=== PATIENT | female | born 1940 | race Caucasian/White ===

== ENCOUNTER 2018-06-27 09:25 | Emergency (ER) | payer OTHER ==
--- OUTSIDE RECORDS SUMMARY | 2018-06-27 09:27 | XMS REPORT | Clinical Summary ---
:1940 Author Organization [facility] Address [address] [place] [address] Care Team Providers Name Role Phone Asked, No Pcp Primary Care Provider Unavailable Allergies No Known Allergies Medications Medication Sig Dispensed Refills Start Date End Date Status predniSONE (DELTASONE) 5 Take 15 mg 0 Active mg tablet by mouth daily. hydroxychloroquine Take by 0 Active (PLAQUENIL) 200 mg mouth 2 tablet (two) times a day. estradiol (ESTRACE) 1 MG Take 1 mg 0 Active tablet by mouth daily. levothyroxine Take 100 0 Active (SYNTHROID, LEVOXYL) 100 mcg by mcg tablet mouth daily. cholecalciferol, vitamin Take 2,000 0 Active D3, (VITAMIN D3) 2,000 Units by unit capsule capsule mouth daily. acetaminophen (TYLENOL) Take 650 mg 0 Active 325 MG tablet by mouth every 6 (six) hours as needed for fever. ascorbic acid, vitamin Take 1,000 0 Active C, (VITAMIN C) 500 MG mg by mouth tablet daily. multivitamin (THERAGRAN) Take 1 0 Active tablet tablet by mouth daily. omega-3 acid ethyl Take 1 g by 0 Active esters (LOVAZA) 1 gram mouth 2 capsule (two) times a day. omeprazole (PriLOSEC) 20 Take 20 mg 0 Active MG capsule by mouth daily. Saccharomyces boulardii Take 250 mg 0 Active (FLORASTOR) 250 mg by mouth 2 capsule (two) times a day. docusate sodium (COLACE) Take 100 mg 0 Active 100 MG capsule by mouth daily. PREMARIN 0.625 mg tablet 0 06/17/2017 Active LORAZepam (ATIVAN) 1 MG 0 07/30/2017 Active tablet MYRBETRIQ 50 mg tablet 0 07/21/2017 Active extended release 24 hr nitrofurantoin, 0 05/30/2017 Active macrocrystal-monohydrate , (MACROBID) 100 MG capsule LORAZepam (ATIVAN) 0.5 Take 0.5 mg 0 Discontinued MG tablet by mouth 2 8 (two) times a day. Active Problems Problem Noted Date Chest pain 10/23/2016 Encounters Date Type Specialty Care Team Description 05/11/2018 Transcribe Orders Access Diaz Benz Fibrocystic breast MD Jeancarlos disease (FCBD), unspecified laterality (Primary Dx) 08/12/2017 Office Visit Gastroenterology Javier, Other constipation MD Junior (Primary Dx) after 06/26/2017 Family History Medical History Relation Name Comments Diabetes Brother Heart disease Brother Diabetes Father Heart disease Father Heart disease Paternal Grandmother Relation Name Status Comments Brother (Age 52) Father Paternal Grandmother Social History Tobacco Use Types Packs/Day Years Used Date Never Smoker Smokeless Tobacco: Never Used Tobacco Cessation: Counseling Given: No Alcohol Use Drinks/Week oz/Week Comments No Sex Assigned at Date Recorded Not on file Job Start Date Occupation Industry Not on file Not on file Not on file Travel History Travel Start Travel End No recent travel history available. Last Filed Vital Signs Vital Sign Reading Time Taken Blood Pressure 134/67 08/12/2017 2:21 PM CHECK WRITER Pulse 85 08/12/2017 2:21 PM CHECK WRITER Temperature 36.4 C (97.6 F) 08/12/2017 2:21 PM CHECK WRITER Respiratory Rate - - Oxygen Saturation - - Inhaled Oxygen Concentration - - Weight 75.8 kg (167 lb) 08/12/2017 2:21 PM CHECK WRITER Height 157.5 cm (5' 2") 08/12/2017 2:21 PM CHECK WRITER Body Mass Index 30.54 08/12/2017 2:21 PM CHECK WRITER Plan of Treatment Date Type Specialty Care Team Description 06/30/2018 Appointment Radiology Diaz Benz MD [address] [facility] [address] [place] [address] Health Maintenance Due Date Last Done Comments SHINGLES VACCINES (1 of 2) 1991 PNEUMOCOCCAL POLYSACCHARIDE VACCINE AGE 65 AND OVER 2006 PNEUMOCOCCAL-13 2006 INFLUENZA VACCINE 01/14/2018 Results Not on fileafter 06/26/2017 Insurance Payer Benefit Plan / Group Subscriber ID Type Phone Address MEDICARE MEDICARE PART A AND B xxxxxxxxxx Medicare [place], [place] SECURE [employer] SUPP xxxxxxxxx Commercial Advance Directives Patient has advance care planning documents on file. For more information, please contact:Jones Krueger[address] [place] [address]
--- NOTE | 2018-06-27 11:03 | ER ---
Nurse's Notes [facility] Name: Theresa Mancera Age: 78 yrs Sex: Female : 1940 Arrival Date: 06/27/2018 Time: 09:28 Bed 15 Private MD: Diagnosis: Abrasion of left forearm Presentation: 06/27 10:05 Presenting complaint: Patient states: small skin tear to L forearm that occurred this ss morning while doing laundry. No bleeding noted at this time. Transition of care: patient was not received from another setting of care. Onset of symptoms was June 27, 2018. Risk Assessment: Do you want to hurt yourself or someone else? Patient reports no desire to harm self or others. Initial Sepsis Screen: Does the patient meet any 2 criteria? No. Patient's initial sepsis screen is negative. Does the patient have a suspected source of infection? No. Patient's initial sepsis screen is negative. Care prior to arrival: None. 10:05 Method Of Arrival: Ambulatory ss 10:05 Acuity: RADHA 5 ss Historical: - Allergies: 10:07 No Known Allergies; ss - Home Meds: 10:10 Clonazepam Oral [Active]; Plaquenil Oral [Active]; Prednisone Oral [Active]; rb1 - PMHx: 10:07 Lupus; ss - PSHx: 10:07 Cholecystectomy; "stomach realignment"; breast reduction; hysterectomy; cataract; ss - Immunization history:: Last tetanus immunization: up to date < 10 years ago. - Social history:: Smoking status: Patient/guardian denies using tobacco. - Ebola Screening: : Patient denies exposure to infectious person Patient denies travel to an Ebola-affected area in the 21 days before illness onset. Screenin:10 Abuse screen: Denies threats or abuse. Nutritional screening: No deficits noted. rb1 Tuberculosis screening: No symptoms or risk factors identified. Fall Risk None identified. Assessment: 10:10 General: Appears in no apparent distress. comfortable, Behavior is calm, cooperative. rb1 Pain: Denies pain. Neuro: Level of Consciousness is awake, alert, obeys commands, Oriented to person, place, time, situation. Cardiovascular: Capillary refill < 3 seconds is brisk in bilateral fingers. Respiratory: Airway is patent Respiratory effort is even, unlabored, Respiratory pattern is regular, symmetrical. GI: No signs and/or symptoms were reported involving the gastrointestinal system. : No signs and/or symptoms were reported regarding the genitourinary system. Derm: Skin is pink, warm \\T\\ dry. Reports "I was picking up a laundry basket and hit the bracket on the door and it tore the skin on my arm. I bruise real easy.". Musculoskeletal: Range of motion: intact in all extremities. 11:10 Reassessment: Patient appears in no apparent distress at this time. No changes from rb1 previously documented assessment. Patient denies pain at this time. Vital Signs: 10:07 BP 129 / 64; Pulse 57; Resp 16; Temp 98.0(TE); Pulse Ox 100% ; Weight 73.94 kg; Height ss 5 ft. 2 in. (157.48 cm); Pain 0/10; 10:07 Body Mass Index 29.81 (73.94 kg, 157.48 cm) ED Course: 09:28 Patient arrived in ED. as 10:06 Triage completed. ss 10:07 Arm band placed on right wrist. ss 10:10 Patient has correct armband on for positive identification. Bed in low position. Call rb1 light in reach. Side rails up X 1. Pulse ox on. NIBP on. 10:13 [facility]-C [facility] kb 10:13 Steven Washington MD is Attending Physician. kb 10:20 Teetee Shaffer, RN is Primary Nurse. rb1 10:51 Wound care: cleaned wound with normal saline and chlorhexidine. Dressed wound with dh3 steri-strips, non-adherent gauze and a Tegaderm. 11:34 No provider procedures requiring assistance completed. Patient did not have IV access rb1 during this emergency room visit. Administered Medications: No medications were administered Outcome: 11:02 Discharge ordered by . kb 11:34 Patient left the ED. rb1 11:34 Discharged to home ambulatory, with significant other. rb1 11:34 Condition: stable 11:34 Discharge instructions given to patient, Instructed on discharge instructions, follow up and referral plans. Demonstrated understanding of instructions, follow-up care, Prescriptions given X none Signatures: Emily Hansen FNP-C FNP-Ckb Martinez, Amelia as Smirch, Shelby, RN RN Teetee Shaffer, SNEHA RN rb1 Jenise Blancas 3 Corrections: (The following items were deleted from the chart) 11:47 11:44 Patient left the ED. rb1 rb1
--- NOTE | 2018-06-27 11:03 | EDPHYS ---
Physician Documentation [facility] Name: Theresa Mancera Age: 78 yrs Sex: Female : 1940 Arrival Date: 06/27/2018 Time: 09:28 Bed 15 Private MD: ED Physician Steven Washington HPI: 06/27 10:52 This 78 yrs old Female presents to ER via Ambulatory with complaints of Skin kb Tear(s). 10:52 The patient has a laceration related to: hitting arm on door occurred at home, and kb there are no complicating factors. The injury was accidental. The laceration(s) is(are) located on the left forearm. Onset: The symptoms/episode began/occurred just prior to arrival. Associated signs and symptoms: The patient has no apparent associated signs or symptoms. The patient has not experienced similar symptoms in the past. The patient has not recently seen a physician. Pt states she was walking through a door and hit her arm on the threshold causing quarter sized skin tear. Historical: - Allergies: 10:07 No Known Allergies; ss - Home Meds: 10:10 Clonazepam Oral [Active]; Plaquenil Oral [Active]; Prednisone Oral [Active]; rb1 - PMHx: 10:07 Lupus; ss - PSHx: 10:07 Cholecystectomy; "stomach realignment"; breast reduction; hysterectomy; cataract; ss - Immunization history:: Last tetanus immunization: up to date < 10 years ago. - Social history:: Smoking status: Patient/guardian denies using tobacco. - Ebola Screening: : Patient denies exposure to infectious person Patient denies travel to an Ebola-affected area in the 21 days before illness onset. ROS: 10:50 Constitutional: Negative for fever, chills, and weight loss, Cardiovascular: Negative kb for chest pain, palpitations, and edema, Respiratory: Negative for shortness of breath, cough, wheezing, and pleuritic chest pain, Abdomen/GI: Negative for abdominal pain, nausea, vomiting, diarrhea, and constipation, MS/Extremity: Negative for injury and deformity, Neuro: Negative for headache, weakness, numbness, tingling, and seizure. 10:50 Skin: Positive for of the left forearm, skin tear. Exam: 10:50 Constitutional: This is a well developed, well nourished patient who is awake, alert, kb and in no acute distress. Head/Face: Normocephalic, atraumatic. Chest/axilla: Normal chest wall appearance and motion. Nontender with no deformity. No lesions are appreciated. Cardiovascular: Regular rate and rhythm with a normal S1 and S2. No gallops, murmurs, or rubs. Normal PMI, no JVD. No pulse deficits. Respiratory: Lungs have equal breath sounds bilaterally, clear to auscultation and percussion. No rales, rhonchi or wheezes noted. No increased work of breathing, no retractions or nasal flaring. Abdomen/GI: Soft, non-tender, with normal bowel sounds. No distension or tympany. No guarding or rebound. No evidence of tenderness throughout. MS/ Extremity: Pulses equal, no cyanosis. Neurovascular intact. Full, normal range of motion. Neuro: Awake and alert, GCS 15, oriented to person, place, time, and situation. Cranial nerves II-XII grossly intact. Motor strength 5/5 in all extremities. Sensory grossly intact. Cerebellar exam normal. Normal gait. 10:50 Skin: injury, skin tear to left forearm, size of quarter. Vital Signs: 10:07 BP 129 / 64; Pulse 57; Resp 16; Temp 98.0(TE); Pulse Ox 100% ; Weight 73.94 kg; Height ss 5 ft. 2 in. (157.48 cm); Pain 0/10; 10:07 Body Mass Index 29.81 (73.94 kg, 157.48 cm) ss MDM: 10:14 Patient medically screened. kb 10:52 Data reviewed: vital signs, nurses notes. Data interpreted: Pulse oximetry: on room air kb is 100 %. Interpretation: normal. 10:54 Counseling: I had a detailed discussion with the patient and/or guardian regarding: the kb historical points, exam findings, and any diagnostic results supporting the discharge/admit diagnosis, the need for outpatient follow up, a family practitioner, to return to the emergency department if symptoms worsen or persist or if there are any questions or concerns that arise at home. 06/27 10:26 Order name: Wound Care; Complete Time: 10:53 kb Administered Medications: No medications were administered Disposition: 17:26 Co-signature as Attending Physician, Steven Washington MD. Disposition: 06/27/18 11:02 Discharged to Home. Impression: Abrasion of left forearm. - Condition is Stable. - Discharge Instructions: Skin Tear Care, [id number]. - Medication Reconciliation Form, Thank You Letter, Antibiotic Education, Prescription Opioid Use form. - Follow up: Emergency Department; When: As needed; Reason: Worsening of condition. Follow up: Private Physician; When: 2 - 3 days; Reason: Recheck today's complaints, Continuance of care, Re-evaluation by your physician. Signatures: Emily Hansen FNP-C FNP-Gillian Patterson, RN RN ss Teetee Shaffer, RN RN rb1 Steven Washington MD MD gs Corrections: (The following items were deleted from the chart) 11:44 11:02 06/27/2018 11:02 Discharged to Home. Impression: Abrasion of left forearm. rb1 Condition is Stable. Forms are Medication Reconciliation Form, Thank You Letter, Antibiotic Education, Prescription Opioid Use. Follow up: Emergency Department; When: As needed; Reason: Worsening of condition. Follow up: Private Physician; When: 2 - 3 days; Reason: Recheck today's complaints, Continuance of care, Re-evaluation by your physician. kb
[2018-06-27 11:50] VITALS: BP 129/64; TEMP 98; O2SAT 100
== END 2018-06-27 11:44 | disposition home or self-care (01) ==
LOC: ER 09:25
DX: S50.812A Abrasion of left forearm, initial encounter (principal); W22.8XXA Striking against or struck by other objects, initial encounter; Y93.01 Activity, walking, marching and hiking; Y92.009 Unspecified place in unspecified non-institutional (private) residence as the place of occurrence of the external cause
CPT/HCPCS: 99283

== ENCOUNTER 2018-06-27 15:58 | Emergency (ER) | payer OTHER ==
--- OUTSIDE RECORDS SUMMARY | 2018-06-27 16:01 | XMS REPORT | Clinical Summary ---
:1940 Author Organization [facility] Address [address] [place] [address] Care Team Providers Name Role Phone Asked, [...] Taken Blood Pressure 134/67 08/12/2017 2:21 PM UI DEVELOPER Pulse 85 08/12/2017 2:21 PM UI DEVELOPER Temperature 36.4 C (97.6 F) 08/12/2017 2:21 PM UI DEVELOPER Respiratory Rate - - Oxygen Saturation - - Inhaled Oxygen Concentration - - Weight 75.8 kg (167 lb) 08/12/2017 2:21 PM UI DEVELOPER Height 157.5 cm (5' 2") 08/12/2017 2:21 PM UI DEVELOPER Body Mass Index 30.54 08/12/2017 2:21 PM UI DEVELOPER Plan of Treatment Date Type Specialty Care Team Description 06/30/2018 Appointment Radiology Diaz Benz MD [address] [facility] [address] [place] [address] Health Maintenance Due Date Last Done Comments SHINGLES VACCINES (1 of 2) 1991 PNEUMOCOCCAL POLYSACCHARIDE VACCINE AGE 65 AND OVER 2006 PNEUMOCOCCAL-13 2006 INFLUENZA VACCINE 01/14/2018 Results Not on fileafter 06/26/2017 Insurance Payer Benefit Plan / Group Subscriber ID Type Phone Address MEDICARE MEDICARE PART A AND B xxxxxxxxxx Medicare [place], [place] [employer] SUPP xxxxxxxxx Commercial Advance Directives Patient has advance care planning documents on file. For more information, please contact:Jones Krueger[address] [place] [address]
--- NOTE | 2018-06-27 16:31 | ER ---
Nurse's Notes [facility] Name: Theresa Mancera Age: 78 yrs Sex: Female : 1940 Arrival Date: 06/27/2018 Time: 16:00 Bed 13 Private MD: Diagnosis: Encounter for change or removal of nonsurgical wound dressing Presentation: 06/27 16:02 Presenting complaint: Patient states: was told to come back if her dressing started sv seeping through, pt was seen here this morning for a left forearm skin tear. Transition of care: patient was not received from another setting of care. Onset of symptoms was June 27, 2018. Care prior to arrival: None. 16:02 Method Of Arrival: Ambulatory sv 16:02 Acuity: RADHA 5 sv 16:10 Risk Assessment: Do you want to hurt yourself or someone else? Patient reports no rb1 desire to harm self or others. Initial Sepsis Screen: Does the patient meet any 2 criteria? No. Patient's initial sepsis screen is negative. Does the patient have a suspected source of infection? No. Patient's initial sepsis screen is negative. Triage Assessment: 16:02 General: Appears in no apparent distress. comfortable, Behavior is calm, cooperative, sv appropriate for age. Neuro: Level of Consciousness is awake, alert, obeys commands, Oriented to person, place, time, situation, Moves all extremities. Full function. Respiratory: Respiratory effort is even, unlabored, Respiratory pattern is regular, symmetrical. Derm: Skin is pink, warm \\T\\ dry. Pt has a dressing to the left forearm. Historical: - Allergies: 16:03 No Known Allergies; sv - Home Meds: 16:10 Clonazepam Oral [Active]; Plaquenil Oral [Active]; Prednisone Oral [Active]; rb1 - PMHx: 16:03 Lupus; sv - PSHx: 16:03 Cholecystectomy; "stomach realignment"; breast reduction; Hysterectomy; cataract; sv - Immunization history:: Adult Immunizations up to date, Last tetanus immunization: up to date. - Social history:: Smoking status: Patient/guardian denies using tobacco. - Ebola Screening: : Patient negative for fever greater than or equal to 101.5 degrees Fahrenheit, and additional compatible Ebola Virus Disease symptoms. Screenin:10 Abuse screen: Denies threats or abuse. Nutritional screening: No deficits noted. rb1 Tuberculosis screening: No symptoms or risk factors identified. Fall Risk None identified. Assessment: 16:10 General: Appears in no apparent distress. comfortable, Behavior is calm, cooperative. rb1 Pain: Denies pain. Neuro: Level of Consciousness is awake, alert, obeys commands, Oriented to person, place, time, situation. Cardiovascular: Capillary refill < 3 seconds is brisk in bilateral fingers. Respiratory: Airway is patent Respiratory effort is even, unlabored, Respiratory pattern is regular, symmetrical. GI: No signs and/or symptoms were reported involving the gastrointestinal system. : No signs and/or symptoms were reported regarding the genitourinary system. Derm: Skin is pink, warm \\T\\ dry. Pt. came back because her dressing was soiled and she thought she needed to come back here for it to be changed. Educated the pt. on how to do wound care at home. Musculoskeletal: Range of motion: intact in all extremities. 16:25 Reassessment: Patient appears in no apparent distress at this time. Changed the rb1 dressing on the left forearm. Applied a non-adherent pad covered with Tegaderm. No bleeding noted at this time. Pt. tolerated well. Vital Signs: 16:03 BP 145 / 69; Pulse 61; Resp 16; Temp 97.9(O); Pulse Ox 100% ; sv ED Course: 16:00 Patient arrived in ED. as 16:03 Triage completed. sv 16:04 Arm band placed on Patient placed in an exam room, on a stretcher. sv 16:05 Emily [facility]NP-C [facility]. kb 16:05 Steven Washington MD is Attending Physician. kb 16:10 Patient has correct armband on for positive identification. Bed in low position. Call rb1 light in reach. Side rails up X 1. Pulse ox on. NIBP on. 16:17 Wound care: replaced non-adherent gauze and Tegaderm to skin tear on left forearm. dh3 16:37 Teetee Shaffer, RN is Primary Nurse. rb1 16:45 No provider procedures requiring assistance completed. Patient did not have IV access rb1 during this emergency room visit. Administered Medications: No medications were administered Outcome: 16:31 Discharge ordered by . kb 16:45 Discharged to home ambulatory, with family. rb1 16:45 Condition: stable 16:45 Discharge instructions given to patient, Instructed on discharge instructions, follow up and referral plans. wound care, Demonstrated understanding of instructions, follow-up care, wound care, Prescriptions given X none 16:46 Patient left the ED. rb1 Signatures: Emily Hansen, JAY-C LOCKSMITH HELPER-Unique White, RN RN Brisa Mcbride Rebecca, RN RN rb1 Jenise Blancas 3
--- NOTE | 2018-06-27 16:31 | EDPHYS ---
Physician Documentation [facility] Name: Theresa Mancera Age: 78 yrs Sex: Female : 1940 Arrival Date: 06/27/2018 Time: 16:00 Bed 13 Private MD: ED Physician Steven Washington HPI: 06/27 16:32 This 78 yrs old Female presents to ER via Ambulatory with complaints of Wound kb Recheck. 16:32 Patient presents to ED for recheck of: skin tear. The affected area is on the left kb forearm. Previous treatment: The patient was initially treated on June 27, 2018, the care was rendered at [facility], Treatment type: The patient's original treatment included steri-strips . Outpatient prescription(s): The patient was given prescription(s) for nothing. Progress: The patient reports no change in. The patient has experienced similar episodes in the past. The patient has been recently seen at the [facility] Emergency Department, today, by me, for similar complaints. Pt states she came back because she noticed seeping on the bandage that was placed earlier. . Historical: - Allergies: 16:03 No Known Allergies; sv - Home Meds: 16:10 Clonazepam Oral [Active]; Plaquenil Oral [Active]; Prednisone Oral [Active]; rb1 - PMHx: 16:03 Lupus; sv - PSHx: 16:03 Cholecystectomy; "stomach realignment"; breast reduction; Hysterectomy; cataract; sv - Immunization history:: Adult Immunizations up to date, Last tetanus immunization: up to date. - Social history:: Smoking status: Patient/guardian denies using tobacco. - Ebola Screening: : Patient negative for fever greater than or equal to 101.5 degrees Fahrenheit, and additional compatible Ebola Virus Disease symptoms. ROS: 16:32 Constitutional: Negative for fever, chills, and weight loss, Cardiovascular: Negative kb for chest pain, palpitations, and edema, Respiratory: Negative for shortness of breath, cough, wheezing, and pleuritic chest pain, Abdomen/GI: Negative for abdominal pain, nausea, vomiting, diarrhea, and constipation, MS/Extremity: Negative for injury and deformity, Neuro: Negative for headache, weakness, numbness, tingling, and seizure. 16:32 Skin: Positive for skin tear. Exam: 16:32 Constitutional: This is a well developed, well nourished patient who is awake, alert, kb and in no acute distress. Head/Face: Normocephalic, atraumatic. Neck: Trachea midline, no thyromegaly or masses palpated, and no cervical lymphadenopathy. Supple, full range of motion without nuchal rigidity, or vertebral point tenderness. No Meningismus. Chest/axilla: Normal chest wall appearance and motion. Nontender with no deformity. No lesions are appreciated. Cardiovascular: Regular rate and rhythm with a normal S1 and S2. No gallops, murmurs, or rubs. Normal PMI, no JVD. No pulse deficits. Respiratory: Lungs have equal breath sounds bilaterally, clear to auscultation and percussion. No rales, rhonchi or wheezes noted. No increased work of breathing, no retractions or nasal flaring. Abdomen/GI: Soft, non-tender, with normal bowel sounds. No distension or tympany. No guarding or rebound. No evidence of tenderness throughout. MS/ Extremity: Pulses equal, no cyanosis. Neurovascular intact. Full, normal range of motion. Neuro: Awake and alert, GCS 15, oriented to person, place, time, and situation. Cranial nerves II-XII grossly intact. Motor strength 5/5 in all extremities. Sensory grossly intact. Cerebellar exam normal. Normal gait. 16:32 Skin: injury, skin tear to left forearm. soiled dressing removed, steri-strips still in place, no active bleeding noted. New dressing applied. Vital Signs: 16:03 BP 145 / 69; Pulse 61; Resp 16; Temp 97.9(O); Pulse Ox 100% ; sv MDM: 16:05 Patient medically screened. kb 16:35 Data reviewed: vital signs, nurses notes. Data interpreted: Pulse oximetry: on room air kb is 100 %. Interpretation: normal. Counseling: I had a detailed discussion with the patient and/or guardian regarding: the historical points, exam findings, and any diagnostic results supporting the discharge/admit diagnosis, the need for outpatient follow up, a family practitioner, to return to the emergency department if symptoms worsen or persist or if there are any questions or concerns that arise at home. Administered Medications: No medications were administered Disposition: 17:32 Co-signature as Attending Physician, Steven Washington MD. Disposition: 06/27/18 16:31 Discharged to Home. Impression: Encounter for change or removal of nonsurgical wound dressing. - Condition is Stable. - Discharge Instructions: Skin Tear Care, [id number], How to Change Your Dressing, [id number]. - Medication Reconciliation Form, Thank You Letter, Antibiotic Education, Prescription Opioid Use form. - Follow up: Emergency Department; When: As needed; Reason: Worsening of condition. Follow up: Private Physician; When: 2 - 3 days; Reason: Recheck today's complaints, Continuance of care, Re-evaluation by your physician. Signatures: Emily Hansen, MOLDING SUPERVISOR-C MOLDING SUPERVISOR-Ckb Unique Blackwell, RN RN Teetee Morley RN RN rb1 Steven Washington MD MD Corrections: (The following items were deleted from the chart) 16:46 16:31 06/27/2018 16:31 Discharged to Home. Impression: Encounter for change or removal rb1 of nonsurgical wound dressing. Condition is Stable. Forms are Medication Reconciliation Form, Thank You Letter, Antibiotic Education, Prescription Opioid Use. Follow up: Emergency Department; When: As needed; Reason: Worsening of condition. Follow up: Private Physician; When: 2 - 3 days; Reason: Recheck today's complaints, Continuance of care, Re-evaluation by your physician. kb
[2018-06-27 16:58] VITALS: BP 145/69; TEMP 97.9; O2SAT 100
== END 2018-06-27 16:46 | disposition home or self-care (01) ==
LOC: ER 15:58
DX: Z48.00 Encounter for change or removal of nonsurgical wound dressing (principal)
CPT/HCPCS: 99283

== ENCOUNTER 2019-05-18 17:52 | Observation (INO) | payer OTHER ==
[2019-05-18] MEDS ORDERED: ONDANSETRON 4 MG/2 ML VIAL ONE ×2 (18:59→19:34)
[2019-05-18] MEDS ORDERED: MORPHINE 2 MG/ML SYR ONE (18:59)
[2019-05-18 19:01] LABS: Absolute Lymphocytes (CBC) 3.9 K/uL (0.7-4.9); Basophils % 0.7 % (0-1.3); Hematocrit 39.4 % (36.0-45.0); Lymphocytes % 34.4 % (15.3-44.8); MPV 8.2 fL (7.6-11.3); RBC Red Blood Cell Count 3.93 M/uL (3.86-4.86)
--- NOTE | 2019-05-18 19:24 | RAD REPORT ---
EXAM DESCRIPTION: RAD - Forearm Right - 05/18/2019 7:16 pm CLINICAL HISTORY: Right arm pain status post fall FINDINGS: Bracelets overlie the distal forearm obscuring detail No fracture is seen.
--- NOTE | 2019-05-18 19:27 | RAD REPORT ---
EXAM DESCRIPTION: RAD - Hand Right 3 View - 05/18/2019 7:19 pm CLINICAL HISTORY: Right hand pain status post injury FINDINGS: The bones are osteoporotic The second distal phalanx is subluxed laterally. This could be acute or chronic and should correlated clinically There is marked narrowing of the second DIP joint with osteophytes. No fracture
[2019-05-18 19:34] LABS: Albumin 3.6 g/dL (3.4-5.0); Bilirubin Total 0.4 mg/dL (0.2-1.0); Potassium 4.1 mmol/L (3.5-5.1); Protein, Total 6.9 g/dL (6.4-8.2)
--- NOTE | 2019-05-18 20:32 | RAD REPORT ---
EXAM DESCRIPTION: CT - Head C Spine Cap Joelle Kovacs - 05/18/2019 8:15 pm CLINICAL HISTORY: Head and neck injury with chest and abdominal pain status post fall. Head and neck pain . TECHNIQUE: Computed axial tomography of the head and cervical spine was obtained Computed axial tomography of the chest, abdomen and pelvis was obtained. 100 cc Isovue-300 was given intravenously coronal and sagittal reconstruction was performed. All CT scans are performed using dose optimization technique as appropriate and may include automated exposure control or mA/KV adjustment according to patient size. FINDINGS: An intracranial bleed is not seen. The ventricles are normal in caliber. An extra-axial fl uid collection is not noted. A right frontal scalp/right preseptal swelling. Fractures involve the anterior and posterolateral riggs of the right maxillary sinus. Mildly depresse d right orbital floor fracture. Blood is present within the right maxillary sinus. A cervical fracture is not seen. No dislocation is seen. A mediastinal hematoma is not noted. A pleural effusion is not present. A lung contusion is not seen. The liver, spleen, pancreas, adrenals, kidneys and bladder do not demonstrate a traumatic injury. Left renal cysts IMPRESSION: 1. No acute intracranial abnormality is seen 2. A cervical fracture is not visualized. If the patient continues have symptoms to suggest intracran ial/spinal cord pathology then MRI would be recommended. 3. No traumatic injury involving the chest, abdomen or pelvis is seen. 4.Fractures involve the anterior and posterolateral riggs of the right maxillary sinus. Mildly depres sed right orbital floor fracture.
[2019-05-18] MEDS ORDERED: LIDOCAINE 1% MPF 30 ML VIAL ONE (21:26)
--- NOTE | 2019-05-18 22:01 | ER ---
Nurse's Notes [facility] Name: Theresa Mancera Age: 79 yrs Sex: Female : 1940 Arrival Date: 05/18/2019 Time: 17:59 Bed 2 Private MD: Diagnosis: Fracture of orbital floor;Hand Laceration;Unspecified injury of head Presentation: 05/18 17:59 Presenting complaint: EMS states: pt was walking on concrete when she lost her footing sg and fell forward, hitting her forehead on the ground and landing on the right side of her body, pt denies LOC, reports pain to the right arm and right side of head. Care prior to arrival: Cervical collar in place. Placed on backboard. Medication(s) given: zofran 4 mg, Nubane 4 mg IV initiated. 20 GA, in the left antecubital area. Mechanism of Injury: Fall from standing position. Trauma event details: Injury occurred in the [facility], Injury occurred: at home. Injury occurred: May 18, 2019. 17:59 Acuity: RADHA 3 sg 17:59 Method Of Arrival: EMS: [facility] sg 19:46 Onset of symptoms. Risk Assessment: Do you want to hurt yourself or someone else? ea Patient reports no desire to harm self or others. Initial Sepsis Screen: Does the patient meet any 2 criteria? No. Patient's initial sepsis screen is negative. Does the patient have a suspected source of infection? No. Patient's initial sepsis screen is negative. Trauma Activation: Not Applicable Physician: ED Physician; Name: ; Notified At: ; Arrived At: Physician: General Surgeon; Name: ; Notified At: ; Arrived At: Physician: Radiology; Name: ; Notified At: ; Arrived At: Physician: Respiratory; Name: ; Notified At: ; Arrived At: Physician: Lab; Name: ; Notified At: ; Arrived At: Historical: - Allergies: 18:03 No Known Allergies; sg - PMHx: 18:03 Lupus; sg - PSHx: 18:03 Cholecystectomy; "stomach realignment"; breast reduction; Hysterectomy; cataract; sg - Immunization history:: Adult Immunizations up to date. - Social history:: Smoking status: Patient/guardian denies using tobacco. - Immunization history: Last tetanus immunization: unknown. - Ebola Screening: : No symptoms or risks identified at this time. Screenin:59 Abuse screen: Denies threats or abuse. Denies injuries from another. Tuberculosis sg screening: No symptoms or risk factors identified. Has had TB. 19:47 Nutritional screening: No deficits noted. Fall Risk Fall in past 12 months (25 points). ea IV access (20 points). Primary Survey: 17:59 NO uncontrolled hemorrhage observed. A: The patient is alert. Airway: patent, Oral sg cavity: clear, Trachea midline. Breathing/Chest: Respiratory pattern: regular, Respiratory effort: spontaneous. Circulation: Heart tones present. Pulses: palpable right radial artery, right posterior tibial artery, left radial artery and left posterior tibial artery. Skin color: pink, Skin temperature: warm. Disability Alert. Exposure/Environment: All clothing and personal items were removed. Forensic evidence collection is not deemed to be indicated at this time. Items placed in patient belonging bag. There is no evidence of uncontrolled external bleeding. Obvious injury(ies) are noted at this time: right upper arm, right side of face A warming method has been applied: A warm blanket has been provided to the patient. 19:46 Reassessment Airway Airway Patent Breathing/Chest Respiratory pattern Regular ea Respiratory effort Spontaneous Unlabored. Secondary Survey: 17:59 HEENT: Head Other swelling and bruising to the right eye and right forehead. sg Gastrointestinal: Abdomen is soft, non-distended, Patient reports Nausea. : No signs and/or symptoms were reported regarding the genitourinary system. Musculoskeletal: Circulation, motion, and sensation intact. Reports pain in right arm. Assessment: 18:30 General: Appears in no apparent distress. well groomed, well developed, well nourished, sg Behavior is calm, cooperative, appropriate for age. Pain: Complains of pain in forehead, right eye and right arm Quality of pain is described as throbbing. Neuro: Level of Consciousness is awake, alert, obeys commands, Oriented to person, place, time, Speech is normal. Cardiovascular: Patient's skin is warm and dry. Chest pain is denied. Respiratory: Airway is patent Respiratory effort is even, unlabored, Respiratory pattern is regular, symmetrical. GI: Abdomen is round non-distended, Bowel sounds present X 4 quads. : No signs and/or symptoms were reported regarding the genitourinary system. EENT: Sclera/Cornea are clear in right eye and left eye Nares are clear bilaterally Oral mucosa is moist. Derm: Skin is pink, warm \\T\\ dry. Musculoskeletal: Circulation, motion, and sensation intact. Swelling present in right eye. 19:44 General: Appears in no apparent distress. Behavior is calm, cooperative, appropriate ea for age. Pain: Complains of pain in right eye. Neuro: Level of Consciousness is awake, alert, obeys commands, Oriented to person, place, time, Speech is normal, Facial symmetry appears normal. Cardiovascular: Patient's skin is warm and dry. Respiratory: Airway is patent Respiratory effort is even, unlabored, Respiratory pattern is regular, symmetrical. GI: Abdomen is non-distended. Derm: Skin is pink, warm \\T\\ dry. Injury Description: Abrasion sustained to right supraorbital ridge and dorsum of right hand Laceration sustained to medial aspect of right hand is jagged, 2.6 to 7.5 cm long, a small amount of bleeding noted at this time. 20:49 Reassessment: Patient and/or family updated on plan of care and expected duration. Pain ea level reassessed. Patient is alert, oriented x 3, equal unlabored respirations, skin warm/dry/pink. 21:50 Reassessment: Patient and/or family updated on plan of care and expected duration. Pain ea level reassessed. Patient is alert, oriented x 3, equal unlabored respirations, skin warm/dry/pink. 22:35 Reassessment: Patient and/or family updated on plan of care and expected duration. Pain ea level reassessed. Patient is alert, oriented x 3, equal unlabored respirations, skin warm/dry/pink. 05/19 00:48 Reassessment: Patient and/or family updated on plan of care and expected duration. Pain ea level reassessed. Patient is alert, oriented x 3, equal unlabored respirations, skin warm/dry/pink. Report called to Zohreh HOOVER. 01:04 Reassessment: Patient and/or family updated on plan of care and expected duration. Pain ea level reassessed. Patient is alert, oriented x 3, equal unlabored respirations, skin warm/dry/pink. Pt admitted to fourth floor via stretcher, per tech. Pt tolerating well. Accompanied by family. Vital Signs: 05/18 18:03 BP 176 / 68; Pulse 78; Resp 18; Temp 97; Pulse Ox 96% on R/A; Weight 102.06 kg; Height sg 5 ft. 9 in. (175.26 cm); Pain 3/10; 19:48 BP 140 / 66; Pulse 64; Resp 18; Temp 97.2; Pulse Ox 95% on R/A; ea 20:00 BP 135 / 66; Pulse 66; Resp 18; Pulse Ox 99% ; ea 21:00 BP 140 / 68; Pulse 70; Resp 18; Pulse Ox 99% on R/A; ea 23:41 BP 136 / 61; Pulse 69; Resp 18; Pulse Ox 97% on R/A; ea 05/19 00:30 BP 125 / 58; Pulse 62; Resp 18; Temp 97.4; Pulse Ox 97% on R/A; Pain 0/10; ea 01:00 BP 113 / 45; Pulse 62; Resp 18; Temp 97.6(TE); Pulse Ox 95% ; Pain 0/10; ea 05/18 18:03 Body Mass Index 33.23 (102.06 kg, 175.26 cm) sg [place] Coma Score: 05/18 18:03 Eye Response: spontaneous(4). Verbal Response: oriented(5). Motor Response: obeys sg commands(6). Total: 15. 19:48 Eye Response: spontaneous(4). Verbal Response: oriented(5). Motor Response: obeys ea commands(6). Total: 15. 20:00 Eye Response: spontaneous(4). Verbal Response: oriented(5). Motor Response: obeys ea commands(6). Total: 15. 21:00 Eye Response: spontaneous(4). Verbal Response: oriented(5). Motor Response: obeys ea commands(6). Total: 15. 23:41 Eye Response: spontaneous(4). Verbal Response: oriented(5). Motor Response: obeys ea commands(6). Total: 15. 04 00:30 Eye Response: spontaneous(4). Verbal Response: oriented(5). Motor Response: obeys ea commands(6). Total: 15. 01:00 Eye Response: spontaneous(4). Verbal Response: oriented(5). Motor Response: obeys ea commands(6). Total: 15. Trauma Score (Adult): 05/18 18:03 Eye Response: spontaneous(1); Verbal Response: oriented(1); Motor Response: obeys sg commands(2); Systolic BP: > 89 mm Hg(4); Respiratory Rate: 10 to 29 per min(4); [place] Score: 15; Trauma Score: 12 ED Course: 17:59 Patient arrived in ED. sg 18:00 Inserted saline lock: 20 gauge in left wrist, using aseptic technique. Flushed left sv with 5 ml normal saline wrist. 18:00 Patient has correct armband on for positive identification. Bed in low position. Call sg light in reach. Side rails up X2. 18:01 Triage completed. sg 18:01 Patient maintains SpO2 saturation greater than 95% on room air. Thermoregulation: warm sg blanket given to patient. 18:15 Reagan García PA is PHCP. jm 18:15 Jose Bower MD is Attending Physician. jmm 18:55 Junior Alonzo, SNEHA is Primary Nurse. sg 19:00 Arm band placed on. ea 19:05 X-ray(s) taken. sv 19:14 Forearm Right XRAY In Process Unspecified. EDMS 19:14 Hand Right 3 View XRAY In Process Unspecified. EDMS 20:15 CT Traumagram (Head C Spine CAP W Con) In Process Unspecified. EDMS 21:50 Assist provider with laceration repair on medial aspect of right hand that was between ea 2.6 to 7.5 cm using sutures. Set up tray. Dressed with Neosporin, Patient tolerated well. 22:15 IV discontinued, intact, bleeding controlled, No redness/swelling at site. Pressure ea dressing applied. 22:32 Carri Triplett MD is Hospitalizing Provider. jmm 23:47 Accessed peripheral vein via ultrasound, utilizing dynamic ultrasound technique using lp1 ,sterile technique, per hospital protocol. Clean \\T\\ dry. Good blood return. Flushes easily. 22 g IV to R AC. Administered Medications: 19:20 Drug: morphine 2 mg Route: IVP; Site: left forearm; sg 20:00 Follow up: Response: No adverse reaction ea 19:20 Drug: Zofran 4 mg Route: IVP; Site: left forearm; sg 20:00 Follow up: Response: No adverse reaction ea 19:43 Drug: Zofran 4 mg Route: IVP; Site: left hand; ea 23:24 Follow up: Response: No adverse reaction; Nausea is decreased ea 21:50 Drug: Lidocaine (1 %) 20 ml {Note: administered by provider.} Volume: 20 ml; Route: ea Infiltration; 22:40 Drug: Promethazine 12.5 mg Route: IM; Site: right deltoid; ea 23:24 Follow up: Response: No adverse reaction; Nausea is decreased ea Intake: 18:03 PO: 0ml; Total: 0ml. sg Outcome: 22:01 Discharge ordered by MD. petra 22:33 Decision to Hospitalize by Provider. petra 23:00 Instructed on the need for admit. ea 05/19 00:46 Condition: stable ea 00:47 Admitted to Med/surg accompanied by tech, room 403, Report called to Elodia HOOVER ea 01:04 Pt admitted to fourth floorPatient's length of stay extended due to ea 01:07 Patient left the ED. ea Signatures: Dispatcher [employer] Unique Tamez, RN SNEHA Junior Alonzo RN SNEHA Reagan García PA PA jmm Pena, Laura, RN RN lp1 Sena Murray RN RN ea Corrections: (The following items were deleted from the chart) 05/18 18:02 17:59 Care prior to arrival: None. [facility] 18:02 17:59 Trauma event details: Injury occurred in the [facility], Injury occurred: sg at home. Injury occurred: May 18, 2019 sg 22:19 21:50 Lidocaine (1 %) 20 ml 20 ml Infiltration 20 ml ea ea 23:05 19:44 Injury Description: Abrasion sustained to right supraorbital ridge and dorsum of ea right hand ea
--- NOTE | 2019-05-18 22:02 | EDPHYS ---
Physician Documentation [facility] Name: Theresa Mancera Age: 79 yrs Sex: Female : 1940 Arrival Date: 05/18/2019 Time: 17:59 Bed 2 Private MD: ED Physician Jose Bower HPI: 05/18 18:16 This 79 yrs old Female presents to ER via EMS with complaints of Fall Injury. jmm 18:16 Details of fall: The patient fell from an upright position. Onset: The symptoms/episode jmm began/occurred acutely, just prior to arrival. Associated injuries: The patient sustained injury to the head. This is a 79 year old female with a history of lupus that presents to the ED with complaints of right sided facial pain and right sided pain beginning after a fall which occurred just prior to arrival. Patient tripped while walking into her house. Denies LOC, vomiting. . Historical: - Allergies: 18:03 No Known Allergies; sg - PMHx: 18:03 Lupus; sg - PSHx: 18:03 Cholecystectomy; "stomach realignment"; breast reduction; Hysterectomy; cataract; sg - Immunization history:: Adult Immunizations up to date. - Social history:: Smoking status: Patient/guardian denies using tobacco. - Immunization history: Last tetanus immunization: unknown. - Ebola Screening: : No symptoms or risks identified at this time. ROS: 18:16 Constitutional: Negative for fever, chills, and weight loss, Cardiovascular: Negative jmm for chest pain, palpitations, and edema, Respiratory: Negative for shortness of breath, cough, wheezing, and pleuritic chest pain. 18:16 MS/extremity: Positive for pain. 18:16 All other systems are negative. Exam: 18:16 Constitutional: This is a well developed, well nourished patient who is awake, alert, jmm and in no acute distress. 18:16 ENT: Moist Mucus Membranes Neck: Trachea midline, Supple Chest/axilla: Normal chest wall appearance and motion. Cardiovascular: Regular rate and rhythm. No edema appreciated Respiratory: Normal respirations, no respiratory distress appreciated Abdomen/GI: Non distended, soft Back: Normal ROM Skin: General appearance color normal 18:16 Head/face: Noted is hematoma, that is moderate, of the right eye, raccoon eye(s), on the right. 18:16 Eyes: Extraocular movements: intact throughout, Conjunctiva: normal. 18:16 Musculoskeletal/extremity: from appreciated to the RUE, laceration noted to the right lateral hand, mild bony tenderness appreciated to the distal forearm, full radial pulse, compartments are soft, NVI. 18:16 Skin: 3 cm laceration noted to the right hand. 18:16 Neuro: Orientation: is normal, Mentation: is normal, Memory: is normal. 18:16 Psych: Behavior/mood is pleasant, cooperative. Vital Signs: 18:03 BP 176 / 68; Pulse 78; Resp 18; Temp 97; Pulse Ox 96% on R/A; Weight 102.06 kg; Height sg 5 ft. 9 in. (175.26 cm); Pain 3/10; 19:48 BP 140 / 66; Pulse 64; Resp 18; Temp 97.2; Pulse Ox 95% on R/A; ea 20:00 BP 135 / 66; Pulse 66; Resp 18; Pulse Ox 99% ; ea 21:00 BP 140 / 68; Pulse 70; Resp 18; Pulse Ox 99% on R/A; ea 23:41 BP 136 / 61; Pulse 69; Resp 18; Pulse Ox 97% on R/A; ea 1204 00:30 BP 125 / 58; Pulse 62; Resp 18; Temp 97.4; Pulse Ox 97% on R/A; Pain 0/10; ea 01:00 BP 113 / 45; Pulse 62; Resp 18; Temp 97.6(TE); Pulse Ox 95% ; Pain 0/10; ea 05/18 18:03 Body Mass Index 33.23 (102.06 kg, 175.26 cm) Minturn Coma Score: 05/18 18:03 Eye Response: spontaneous(4). Verbal Response: oriented(5). Motor Response: obeys sg commands(6). Total: 15. 19:48 Eye Response: spontaneous(4). Verbal Response: oriented(5). Motor Response: obeys ea commands(6). Total: 15. 20:00 Eye Response: spontaneous(4). Verbal Response: oriented(5). Motor Response: obeys ea commands(6). Total: 15. 21:00 Eye Response: spontaneous(4). Verbal Response: oriented(5). Motor Response: obeys ea commands(6). Total: 15. 23:41 Eye Response: spontaneous(4). Verbal Response: oriented(5). Motor Response: obeys ea commands(6). Total: 15. 04 00:30 Eye Response: spontaneous(4). Verbal Response: oriented(5). Motor Response: obeys ea commands(6). Total: 15. 01:00 Eye Response: spontaneous(4). Verbal Response: oriented(5). Motor Response: obeys ea commands(6). Total: 15. Trauma Score (Adult): 05/18 18:03 Eye Response: spontaneous(1); Verbal Response: oriented(1); Motor Response: obeys sg commands(2); Systolic BP: > 89 mm Hg(4); Respiratory Rate: 10 to 29 per min(4); Minturn Score: 15; Trauma Score: 12 Laceration: 21:58 Wound Repair of 3cm ( 1.2in ) subcutaneous laceration to right hand. Distal jmm neuro/vascular/tendon intact. Anesthesia: Local anesthetic administered with 3 mls of 1% lidocaine. Wound prep: Simple cleansing with betadine by me. Skin closed with 6 5-0 Prolene using simple sutures and sterile technique. Patient tolerated well. MDM: 18:16 Patient medically screened. [facility] 21:58 Data reviewed: vital signs, nurses notes. Counseling: I had a detailed discussion with petra the patient and/or guardian regarding: the historical points, exam findings, and any diagnostic results supporting the discharge/admit diagnosis, radiology results, the need for outpatient follow up, to return to the emergency department if symptoms worsen or persist or if there are any questions or concerns that arise at home. ED course: CT imaging studies negative for intracranial injury. EOM intact, I do not suspect entrapment. Advised to follow up with ENT for reevaluation. patient understood and agrees with the plan of care. . 22:32 ED course: Patient continues to vomit. Will admit for intractable vomiting. I discussed [facility] the patient with Dr. Triplett whom accepted admission. 05/18 18:38 Order name: CBC with Diff; Complete Time: 19:42 [facility] 05/18 18:38 Order name: Creatinine for Radiology; Complete Time: 19:26 [facility] 05/18 18:38 Order name: CMP; Complete Time: 19:42 [facility] 05/18 23:52 Order name: CBC with Automated Diff EDND 05/18 23:52 Order name: CBC with Automated Diff EDND 05/18 23:52 Order name: CKMB Creatine Kinase MB EDND 05/18 23:52 Order name: CKMB Creatine Kinase MB EDND 05/18 23:52 Order name: Comprehensive Metabolic Panel EDND 05/18 23:52 Order name: Comprehensive Metabolic Panel [facility] 05/18 23:52 Order name: Creatine Phosphokinase EDND 05/18 23:52 Order name: Creatine Phosphokinase EDND 05/18 23:52 Order name: Protime (+INR) EDND 05/18 23:52 Order name: Protime (+INR) EDND 05/18 23:52 Order name: PTT, Activated Partial Thromb EDND 05/18 18:38 Order name: CT Traumagram (Head C Spine CAP W Con); Complete Time: 20:51 [facility] 05/18 18:38 Order name: Saline Lock; Complete Time: 19:44 [facility] 05/18 18:38 Order name: Forearm Right XRAY; Complete Time: 19:42 [facility] 05/18 18:38 Order name: Hand Right 3 View XRAY; Complete Time: 19:42 [facility] 05/18 23:52 Order name: CONS Pharmacy Consult [facility] 05/18 23:52 Order name: CONS Physician Consult [facility] 05/18 23:52 Order name: Heart Healthy [facility] 05/18 23:52 Order name: PTT, Activated Partial Thromb EDND 05/18 23:52 Order name: Troponin I [facility] 05/18 23:52 Order name: Troponin I EDND Administered Medications: 19:20 Drug: morphine 2 mg Route: IVP; Site: left forearm; sg 20:00 Follow up: Response: No adverse reaction ea 19:20 Drug: Zofran 4 mg Route: IVP; Site: left forearm; sg 20:00 Follow up: Response: No adverse reaction ea 19:43 Drug: Zofran 4 mg Route: IVP; Site: left hand; ea 23:24 Follow up: Response: No adverse reaction; Nausea is decreased ea 21:50 Drug: Lidocaine (1 %) 20 ml {Note: administered by provider.} Volume: 20 ml; Route: ea Infiltration; 22:40 Drug: Promethazine 12.5 mg Route: IM; Site: right deltoid; ea 23:24 Follow up: Response: No adverse reaction; Nausea is decreased ea Disposition: 05/19 07:55 Co-signature as Attending Physician, Jose Bower MD I agree with the assessment and bobby plan of care. Disposition: 05/18/19 22:33 Hospitalization ordered by Carri Triplett for Observation. Preliminary diagnosis are Fracture of orbital floor, Hand Laceration, Unspecified injury of head. - Bed requested for Telemetry/MedSurg (observation). - Status is Observation. ea - Condition is Stable. - Problem is new. - Symptoms are unchanged. UTI on Admission? No Signatures: Dispatcher [employer] EDMS Junior Alonzo RN RN sg Anderson, Corey, MD MD cha Mickail, Joel, PA PA Thelma Barger RN RN tl1 Sena Murray RN RN ea Corrections: (The following items were deleted from the chart) 05/18 22:29 22:01 05/18/2019 22:01 Discharged to Home. Impression: Unspecified injury of head; [facility] Fracture of orbital floor. Condition is Stable. Forms are Medication Reconciliation Form, Thank You Letter, Antibiotic Education, Prescription Opioid Use. Follow up: Private Physician; When: 7 - 10 days; Reason: Recheck today's complaints, Continuance of care, Staple/Suture removal, Re-evaluation by your physician. [facility] 05/19 00:06 05/18 22:33 Hospitalization Ordered by Carri Triplett MD for Observation. Preliminary tl1 diagnosis is Fracture of orbital floor; Hand Laceration; Unspecified injury of head. Bed requested for Telemetry/MedSurg (observation). Status is Observation. Condition is Stable. Problem is new. Symptoms are unchanged. UTI on Admission? No. [facility] 05/19 01:07 00:06 05/18/2019 22:33 Hospitalization Ordered by Carri Triplett MD for Observation. ea Preliminary diagnosis is Fracture of orbital floor; Hand Laceration; Unspecified injury of head. Bed requested for Telemetry/MedSurg (observation). Status is Observation. Condition is Stable. Problem is new. Symptoms are unchanged. UTI on Admission? No. tl1
[2019-05-18] MEDS ORDERED: PROMETHAZINE 25 MG/ML VIAL ONE (22:26)
[2019-05-18] MEDS ORDERED: NA CHLORIDE 0.9% 1,000 ML IV SCH (23:45)
[2019-05-18] MEDS ORDERED: MORPHINE 4 MG/ML SYR IV PRN (23:49)
[2019-05-18] MEDS ORDERED: ONDANSETRON 4 MG/2 ML VIAL IV PRN (23:49)
[2019-05-19] MEDS ORDERED: CEFAZOLIN SODIUM 1 GM/VIAL ONE (01:04)
[2019-05-19] MEDS ORDERED: NA CHLORIDE 0.9% 100 ML IV ONE (01:05)
[2019-05-19] MEDS ORDERED: NA CHLORIDE 0.9% 50 ML ONE (01:28)
[2019-05-19 01:43] VITALS: O2SAT 95
[2019-05-19 01:49] VITALS: BMI 30.7
[2019-05-19] MEDS: CEFAZOLIN/NS 1gm 1 GM/50 ML BAG IVPB SCH ×2 (01:55→06:06)
[2019-05-19] MEDS: ACETAMINOPHEN 500 MG TAB PO PRN ×3 (02:10→15:31)
[2019-05-19 04:34] LABS: Absolute Lymphocytes (CBC) 2.2 K/uL (0.7-4.9); Basophils % 1.4 % (0-1.3); Hematocrit 35.6 % (36.0-45.0); MPV 8.6 fL (7.6-11.3); RBC Red Blood Cell Count 3.56 M/uL (3.86-4.86)
[2019-05-19 05:03] LABS: ALT/SGPT 24 U/L (12-78); AST/SGOT 16 U/L (15-37); Albumin 3.1 g/dL (3.4-5.0); Alkaline Phosphatase 26 U/L (45-117); BUN Blood Urea Nitrogen 14 mg/dL (7-18); Bicarbonate 28 mmol/L (21-32); Bilirubin Total 0.4 mg/dL (0.2-1.0); CKMB Creatine Kinase MB 2.9 ng/mL (0.3-3.6); Creatine Phosphokinase 90 U/L (26-192); Glucose Level 117 mg/dL (74-106); Potassium 3.5 mmol/L (3.5-5.1); Sodium Level 142 mmol/L (136-145); Troponin I 0.05 ng/mL (0.0-0.045)
[2019-05-19 05:39] LABS: Protime INR 0.95
[2019-05-19 05:56] LABS: Urine Appearance CLOUDY; Urine Bilirubin NEGATIVE (NEG); Urine Blood TRACE (NEG); Urine Color YELLOW; Urine Glucose NEGATIVE (NEG); Urine Protein NEGATIVE (NEG); Urine Specific Gravity >=1.030 (1.005-1.030)
[2019-05-19 06:07] LABS: Urine Culture Reflex Order REFLEXED
[2019-05-19 06:09] LABS: Urine Bacteria >50 /HPF (<20); Urine RBC <5 /HPF (NONE SEEN)
[2019-05-19] MEDS ORDERED: PANTOPRAZOLE 40MG TABLET PO SCH (06:30)
[2019-05-19] MEDS ORDERED: MULTIVITAMIN TAB PO SCH (09:00)
[2019-05-19] MEDS ORDERED: LORAZEPAM 0.5 MG TABLET PO SCH (09:00)
[2019-05-19] MEDS ORDERED: LEVOTHYROXINE SOD 0.088 MG TAB PO SCH (09:00)
[2019-05-19] MEDS ORDERED: HYDROXYCHLOROQUINE 200MG TAB PO SCH (09:00)
[2019-05-19] MEDS: predniSONE 5 MG TAB PO SCH ×2 (10:01→15:31)
[2019-05-19] MEDS ORDERED: CEFAZOLIN/SWI 1gm 1 GM/10 ML SYR IV SCH (12:00)
--- NOTE | 2019-05-19 15:20 | P.HP ---
Certification for Inpatient Patient admitted to: Observation With expected LOS: <2 Midnights Patient will require the following post-hospital care: None Practitioner: I am a practitioner with admitting privileges, knowledge of patient current condition, hospital course, and medical plan of care. Services: Services provided to patient in accordance with Admission requirements found in Title 42 Section 412.3 of the Code of Federal Regulations Patient History Date of Service: 05/19/19 Reason for admission: Orbital fracture; status post fall History of Present Illness: Patient is a 71-year-old female came to the hospital after falling. She was come inside her house carrying a bag of groceries and a bottle wine when she tripped on her side walk. She fell face 1st onto the concrete floor. She suffered a fractures involving the anterior and posterolateral riggs of the right maxillary sinus. Mildly depressed right orbital floor fracture. Patient came to our hospital for further evaluation. Patient was in pain and the ER physician assistant county engineer wanted to observe her. We admitted her to the hospital for evaluation. Will Consult Ophthalmology for further recommendations. At this time we will plan to do a 24 hr observation and we well discharge patient tomorrow as long if she is medically stable and no signs of any additional abnormalities. Allergies No Known Allergies Allergy (Verified 05/19/19 01:32) Home Medications: Acetaminophen [Tylenol Arthritis] 1 tab PO QID PRN 12/14/11 Ascorbic Acid [Vitamin C] 1,000 mg PO BID 12/14/11 Cholecalciferol (Vitamin D3) [Vitamin D3] 2,000 unit PO DAILY 12/14/11 Estradiol 1 mg PO DAILY 12/14/11 Lorazepam 0.5 mg PO BID 12/14/11 Multivitamin [One Daily Multivitamin] 1 each PO DAILY 12/14/11 Prednisone 5 mg PO TID 12/14/11 Hydroxychloroquine [Plaquenil*] 1 tab PO DAILY 05/19/19 Levothyroxine [Synthroid*] 1 tab PO DAILY 05/19/19 Omeprazole 1 cap PO DAILY 05/19/19 - Past Medical/Surgical History Has patient received pneumonia vaccine in the past: Yes Diabetic: No -: Lupus -: Cholecystectomy -: Stomach re alignment -: breast reduction -: hysterectomy -: cataract surgery - Family History Father Medical History: Heart disease, Diabetes Mother Medical History: Cancer Notes: Colon Cancer Brother Medical History: Heart disease, Diabetes - Social History Smoking Status: Never smoker Alcohol use: Yes CD- Drugs: No Place of Residence: Home Review of Systems 10-point ROS is otherwise unremarkable Physical Examination - Vital Signs Temperature: 97.4 F Blood Pressure: 118/48 Pulse: 65 Respirations: 17 Pulse Ox (%): 99 - Physical Exam General: Alert, In no apparent distress, Oriented x3 HEENT: Atraumatic, PERRLA, Mucous membr. moist/pink, EOMI, Sclerae nonicteric Neck: Supple, 2+ carotid pulse no bruit, No LAD, Without JVD or thyroid abnormality Respiratory: Clear to auscultation bilaterally, Normal air movement Cardiovascular: Regular rate/rhythm, Normal S1 S2, No murmurs Gastrointestinal: Normal bowel sounds, Soft and benign, Non-distended, No tenderness Musculoskeletal: No clubbing, No swelling, No tenderness Integumentary: No rashes Neurological: Normal gait, Normal speech, Normal strength at 5/5 x4 extr, Normal tone, Sensation intact, Cranial nerves 3-12 intact, Normal affect Lymphatics: No axilla or inguinal lymphadenopathy - Studies Laboratory Data (last 24 hrs) 05/18/19 18:40: Sodium 143, Potassium 4.1, BUN 20 H, Creatinine 0.65, Glucose 116 H, Total Bilirubin 0.4, AST 26, ALT 28, Alkaline Phosphatase 32 L 05/18/19 18:40: Creatinine 0.68 05/18/19 18:40: WBC 11.2 H, Hgb 13.2, Hct 39.4, Plt Count 193 Assessment & Plan - Problems (Diagnosis) (1) Status post fall Current Visit: Yes Status: Acute (2) Orbital floor fracture Current Visit: Yes Status: Acute (3) Maxillary sinus fracture Current Visit: Yes Status: Acute (4) History of lupus Current Visit: Yes Status: Acute (5) History of immunosuppressive therapy Current Visit: Yes Status: Acute - Plan Plan: 1. Pain control 2. Antibiotic therapy 3. Continue with immunosuppressive therapy 4. Ophthalmology consultation 5. GI and DVT prophylaxis Discharge Plan: Home Plan to discharge in: 48 Hours - Advance Directives Does patient have a Living Will: Yes Does patient have a Durable POA for Healthcare: Yes - Code Status/Comfort Care Code Status Assessed: Yes Code Status: Full Code Critical Care: No Time Spent Managing PTS Care (In Minutes): 45
[2019-05-19 16:45] VITALS: BP 118/48; TEMP 97.4
--- NOTE | 2019-05-23 01:08 | P.DS ---
Discharge Date: 05/19/19 Disposition: ROUTINE DISCHARGE Discharge Condition: GOOD Reason for Admission: Orbital fracture; status post fall Consultations: Ophthamology Brief History of Present Illness: Patient is a 71-year-old female came to the hospital after falling. She was come inside her house carrying a bag of groceries and a bottle wine when she tripped on her side walk. She fell face 1st onto the concrete floor. She suffered a fractures involving the anterior and posterolateral riggs of the right maxillary sinus. Mildly depressed right orbital floor fracture. Patient came to our hospital for further evaluation. Patient was in pain and the ER physician volunteer assistant wanted to observe her. We admitted her to the hospital for evaluation. Will Consult Ophthalmology for further recommendations. At this time we will plan to do a 24 hr observation and we well discharge patient tomorrow as long if she is medically stable and no signs of any additional abnormalities. Hospital Course: Received note from Dr. Ma that patient was seen in her office on 2018. Vital Signs/Physical Exam: Temp Pulse Resp BP Pulse Ox 97.4 F 65 17 118/48 L 99 05/19/19 16:45 05/19/19 16:45 05/19/19 16:45 05/19/19 16:45 05/19/19 16:45 General: Alert, In no apparent distress, Oriented x3 Laboratory Data at Discharge: WBC 10.3 K/uL (4.3-10.9) 05/19/19 03:56 Hgb 12.0 g/dL (12.0-15.0) 05/19/19 03:56 Hct 35.6 % (36.0-45.0) L 05/19/19 03:56 Plt Count 171 K/uL (152-406) 05/19/19 03:56 PT 11.2 SECONDS (9.5-12.5) 05/19/19 05:24 INR 0.95 05/19/19 05:24 APTT 24.5 SECONDS (24.3-36.9) 05/19/19 05:24 Sodium 142 mmol/L (136-145) 05/19/19 03:56 Potassium 3.5 mmol/L (3.5-5.1) 05/19/19 03:56 BUN 14 mg/dL (7-18) 05/19/19 03:56 Creatinine 0.53 mg/dL (0.55-1.3) L 05/19/19 03:56 Glucose 117 mg/dL (74-106) H 05/19/19 03:56 Total Bilirubin 0.4 mg/dL (0.2-1.0) 05/19/19 03:56 AST 16 U/L (15-37) 05/19/19 03:56 ALT 24 U/L (12-78) 05/19/19 03:56 Alkaline Phosphatase 26 U/L (45-117) L 05/19/19 03:56 Troponin I 0.05 ng/mL (0.0-0.045) H 05/19/19 03:56 Home Medications: Acetaminophen [Tylenol Arthritis] 1 tab PO QID PRN 12/14/11 Ascorbic Acid [Vitamin C] 1,000 mg PO BID 12/14/11 Cholecalciferol (Vitamin D3) [Vitamin D3] 2,000 unit PO DAILY 12/14/11 Lorazepam 0.5 mg PO BID 12/14/11 Multivitamin [One-Daily Multi-Vitamin] 1 each PO DAILY 12/14/11 Prednisone 5 mg PO TID 12/14/11 estradioL [Estradiol] 1 mg PO DAILY 12/14/11 Cefdinir [Omnicef] 300 mg PO BID #10 capsule 05/19/19 Codeine/APAP [Tylenol W/Codeine #3 tab] 1 tab PO Q6HP PRN #30 tab 05/19/19 Hydroxychloroquine [Plaquenil*] 1 tab PO DAILY 05/19/19 Levothyroxine [Synthroid*] 1 tab PO DAILY 05/19/19 Omeprazole 1 cap PO DAILY 05/19/19 New Medications: Cefdinir [Omnicef] 300 mg PO BID #10 capsule Codeine/APAP [Tylenol W/Codeine #3 tab] 1 tab PO Q6HP PRN #30 tab PRN Reason: Pain Patient Discharge Instructions: OK TO DC IV AND DC HOME. FOLLOW-UP WITH PRIMARY CARE PROVIDER IN 1-2 WEEKS. FOLLOW-UP WITH DR. MA, OPHTHAMOLOGIST IN AM. RETURN TO THE ER IF SYMPTOMS WORSENS. CALL or TEXT DR. COSTELLO AT [phone] IF ANY QUESTIONS REGARDING HOSPITAL STAY. PLEASE CALL THE FLOOR AT [phone] IF ANY MEDICATION OR NURSING QUESTIONS. Diet: Regular Activity: Fall precautions Followup: ALONDRA DENT [OUTSIDE PHYSICIAN] - 1-2 Weeks (primary care physician- call to schedule an appointment ) Renea Ma MD [ACTIVE - CAN ADMIT] - 1 Day (Opthamologist- Call in am for an appointment on Friday05/20/19 ) Time spent managing pt's care (in minutes): 15
== END 2019-05-19 18:13 | disposition home or self-care (01) ==
LOC: ER 17:52 → 4TH 05-19 00:48
PROVIDERS: ADMIT Hospitalist; ATTEND Hospitalist
PROC: 0JQJ0ZZ Repair Right Hand Subcutaneous Tissue and Fascia, Open Approach (ICD-10-PCS; principal; 2019-05-18)
DX: S02.31XA Fracture of orbital floor, right side, initial encounter for closed fracture (principal); S02.40CA Maxillary fracture, right side, initial encounter for closed fracture; S61.411A Laceration without foreign body of right hand, initial encounter; W01.198A Fall on same level from slipping, tripping and stumbling with subsequent striking against other object, initial encounter; Y92.000 Kitchen of unspecified non-institutional (private) residence as the place of occurrence of the external cause; M32.9 Systemic lupus erythematosus, unspecified; Z79.899 Other long term (current) drug therapy
CPT/HCPCS: 87088; 85025 ×2; 81001; 87086; 36415; 82550; 85610; 85730; 87077; 87186; 84484; 82553; 80053 ×2; 70450; 72125; 71260; 74177; 73130; 73090; 96375; 96372; 96374; 99285; 12002; Q9967; J2550; J2270; J0690 ×2; J7030; J2405 ×2; G0378 ×2; J7512

== ENCOUNTER 2019-08-13 14:13 | Emergency (ER) | payer OTHER ==
[2019-08-13] MEDS ORDERED: LACTULOSE 20 GM/30 ML UCUP ONE ×2 (15:54→18:45)
[2019-08-13] MEDS ORDERED: NA CHLORIDE 0.9% 1,000 ML ONE (15:54)
[2019-08-13] MEDS ORDERED: BISACODYL 10 MG RECTAL SUPP ONE (15:54)
[2019-08-13 16:35] LABS: Absolute Lymphocytes (CBC) 1.6 K/uL (0.7-4.9); Basophils % 0.7 % (0-1.3); Lymphocytes % 10.8 % (15.3-44.8); MPV 7.9 fL (7.6-11.3); RBC Red Blood Cell Count 4.23 M/uL (3.86-4.86)
[2019-08-13 16:49] LABS: Albumin 3.5 g/dL (3.4-5.0); Bilirubin Direct 0.2 mg/dL (0-0.2); Bilirubin Total 0.5 mg/dL (0.2-1.0); Potassium 3.8 mmol/L (3.5-5.1); Protein, Total 7.6 g/dL (6.4-8.2)
[2019-08-13 17:52] LABS: Urine Blood TRACE (NEG); Urine Glucose NEGATIVE (NEG); Urine Protein NEGATIVE (NEG); Urine Specific Gravity 1.015 (1.005-1.030); Urine pH 5.5 (5.0-7.0)
--- NOTE | 2019-08-13 17:56 | RAD REPORT ---
EXAM DESCRIPTION: CT - Abdomen Pelvis Wo Contrast - 08/13/2019 5:37 pm CLINICAL HISTORY: Abdominal pain. ABD PAIN COMPARISON: CT-STONE PROTOCOL dated 02/19/2009 TECHNIQUE: CT imaging of the abdomen and pelvis was performed without contrast. Solid organ and vasc ular assessment is limited due to lack of IV contrast. All CT scans are performed using dose optimization technique as appropriate and may include automated exposure control or mA/KV adjustment according to patient size. FINDINGS: The lower lung bauman are clear.Small hiatal hernia is present. Cholecystectomy. The liver, spleen, pancreas, adrenal glands and kidneys are within normal limits for a limited non-co ntrast examination. No bowel obstruction, free air, free fluid or abscess. Moderate fecal retention is seen throughout th e colon. There is mild mucosal thickening of the rectosigmoid colon present. The appendix is not iden tified as a discrete structure, however, no secondary findings of appendicitis are identified. Moderate lower lumbar degenerative changes. IMPRESSION: Fecal retention throughout the colon with evidence of mild stercoral colitis of the rect osigmoid. A limited non-contrast examination was performed as detailed.
--- NOTE | 2019-08-13 18:37 | EDPHYS ---
Physician Documentation [facility] Name: Theresa Mancera Age: 79 yrs Sex: Female : 1940 Arrival Date: 08/13/2019 Time: 14:18 Bed 5 Private MD: ED Physician Jose Bower HPI: 08/13 15:37 This 79 yrs old Female presents to ER via Ambulatory with complaints of bobby Constipation. 15:37 The patient presents with abdominal pain in the upper abdomen, in the lower abdomen, bobby abdominal distention in the upper abdomen, in the lower abdomen. Onset: The symptoms/episode began/occurred 3 day(s) ago. The symptoms do not radiate. Associated signs and symptoms: none. Modifying factors: The symptoms are alleviated by nothing, the symptoms are aggravated by pressure. Severity of pain: At its worst the pain was mild moderate in the emergency department the pain is unchanged. The patient has not experienced similar symptoms in the past. Historical: - Allergies: 14:33 No Known Allergies; aa5 - PMHx: 14:33 Lupus; aa5 - PSHx: 14:33 Cholecystectomy; "stomach realignment"; breast reduction; Hysterectomy; cataract; aa5 - Immunization history:: Flu vaccine is up to date. - Social history:: Smoking status: Patient denies any tobacco usage or history of. ROS: 15:37 Constitutional: Negative for fever, chills, and weight loss, Eyes: Negative for injury, bobby pain, redness, and discharge, ENT: Negative for injury, pain, and discharge, Neck: Negative for injury, pain, and swelling, Cardiovascular: Negative for chest pain, palpitations, and edema, Respiratory: Negative for shortness of breath, cough, wheezing, and pleuritic chest pain, Back: Negative for injury and pain, : Negative for injury, bleeding, discharge, and swelling, MS/Extremity: Negative for injury and deformity, Skin: Negative for injury, rash, and discoloration, Neuro: Negative for headache, weakness, numbness, tingling, and seizure, Psych: Negative for depression, anxiety, suicide ideation, homicidal ideation, and hallucinations, Allergy/Immunology: Negative for hives, rash, and allergies, Endocrine: Negative for neck swelling, polydipsia, polyuria, polyphagia, and marked weight changes, Hematologic/Lymphatic: Negative for swollen nodes, abnormal bleeding, and unusual bruising. 15:37 Abdomen/GI: Positive for abdominal pain, of the right upper quadrant, left upper quadrant, right lower quadrant and left lower quadrant. Exam: 15:37 Constitutional: This is a well developed, well nourished patient who is awake, alert, bobby and in no acute distress. Head/Face: Normocephalic, atraumatic. Eyes: Pupils equal round and reactive to light, extra-ocular motions intact. Lids and lashes normal. Conjunctiva and sclera are non-icteric and not injected. Cornea within normal limits. Periorbital areas with no swelling, redness, or edema. ENT: Nares patent. No nasal discharge, no septal abnormalities noted. Tympanic membranes are normal and external auditory canals are clear. Oropharynx with no redness, swelling, or masses, exudates, or evidence of obstruction, uvula midline. Mucous membranes moist. Neck: Trachea midline, no thyromegaly or masses palpated, and no cervical lymphadenopathy. Supple, full range of motion without nuchal rigidity, or vertebral point tenderness. No Meningismus. Chest/axilla: Normal chest wall appearance and motion. Nontender with no deformity. No lesions are appreciated. Cardiovascular: Regular rate and rhythm with a normal S1 and S2. No gallops, murmurs, or rubs. Normal PMI, no JVD. No pulse deficits. Respiratory: Lungs have equal breath sounds bilaterally, clear to auscultation and percussion. No rales, rhonchi or wheezes noted. No increased work of breathing, no retractions or nasal flaring. Back: No spinal tenderness. No costovertebral tenderness. Full range of motion. Skin: Warm, dry with normal turgor. Normal color with no rashes, no lesions, and no evidence of cellulitis. MS/ Extremity: Pulses equal, no cyanosis. Neurovascular intact. Full, normal range of motion. Neuro: Awake and alert, GCS 15, oriented to person, place, time, and situation. Cranial nerves II-XII grossly intact. Motor strength 5/5 in all extremities. Sensory grossly intact. Cerebellar exam normal. Normal gait. Psych: Awake, alert, with orientation to person, place and time. Behavior, mood, and affect are within normal limits. 15:37 Abdomen/GI: Inspection: abdomen appears normal, Bowel sounds: normal, Palpation: moderate abdominal tenderness, in the right upper quadrant, left upper quadrant, right lower quadrant and left lower quadrant, Liver: no appreciated palpable abnormalities, Hernia: not appreciated. Vital Signs: 14:30 BP 122 / 73; Pulse 82; Resp 18 S; Temp 98.1(O); Pulse Ox 99% on R/A; Weight 73.48 kg aa5 (R); Height 5 ft. 2 in. (157.48 cm) (R); Pain 5/10; 15:30 BP 140 / 73; Pulse 75; Resp 17; Pulse Ox 96% ; ah 16:33 BP 131 / 65; Pulse 77; Resp 17; Pulse Ox 97% ; ah 17:00 BP 136 / 66; Pulse 79; Resp 18; Pulse Ox 96% ; sv 18:00 BP 125 / 73; Pulse 83; Resp 17; Pulse Ox 99% ; sv 20:00 BP 127 / 52; Pulse 70; Resp 18; Pulse Ox 96% on R/A; ea 14:30 Body Mass Index 29.63 (73.48 kg, 157.48 cm) aa5 MDM: 14:35 Patient medically screened. [facility] 15:42 Data reviewed: vital signs, nurses notes, lab test result(s), radiologic studies, CT bobby scan. 08/13 15:36 Order name: Basic Metabolic Panel; Complete Time: 18:34 [facility] 08/13 15:36 Order name: CBC with Diff; Complete Time: 18:34 [facility] 08/13 15:36 Order name: Creatinine for Radiology; Complete Time: 18:34 [facility] 08/13 15:36 Order name: Hepatic Function; Complete Time: 18:34 [facility] 08/13 15:36 Order name: Lipase; Complete Time: 18:34 [facility] 08/13 15:36 Order name: Urine Culture [facility] 08/13 15:46 Order name: Abdomen ; Complete Time: 18:34 EDMS 08/13 17:04 Order name: Urine Dipstick--Ancillary (enter results); Complete Time: 18:34 dh4 08/13 15:36 Order name: IV Saline Lock; Complete Time: 16:31 [facility] 08/13 15:36 Order name: Labs collected and sent; Complete Time: 16:31 [facility] 08/13 15:36 Order name: Urine Dipstick-Ancillary (obtain specimen); Complete Time: 18:58 [facility] 08/13 18:35 Order name: PO challenge; Complete Time: 19:04 [facility] Administered Medications: 15:05 Drug: Lactulose 30 grams Volume: 45 ml; Route: PO; 16:05 Follow up: Response: No adverse reaction 16:25 Drug: NS 0.9% 1000 ml Route: IV; Rate: 1 bolus; Site: right antecubital; 19:03 Follow up: Response: No adverse reaction; IV Intake: 1000ml 16:25 Drug: Dulcolax Suppository 10 mg Route: OK; 17:25 Follow up: Response: No adverse reaction 18:36 CANCELLED (Duplicate Order): Cipro 400 mg 200 ml IVPB once over 60 mins [facility] 18:50 Drug: Flagyl 500 mg Volume: 100 ml; Route: IVPB; Rate: 200 ml/hr; Infused Over: 30 ah mins; Site: right antecubital; 18:50 Drug: Lactulose 30 grams Volume: 45 ml; Route: PO; 21:00 Follow up: Response: No adverse reaction ea 18:50 Drug: Rocephin 1 grams Route: IV; Rate: per protocol; Site: right antecubital; 19:05 Follow up: IV Status: Completed infusion ea 18:50 Drug: Cipro 500 mg Route: PO; 20:00 Follow up: Response: No adverse reaction ea Disposition: 08/13/19 18:36 Discharged to Home. Impression: Abdominal tenderness - rectosigmoid colitis, Constipation, Urinary tract infection, site not specified, Elevated white blood cell count. - Condition is Stable. - Discharge Instructions: Abdominal Pain, Adult, Constipation, Adult, Urinary Tract Infection, Adult, Constipation, Adult, [id number], Urinary Tract Infection, Adult, Dgit-cb-Lwkp, Abdominal Pain, Adult, Olzs-qi-Ehpt, Colitis. - Prescriptions for Bentyl 20 mg Oral Tablet - take 1 tablet by ORAL route every 6 hours As needed; 20 tablet. Lactulose 10 gram/15 mL Oral Solution - take 30 milliliter by ORAL route every 12 hours 2-3 soft stools /day is the goal; 300 milliliter. Dulcolax 10 mg Rectal Suppository - insert 1 suppository by RECTAL route every 12 hours As needed; 10 suppository. Flagyl 500 mg Oral Tablet - take 1 tablet by ORAL route every 8 hours for 7 days; 21 tablet. Cipro 500 mg Oral Tablet - take 1 tablet by ORAL route every 12 hours for 7 days; 14 tablet. - Medication Reconciliation Form, Thank You Letter, Antibiotic Education, Prescription Opioid Use form. - Follow up: Private Physician; When: 2 - 3 days; Reason: Recheck today's complaints, Continuance of care, Re-evaluation by your physician. Follow up: Patience Duarte MD; When: 2 - 3 days; Reason: Recheck today's complaints, Re-evaluation by your physician. - Problem is new. - Symptoms have improved. Signatures: Dispatcher [employer] EDSD Jose Bower MD MD cha Calderon, Audri, RN RN aa5 Sena Murray RN Magali Glynn ea RN RN Corrections: (The following items were deleted from the chart) 15:46 15:38 Abdomen Pelvis W Con+CT.RAD.BRZ ordered. [facility] 18:36 18:35 Cipro 400 mg 200 ml IVPB once over 60 mins ordered. [facility] 18:38 18:36 08/13/2019 18:36 Discharged to Home. Impression: Abdominal tenderness; bobby Constipation; Urinary tract infection, site not specified. Condition is Stable. Discharge Instructions: Abdominal Pain, Adult, Constipation, Adult, Constipation, Adult, Weeq-zs-Gqms, Abdominal Pain, Adult, Uhjo-au-Siel. Prescriptions for Bentyl 20 mg Oral Tablet - take 1 tablet by ORAL route every 6 hours As needed; 20 tablet, Lactulose 10 gram/15 mL Oral Solution - take 30 milliliter by ORAL route every 12 hours 2-3 soft stools /day is the goal; 300 milliliter, Dulcolax 10 mg Rectal Suppository - insert 1 suppository by RECTAL route every 12 hours As needed; 10 suppository. and Forms are Medication Reconciliation Form, Thank You Letter, Antibiotic Education, Prescription Opioid Use. Follow up: Private Physician; When: 2 - 3 days; Reason: Recheck today's complaints, Continuance of care, Re-evaluation by your physician. Problem is new. Symptoms have improved. [facility] 19:03 18:38 08/13/2019 18:36 Discharged to Home. Impression: Abdominal tenderness; bobby Constipation; Urinary tract infection, site not specified; Elevated white blood cell count. Condition is Stable. Discharge Instructions: Abdominal Pain, Adult, Constipation, Adult, Constipation, Adult, Jfae-[id number], Abdominal Pain, Adult, Mswd-jz-Mvkm. Prescriptions for Bentyl 20 mg Oral Tablet - take 1 tablet by ORAL route every 6 hours As needed; 20 tablet, Lactulose 10 gram/15 mL Oral Solution - take 30 milliliter by ORAL route every 12 hours 2-3 soft stools /day is the goal; 300 milliliter, Dulcolax 10 mg Rectal Suppository - insert 1 suppository by RECTAL route every 12 hours As needed; 10 suppository. and Forms are Medication Reconciliation Form, Thank You Letter, Antibiotic Education, Prescription Opioid Use. Follow up: Private Physician; When: 2 - 3 days; Reason: Recheck today's complaints, Continuance of care, Re-evaluation by your physician. Follow up: Patience Duarte; When: 2 - 3 days; Reason: Recheck today's complaints, Re-evaluation by your physician. Problem is new. Symptoms have improved. [facility] 21:24 19:03 08/13/2019 18:36 Discharged to Home. Impression: Abdominal tenderness - ea rectosigmoid colitis; Constipation; Urinary tract infection, site not specified; Elevated white blood cell count. Condition is Stable. Discharge Instructions: Abdominal Pain, Adult, Constipation, Adult, Constipation, Adult, Tbgr-jv-Plar, Abdominal Pain, Adult, Oeop-ig-Prlo, Urinary Tract Infection, Adult, Urinary Tract Infection, Adult, Fqlr-ey-Zevh. Prescriptions for Bentyl 20 mg Oral Tablet - take 1 tablet by ORAL route every 6 hours As needed; 20 tablet, Lactulose 10 gram/15 mL Oral Solution - take 30 milliliter by ORAL route every 12 hours 2-3 soft stools /day is the goal; 300 milliliter, Dulcolax 10 mg Rectal Suppository - insert 1 suppository by RECTAL route every 12 hours As needed; 10 suppository, Flagyl 500 mg Oral Tablet - take 1 tablet by ORAL route every 8 hours for 7 days; 21 tablet, Cipro 500 mg Oral Tablet - take 1 tablet by ORAL route every 12 hours for 7 days; 14 tablet. and Forms are Medication Reconciliation Form, Thank You Letter, Antibiotic Education, Prescription Opioid Use. Follow up: Private Physician; When: 2 - 3 days; Reason: Recheck today's complaints, Continuance of care, Re-evaluation by your physician. Follow up: Patience Duarte; When: 2 - 3 days; Reason: Recheck today's complaints, Re-evaluation by your physician. Problem is new. Symptoms have improved. bobby
--- NOTE | 2019-08-13 18:37 | ER ---
Nurse's Notes [facility] Name: Theresa Mancera Age: 79 yrs Sex: Female : 1940 Arrival Date: 08/13/2019 Time: 14:18 Bed 5 Private MD: Diagnosis: Abdominal tenderness-rectosigmoid colitis;Constipation;Urinary tract infection, site not specified;Elevated white blood cell count Presentation: 08/13 14:30 Chief complaint: Patient states: "I've been constipated since ". Pt reports aa5 last BM on and states "the stool was very hard like bricks". Pt also reports abd pain. Coronavirus screen: The patient has NOT traveled to [place] in the past 14 days. The patient has NOT had contact with known and/or suspected case of Coronavirus. Ebola Screen: Patient negative for fever greater than or equal to 101.5 degrees Fahrenheit, and additional compatible Ebola Virus Disease symptoms. Initial Sepsis Screen: Does the patient meet any 2 criteria? No. Patient's initial sepsis screen is negative. Does the patient have a suspected source of infection? No. Patient's initial sepsis screen is negative. Risk Assessment: Do you want to hurt yourself or someone else? Patient reports no desire to harm self or others. 14:30 Acuity: RADHA 3 aa5 14:30 Method Of Arrival: Ambulatory aa5 14:52 Onset of symptoms was August 11, 2019. Historical: - Allergies: 14:33 No Known Allergies; aa5 - PMHx: 14:33 Lupus; aa5 - PSHx: 14:33 Cholecystectomy; "stomach realignment"; breast reduction; Hysterectomy; cataract; aa5 - Immunization history:: Flu vaccine is up to date. - Social history:: Smoking status: Patient denies any tobacco usage or history of. Screenin:51 Abuse screen: Denies threats or abuse. Nutritional screening: No deficits noted. Tuberculosis screening: No symptoms or risk factors identified. Fall Risk None identified. Assessment: 14:44 General: Appears uncomfortable, Behavior is calm, cooperative, appropriate for age. Pain: Complains of pain in lower abdomen and lower back Pain does not radiate. Pain currently is 9 out of 10 on a pain scale. Quality of pain is described as aching, Pain began 2-3 days ago. Is continuous. Neuro: Level of Consciousness is awake, alert, Oriented to person, place, time, situation, Postpartum Rn are equal bilaterally. Cardiovascular: Heart tones S1 S2 present Capillary refill < 3 seconds. Respiratory: Airway is patent Respiratory effort is even, unlabored, Respiratory pattern is regular, symmetrical, Breath sounds are clear. GI: Abdomen is distended, Last BM was August 11, 2019. Bowel sounds hypoactive in right upper quadrant, left upper quadrant, right lower quadrant and left lower quadrant Abd is non tender X 4 quads Reports vomiting, on Friday night, none since. : No signs and/or symptoms were reported regarding the genitourinary system. EENT: No signs and/or symptoms were reported regarding the EENT system. Derm: Skin is intact, is healthy with good turgor. 15:44 Reassessment: Patient appears in no apparent distress at this time. Patient and/or ah family updated on plan of care and expected duration. Pain level reassessed. Patient is alert, oriented x 3, equal unlabored respirations, skin warm/dry/pink. 19:15 General: Appears uncomfortable, Behavior is calm, cooperative, appropriate for age. ea Neuro: Level of Consciousness is awake, alert, Oriented to person, place, time, situation. Cardiovascular: Patient's skin is warm and dry. Respiratory: Airway is patent Respiratory effort is even, unlabored, Respiratory pattern is regular, symmetrical. Derm: Skin is pink, warm \\T\\ dry. Vital Signs: 14:30 BP 122 / 73; Pulse 82; Resp 18 S; Temp 98.1(O); Pulse Ox 99% on R/A; Weight 73.48 kg aa5 (R); Height 5 ft. 2 in. (157.48 cm) (R); Pain 5/10; 15:30 BP 140 / 73; Pulse 75; Resp 17; Pulse Ox 96% ; ah 16:33 BP 131 / 65; Pulse 77; Resp 17; Pulse Ox 97% ; ah 17:00 BP 136 / 66; Pulse 79; Resp 18; Pulse Ox 96% ; sv 18:00 BP 125 / 73; Pulse 83; Resp 17; Pulse Ox 99% ; sv 20:00 BP 127 / 52; Pulse 70; Resp 18; Pulse Ox 96% on R/A; ea 14:30 Body Mass Index 29.63 (73.48 kg, 157.48 cm) aa5 ED Course: 14:18 Patient arrived in ED. mr 14:32 Triage completed. aa 14:33 Arm band placed on. aa 14:35 oJse Bower MD is Attending Physician. [facility] 14:35 Magali Valdez, RN is Primary Nurse. 14:52 Patient has correct armband on for positive identification. Bed in low position. Call light in reach. Side rails up X 1. Side rails up X2. Adult w/ patient. 16:20 Inserted saline lock: 22 gauge in right antecubital area, using aseptic technique. sv ,using aseptic technique. diffusics Blood collected. Flushed right antecubital with 5 ml normal saline. 17:06 Missed attempt(s): 22 gauge in right forearm. Bleeding controlled, band aid applied, catheter tip intact. 17:07 Missed attempt(s): 22 gauge in left antecubital area. 17:37 Abdomen In Process Unspecified. EDMS 17:38 Patient moved to [place] via wheelchair. 17:42 Patient moved back from [place]. 18:38 Patience Duarte MD is Referral Physician. [facility] 20:55 No provider procedures requiring assistance completed. IV discontinued, intact, ea bleeding controlled, No redness/swelling at site. Pressure dressing applied. Administered Medications: 15:05 Drug: Lactulose 30 grams Volume: 45 ml; Route: PO; 16:05 Follow up: Response: No adverse reaction 16:25 Drug: NS 0.9% 1000 ml Route: IV; Rate: 1 bolus; Site: right antecubital; 19:03 Follow up: Response: No adverse reaction; IV Intake: 1000ml 16:25 Drug: Dulcolax Suppository 10 mg Route: MS; 17:25 Follow up: Response: No adverse reaction 18:36 CANCELLED (Duplicate Order): Cipro 400 mg 200 ml IVPB once over 60 mins [facility] 18:50 Drug: Flagyl 500 mg Volume: 100 ml; Route: IVPB; Rate: 200 ml/hr; Infused Over: 30 ah mins; Site: right antecubital; 18:50 Drug: Lactulose 30 grams Volume: 45 ml; Route: PO; 21:00 Follow up: Response: No adverse reaction ea 18:50 Drug: Rocephin 1 grams Route: IV; Rate: per protocol; Site: right antecubital; 19:05 Follow up: IV Status: Completed infusion ea 18:50 Drug: Cipro 500 mg Route: PO; 20:00 Follow up: Response: No adverse reaction ea Intake: 15:55 PO: 500ml (Contrast); Total: 500ml. sv 19:03 IV: 1000ml; Total: 1500ml. 15:55 CT called and informed she finished contrast. sv Outcome: 18:36 Discharge ordered by . bobby 21:23 Discharged to home ambulatory, with family. nicole 21:23 Condition: stable 21:23 Discharge instructions given to patient, Instructed on discharge instructions, follow up and referral plans. medication usage, Demonstrated understanding of instructions, follow-up care, medications, Prescriptions given X 4. 21:24 Patient left the ED. ea Addendum: 08/16/2019 07:17 Addendum: Culture Results: Positive urine culture. No further action required. Bacteria m s sensitive to prescribed antibiotic. Signatures: Dispatcher [employer] Unique Tamez RN RN sv Anderson, Corey, MD MD cha Rivera, Mary mr VillarrealMackenzie ms Gaspar, Tanna, RN RN aa5 Sena Murray RN Magali Glynn ea, RN SNEHA
[2019-08-13] MEDS ORDERED: CIPROFLOXACIN HCL 500 MG TAB ONE (18:45)
[2019-08-13] MEDS ORDERED: CEFTRIAXONE/SWI 1gm 1 GM/10 ML SYR ONE (18:45)
[2019-08-13] MEDS ORDERED: METRONIDAZOLE 500mg IVPB 500 MG/100 ML BAG IV ONE (18:46)
[2019-08-13 22:00] VITALS: TEMP 98.1
[2019-08-13 22:09] VITALS: BP 127/52; O2SAT 96
== END 2019-08-13 21:24 | disposition home or self-care (01) ==
LOC: ER 14:13
DX: K59.00 Constipation, unspecified (principal); N39.0 Urinary tract infection, site not specified; D72.829 Elevated white blood cell count, unspecified; K52.9 Noninfective gastroenteritis and colitis, unspecified
CPT/HCPCS: 87088; 85025; 87086; 80048; 36415; 80076; 87077; 87186; 81003; 83690; 74176; 96375; 96374; 99284; J0696; J7030

== ENCOUNTER 2020-05-05 15:39 | Observation (INO) | payer OTHER ==
--- OUTSIDE RECORDS SUMMARY | 2020-05-05 15:41 | XMS REPORT | Clinical Summary ---
:1940 Author Organization [facility] Address [address] [place] [address] Care Team Providers Name Role Phone Asked, Pcp Primary Care Provider Unavailable Allergies No Known Active Allergies Medications Medication Sig Dispensed Refills Start Date End Date Status predniSONE (DELTASONE) 5 Take 15 mg by 0 Active mg tablet mouth daily. hydroxychloroquine Take by mouth 2 0 Active (PLAQUENIL) 200 mg (two) times a tablet day. estradiol (ESTRACE) 1 MG Take 1 mg by 0 Active tablet mouth daily. levothyroxine Take 100 mcg by 0 Active (SYNTHROID, LEVOXYL) 100 mouth daily. mcg tablet cholecalciferol, vitamin Take 2,000 0 Active D3, (VITAMIN D3) 2,000 Units by mouth unit capsule capsule daily. acetaminophen (TYLENOL) Take 650 mg by 0 Active 325 MG tablet mouth every 6 (six) hours as needed for fever. ascorbic acid, vitamin Take 1,000 mg 0 Active C, (VITAMIN C) 500 MG by mouth daily. tablet multivitamin (THERAGRAN) Take 1 tablet 0 Active tablet by mouth daily. omeprazole (PriLOSEC) 20 Take 20 mg by 0 Active MG capsule mouth daily. LORAZepam (ATIVAN) 1 MG 0 07/30/2017 Active tablet cyanocobalamin, vitamin Inject as 0 Active B-12, (B-12 KIT INJ) directed. linaCLOtide (LINZESS) Take 1 capsule 30 capsule 0 07/22/2019 0 145 mcg capsule (145 mcg total) 0 by mouth daily before breakfast for 30 days. Active Problems Problem Noted Date Chest pain 10/23/2016 Encounters Date Type Specialty Care Team Description 05/02/2020 Travel 09/09/2019 Telephone Gastroenterology Juani Herrera Steven, MD unspecified constipation ty pe 09/09/2019 Abstract Gastroenterology Era Medley, LIZ 09/08/2019 Travel 09/07/2019 Travel 09/02/2019 Telephone Gastroenterology Theresa Whitmore LVN 08/30/2019 Telephone Gastroenterology Connie Damon MA 08/26/2019 Travel 08/26/2019 Telephone Gastroenterology Luna Milton RN 08/26/2019 Telephone Gastroenterology Connie Damon MA 08/24/2019 Lab Lab Rob Herrera, unspe cified MD Junior type 08/23/2019 Orders Only Gastroenterology Rob Herrera, u nspecified MD Junior type (Primary D x) 08/23/2019 Telephone Gastroenterology Dolly Baker, SNEHA 08/17/2019 Telephone Gastroenterology Luna Milton, SNEHA 08/13/2019 Telephone Gastroenterology Luna Milton, SNEHA 07/23/2019 Telephone Gastroenterology Connie Damon MA 07/22/2019 Hospital Encounter Radiology System, Provider Enc nter for Not In, SHOVEL LOGGER-C screening for Eleanor Gonzalez osteoporosis MD Williams 07/22/2019 Hospital Encounter Radiology Eleanor Gonzalez Encounflavia er for MD Williams screening for osteoporosis 07/22/2019 Hospital Encounter Radiology Diaz Benz breast nitin Arshad MD 07/22/2019 Hospital Encounter Radiology Diaz Benz breast nitin Arshad MD 07/22/2019 Orders Only Gastroenterology Connie Damon MA 07/21/2019 Telephone Gastroenterology Junior Herrera MD 07/05/2019 Transcribe Orders Access Eleanor Gonzalez Encounte r for MD Williams screening for osteoporosis (P rimary Dx) 06/29/2019 Office Visit Gastroenterology Rodriguez HerreraatiJunior barboza MD unspecified constipation ty pe (Primary Dx) 06/28/2019 Transcribe Orders Access Diaz Benz breast tissue MD Jeancarlos (Primary Dx) after 05/05/2019 Surgical History Surgery Date Site/Laterality Comments CHOLECYSTECTOMY ABDOMINAL SURGERY HYSTERECTOMY REDUCTION MAMMAPLASTY BREAST BIOPSY Medical History Medical History Date Comments Lupus (HCC) Disease of thyroid gland Anxiety Family History Medical History Relation Name Comments [...] file Not on file Not on file COVID-19 Exposure Response Date Recorded In the last month, have you been in contact with No / Unsure 05/02/2020 1:11 PM SECURITY SERGEANT someone who was confirmed or suspected to have Coronavirus / COVID-19? Last Filed Vital Signs Vital Sign Reading Time Taken Comments Blood Pressure 132/87 06/29/2019 10:28 AM SECURITY SERGEANT Pulse 72 06/29/2019 10:28 AM SECURITY SERGEANT Temperature - - Respiratory Rate - - Oxygen Saturation - - Inhaled Oxygen Concentration - - Weight 75.8 kg (167 lb 3.2 oz) 07/22/2019 11:52 AM SECURITY SERGEANT Height 156.2 cm (5' 1.5") 07/22/2019 11:52 AM SECURITY SERGEANT Body Mass Index 31.08 07/22/2019 11:52 AM SECURITY SERGEANT Plan of Treatment Health Maintenance Due Date Last Done Comments SHINGLES VACCINES (#1) 1991 65+ PNEUMOCOCCAL VACCINE (1 of 1 - PPSV23) 04/21/200606/16, 06/16/2014 INFLUENZA VACCINE 01/15/2020 Procedures Procedure Name Priority Date/Time Associated Comments Diagnosis GASTROINTESTINAL PANEL Routine 08/24/2019 12:57 Diarrhea, R esults for this PM CDT unspecified type procedure a re in the results section. BONE DENSITY PERIPHERAL Routine 07/22/2019 11:52 Encounter for Results for this AM SECURITY SERGEANT screening for procedure are in osteoporosis the results section. BONE DENSITY Routine 07/22/2019 11:51 Encounter for Results fo r this AM SECURITY SERGEANT screening for procedure are in osteoporosis the results section. US BREAST COMPLETE Routine 07/22/2019 10:00 Dense breast tissu e Results for this BILATERAL AM SECURITY SERGEANT procedure are i n the results section. MAMMO BREAST DIAGNOSTIC Routine 07/22/2019 9:55 Dense breast tissue Results for this TOMOSYNTHESIS BILATERAL AM SECURITY SERGEANT proc edure are in the results section. after 05/05/2019 Results Gastrointestinal panel (08/24/2019 12:57 PM CDT) Gastrointestinal panel Negative for all pathogens tested: [place] Negative for Salmonella [facility] Negative for Campylobacter [facility] Negative for Diarrheagenic E coli/Shigella Negative for Shiga-like toxin-producing E coli Negative for Plesiomonas shigelloides Negative for Yersinia enterocolitica Negative for Vibrio species Negative for Clostridium difficile (Toxin A/B) Negative for Cryptosporidium Negative for Giardia lamblia Negative for Cyclospora cayeteanensis Negative for Entamoeba histolytica Negative for Adenovirus F 40/41 Negative for Astrovirus Negative for Norovirus GI/GII Negative for Rotavirus A Negative for Sapovirus Negative for Clostridium difficile toxin Negative for E coli 0157 This real-time PCR assay detects the presence of nucle ic acids (RNA or DNA) for the gastrointestinal pathogens listed. A result of "Not-detected" does not exclude the possib ility of the presence of one or more pathogens at concentrat ions less than the detectable limits of the assay. Comment: Specimen Information Specimen Source: Stool Specimen Site: Nonpreserved Specimen Stool - Nonpreserved Performing Organization Address City/State/ZIP Code Phon e Number [facility] DEPARTMENT OF PATHOLOGY AND [address] [place], [place] [id number] 0 GENOMIC MEDICINE [address] [address] Bone Density Peripheral (07/22/2019 11:52 AM SECURITY SERGEANT) Specimen Narrative Performed At EXAMINATION: [facility] CLINICAL H[facility]: Z13.820 Encounter for screening fo r osteoporosis, Z13.820 COMPARISON: None. The results of this study expressed as bone mineral de nsity (BMD) were as follows: AP spine (L1-L4) BMD: 1.094 g/cm2 T-Score: -0.6 Z score:0.9 Percent change: -1.8 % Dual Femur (Total Mean): BMD: 0.938 g/cm2 T-Score: -0.6 Z score:1.1 Percent change: -10.0% Left Forearm (Radius 33%): BMD: 0.853 g/cm2 T-Score: -0.3 Z score:2.3 Percent change: No prior exam% TBS L1-L4: 1.391, >1.350 normal, 1.200-1.350 partially degraded microarchitecture, <1.200 degraded micro architecture The 10 year probability of fracture, adj usted for FRAX: Major Osteoporotic Fracture: 15.1% Hip Fracture: 3.9% Dual femur FRAX: Risk factors: Chronic glucocorticoid's 10 year probability of fracture: 1. Major osteoporotic: 17.2% 2. Hip:3.9% 3. Based on dual femur right neck BMD Impression: There is no evidence of osteopenia based on T-scores. Notes: *The world health organization (WHO) has classified th e patient's T-score as follows: (0.0) to (-1) as normal (-1.1) to (-2.4) as low (osteopenia) (-2.5) and below, as abnormally low (osteoporosis, inc reased fracture risk) For premenopausal women, men under the age 50 years, and children the WHO classification does not apply. In these individual s please assess bone mineral density with Z scores for e ach skeletal site examined. Z scores above -2.0: Within expected ran ge for age. Z scores lower than -2.0: Low bone den sity for age. The TBS is derived from the texture of the DEXA marina ge and has been shown to be related to bone microarchitecture and frac ture risk. This data provides information independent of BMD value; is used as a complement to the data obtained from the DEXA analysis and the clinical examination. The TBS can ass ist the healthcare professional in assessment of fracture risk and in mon itoring the effect of treatments on patient over time. Procedure Note Hm Interface, Radiology Results Incoming - 07/22/2019 12:34 PM SECURITY SERGEANT EXAMINATION: BONE DENSITY CLINICAL HISTORY: Z13.820 Encounter for screening for osteoporosis, Z13.820 COMPARISON: None. The results of this study expressed as b one mineral density (BMD) were as follows: AP spine (L1-L4) BMD: 1.094 g/cm2 T-Score: -0.6 Z score:0.9 Percent change: -1.8 % Dual Femur (Total Mean): BMD: 0.938 g/cm2 T-Score: -0.6 Z score:1.1 Percent change: -10.0% Left Forearm (Radius 33%): BMD: 0.853 g/cm2 T-Score: -0.3 Z score:2.3 Percent change: No prior exam% TBS L1-L4: 1.391, >1.350 normal, 1.200-1 .350 partially degraded microarchitecture, <1.200 degraded microarchitecture The 10 year probability of fracture, adj usted for FRAX: Major Osteoporotic Fracture: 15.1% Hip Fracture: 3.9% Dual femur FRAX: Risk factors: Chronic glucocorticoid's 10 year probability of fracture: 1. Major osteoporotic: 17.2% 2. Hip:3.9% 3. Based on dual femur right neck BMD Impression: There is no evidence of osteopenia based on T-scores. Notes: *The world health organization (WHO) has classified the patient's T-score as follows: (0.0) to (-1) as normal (-1.1) to (-2.4) as low (osteopenia) (-2.5) and below, as abnormally low (ost eoporosis, increased fracture risk) For premenopausal women, men under the age 50 years, and children the WHO classification does not apply. In these individuals please assess bone mineral density with Z scores for each skeletal site examined. Z scores above -2.0: Within expected ran ge for age. Z scores lower than -2.0: Low bone dens ity for age. The TBS is derived from the texture o f the DEXA image and has been shown to be related to bone microarchitecture and fracture risk. This data provides information independent of BMD value; is used as a complement to the data obtained from the DEXA analysis and the clinical examination. T he TBS can assist the healthcare professional in assessment of fracture risk and in monitoring the effect of treatments on patient over time. Performing Organization Address City/State/ZIP Code Phon e Number [facility] [address] [place] [address] Bone Density (07/22/2019 11:51 AM SECURITY SERGEANT) Specimen Narrative Performed At EXAMINATION: [facility]ITY [facility] CLINICAL HISTORY: Z13.820 Encounter for screening fo r osteoporosis, Z13.820 COMPARISON: None. The results of this study expressed as bone mineral de nsity (BMD) were as follows: AP spine (L1-L4) BMD: 1.094 g/cm2 T-Score: -0.6 Z score:0.9 Percent change: -1.8 % Dual Femur (Total Mean): BMD: 0.938 g/cm2 T-Score: -0.6 Z score:1.1 Percent change: -10.0% Left Forearm (Radius 33%): BMD: 0.853 g/cm2 T-Score: -0.3 Z score:2.3 Percent change: No prior exam% TBS L1-L4: 1.391, >1.350 normal, 1.200-1.350 partially degraded microarchitecture, <1.200 degraded micro architecture The 10 year probability of fracture, adj usted for FRAX: Major Osteoporotic Fracture: 15.1% Hip Fracture: 3.9% Dual femur FRAX: Risk factors: Chronic glucocorticoid's 10 year probability of fracture: 1. Major osteoporotic: 17.2% 2. Hip:3.9% 3. Based on dual femur right neck BMD Impression: There is no evidence of osteopenia based on T-scores. Notes: *The world health organization (WHO) has classified th e patient's T-score as follows: (0.0) to (-1) as normal (-1.1) to (-2.4) as low (osteopenia) (-2.5) and below, as abnormally low (osteoporosis, inc reased fracture risk) For premenopausal women, men under the age 50 years, and children the WHO classification does not apply. In these individual s please assess bone mineral density with Z scores for e ach skeletal site examined. Z scores above -2.0: Within expected ran ge for age. Z scores lower than -2.0: Low bone den sity for age. The TBS is derived from the texture of the DEXA marina ge and has been shown to be related to bone microarchitecture and frac ture risk. This data provides information independent of BMD value; is used as a complement to the data obtained from the DEXA analysis and the clinical examination. The TBS can ass ist the healthcare professional in assessment of fracture risk and in mon itoring the effect of treatments on patient over time. Procedure Note Hm Interface, Radiology Results - 07/22/2019 12:33 PM SECURITY SERGEANT EXAMINATION: BONE DENSITY CLINICAL HISTORY: Z13.820 Encounter for screening for osteoporosis, Z13.820 COMPARISON: None. The results of this study expressed as b one mineral density (BMD) were as follows: AP spine (L1-L4) BMD: 1.094 g/cm2 T-Score: -0.6 Z score:0.9 Percent change: -1.8 % Dual Femur (Total Mean): BMD: 0.938 g/cm2 T-Score: -0.6 Z score:1.1 Percent change: -10.0% Left Forearm (Radius 33%): BMD: 0.853 g/cm2 T-Score: -0.3 Z score:2.3 Percent change: No prior exam% TBS L1-L4: 1.391, >1.350 normal, 1.200-1 .350 partially degraded microarchitecture, <1.200 degraded microarchitecture The 10 year probability of fracture, adj usted for FRAX: Major Osteoporotic Fracture: 15.1% Hip Fracture: 3.9% Dual femur FRAX: Risk factors: Chronic glucocorticoid's 10 year probability of fracture: 1. Major osteoporotic: 17.2% 2. Hip:3.9% 3. Based on dual femur right neck BMD Impression: There is no evidence of osteopenia based on T-scores. Notes: *The world health organization (WHO) has classified the patient's T-score as follows: (0.0) to (-1) as normal (-1.1) to (-2.4) as low (osteopenia) (-2.5) and below, as abnormally low (ost eoporosis, increased fracture risk) For premenopausal women, men under the age 50 years, and children the WHO classification does not apply. In these individuals please assess bone mineral density with Z scores for each skeletal site examined. Z scores above -2.0: Within expected ran ge for age. Z scores lower than -2.0: Low bone dens ity for age. The TBS is derived from the texture o f the DEXA image and has been shown to be related to bone microarchitecture and fracture risk. This data provides information independent of BMD value; is used as a complement to the data obtained from the DEXA analysis and the clinical examination. T he TBS can assist the healthcare professional in assessment of fracture risk and in monitoring the effect of treatments on patient over time. Performing Organization Address City/State/ZIP Code [facility] e Number [facility] [address] [place] [address] Breast Complete Bilateral (07/22/2019 10:00 AM SECURITY SERGEANT) Specimen Narrative Performed At PROCEDURE: MAMMO BREAST DIAGNOSTIC TOMOSYNTHESIS BILAT ERAL, US BREAST [facility] COMPLETE BILATERAL Computer aided detection was utilized for the interpre tation of the diagnostic mammography. HISTORY: R92.2 Inconclusive mammogram, D ENSE BREAST COMPARISON: Prior exam 07/21/2018. DENSITY: The breast are heterogenously dense, which ma y obscure small masses. FINDINGS: A coil clip seen in the right upper outer qu adrant unchanged. No abnormality surrounding the clip. No sign of any ne w microcalcification, mass or distortion. No adverse changes. Bilateral breast ultrasound complete. Scanning in all 4 quadrants and subareolar regions accomplished with qian se ruby rails developer supervision. In the left lateral breast there is again the hypoecho ic well-circumscribed 8.9 x 8.2 x 4.5 mm mass at mid dept h, unchanged from prior ultrasound and 2019. No new mass noted. No abnor malities seen on the right breast. IMPRESSION: No adverse changes. Probable small fibro adenoma on the left. RECOMMENDATION: Correlation with physica l exam and annual mammography. BI-RADS 2: Benign. This facility is accredited by the [employer] for Mammography. A negative x-ray report should not delay biopsy if a d ominant or clinically suspicious mass is present. Not all cance rs are identified by x-ray. [id number] Performing Organization Address City/State/ZIP Code Phon e Number [facility] [address] [place] [address] Mammo Breast Diagnostic Tomosynthesis Bilateral (07/22/2019 9:55 AM SECURITY SERGEANT) Specimen Narrative Performed At PROCEDURE: MAMMO BREAST DIAGNOSTIC TOMOSYNTHESIS BILAT ERAL, US BREAST [facility] COMPLETE BILATERAL Computer aided detection was utilized for the interpre tation of the diagnostic mammography. HISTORY: R92.2 Inconclusive mammogram, D ENSE BREAST COMPARISON: Prior exam 07/21/2018. DENSITY: The breast are heterogenously dense, which ma y obscure small masses. FINDINGS: A coil clip seen in the right upper outer qu adrant unchanged. No abnormality surrounding the clip. No sign of any ne w microcalcification, mass or distortion. No adverse changes. Bilateral breast ultrasound complete. Scanning in all 4 quadrants and subareolar regions accomplished with qian se ruby rails developer supervision. In the left lateral breast there is again the hypoecho ic well-circumscribed 8.9 x 8.2 x 4.5 mm mass at mid dept h, unchanged from prior ultrasound and 2019. No new mass noted. No abnor malities seen on the right breast. IMPRESSION: No adverse changes. Probable small fibro adenoma on the left. RECOMMENDATION: Correlation with physica l exam and annual mammography. BI-RADS 2: Benign. This facility is accredited by the [employer] for Mammography. A negative x-ray report should not delay biopsy if a d ominant or clinically suspicious mass is present. Not all cance rs are identified by x-ray. [id number] Performing Organization Address City/State/ZIP Code Phon e Number [facility] [address] [place] [address] after 05/05/2019 Insurance Payer Benefit Plan / Subscriber ID Effective Phone Address T ype Group Dates MEDICARE MEDICARE PART [id number] 1989-[place], [place] Medicare A AND B nt SECURE SECURE [id number] 2006-[facility] nt SUPP Advance Directives For more information, please contact: [phone] Type Date Recorded Patient Pre Billing Clinician Explanati on Advance Directives, Living Will 02/19/2019 12:29 PM and Medical Power of Sugar Laboratory Assistant
--- OUTSIDE RECORDS SUMMARY | 2020-05-05 15:42 | XMS REPORT ---
:1940 Author Organization [employer] Care Team Providers Name Role Phone [place] Wil[place] Provider Role Unavailable Allergies No Known Allergies Problems Problem Type Condition Code Onset Dates Condition Statu s Problem Swelling R60.9 Active Problem Postmenopausal symptoms N95.9 Acti ve Problem Panic disorder [episodic paroxysmal F41.0 Active anxiety] Problem Piriformis syndrome of left side G57.02 Active Problem Swelling of lower extremity M79.89 Active Problem Mild cognitive impairment with G31.84 Active memory loss Problem Piriformis syndrome of right side G57.01 Active Problem Irritable bowel syndrome with both K58.2 Active constipation and diarrhea Problem Anxiety F41.9 Active Problem USP (current) use of systemic Z79.52 Active steroids Problem Overactive bladder N32.81 Active Problem Irritable bowel syndrome, K58.9 Ac tive unspecified type Problem Hypothyroidism, unspecified type E03.9 Active Problem History of gallstones Z87.19 Active Problem Systemic lupus erythematosus, M32.9 Active unspecified SLE type, unspecified organ involvement status Problem Thyroid disease E07.9 Active Problem Memory problem R41.3 Active Problem Constipation, unspecified K59.00 Ac tive constipation type Problem Generalized anxiety disorder F41.1 Active Problem GERD without esophagitis K21.9 Act edgard Problem Vitamin D deficiency E55.9 Active Medications Medication Code System Code Instructions Start End Date Status Dos age Date Lorazepam [facility] [id number] 0.5 MG Orally Active 1 ta blet twice a day PRN as neede d Severe anxiety Results No Known Results Summary Purpose eClinicalWorks Submission
--- OUTSIDE RECORDS SUMMARY | 2020-05-05 15:42 | XMS REPORT ---
[...] cognitive impairment with G31.84 Active memory loss Assessment Systemic lupus erythematosus, M32.9 Active unspecified SLE type, unspecified organ involvement status Problem Piriformis syndrome of right side G57.01 Active Problem Irritable bowel syndrome with both K58.2 Active constipation and diarrhea Problem Anxiety F41.9 Active Problem intermediate designer (current) use of systemic Z79.52 Active steroids Problem Overactive bladder N32.81 Active Problem Irritable bowel syndrome, K58.9 Ac tive unspecified type Problem Hypothyroidism, unspecified type E03.9 Active Problem History of gallstones Z87.19 Active Problem Systemic lupus erythematosus, M32.9 Active unspecified SLE type, unspecified organ involvement status Problem Thyroid disease E07.9 Active Problem Memory problem R41.3 Active Assessment Irritable bowel syndrome with both K58.2 Active constipation and diarrhea Problem Constipation, unspecified K59.00 Ac tive constipation type Problem Generalized anxiety disorder F41.1 Active Assessment GERD without esophagitis K21.9 Act edgard Problem GERD without esophagitis K21.9 Act edgard Problem Vitamin D deficiency E55.9 Active Medications Medication Code System Code Instructions Start Date End Date Status Dosage PredniSONE [facility] [id number] 5 MG Orally three Active 1 tablet times a day Results No Known Results Summary Purpose eClinicalWorks Submission
--- OUTSIDE RECORDS SUMMARY | 2020-05-05 15:42 | XMS REPORT | Continuity of Care Document ---
:1940 Author Organization [facility] t Address [address] [place] [address] Care Team Providers Name Role Phone Asked, Pcp Primary Care Physician Unavailable EMIGDIO Attending Clinician Unavailable iTo CURRY Attending Clinician Shakila CURRY Attending Clinician Galindo HILL Attending Clinician Unavailable Haim GILL Attending Clinician Unavailable Nelson HILL Attending Clinician Unavailable Yoan HOOVER Attending Clinician Unavailable Samuel HOOVER Attending Clinician Unavailable System YOUTH SPECIALIST-C, Not In Attending Clinician Unavailable Williams Gonzalez MD Attending Clinician Demar CURRY, P. Attending Clinician Payers Payer Name Policy Type Policy Effective Date Expiration Date Sour ce Number MEDICAREMEDICARE PART [id number] 1989 Jimy Gee AND 00:00:00 [place] RxhwuumfLG840/06/1988[place] [id number] [facility] U[facility] [id number]/06/2006 -PresentCommercial Problems Condition Condition Condition Status Onset Resolution Last Treating Co mments Source Name Details Category Date Date Treatment Clinician Date Chest pain Chest pain Disease Active 2017-0 H denise 5-10 Methodi 00:00: st 00 Allergies, Adverse Reactions, Alerts This patient has no known allergies or adverse reactions. Family History Family Member Diagnosis Comments Start Date Stop Date Source Natural brother Diabetes Pixley Cherry ethodist Natural brother Heart disease [place] Natural father Diabetes [facility] thodist Natural father Heart disease Goldman Uatsdin Paternal grandmother Heart disease H ousage Uatsdin Social History Social Habit Start Date Stop Date Quantity Comments Source Sex Assigned At [facility] ethodist Exposure to Not sure Pixley Metho dist SARS-CoV-2 (event) Tobacco use and 2019-09-09 2019-09-09 Never used [facility] ethodist exposure 00:00:00 00:00:00 Alcohol intake 2019-09-09 2019-09-09 Current [facility] thodist 00:00:00 00:00:00 non-drinker of alcohol (finding) Smoking Status Start Date Stop Date Source Never smoker Pixley Janais t Medications Ordered Filled Start Stop Current Ordering Indication Dosage Frequency Signature Comments Components Source Medication Medication Date Date Medication? Clinician (SIG) Name Name Hydroxychlo Hydroxychlo 2020-0 2020- Yes Wilian [address] [facility] roquine roquine 9-17 10-17 [facility] - Sulfate Sulfate 00:00: 00:00 [facility] 00 :[facility] l [facility] ent Clinics cyanocobala 2020-0 Yes Inject as [place] min, - directed. Methodi vitamin 08:49: st B-12, (B-12 18 KIT INJ) predniSONE 2020-0 Yes 15mg QD Take 15 mg [place] (DELTASONE) - by mouth Meth renetta 5 mg tablet 08:48: daily. st 28 hydroxychlo 2020-0 Yes Q.5D Take by Cameron ston roquine -26 mouth 2 [facility]i (PLAQUENIL) 08:48: (two) st 200 mg 28 times a tablet day. estradiol 2020-0 Yes 1mg QD Take 1 mg Cameron ston (ESTRACE) 1 3-26 by mouth Meth renetta MG tablet 08:48: daily. st 28 levothyroxi 2020-0 Yes 100ug QD Take 100 [place] ne 3-26 mcg by Method[facility] (SYNTHROID, 08:48: mouth st LEVOXYL) 28 daily. 100 mcg tablet cholecalcif 2020-0 Yes 2000U QD Take 2,000 Goldman luis, 3-26 Units by [facility] vitamin D3, 08:48: mouth st (VITAMIN 28 daily. D3) 2,000 unit capsule capsule acetaminoph 2020-0 Yes 650mg Q6H Take 650 [place] en 3-26 mg by [facility] (TYLENOL) 08:48: mouth st 325 MG 28 every 6 tablet (six) hours as needed for fever. ascorbic 2020-0 Yes 1000mg QD Take 1,000 [place] acid, 3-26 mg by [facility] vitamin C, 08:48: mouth st (VITAMIN C) 28 daily. 500 MG tablet multivitami 2020-0 Yes 1{tbl} QD Take 1 Ho [place] n 3-26 tablet by [facility] (THERAGRAN) 08:48: mouth st tablet 28 daily. omeprazole 2020-0 Yes 20mg QD Take 20 mg [place] (PriLOSEC) 3-26 by mouth Metho di 20 MG 08:48: daily. st capsule 28 linaCLOtide 2019-0 2020- No 145ug QD Take 1 [place] (LINZESS) 2-06 03-07 capsule Method i 145 mcg 00:00: 23:59 ([address] capsule 00 :00 total) by mouth daily before breakfast for 30 days. LORAZepam 2018-0 Yes Pix[place] (ATIVAN) 1 2-14 Methodi MG tablet 00:00: st 00 Lorazepam Lorazepam Yes Wilian [address] [facility] as needed [facility] VESIcare VESIcare Yes Wilian [address] [facility] Stool Stool Yes Wilian [address] Softener Softener Golden as needed [facility] PredniSONE PredniSONE Yes Wilian [address] [facility] Estradiol Estradiol Yes Wilian [address] [facility] Vitamin D3 Vitamin D3 Yes Wilian [address] [facility] Vitamin C Vitamin C Yes Wilian [address] [facility] Multi Multi Yes Wilian [address] [facility] [address] Vitamin Vitamin [facility] Levothyroxi Levothyroxi Yes Wilian TAKE [address] [facility] ne Sodium ne Sodium Golden TABLET BY [facility] - MOUTH ONCE Memoria DAILY IN l THE [facility] MORNING ON ent AN EMPTY Clinics STOMACH FOR 90 DAYS MiraLax MiraLax Yes Wilian not [facility] Synthroid Synthroid Yes Wilian [address] [facility] Golden in the [facility] - morning on [facility]oria an empty l stomach [facility] Tylenol Tylenol Yes Wilian not [facility] Arthritis Arthritis Golden defined L ukes - Pain Pain [facility] l [facility] Omeprazole Omeprazole Yes Wilian [address] [facility] Golden 30 minutes [facility] - before [facility] morning l meal [facility] Vital Signs Vital Name Observation Time Observation Value Comments Source Body height 2019-07-22 11:52:00 156.2 cm Jones Krueger Body weight 2019-07-22 11:52:00 75.841 kg Jones Krueger BMI 2019-07-22 11:52:00 31.08 kg/m2 Jones Krueger Systolic blood 2019-06-29 10:28:00 132 mm[Hg] Anup gipson Uatsdin pressure Diastolic blood 2019-06-29 10:28:00 87 mm[Hg] Allyson Krueger pressure Heart rate 2019-06-29 10:28:00 72 /min Jones Krueger Procedures Procedure Date / Time Performing Clinician Source Performed GASTROINTESTINAL PANEL 2019-08-24 12:57:00 Junior Herrera BONE DENSITY PERIPHERAL 2019-07-22 11:52:37 Eleanor Gonzalez BONE DENSITY 2019-07-22 11:51:58 Eleanor Gonzalez US BREAST COMPLETE 2019-07-22 10:00:50 Alondra Benz BILATERAL MAMMO BREAST DIAGNOSTIC 2019-07-22 09:55:00 Alondra Benz TOMOSYNTHESIS BILATERAL Plan of Care Planned Activity Planned Date Details Comments Source Future Scheduled 2020-01-15 INFLUENZA VACCINE Deanto n Uatsdin Test 00:00:00 [code = INFLUENZA VACCINE] Future Scheduled 2006 65+ PNEUMOCOCCAL Jones Uatsdin Test 00:00:00 VACCINE (1 of 1 - PPSV23) [code = 65+ PNEUMOCOCCAL VACCINE (1 of 1 - PPSV23)] Future Scheduled 1991 SHINGLES VACCINES (#1) H denise Uatsdin Test 00:00:00 [code = SHINGLES VACCINES (#1)] Encounters Start End Encounter Admission Attending Care Care Encounter Source Date/Time Date/Time Type Type Clinicians Facility Department ID 2020-05-02 2020-05-02 Outpatient [facility] [id number] [place] 00:00:00 00:00:00 NADIM [address] 2020-05-01 2020-05-01 Outpatient [facility] [id number] [facility] 2020-04-26 2020-04-26 [facility] [id number] [facility] 2020-04-12 2020-04-12 [facility] [id number] [facility] 2020-04-03 2020-04-03 [facility] [id number] [facility] 2020-03-21 2020-03-21 Out[facility] [id number] [facility] 2020-03-20 2020-03-20 Out[facility] [id number] [facility] 2020-03-14 2020-03-14 Office Sabrina Kinsey [facility] [id number] 09:52:56 10:36:43 Visit AMBULATOR [id number] Y [id number] 2020-03-02 2020-03-02 [facility] [id number] [address] 11:23:00 11:23:00 t [employer] [facility] Outpat[facility] ent Clinics 2020-02-25 2020-02-25 [facility] [id number] 07:46:00 07:46:00 t [place]ux[place] s kwiry [facility] Outpati ent Clinics 2020-02-15 2020-02-15 [facility] [id number] 16:40:00 16:40:00 [place] [address] Lu[employer]atter and Form s - Drive [facility] Outpati ent Clinics 2020-02-01 2020-02-01 [facility] [id number] 10:00:00 10:00:00 t Bone Bone and [facility] 2020-01-13 2020-01-13 [facility] [id number] 09:12:00 09:12:00 t [place] [employer] s - Drive [facility] Medicine Outpati ent Clinics 2020-01-12 2020-01-12 [facility] [id number] 13:09:00 13:09:00 t [place] [employer] and Form s - Drive [facility] Outpati ent Clinics 2020-01-10 2020-01-10 [facility] [id number] 13:35:00 13:35:00 t [place] [employer] and Form s - Drive [facility] Outpat[facility] Clinics 2020-01-04 2020-01-04 [facility] [id number] 10:30:00 10:30:00 t [place] [employer] s - Drive [facility] Outpati ent Clinics 2019-11-04 2019-11-04 [facility] [id number] 10:25:00 10:25:00 t [facility] s - Road [facility] Outpat[facility] Clinics 2019-10-07 2019-10-07 [facility] [address] 09:00:00 09:00:00 t [place] [employer] s - Drive [facility] Medicine Outpati ent Clinics 2019-10-07 2019-10-07 [facility] [address] 08:00:00 08:00:00 t [place] [employer] s - Drive [facility] Medicine Outpati ent Clinics 2019-08-24 2019-08-24 Outpatient SHAKILA [facility] [id number] [place] 00:00:00 00:00:00 J[address] [facility] 2019-07-22 2019-07-22 Outpatient COSELLI, [facility] [id number] [place] 00:00:00 00:00:00 ALONDRA [address] 2019-07-22 2019-07-22 Outpatient GARRY, [facility] [id number] [place] 00:00:00 00:00:00 ELEANOR [address] 2019-07-22 2019-07-22 Outpatient GARRY, [facility] [id number] [place] 00:00:00 00:00:00 ELEANOR [address] 2019-07-22 2019-07-22 Outpatient COSELLI, [facility] [id number] [place] 00:00:00 00:00:00 ALONDRA [address] Results Test Description Test Test Results Result Source Time Comments Comments Gastrointestinal 2019-08 Gastrointestinal [facility] panel -10 panelNegative for all Met hodist 16:31:4 pathogens tested:Negative 9 for SalmonellaNegative for CampylobacterNegative for Diarrheagenic E coli/ShigellaNegative for Shiga-like toxin-producing E coliNegative for Plesiomonas shigelloidesNegative for Yersinia enterocoliticaNegative for Vibrio speciesNegative for Clostridium difficile (Toxin A/B)Negative for CryptosporidiumNegative for Giardia lambliaNegative for Cyclospora cayeteanensisNegative for Entamoeba histolyticaNegative for Adenovirus F 40/41Negative for AstrovirusNegative for Norovirus GI/GIINegative for Rotavirus ANegative for SapovirusNegative for Clostridium difficile toxinNegative for E coli 0157This real-time PCR assay detects the presence of nucleic acids (RNA or DNA) for the gastrointestinal pathogens listed.A result of "Not-detected" does not exclude the possibility of the presence of one or more pathogens at concentrations less than the detectable limits of the assay. Comment: Specimen InformationSpecimen Source: StoolSpecimen Site: Nonpreserved [facility] US Breast Complete 2019-07 PROCEDURE: MAMMO BREAST [facility] DIAGNOSTIC TOMOSYNTHESIS Uatsdin 13:03:1 BILATERAL, US BREAST 8 COMPLETE BILATERAL Computer aided detection was utilized for the interpretation of the diagnostic mammography. HISTORY: R92.2 Inconclusive mammogram, DENSE BREAST COMPARISON: Prior exam 07/21/2018. DENSITY: The breast are heterogenously dense, which may obscure small masses. FINDINGS: A coil clip seen in the right upper outer quadrant unchanged. No abnormality surrounding the clip. No sign of any new microcalcification, mass or distortion. No adverse changes. Bilateral breast ultrasound complete. Scanning in all 4 quadrants and subareolar regions accomplished with close mfts supervision. In the left lateral breast there is again the hypoechoic well-circumscribed 8.9 x 8.2 x 4.5 mm mass at mid depth, unchanged from prior ultrasound and 2019. No new mass noted. No abnormalities seen on the right breast. IMPRESSION: No adverse changes. Probable small fibroadenoma on the left. RECOMMENDATION: Correlation with physical exam and annual mammography. BI-RADS 2: Benign. This facility is accredited by the [employer] for Mammography. A negative x-ray report should not delay biopsy if a dominant or clinically suspicious mass is present. Not all cancers are identified by x-ray. S01 Mammo Breast 2019-07 PROCEDURE: MAMMO BREAST [facility] - DIAGNOSTIC TOMOSYNTHESIS Uatsdin Tomosynthesis 13:03:1 BILATERAL, US BREAST Bilateral 8 COMPLETE BILATERAL Computer aided detection was utilized for the interpretation of the diagnostic mammography. HISTORY: R92.2 Inconclusive mammogram, DENSE BREAST COMPARISON: Prior exam 07/21/2018. DENSITY: The breast are heterogenously dense, which may obscure small masses. FINDINGS: A coil clip seen in the right upper outer quadrant unchanged. No abnormality surrounding the clip. No sign of any new microcalcification, mass or distortion. No adverse changes. Bilateral breast ultrasound complete. Scanning in all 4 quadrants and subareolar regions accomplished with close mfts supervision. In the left lateral breast there is again the hypoechoic well-circumscribed 8.9 x 8.2 x 4.5 mm mass at mid depth, unchanged from prior ultrasound and 2019. No new mass noted. No abnormalities seen on the right breast. IMPRESSION: No adverse changes. Probable small fibroadenoma on the left. RECOMMENDATION: Correlation with physical exam and annual mammography. BI-RADS 2: Benign. This facility is accredited by the [employer] for Mammography. A negative x-ray report should not delay biopsy if a dominant or clinically suspicious mass is present. Not all cancers are identified by x-ray. [id number] Bone Density 2019-07 Interface, Radiology [facility] Results Incoming - Method ist 12:31:1 07/22/2019 12:34 PM 0 CSTEXAMINATION: BONE DENSITYCLINICAL HISTORY: Z13.820 Encounter for screening for osteoporosis, Z13.820COMPARISON: None.The results of this study expressed as bone mineral density (BMD) were as follows:AP spine (L1-L4)BMD: 1.094 g/kc6E-Tqpro: -0.6Z score:0.9Percent change: -1.8 %Dual Femur (Total Mean):BMD: 0.938 g/ek2A-Fzddu: -0.6Z score:1.1Percent change: -10.0%Left Forearm (Radius 33%):BMD: 0.853 g/np2O-Iutgr: -0.3Z score:2.3Percent change: No prior exam%TBS L1-L4: 1.391, >1.350 normal, 1.200-1.350 partially degraded microarchitecture, <1.200 degraded microarchitecture The 10 year probability of fracture, adjusted for FRAX:Major Osteoporotic Fracture: 15.1%Hip Fracture: 3.9%Dual femur FRAX:Risk factors: Chronic glucocorticoid's10 year probability of fracture:1. Major osteoporotic: 17.2%2. Hip:3.9%3. Based on dual femur right neck BMDImpression: There is no evidence of osteopenia based on T-scores.Notes: *The world health organization (WHO) has classified the patient's T-score as follows:(0.0) to (-1) as normal(-1.1) to (-2.4) as low (osteopenia)(-2.5) and below, as abnormally low (osteoporosis, increased fracture risk)For premenopausal women, men under the age 50 years, and children the WHO classification does not apply. In these individuals please assess bone mineral density with Z scores for each skeletal site examined. Z scores above -2.0: Within expected range for age. Z scores lower than -2.0: Low bone density for age.The TBS is derived from the texture of the DEXA image and has been shown to be related to bone microarchitecture and fracture risk. This data provides information independent of BMD value; is used as a complement to the data obtained from the DEXA analysis and the clinical examination. The TBS can assist the healthcare professional in assessment of fracture risk and in monitoring the effect of treatments on patient over time. Bone Density 2019-07 Interface, Radiology Results Incoming - Method ist 12:30:5 07/22/2019 12:33 PM 4 CSTEXAMINATION: BONE DENSITYCLINICAL HISTORY: Z13.820 Encounter for screening for osteoporosis, Z13.820COMPARISON: None.The results of this study expressed as bone mineral density (BMD) were as follows:AP spine (L1-L4)BMD: 1.094 g/dk1S-Zzyrr: -0.6Z score:0.9Percent change: -1.8 %Dual Femur (Total Mean):BMD: 0.938 g/ku9F-Wpdct: -0.6Z score:1.1Percent change: -10.0%Left Forearm (Radius 33%):BMD: 0.853 g/yq7I-Mplus: -0.3Z score:2.3Percent change: No prior exam%TBS L1-L4: 1.391, >1.350 normal, 1.200-1.350 partially degraded microarchitecture, <1.200 degraded microarchitecture The 10 year probability of fracture, adjusted for FRAX:Major Osteoporotic Fracture: 15.1%Hip Fracture: 3.9%Dual femur FRAX:Risk factors: Chronic glucocorticoid's10 year probability of fracture:1. Major osteoporotic: 17.2%2. Hip:3.9%3. Based on dual femur right neck BMDImpression: There is no evidence of osteopenia based on T-scores.Notes: *The world health organization (WHO) has classified the patient's T-score as follows:(0.0) to (-1) as normal(-1.1) to (-2.4) as low (osteopenia)(-2.5) and below, as abnormally low (osteoporosis, increased fracture risk)For premenopausal women, men under the age 50 years, and children the WHO classification does not apply. In these individuals please assess bone mineral density with Z scores for each skeletal site examined. Z scores above -2.0: Within expected range for age. Z scores lower than -2.0: Low bone density for age.The TBS is derived from the texture of the DEXA image and has been shown to be related to bone microarchitecture and fracture risk. This data provides information independent of BMD value; is used as a complement to the data obtained from the DEXA analysis and the clinical examination. The TBS can assist the healthcare professional in assessment of fracture risk and in monitoring the effect of treatments on patient over time.
--- OUTSIDE RECORDS SUMMARY | 2020-05-05 15:42 | XMS REPORT ---
[...] and diarrhea Problem Anxiety F41.9 Active Problem skilled nursing (current) use of systemic Z79.52 Active steroids [...] D deficiency E55.9 Active Medications Medication Code Code Instructions Start End Status Dosage System Date Date VESIcare [facility] 47428221446 10 MG Orally Active 1 tabl et Once a day Stool Softener ND 83294933932 100 MG Orally Active 1 capsule three times a as needed day Hydroxychloroquine ND 09818370015 200 MG Orally Sept Oct Act edgard 1 tablet Sulfate Twice daily 2019 PredniSONE ND 29002071903 5 MG Orally Active 1 tab let three times a day Estradiol ND 95804486544 1 MG Orally Active 1 tabl et Once a day Vitamin D3 [facility] 35786084465 50 MCG (2000 Active 1 ta blet UT) Orally Once a day Vitamin C [facility] 18987423511 1000 MG Orally Active 1 t ablet twice a day Multi Vitamin [facility] 46466946366 - Orally Once Active 1 tablet a day Levothyroxine Sodium [facility] 52927471912 75 MCG Active TAKE 1 TABLET BY MOUTH ONCE DAILY IN THE MORNING ON AN EMPTY STOMACH FOR 90 DAYS MiraLax [facility] 65487040442 Active not defined Lorazepam [facility] 70613641991 0.5 MG Orally Active 1 ta blet twice a day as needed PRN Severe anxiety Synthroid [facility] 55714338592 50 MCG Orally Active 1 ta blet Once a day in the morning on an empty stomach Tylenol Arthritis ND 0 Active not Pain defined Hydroxychloroquine [facility] 26289901423 200 MG Orally Act edgard 1 tablet Sulfate once a day Omeprazole [facility] 10528008246 20 MG Orally Active 1 ca psule Once a day 30 minutes before morning meal Results No Known Results Summary Purpose eClinicalWorks Submission
--- OUTSIDE RECORDS SUMMARY | 2020-05-05 15:43 | XMS REPORT ---
:1940 Author Organization [facility] Address [address] [place] [address] Care Team Providers Name Role Phone Golden Unavailable [phone] PROBLEMS Type Condition ICD9-CM [id number] Onset Condition SNOMED Code Notes Code Code Dates Status Problem Thyroid disease E07.9 Active 06788767 Problem Vitamin D E55.9 Active 98550974 deficiency Problem Panic disorder F41.0 Active 903605161 [episodic paroxysmal anxiety] Problem Swelling R60.9 Active 12627001 Problem History of Z87.19 Active 920698254 gallstones Problem Postmenopausal N95.9 Active 296295867 symptoms Problem Irritable bowel K58.9 Active 79080315 syndrome, unspecified type Problem Systemic lupus M32.9 Active 44174686 erythematosus, unspecified SLE type, unspecified organ involvement status Problem GERD without K21.9 Active 691583222 esophagitis Problem Anxiety F41.9 Active 54945099 Problem Irritable bowel K58.2 Active 02916076 syndrome with both constipation and diarrhea Problem Piriformis G57.02 Active 841953795240030 syndrome of left side Problem Constipation, K59.00 Active 13165564 unspecified constipation type Problem Swelling of lower M79.89 Active 592786582 extremity Problem Piriformis G57.01 Active 429465646001679 syndrome of right side Problem Hypothyroidism, E03.9 Active 45150031 unspecified type Problem Generalized F41.1 Active 68354884 anxiety disorder Problem long-term Z79.52 Active 981498275547552 (current) use of systemic steroids Problem Mild cognitive G31.84 Active 890544796 impairment with memory loss Problem Overactive N32.81 Active 328950964 bladder Problem Memory change R41.3 Active 541050541 ALLERGIES No Known Allergies ENCOUNTERS from 1940 to 2020-05-04 [facility] [address], 2020 [place] [address] IMMUNIZATIONS Vaccine Route Administration Date Status FluAD Unknown Feb 17, 2020 Administered SOCIAL HISTORY Tobacco Use: Social History Observation Description Date Details (start date - stop date) Never Smoker Sex Assigned At : Social History Observation Description Sex Assigned At Unknown PHQ9 Question Answer Notes Little interest or pleasure in doing things Several days Feeling down, depressed, or hopeless Several days Trouble falling or staying asleep or sleeping too much Not a t all Feeling tired or having little energy Not at all Poor appetite or overeating Not at all Feeling bad about yourself, or that you are a failure, or eckert ve Several days let yourself or your family down Trouble concentrating on things, such as reading the newspap er Several days or watching television Moving or speaking so slowly that other people could have Se veral days noticed; or the opposite, being so fidgety or restless that you have been moving around a lot more than usual Total Score 5 Interpretation Mild Depression Thoughts that you would be better off or of hurting Not at all yourself in some way Alcohol Screen Question Answer Notes Did you have a drink containing alcohol in Yes the past year? Points 3 Interpretation Positive How often did you have a drink containing Two to three times per week (3 alcohol in the past year? points) Tobacco Use/Smoking Question Answer Notes Are you a never smoker Additional Findings: Tobacco Non-User Current non-smoker Sexual History Question Answer Notes Had sex in the past 12 months (vaginal, oral, or anal)? No REASON FOR REFERRAL No Information VITAL SIGNS No information MEDICATIONS Medication SIG (Take, Route, Notes Start Date End Date Status Frequency, Duration) Hydroxychloroquine Sulfate 1 tablet Orally once Active 200 MG a day PredniSONE 5 MG 1 tablet Orally BID Active Levothyroxine Sodium 75 MCG TAKE 1 TABLET BY Active MOUTH ONCE DAILY IN THE MORNING ON AN EMPTY STOMACH FOR 90 DAYS for 90 Stool Softener 100 MG 1 capsule as needed Active Orally three times a day Acetaminophen-Codeine #3 Active Estradiol 1 MG 1 tablet Orally Once Active a day Lorazepam 0.5 MG 1 tablet as needed Active Orally twice a day PRN Severe anxiety for 90 days Synthroid 50 MCG 1 tablet in the Act edgard morning on an empty stomach Orally Once a day for 90 days Omeprazole 20 MG 1 capsule 30 minutes Active before morning meal Orally Once a day Multi Vitamin - 1 tablet Orally Once Active a day Mupirocin Active Vitamin D3 50 MCG (1999 UT) 1 tablet Orally Once Active a day Vitamin C 1000 MG 1 tablet Orally Ac tive twice a day MiraLax Active Cephalexin Not-Taking VESIcare 10 MG 1 tablet Orally Once Active a day Tylenol Arthritis Pain Ac tive Hydroxychloroquine Sulfate 1 tablet Orally Active 200 MG Twice daily for 30 PROCEDURES No Information RESULTS No Results REASON FOR VISIT bilat UE and LE swelling MEDICAL (GENERAL) HISTORY Type Description Date Medical History Generalized anxiety disorder Medical History Panic disorder [episodic paroxysmal anxi ety] Medical History Systemic lupus erythematosus, unspecifie d SLE type, unspecified organ involvement status Medical History Postmenopausal symptoms Medical History Hypothyroidism, unspecified type Medical History Vitamin D deficiency Medical History GERD without esophagitis Medical History Constipation, unspecified constipation t ype Surgical History left knee replacement 2009 Surgical History right knee replacement 2009 Surgical History hysterectomy 1974 Surgical History cholecystectomy 2016 Surgical History reduction mammoplasty 1990 Surgical History ?? stomach realignment 2014 Goals Section No Information Health Concerns No Information MEDICAL EQUIPMENT No Information MENTAL STATUS No Information FUNCTIONAL STATUS No Information ASSESSMENTS No Information PLAN OF TREATMENT Medication Medication Name Sig Start Date Stop Date Omeprazole 20 MG 1 capsule 30 minutes before morning meal Orally Once a day VESIcare 10 MG 1 tablet Orally Once a day Synthroid 50 MCG 1 tablet in the morning on an empty stomach Orally Once a day for 90 days Lorazepam 0.5 MG 1 tablet as needed Orally twice a day PRN Severe anxiety for 90 days Vitamin C 1000 MG 1 tablet Orally twice a day Multi Vitamin - 1 tablet Orally Once a day Vitamin D3 50 MCG (1999 UT) 1 tablet Orally Once a day Estradiol 1 MG 1 tablet Orally Once a day Stool Softener 100 MG 1 capsule as needed Orally three times a day Tylenol Arthritis Pain PredniSONE 5 MG 1 tablet Orally BID Levothyroxine Sodium 75 MCG TAKE 1 TABLET BY MOUTH ONCE DAILY IN THE MORNING ON AN EMPTY STOMACH FOR 90 DAYS for 90 Hydroxychloroquine Sulfate 200 MG 1 tablet Orally once a day Next Appt Details Provider Name:Wilian Golden, 2020-07-06 1 0:30:00 AM, [address], [place], [address], Provider Name:Wilian Golden, 2020-07-13 1 0:30:00 AM, [address], [place], [address], Insurance Providers Payer Name Payer Address Payer Insured Patient Coverage Cover age Phone Name Relationship to Start Date End Date Insured MEDICARE Attn Part B [id number] Kami Mancera NOVIT[employer] Claims [address] [facility] [id number] Secure [address] [address] [phone] Kami Mancera [address] [facility] [address] [address]
--- OUTSIDE RECORDS SUMMARY | 2020-05-05 15:43 | XMS REPORT ---
:1940 Author Organization [facility] Address [address] [place] [address] Care Team Providers Name Role Phone Golden Unavailable [phone] PROBLEMS Type Condition ICD9-CM [id number] Onset Condition SNOMED Code Notes Code Code Dates Status Problem Thyroid disease E07.9 Active 64345229 Problem Vitamin D E55.9 Active 61748562 deficiency Problem Panic disorder F41.0 Active 849835071 [episodic paroxysmal anxiety] Problem Swelling R60.9 Active 90825440 Problem History of Z87.19 Active 396635883 gallstones Problem Postmenopausal N95.9 Active 225545839 symptoms Problem Irritable bowel K58.9 Active 96912885 syndrome, unspecified type Problem Systemic lupus M32.9 Active 02641444 erythematosus, unspecified SLE type, unspecified organ involvement status Problem GERD without K21.9 Active 467304474 esophagitis Problem Anxiety F41.9 Active 66478090 Problem Irritable bowel K58.2 Active 59438530 syndrome with both constipation and diarrhea Problem Piriformis G57.02 Active 955737978764176 syndrome of left side Problem Constipation, K59.00 Active 97612975 unspecified constipation type Problem Swelling of lower M79.89 Active 324423877 extremity Problem Piriformis G57.01 Active 988058417293304 syndrome of right side Problem Hypothyroidism, E03.9 Active 48716692 unspecified type Problem Generalized F41.1 Active 42281023 anxiety disorder Problem alf Z79.52 Active 946594227431833 (current) use of systemic steroids Problem Mild cognitive G31.84 Active 568298790 impairment with memory loss Problem Overactive N32.81 Active 287853324 bladder Problem Memory change R41.3 Active 528397833 ALLERGIES No Known Allergies ENCOUNTERS from 1940 to 2020-04-26 Encounter Location Date Provider Diagnosis Mis Bennett [address] Apr, 2020 [place] [address] IMMUNIZATIONS Vaccine Route Administration Date Status FluAD [...] No information MEDICATIONS Medication SIG (Take, Route, Start Date End Date Status Frequency, Duration) Hydroxychloroquine Sulfate 200 1 tablet Orally once a Active MG day PredniSONE 5 MG 1 tablet Orally BID Activ e Levothyroxine Sodium 75 MCG TAKE 1 TABLET BY MOUTH Active ONCE DAILY IN THE MORNING ON AN EMPTY STOMACH FOR 90 DAYS for 90 Stool Softener 100 MG 1 capsule as needed Active Orally three times a day Acetaminophen-Codeine #3 Act edgard Estradiol 1 MG 1 tablet Orally Once a Act edgard day Lorazepam 0.5 MG 1 tablet as needed Activ e Orally twice a day PRN Severe anxiety for 90 days Synthroid 50 MCG 1 tablet in the morning Active on an empty stomach Orally Once a day for 90 days Omeprazole 20 MG 1 capsule 30 minutes Act edgard before morning meal Orally Once a day Multi Vitamin - 1 tablet Orally Once a Ac tive day Mupirocin Active Vitamin D3 50 MCG (1999 UT) 1 tablet Orally Once a Active day Vitamin C 1000 MG 1 tablet Orally twice a Active day MiraLax Active Cephalexin Not-Taking VESIcare 10 MG 1 tablet Orally Once a Act edgard day Tylenol Arthritis Pain Activ e Hydroxychloroquine Sulfate 200 1 tablet Orally Twice Active MG daily for 30 PROCEDURES No Information RESULTS No Results REASON FOR VISIT itchy rash MEDICAL (GENERAL) HISTORY Type Description Date Medical [...] 0:30:00 AM, [address], [place], [address], Provider Name:Wilian Golden, 2020-07-13 1 0:30:00 AM, [address], [place], [address], Insurance Providers Payer Name Payer Address Payer Insured Patient Coverage Cover age Phone Name Relationship to Start Date End Date Insured MEDICARE Attn Part B [id number] Kami Mancera NOVIT[employer] Claims [address] [facility] [address] Secure [address] [address] [phone] Kami Mancera [address] [facility] [address] [address]
[2020-05-05] MEDS ORDERED: HYDROCORTISONE SUC 100 MG INJ ONE (16:37)
[2020-05-05] MEDS ORDERED: NA CHLORIDE 0.9% 100 ML ONE (17:02)
[2020-05-05 17:10] LABS: ALT/SGPT 23 U/L (12-78); AST/SGOT 20 U/L (15-37); Alkaline Phosphatase 36 U/L (45-117); BUN Blood Urea Nitrogen 10 mg/dL (7-18); Basophils % 1.2 % (0-1.3); Bicarbonate 25 mmol/L (21-32); Bilirubin Direct < 0.1 mg/dL (0-0.2); Bilirubin Total 0.3 mg/dL (0.2-1.0); Glucose Level 100 mg/dL (74-106); Hematocrit 38.5 % (36.0-45.0); Lipase 47 U/L (73-393); Lymphocytes % 28.3 % (15.3-44.8); Potassium 3.8 mmol/L (3.5-5.1); Protein, Total 6.6 g/dL (6.4-8.2); RBC Red Blood Cell Count 3.93 M/uL (3.86-4.86); Sodium Level 144 mmol/L (136-145)
--- NOTE | 2020-05-05 18:04 | RAD REPORT ---
EXAM DESCRIPTION: US - Extrem Venous W Compress Alon - 05/05/2020 5:51 pm CLINICAL HISTORY: SWELLING COMPARISON: None. TECHNIQUE: Real-time sonographic evaluation of the bilateral lower extremity common femoral, superfi cial femoral, popliteal and posterior tibial veins was performed. FINDINGS: Normal compressibility, flow augmentation, phasic flow and spontaneous flow are identified in the left and right lower extremity common femoral, superficial femoral, popliteal and posterior t ibial veins. No intraluminal filling defects seen. IMPRESSION: No DVT in either lower extremity.
[2020-05-05 18:25] LABS: Troponin (Emerg Dept Use Only) < 0.02 ng/mL (0.0-0.045)
[2020-05-05 18:29] LABS: Blood Morphology Comment NOT SEEN (NOT SEEN); Platelet Estimate ADEQ
--- NOTE | 2020-05-05 18:41 | EDPHYS ---
Physician Documentation [facility] Name: Theresa Mancera Age: 80 yrs Sex: Female : 1940 Arrival Date: 05/05/2020 Time: 15:43 Bed 4 Private MD: Davon Cabrera ED Physician Emir Bates HPI: 05/05 17:12 This 80 yrs old Female presents to ER via Wheelchair with complaints of Leg jmm Swelling, Feet Swelling, Hand Swelling. 17:12 Onset: The symptoms/episode began/occurred gradually. Modifying factors: The symptoms jmm are alleviated by nothing. the symptoms are aggravated by nothing. This is a 80 year old female with a history of lupus that presents to the ED complaints of diffuse rash, left shoulder pain, and lower extremity swelling beginning approx 1 week ago. Patient denies fever. Patient recently d/c prednisone by her rheumatology. Denies fever. . Historical: - Allergies: 16:07 No Known Allergies; ss - PMHx: 16:07 Lupus; ss - PSHx: 16:07 Cholecystectomy; "stomach realignment"; breast reduction; Hysterectomy; cataract; ss - Immunization history:: Adult Immunizations up to date. - Social history:: Smoking status: Patient denies any tobacco usage or history of. ROS: 17:12 Constitutional: Negative for fever, chills, and weight loss, Cardiovascular: Negative jmm for chest pain, palpitations, and edema, Respiratory: Negative for shortness of breath, cough, wheezing, and pleuritic chest pain. 17:12 MS/extremity: Positive for pain. 17:12 Skin: Positive for rash. 17:12 All other systems are negative. Exam: 17:12 Constitutional: This is a well developed, well nourished patient who is awake, alert, jmm and in no acute distress. Head/Face: atraumatic. Eyes: EOMI, no conjunctival erythema appreciated ENT: Moist Mucus Membranes Neck: Trachea midline, Supple Chest/axilla: Normal chest wall appearance and motion. Cardiovascular: Regular rate and rhythm. No edema appreciated Respiratory: Normal respirations, no respiratory distress appreciated Abdomen/GI: Non distended, soft Back: Normal ROM 17:12 Musculoskeletal/extremity: bilateral edema appreciated, compartments are soft, NVI. 17:12 Skin: erythematous rash noted to the right lower leg. 17:12 Neuro: Orientation: is normal, Mentation: is normal, Memory: is normal. 17:12 Psych: Behavior/mood is pleasant, cooperative. Vital Signs: 16:02 BP 99 / 61; Pulse 76; Resp 16; Temp 98.6(TE); Pulse Ox 99% on R/A; Weight 78.47 kg; ss Height 5 ft. 2 in. (157.48 cm); Pain 9/10; 17:18 BP 108 / 52; Pulse 72; Resp 18; Pulse Ox 99% on R/A; em 16:02 Body Mass Index 31.64 (78.47 kg, 157.48 cm) ss MDM: 16:20 Patient medically screened. [facility] 18:36 Data reviewed: vital signs, nurses notes. Counseling: I had a detailed discussion with petra the patient and/or guardian regarding: the historical points, exam findings, and any diagnostic results supporting the discharge/admit diagnosis, lab results, the need for further work-up and treatment in the hospital. ED course: Upon reevaluation, the patient's bp was 88/71. Most likely lupus flare and adrenal insufficiency due to d/c of prednisone. Patient was discussed with Miguel Reich PA-C. . 05/05 16:20 Order name: Basic Metabolic Panel; Complete Time: 19:16 [facility] 05/05 16:20 Order name: CBC with Diff; Complete Time: 18:32 [facility] 05/05 16:20 Order name: Hepatic Function; Complete Time: 19:16 [facility] 05/05 16:20 Order name: Lipase; Complete Time: 19:16 [facility] 05/05 17:53 Order name: Troponin (Emerg Dept Use Only); Complete Time: 19:16 [facility] 05/05 18:29 Order name: Manual Differential; Complete Time: 18:32 [facility] 05/05 18:33 Order name: Cortisol jr8 05/05 18:57 Order name: T4 Free; Complete Time: 19:16 [facility] 05/05 18:57 Order name: Thyroid Stimulating Hormone; Complete Time: 19:16 [facility] 05/05 19:45 Order name: Urine Dipstick--Ancillary (enter results) 2 05/05 20:08 Order name: Urine Dipstick-Ancillary; Complete Time: 20:08 [facility] 05/05 16:20 Order name: IV Saline Lock; Complete Time: 16:45 [facility] 05/05 16:20 Order name: Labs collected and sent; Complete Time: 16:45 [facility] 05/05 16:36 Order name: US Extremity Venous W Compression Alon; Complete Time: 18:11 [facility] 05/05 17:48 Order name: EKG - Nurse/Tech; Complete Time: 18:11 [facility] Administered Medications: 16:45 Drug: Solu-CORTEF 100 mg Route: IVP; Site: left antecubital; em 17:50 Follow up: Response: No adverse reaction em 16:52 Drug: NS 0.9% 1000 ml Route: IV; Rate: 1 bolus; Site: left antecubital; em Disposition: 05/05/20 18:40 Hospitalization ordered by Jonatan Villarreal for Observation. Preliminary diagnosis are Adrenal Insufficiency, Hypotension, Lupus Flare. - Bed requested for Telemetry/MedSurg (observation). - Status is Observation. dm5 - Condition is Stable. - Problem is new. - Symptoms are unchanged. Addendum: 05/07/2020 07:32 Co-signature as Attending Physician, Emir Bates MD. r n Signatures: Dispatcher [employer] [facility] Selina Edwards RN RN dm5 Linda Pierre RN Reagan Maloney PA PA [facility] Russ Reece RN RN em Nieto, Roman, MD MD rn Smirch, Shelby, RN RN ss Roszak, Josh, PA PA jr8 Corrections: (The following items were deleted from the chart) 05/05 17:53 17:48 TROPONIN (EMERG DEPT USE ONLY)+C.LAB.BRZ ordered. [facility] EDNH 18:57 18:51 THYROID STIMULAT HORMONE+C.LAB.BRZ ordered. [facility] EDNH 18:57 18:51 T4 FREE+C.LAB.BRZ ordered. [facility] EDNH 19:25 18:40 Hospitalization Ordered by Jonatan Villarreal for Observation. Preliminary diagnosis dw is Adrenal Insufficiency; Hypotension; Lupus Flare. Bed requested for Telemetry/MedSurg (observation). Status is Observation. Condition is Stable. Problem is new. Symptoms are unchanged. [facility] 20:29 19:25 05/05/2020 18:40 Hospitalization Ordered by Jonatan Villarreal for Observation. dm5 Preliminary diagnosis is Adrenal Insufficiency; Hypotension; Lupus Flare. Bed requested for Telemetry/MedSurg (observation). Status is Observation. Condition is Stable. Problem is new. Symptoms are unchanged. dw
--- NOTE | 2020-05-05 18:41 | ER ---
Nurse's Notes [facility] Name: Theresa Mancera Age: 80 yrs Sex: Female : 1940 Arrival Date: 05/05/2020 Time: 15:43 Bed 4 Private MD: Davon Cabrera Diagnosis: Adrenal Insufficiency;Hypotension;Lupus Flare Presentation: 05/05 16:02 Chief complaint: Patient states: swelling and tenderness all over body that began a ss week ago. Pt's believes it may be a lupus flare up. Pt reports that her rheumatoid doctor changed up her medication about 2 weeks ago and believe it may be related to that medication change. Coronavirus screen: Client denies travel out of the [place] in the last 14 days. Ebola Screen: Patient denies exposure to infectious person. Patient denies travel to an Ebola-affected area in the 21 days before illness onset. Initial Sepsis Screen: Does the patient meet any 2 criteria? No. Patient's initial sepsis screen is negative. Does the patient have a suspected source of infection? No. Patient's initial sepsis screen is negative. Risk Assessment: Do you want to hurt yourself or someone else? Patient reports no desire to harm self or others. Onset of symptoms was April 28, 2020. 16:02 Method Of Arrival: Wheelchair ss 16:02 Acuity: RADHA 3 ss Historical: - Allergies: 16:07 No Known Allergies; ss - PMHx: 16:07 Lupus; ss - PSHx: 16:07 Cholecystectomy; "stomach realignment"; breast reduction; Hysterectomy; cataract; ss - Immunization history:: Adult Immunizations up to date. - Social history:: Smoking status: Patient denies any tobacco usage or history of. Screenin:16 Abuse screen: Denies threats or abuse. Nutritional screening: No deficits noted. em Tuberculosis screening: No symptoms or risk factors identified. Fall Risk None identified. Assessment: 16:19 General: Appears in no apparent distress. comfortable, Behavior is calm, cooperative, em appropriate for age. Pain: Complains of pain in left arm, right leg and left leg Pain currently is 9 out of 10 on a pain scale. Neuro: Level of Consciousness is awake, alert, obeys commands, Oriented to person, place, time, situation, Appropriate for age. Cardiovascular: Capillary refill < 3 seconds Patient's skin is warm and dry. Edema is 2+ to left ankle, left foot, right ankle and right foot pitting to left ankle, left foot, right ankle and right foot. Respiratory: Airway is patent Respiratory effort is even, unlabored, Respiratory pattern is regular, symmetrical, Denies shortness of breath. Derm: Skin is intact, is thin, Skin is pink, warm \\T\\ dry. Musculoskeletal: Capillary refill Range of motion: intact in all extremities. 17:00 Reassessment: Patient appears in no apparent distress at this time. Patient and/or em family updated on plan of care and expected duration. Pain level reassessed. Patient is alert, oriented x 3, equal unlabored respirations, skin warm/dry/pink. 18:51 Reassessment: received VO for TSH, and T4 free from TONIE Rivera. em 20:28 Reassessment: pt taken upstairs and met nurse in room. dm5 Vital Signs: 16:02 BP 99 / 61; Pulse 76; Resp 16; Temp 98.6(TE); Pulse Ox 99% on R/A; Weight 78.47 kg; ss Height 5 ft. 2 in. (157.48 cm); Pain 9/10; 17:18 BP 108 / 52; Pulse 72; Resp 18; Pulse Ox 99% on R/A; em 16:02 Body Mass Index 31.64 (78.47 kg, 157.48 cm) ED Course: 15:43 Patient arrived in ED. mr 15:44 Davon Cabrera MD is Private Physician. mr 16:07 Triage completed. ss 16:07 Arm band placed on left wrist. ss 16:08 Russ Reece, SNEHA is Primary Nurse. em 16:10 Reagan García PA is PHCP. [facility] 16:10 Emir Bates MD is Attending Physician. m 16:16 Patient has correct armband on for positive identification. Bed in low position. Call em light in reach. Side rails up X2. Adult w/ patient. Pulse ox on. NIBP on. 17:51 US Extremity Venous W Compression Alon In Process Unspecified. EDMS 18:03 EKG done, by ED staff, reviewed by Reagan SCHILLING. 3 18:39 Jonatan Villarreal is Hospitalizing Provider. jmm Administered Medications: 16:45 Drug: Solu-CORTEF 100 mg Route: IVP; Site: left antecubital; em 17:50 Follow up: Response: No adverse reaction em 16:52 Drug: NS 0.9% 1000 ml Route: IV; Rate: 1 bolus; Site: left antecubital; em Outcome: 18:40 Decision to Hospitalize by Provider. ally 20:29 Patient left the ED. dm5 Signatures: Dispatcher [employer] Selina Linares, RN RN dm Reagan García PA PA jmm Rivera, Mary mr Munoz, Edgar, Gillian Palumbo RN, RN RN Jenise Blancas [facility]
[2020-05-05 20:08] LABS: Urine Blood TRACE (NEG); Urine Glucose NEGATIVE (NEG); Urine Protein NEGATIVE (NEG); Urine pH 5.5 (5.0-7.0)
[2020-05-05] MEDS ORDERED: ONDANSETRON 4 MG/2 ML VIAL IV PRN (20:52)
[2020-05-05] MEDS ORDERED: MORPHINE 2 MG/ML SYR IV PRN (20:52)
[2020-05-06] MEDS: FUROSEMIDE 20 MG/ 2ML VIAL IV SCH ×2 (00:52→09:12)
[2020-05-06] MEDS ORDERED: HYDROCORTISONE SUC 100 MG INJ IV SCH (02:00)
--- NOTE | 2020-05-06 02:23 | P.HP ---
Certification for Inpatient Patient admitted to: Observation With expected LOS: <2 Midnights Patient will require the following post-hospital care: None Practitioner: I am a practitioner with admitting privileges, knowledge of patient current condition, hospital course, and medical plan of care. Services: Services provided to patient in accordance with Admission requirements found in Title 42 Section 412.3 of the Code of Federal Regulations <Christian Reich - Last Filed: 05/06/20 02:16> Patient History Date of Service: 05/06/20 Primary Care Provider: OOT Reason for admission: Hypotension, Anasarca, adrenal insufficiency History of Present Illness: This is a 80-year-old female that presented to the emergency room tonight after having a 1 week history of increased leg swelling and hand swelling with general weakness. Patient stated that she has a history of systemic lupus and had been on 10 mg of prednisone for several years. About 2 weeks ago her emergency care tech abruptly took her off the prednisone and put her on a DMARD. Patient stated that since she is been off the prednisone and started the new medication she has developed a new rash on her back and the lower and upper extremity edema. Patient was worked up in the emergency room and found to be slightly hypotensive. Patient was given fluids and Solu-Cortef in the emergency room and hospitalist team was consulted for admission for further workup. On exam in the emergency room patient did have 3+ pitting edema to the lower e xtremities up to the inferior knee. Patient also had mild edema and swelling to the hands and wrists. No other acute findings and otherwise hemodynamically stable. Home medications list reviewed: Yes - Past Medical/Surgical History Has patient received pneumonia vaccine in the past: Yes Diabetic: No -: Lupus -: Cholecystectomy -: Stomach re alignment -: breast reduction -: hysterectomy -: cataract surgery - Family History Father -: Heart disease, Diabetes Mother -: Cancer Notes: Colon Cancer Brother -: Heart disease, Diabetes - Social History Smoking Status: Never smoker Smoking therapy provided: No Alcohol use: Yes CD- Drugs: No Caffeine use: Yes Place of Residence: Home <RachanaChristian - Last Filed: 05/06/20 02:16> Date of Service: 05/06/20 <qian baez - Last Filed: 05/06/20 12:15> Allergies No Known Allergies Allergy (Verified 05/05/20 20:31) Home Medications: Acetaminophen [Tylenol Arthritis] 650 mg PO QID PRN 05/05/20 Ascorbic Acid [Vitamin C*] 1,000 mg PO DAILY 05/05/20 Diphenhydramine HCl [Benadryl Allergy] 25 mg PO Q4H PRN 05/05/20 Estradiol [Estrace] 1 mg PO DAILY 05/05/20 Hydroxychloroquine [Plaquenil*] 200 mg PO DAILY 05/05/20 LORazepam [Ativan*] 0.5 tab PO BID 05/05/20 Leflunomide [Arava] 20 mg PO DAILY 05/05/20 Levothyroxine Sodium [Euthyrox] 75 mg PO DAILY 05/05/20 Lisinopril [Zestril] 10 mg PO DAILY 05/05/20 Multivitamin [Multivitamins] 1 cap PO DAILY 05/05/20 Omeprazole 1 tab PO DAILY 05/05/20 Polyethylene Glycol 3350 [Miralax] 17 gm PO DAILY PRN 05/05/20 Solifenacin Succinate [Vesicare] 10 mg PO DAILY 05/05/20 Vit D3/Vit K2/Calc Frutoborate [Move Free Cqkfl-Aakqmz-U5-D3] 1 tab PO DAILY 05/05/20 Cefdinir [Omnicef] 300 mg PO BID #10 capsule 05/06/20 predniSONE [Prednisone] 2.5 mg PO BID #210 tablet 05/06/20 Review of Systems General: Weakness Eyes: Unremarkable ENT: Unremarkable Respiratory: Unremarkable Cardiovascular: Edema Gastrointestinal: Unremarkable Genitourinary: Unremarkable Musculoskeletal: Unremarkable Integumentary: As per HPI Neurological: Unremarkable Lymphatics: Unremarkable <Christian Reich - Last Filed: 05/06/20 02:16> Physical Examination - Vital Signs Temperature: 97.0 F Blood Pressure: 128/66 Pulse: 77 Respirations: 17 Pulse Ox (%): 97 - Physical Exam General: Alert, In no apparent distress, Oriented x3 HEENT: Normocephalic, PERRLA, Mucous membr. moist/pink, EOMI Neck: Supple, 2+ carotid pulse no bruit, JVD not distended, No Thyromegaly Respiratory: Clear to auscultation bilaterally, Normal air movement Cardiovascular: Regular rate/rhythm, Normal S1 S2, No gallops, No rubs, No murmurs, Edema (Patient has 3+ pitting edema to lower extremities with mild edema to the hands and wrists bilaterally) Capillary refill: <2 Seconds Gastrointestinal: Normal bowel sounds, Soft and benign, Non-distended, No ascites, No tenderness, No masses, No rebound, No guarding Musculoskeletal: No clubbing, No swelling, No contractures, No erythema, No tenderness, No warmth Integumentary: No breakdown, No significant lesion, No tenderness/swelling, No erythema, No warmth, No cyanosis, Other (Mild nonspecific erythematic rash noted to the upper back. Blanching in nature.) Neurological: Normal speech, Normal strength at 5/5 x4 extr, Normal tone, Sensation intact, Cranial nerves 3-12 intact, Normal affect Lymphatics: No axilla or inguinal lymphadenopathy - Studies Laboratory Data (last 24 hrs) 05/05/20 16:40: WBC 7.0, Hgb 13.0, Hct 38.5, Plt Count 204 05/05/20 16:40: Sodium 144, Potassium 3.8, BUN 10, Creatinine 0.69, Glucose 100, Total Bilirubin 0.3, AST 20, ALT 23, Alkaline Phosphatase 36 L, Lipase 47 L <Christian Reich - Last Filed: 05/06/20 02:16> - Studies Laboratory Data (last 24 hrs) 05/05/20 16:40: WBC 7.0, Hgb 13.0, Hct 38.5, Plt Count 204 05/05/20 16:40: Sodium 144, Potassium 3.8, BUN 10, Creatinine 0.69, Glucose 100, Total Bilirubin 0.3, AST 20, ALT 23, Alkaline Phosphatase 36 L, Lipase 47 L <qian baez - Last Filed: 05/06/20 12:15> Assessment and Plan - Problems (Diagnosis) (1) Hypotension Current Visit: Yes Status: Acute Qualifiers: Hypotension type: unspecified hypotension type Qualified Code(s): I95.9 - Hypotension, unspecified (2) Anasarca Current Visit: Yes Status: Acute (3) Adrenal insufficiency due to steroid withdrawal Current Visit: Yes Status: Acute (4) History of immunosuppressive therapy Current Visit: No Status: Chronic (5) History of lupus Current Visit: No Status: Chronic - Plan We will continue to monitor patient over the next 24 hr. Patient will given course all and Lasix for adrenal insufficiency and edema. We will obtain urine creatinine and protein ratio to ensure that she is not having nephrotic syndrome secondary to systemic lupus. Patient overall has improved and more hemodynamically stable. If patient continues to do well over the next 24 hr will be able to send home and have her follow up with emergency care tech. Likely this is combined from her lupus and secondary from abrupt cessation of her prednisone. 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 UTI Plan: Check a.m. cortisol level Steroid replaced-Hydrocortisone Start IV Rocephin for UTI. <qian baez - Last Filed: 05/06/20 12:15>
[2020-05-06 03:30] VITALS: BMI 31.3
[2020-05-06 04:10] LABS: Urine Appearance CLEAR; Urine Bilirubin NEGATIVE (NEG); Urine Blood NEGATIVE (NEG); Urine Color YELLOW; Urine Glucose NEGATIVE (NEG); Urine Protein NEGATIVE (NEG); Urine Specific Gravity <=1.005 (1.005-1.030); Urine Urobilinogen 0.2 mg/dL (0.2-1.0)
[2020-05-06 04:14] LABS: Urine Microscopic Reflex ORDER UMIC
[2020-05-06 04:20] LABS: UR CREAT < 13.0 mg/dL (20-320); UR PROTEIN 8 mg/dL (<11.9)
[2020-05-06 04:27] LABS: Urine Bacteria >50 /HPF (<20); Urine Culture Reflex Order REFLEXED; Urine Mucus 1+ /HPF (NONE SEEN); Urine RBC <5 /HPF (NONE SEEN)
[2020-05-06 06:05] VITALS: O2SAT 96
[2020-05-06 06:15] LABS: Absolute Lymphocytes (CBC) 1.6 K/uL (0.7-4.9); Basophils % 1.1 % (0-1.3); Hematocrit 39.5 % (36.0-45.0); Lymphocytes % 25.5 % (15.3-44.8); RBC Red Blood Cell Count 4.06 M/uL (3.86-4.86)
[2020-05-06 08:00] LABS: Potassium 3.5 mmol/L (3.5-5.1)
[2020-05-06] MEDS ORDERED: CEFTRIAXONE 1 GM/NS 50 ML 1 GM/50 ML BAG IV ONE (10:30)
[2020-05-06] MEDS ORDERED: CEFTRIAXONE/SWI 1gm 1 GM/10 ML SYR IV ONE (11:00)
--- NOTE | 2020-05-06 12:21 | P.DS ---
Admission Date: 05/05/20 Discharge Date: 05/06/20 Primary Care Provider: RENARD Disposition: ROUTINE DISCHARGE Discharge Condition: FAIR Reason for Admission: Hypotension, Anasarca, adrenal insufficiency - Problems (1) Peripheral edema Current Visit: Yes Status: Acute (2) UTI (urinary tract infection) Current Visit: Yes Status: Acute (3) Adrenal insufficiency due to steroid withdrawal Current Visit: Yes Status: Acute (4) History of immunosuppressive therapy Current Visit: No Status: Chronic (5) History of lupus Current Visit: No Status: Chronic Brief History of Present Illness: 80-year-old woman with a history of lupus, and hypothyroidism presented to the emergency department with a complaint leg and hand swelling of 2 weeks duration and generalized weakness. Patient had been on chronic steroid therapy with 15 mg of prednisone daily. She stated her prednisone was abruptly discontinued by his wood heel flap inserter and replaced with leflunomide. Her blood pressure was soft in the ED. He was given IV NS and a dose of IV hydrocortisone in the ED. Patient was placed under observation for further management of adrenal insufficiency with hypotension. Hospital Course: She was treated with IV hydrocortisone. Her blood pressure improved with IV hydration and IV steroid. She was also given Lasix to treat the peripheral edema. Her UA was suggested the presence of UTI. Patient was given a shot of IV Rocephin. Repeat cortisol level in a.m. was within normal limit. Her peripheral edema and soft blood pressure is likely related to secondary adrenal insufficiency from abrupt withdrawal of chronic steroid therapy. Patient states her wood heel flap inserter restarted prednisone at a lower dose 12.5 mg daily in addition to the Leflunomide for her lupus. Will therefore prescribe a tapering dose of prednisone with a reduction of 2.5 mg every 2 weeks. She will follow with her wood heel flap inserter within 1 week to confirm prednisone tapering. She is prescribed Omnicef to continue treatment for UTI. She is deemed clinically stable for discharge. Vital Signs/Physical Exam: Temp Pulse Resp BP Pulse Ox 97.6 F 78 18 149/65 H 96 05/06/20 08:00 05/06/20 09:12 05/06/20 08:00 05/06/20 09:12 05/06/20 08:00 General: Alert, In no apparent distress HEENT: Mucous membr. moist/pink Neck: JVD not distended, No Thyromegaly Respiratory: Clear to auscultation bilaterally, Normal air movement Cardiovascular: Regular rate/rhythm, Normal S1 S2, Edema (1+ bilateral lower extremity pitting edema) Gastrointestinal: Normal bowel sounds, Soft and benign, Non-distended, No tenderness Musculoskeletal: Tenderness (Bilateral hardy) Integumentary: No erythema Neurological: Other (Nonfocal) Laboratory Data at Discharge: WBC 6.2 K/uL (4.3-10.9) 05/06/20 05:18 Hgb 13.4 g/dL (12.0-15.0) 05/06/20 05:18 Hct 39.5 % (36.0-45.0) 05/06/20 05:18 Plt Count 210 K/uL (152-406) 05/06/20 05:18 Sodium 144 mmol/L (136-145) 05/06/20 07:25 Potassium 3.5 mmol/L (3.5-5.1) 05/06/20 07:25 BUN 9 mg/dL (7-18) 05/06/20 07:25 Creatinine 0.65 mg/dL (0.55-1.3) 05/06/20 07:25 Glucose 137 mg/dL (74-106) H 05/06/20 07:25 Total Bilirubin 0.3 mg/dL (0.2-1.0) 05/05/20 16:40 AST 20 U/L (15-37) 05/05/20 16:40 ALT 23 U/L (12-78) 05/05/20 16:40 Alkaline Phosphatase 36 U/L (45-117) L 05/05/20 16:40 Lipase 47 U/L (73-393) L 05/05/20 16:40 Home Medications: Acetaminophen [Tylenol Arthritis] 650 mg PO QID PRN 05/05/20 Ascorbic Acid [Vitamin C*] 1,000 mg PO DAILY 05/05/20 Diphenhydramine HCl [Benadryl Allergy] 25 mg PO Q4H PRN 05/05/20 Estradiol [Estrace] 1 mg PO DAILY 05/05/20 Hydroxychloroquine [Plaquenil*] 200 mg PO DAILY 05/05/20 LORazepam [Ativan*] 0.5 tab PO BID 05/05/20 Leflunomide [Arava] 20 mg PO DAILY 05/05/20 Levothyroxine Sodium [Euthyrox] 75 mg PO DAILY 05/05/20 Lisinopril [Zestril] 10 mg PO DAILY 05/05/20 Multivitamin [Multivitamins] 1 cap PO DAILY 05/05/20 Omeprazole 1 tab PO DAILY 05/05/20 Polyethylene Glycol 3350 [Miralax] 17 gm PO DAILY PRN 05/05/20 Solifenacin Succinate [Vesicare] 10 mg PO DAILY 05/05/20 Vit D3/Vit K2/Calc Frutoborate [Move Free Frfue-Rxkqyi-J9-D3] 1 tab PO DAILY 05/05/20 Cefdinir [Omnicef] 300 mg PO BID #10 capsule 05/06/20 predniSONE [Prednisone] 2.5 mg PO BID #210 tablet 05/06/20 New Medications: Cefdinir [Omnicef] 300 mg PO BID #10 capsule predniSONE [Prednisone] 2.5 mg PO BID #210 tablet Diet: AHA Activity: Ad stefania Followup: Wilian Golden, [Primary Care Provider] - 1-2 Weeks Gordon Noyola MD [OUTSIDE PHYSICIAN] - 1 Week
[2020-05-06 13:06] VITALS: BP 131/59; TEMP 97.4
== END 2020-05-06 13:28 | disposition home or self-care (01) ==
LOC: ER 15:39 → ERHOLD 19:13 → 2ND 19:57
PROVIDERS: ADMIT Internal Medicine; ATTEND Internal Medicine
DX: E27.49 Other adrenocortical insufficiency (principal); R60.9 Edema, unspecified; N39.0 Urinary tract infection, site not specified; M32.9 Systemic lupus erythematosus, unspecified; E03.9 Hypothyroidism, unspecified; R53.1 Weakness; Z79.52 Long term (current) use of systemic steroids; I95.9 Hypotension, unspecified; R94.31 Abnormal electrocardiogram [ECG] [EKG]
CPT/HCPCS: 93005; 87088; 85025 ×2; 87086; 80048 ×2; 36415; 80076; 84443; 87077; 87186; 81003; 82570; 84484; 84439; 83690; 82533 ×2; 84156; 93970; 96374; 99284; J1940 ×2; J0696; J1720 ×2; G0378 ×3; 81015

== ENCOUNTER 2020-07-08 23:51 | Observation (INO) | payer OTHER ==
--- OUTSIDE RECORDS SUMMARY | 2020-07-08 23:54 | XMS REPORT | Clinical Summary ---
:1940 Author Organization [facility] Address [address] [place] [address] Care Team Providers Name Role Phone Asked, [...] Encounters Date Type Specialty Care Team Description 06/13/2020 Travel 06/13/2020 Transcribe Orders Access Diaz Benz ystic breast MD Jeancarlos changes of both breasts (Primar y Dx) 05/02/2020 Travel 09/09/2019 Telephone Gastroenterology Javier Constipatio Junior gipson MD unspecified constipation ty pe 09/09/2019 Abstract Gastroenterology Era Medley MA 09/08/2019 Travel 09/07/2019 Travel 09/02/2019 Telephone Gastroenterology [...] Luna Milton, SNEHA 08/13/2019 Telephone Gastroenterology Luna Milton RN 07/23/2019 Telephone Gastroenterology Connie Damon MA 07/22/2019 Hospital Encounter Radiology System, Provider Encou nter for Not In, [facility] screening for Eleanor Gonzalez osteoporosis MD Williams 07/22/2019 Hospital Encounter Radiology Eleanor Gonzalez Encount er for MD Williams screening for osteoporosis 07/22/2019 Hospital Encounter Radiology Diaz Benz Dense breast tissue MD Jeancarlos 07/22/2019 Hospital Encounter Radiology Diaz Benz Dense breast tissue MD Jeancarlos 07/22/2019 Orders Only Gastroenterology Connie Damon MA 07/21/2019 Telephone Gastroenterology Junior Herrera MD after 07/08/2019 Surgical History Surgery Date Site/Laterality Comments CHOLECYSTECTOMY [...] been in contact with No / Unsure 06/13/2020 3:13 PM [facility] someone who was confirmed or suspected to have Coronavirus / COVID-19? Last Filed Vital Signs Vital Sign Reading Time Taken Comments Blood Pressure - - Pulse - - Temperature - - Respiratory Rate - - Oxygen Saturation - - Inhaled Oxygen Concentration - - Weight 75.8 kg (167 lb 3.2 oz) 07/22/2019 11:52 AM [facility] Height 156.2 cm (5' 1.5") 07/22/2019 11:52 AM [facility] Body Mass Index 31.08 07/22/2019 11:52 AM [facility] Plan of Treatment Date Type Specialty Care Team Description 07/26/2020 Appointment Radiology Diaz Benz MD [address] [place], [place] [address] [phone] 07/26/2020 Appointment Radiology Diaz Benz MD [address] [place], [place] [address] [phone] Health Maintenance Due Date Last Done Comments COVID-19 VACCINE (1 of 2) 1956 SHINGLES VACCINES (#1) 1991 65+ PNEUMOCOCCAL VACCINE (1 of 1 - PPSV23) 04/21/200606/16, 06/16/2014 INFLUENZA VACCINE 01/15/2020 Procedures Procedure Name Priority Date/Time Associated Comments Diagnosis GASTROINTESTINAL PANEL Routine 08/24/2019 12:57 Diarrhea, R esults for this PM CDT unspecified type procedure a re in the results section. BONE DENSITY PERIPHERAL Routine 07/22/2019 11:52 Encounter for Results for this AM [facility] screening for procedure are in osteoporosis the results section. BONE DENSITY Routine 07/22/2019 11:51 Encounter for Results fo r this AM [facility] screening for procedure are in osteoporosis the results section. US BREAST COMPLETE Routine 07/22/2019 10:00 Dense breast tissu e Results for this BILATERAL AM [facility] procedure are i n the results section. MAMMO BREAST DIAGNOSTIC Routine 07/22/2019 9:55 Dense breast tissue Results for this TOMOSYNTHESIS BILATERAL AM [facility] proc edure are in the results section. after 07/08/2019 Results Gastrointestinal panel (08/24/2019 12:57 PM CDT) Gastrointestinal panel Negative for all pathogens tested: [facility] Negative for Salmonella [facility] Negative for Campylobacter [facility] Negative for Diarrheagenic E coli/Shigella Negative [...] Organization Address City/State/ZIP Code Phon e Number [facility] DEPARTMENT OF PATHOLOGY AND [address] [place], [place] [address] GENOM[address] MED[address]INE [address] [address] Bone Density Peripheral (07/22/2019 11:52 AM [facility]) Specimen Narrative Performed At EXAMINATION: BONE DENSITY [facility] CLINICAL HISTORY: Z13.820 Encounter for screening fo [...] Radiology Results Incoming - 07/22/2019 12:34 PM [facility] EXAMINATION: BONE DENSITY CLINICAL HISTORY: Z13.820 Encounter [...] City/State/ZIP Code [facility] [address] [place] [address] Bone Density (07/22/2019 11:51 AM [facility]) Specimen Narrative Performed At EXAMINATION: BONE DENSITY [facility] CLINICAL HISTORY: Z13.820 Encounter for screening fo [...] Hm Interface, Radiology Results Incoming - 07/22/2019 12:33 PM [facility] EXAMINATION: BONE DENSITY CLINICAL HISTORY: Z13.820 Encounter [...] on patient over time. Performing Organization Address City/State/[facility] Phon e Number [facility] [address] [place] [address] US Breast Complete Bilateral (07/22/2019 10:00 AM H[facility]SE [facility]) Specimen Narrative Performed At PROCEDURE: MAMMO BREAST [...] 4 quadrants and subareolar regions accomplished with [facility] [employer] supervision. In the left lateral breast there [...] Benign. This facility is accredited by the [employer] for Mammography. A negative x-ray report should not delay biopsy if a d ominant or clinically suspicious mass is present. Not all cance rs are identified by x-ray. [id number] Performing Organization Address [facility]/ZIP [facility] Phon e Number [facility] [address] [place] [address] Mammo Breast Diagnostic Tomosynthesis Bilateral (07/22/2019 9:55 AM HORSE [facility]ER) Specimen Narrative Performed At PROCEDURE: MAMMO BREAST [...] 4 quadrants and subareolar regions accomplished with [facility] [employer] supervision. In the left lateral breast there [...] Benign. This facility is accredited by the [employer] for Mammography. A negative x-ray report should not delay biopsy if a d ominant or clinically suspicious mass is present. Not all cance rs are identified by x-ray. [id number] Performing Organization Address City/State/ZIP Code Phon e Number [facility] [address] [place] [address] after 07/08/2019 Insurance Payer Benefit Plan / Subscriber ID Effective Phone Address T ype Group Dates MEDICARE MEDICARE PART [id number] 1989-[place], [place] Medicare A AND B nt SECURE SECURE [id number] 2006-[facility] nt SUPP Advance Directives For more information, please contact: [phone] Type Date Recorded Patient Technical Maintenance Technician Explanati on Advance Directives, Living Will 02/19/2019 12:29 PM and Medical Power of Manager Reading
--- OUTSIDE RECORDS SUMMARY | 2020-07-08 23:55 | XMS REPORT | Continuity of Care Document ---
:1940 Author Organization [facility] t Address [address] [place] [address] Care Team Providers Name Role Phone Asked, Pcp Primary Care Physician Unavailable Demar CURRY, P. 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 In Attending Clinician Unavailable Williams Gonzalez MD Attending Clinician Payers Payer Name Policy Type Policy Effective Date Expiration Date Sour ce Number MEDICAREMEDICARE PART [id number] 1989 Jimy Gee AND 00:00:00 [employer]ism [id number] 1988[place] HORIZONSSECURE [id number] 2006 [facility] 00:00:[facility] Mormonism [id number] 2006 -PresentCommercial Problems Condition Condition Condition Status Onset Resolution Last Treating Co mments Source Name Details Category Date Date Treatment Clinician Date Chest pain Chest pain Disease Active 2017-0 H denise 5-10 [facility] 00:00: st 00 Allergies, Adverse Reactions, Alerts This patient has no known allergies or adverse reactions. Family History Family Member Diagnosis Comments Start Date Stop Date Source Natural brother Diabetes [place] ethodist Natural brother Heart disease [place]ism Natural father Diabetes [facility] thodist Natural father Heart disease [place] [employer] Paternal grandmother Heart disease H ousage Mormonism Social History Social Habit Start Date Stop Date Quantity Comments Source Sex Assigned At [facility] ethodist Exposure to Not sure [place] Metho dist SARS-CoV-2 (event) Tobacco use and 2019-09-09 2019-09-09 Never used [facility] ethodist exposure 00:00:00 00:00:00 Alcohol intake 2019-09-09 2019-09-09 Current [facility] thodist 00:00:00 00:00:00 non-drinker of alcohol (finding) Smoking Status Start Date Stop Date Source Never smoker [place] t Medications Ordered Filled Start Stop Current Ordering Indication Dosage Frequency Signature Comments Components Source Medication Medication Date Date Medication? Clinician (SIG) Name Name Hydroxychlo Hydroxychlo 2020-0 2020- No Wilian [address] [facility] roquine roquine [...] Take 1 mg Cameron ston (ESTRACE) 1 -26 by mouth Meth renetta MG tablet 08:48: [...] 2020-0 Yes 1{tbl} QD Take 1 [place] 3-26 tablet by [facility] (THERAGRAN) 08:48: [...] daily before breakfast for 30 days. LORAZepam 2017-0 Yes [place] (ATIVAN) 1 2-14 [facility] MG tablet 00:00: st 00 Lorazepam Lorazepam Yes Wilian [address] [facility] as needed [facility] VESIcare VESIcare Yes Wilian [address] [facility] Stool Stool Yes Wliian [address] [facility] Softener Softener Golden as needed [facility] PredniSONE PredniSONE Yes Wilian [address] [facility] Estradiol Estradiol Yes Wilian [address] [facility] Vitamin D3 Vitamin D3 Yes Wilian [address] [facility] Vitamin C Vitamin C Yes Wilian [address] [facility] Multi Multi Yes Wilian [address] [facility] Vitamin Vitamin Golden [facility] Levothyroxi Levothyroxi Yes Wilian TAKE [address] [facility] ne Sodium ne Sodium Golden TABLET BY [facility] DAILY IN l THE [facility] MORNING ON ent AN EMPTY Clinics STOMACH FOR 90 DAYS MiraLax MiraLax Yes Wilian not [facility] Golden defined [facility] Synthroid Synthroid Yes Wilian [address] [facility] Golden in the [facility] morning on [facility] an empty l stomach [facility] Tylenol Tylenol Yes Wilian not [facility] Arthritis Arthritis Golden defined [facility] Omeprazole Omeprazole Yes Wilian [address] [facility] Golden 30 minutes [facility] before [facility] morning l meal [facility] Vital Signs Vital Name Observation Time Observation Value Comments Source Body height 2019-07-22 11:52:00 156.2 cm Jones Krueger Body weight 2019-07-22 11:52:00 75.841 kg Jones Krueger BMI 2019-07-22 11:52:00 31.08 kg/m2 Jones Krueger Procedures Procedure Date / Time Performing Clinician Source Performed GASTROINTESTINAL PANEL 2019-08-24 12:57:00 Junior Herrera BONE DENSITY PERIPHERAL 2019-07-22 11:52:37 Eleanor Gonzalez BONE DENSITY 2019-07-22 11:51:58 Eleanor Gonzalez US BREAST COMPLETE 2019-07-22 10:00:50 Alondra Benz BILATERAL MAMMO BREAST DIAGNOSTIC 2019-07-22 09:55:00 Alondra Benz TOMOSYNTHESIS BILATERAL Plan of Care Planned Activity Planned Date Details Comments Source Future Scheduled 2020-01-15 INFLUENZA VACCINE Anup gipson [employer] Test 00:00:00 [code = INFLUENZA VACCINE] Future Scheduled 2006 65+ PNEUMOCOCCAL Jones [employer] Test 00:00:00 VACCINE (1 of 1 - PPSV23) [code = 65+ PNEUMOCOCCAL VACCINE (1 of 1 - PPSV23)] Future Scheduled 1991 SHINGLES VACCINES (#1) H ousage [employer] Test 00:00:00 [code = SHINGLES VACCINES (#1)] Future Scheduled 1957 COVID-19 VACCINE (1 of [place] [employer] Test 00:00:00 2) [code = COVID-19 VACCINE (1 of 2)] Encounters Start End Encounter Admission Attending Care Care Encounter Source Date/Time Date/Time Type Type Clinicians Facility Department ID 2020-06-08 2020-06-08 Outpatient [facility] [id number] [facility] 2020-06-02 2020-06-02 Outpatient [facility]MLC [facility] [id number] [facility] 2020-05-26 2020-05-26 Outpatient [facility]LMLC [facility] [id number] [facility] 2020-05-22 2020-05-22 Outpatient [facility]LMLC STLC [id number] [facility] 2020-05-02 2020-05-02 Outpatient EMIGDIO [facility] [id number] [address] [place] [address] 00:00:00 00:00:[address] NADIM [address] 2020-05-01 2020-05-01 Outpatient [facility]LMLC [facility] [id number] [facility] 2020-04-26 2020-04-26 Outpatient [facility] [id number] [facility] 2020-04-12 2020-04-12 Outpatient [facility]LMLC [facility] [id number] [facility] 2020-04-03 2020-04-03 Outpatient STLMLC [facility] [id number] [facility] 2020-03-21 2020-03-21 Outpatient [facility]LMLC [facility] [id number] [facility] 2020-03-20 2020-03-20 Outpatient [facility]LMLC [facility] [id number] [facility] 2020-03-14 2020-03-14 Office Sabrina Kinsey [facility] [id number] 09:52:56 10:36:43 Visit AMBULATOR [id number] 2020-03-02 2020-03-02 [facility] [id number] [facility] [address] 11:23:00 11:23:00 t TRUE linkswear [facility] Medicine Outpati ent Clinics 2020-02-25 2020-02-25 [facility] [id number] [address] 07:46:00 07:46:00 t TRUE linkswear [facility] Medicine Outpati ent Clinics 2020-02-15 2020-02-15 [facility] [id number] [address] 16:40:00 16:40:00 t TRUE linkswear [facility] 2020-02-01 2020-02-01 [facility] [id number] 10:00:00 10:00:00 t Bone Bone and [facility] 2020-01-13 2020-01-13 [facility] [id number] 09:12:00 09:12:00 t [employer] [facility] 2020-01-12 2020-01-12 [facility] [id number] 13:09:00 13:09:00 t [employer] [facility] Medicine Outpati ent Clinics 2020-01-10 2020-01-10 [facility] [id number] 13:35:00 13:35:00 t [employer] [facility] Medicine Outpati ent Clinics 2020-01-04 2020-01-04 [facility] [id number] 10:30:00 10:30:00 t [employer] [facility] Clin[facility] 2019-11-04 2019-11-04 [facility] [id number] 10:25:00 10:25:00 [facility] s [facility] Medicine Outpati ent Clinics 2019-10-07 2019-10-07 [facility] 09:[facility] 09:00:00 t [employer]tras[employer] [place] s [facility] Medicine Outpati ent Clinics 2019-10-07 2019-10-07 [facility] 08[facility]:00 08:00:00 t [facility] [employer] [facility] Medicine Outpati ent Clinics 2019-08-24 2019-08-24 Outpatient FRACHTMAN, [facility] [id number] [place] 00:00:00 00:00:00 JUNIOR [address] 2019-07-22 2019-07-22 Outpatient COSELLI, [facility] [id number] [place] 00:00:00 00:00:00 ALONDRA [address] 2019-07-22 2019-07-22 Outpatient GARRY, [facility] [id number] [place] 00:00:00 00:00:00 ELEANOR [address] 2019-07-22 2019-07-22 Outpatient GARRY, [facility] [id number] [place] 00:00:00 00:00:00 ELEANOR [address] 2019-07-22 2019-07-22 Outpatient COSELLI, [facility] [id number] [place] 00:00:00 00:00:00 ALONDRA [address] Results Test Description Test Test Results Result Source Time Comments Comments Gastrointestinal 2019-08 Gastrointestinal [facility] panel -10 panelNegative for all [facility] 16:31:4 pathogens tested:Negative 9 for SalmonellaNegative for [...] assay. Comment: Specimen InformationSpecimen Source: StoolSpecimen [facility] 2019-07 PROCEDURE: [facility] Bilateral -06 DIAGNOSTIC TOMOSYNTHESIS [employer] 13:03:1 BILATERAL, US BREAST 8 COMPLETE BILATERAL [...] quadrants and subareolar regions accomplished with close winding operator supervision. In the left lateral breast there [...] Benign. This facility is accredited by the [employer] for Mammography. A negative x-ray report should not delay biopsy if a dominant or clinically suspicious mass is present. Not all cancers are identified by x-ray. DWS01 [facility] Breast 2019-07 PROCEDURE: [facility] 13:03:1 BILATERAL, US BREAST Bilateral 8 [...] quadrants and subareolar regions accomplished with close winding operator supervision. In the left lateral breast there [...] Benign. This facility is accredited by the [employer] for Mammography. A negative x-ray report should not delay biopsy if a dominant or clinically suspicious mass is present. Not all cancers are identified by x-ray. DWS01 Bone Density 2019-07 [facility], Radiology [place] Results Incoming - Method ist 12:31:1 07/22/2019 12:34 PM 0 CSTEXAMINATION: BONE DENSITYCLINICAL HISTORY: Z13.820 Encounter for screening for osteoporosis, Z13.820COMPARISON: None.The results of this study expressed as bone mineral density (BMD) were as follows:AP spine (L1-L4)BMD: 1.094 g/nn2Z-Wdows: -0.6Z score:0.9Percent change: -1.8 %Dual Femur (Total Mean):BMD: 0.938 g/gf6S-Ycmop: -0.6Z score:1.1Percent change: -10.0%Left Forearm (Radius 33%):BMD: 0.853 g/xi9N-Kngeh: -0.3Z score:2.3Percent change: No prior exam%TBS L1-L4: [...] on patient over time. Bone Density 2019-07 Hm Interface, Radiology Results Incoming - Method ist 12:30:5 07/22/2019 12:33 PM 4 CSTEXAMINATION: BONE DENSITYCLINICAL HISTORY: Z13.820 Encounter for screening for osteoporosis, Z13.820COMPARISON: None.The results of this study expressed as bone mineral density (BMD) were as follows:AP spine (L1-L4)BMD: 1.094 g/fw7C-Pdvns: -0.6Z score:0.9Percent change: -1.8 %Dual Femur (Total Mean):BMD: 0.938 g/km2S-Qopbg: -0.6Z score:1.1Percent change: -10.0%Left Forearm (Radius 33%):BMD: 0.853 g/ft2L-Cuxty: -0.3Z score:2.3Percent change: No prior exam%TBS L1-L4: [...]
[2020-07-09 02:58] LABS: Absolute Lymphocytes (CBC) 1.9 K/uL (0.7-4.9); Basophils % 1.1 % (0-1.3); Hematocrit 41.4 % (36.0-45.0); Lymphocytes % 17.3 % (15.3-44.8); RBC Red Blood Cell Count 4.22 M/uL (3.86-4.86)
[2020-07-09 03:03] LABS: Protime INR 0.9
[2020-07-09 03:23] LABS: ALT/SGPT 28 U/L (12-78); AST/SGOT 20 U/L (15-37); Albumin 3.4 g/dL (3.4-5.0); BUN Blood Urea Nitrogen 25 mg/dL (7-18); Bicarbonate 25 mmol/L (21-32); Bilirubin Direct < 0.1 mg/dL (0-0.2); Bilirubin Total 0.3 mg/dL (0.2-1.0); Glucose Level 123 mg/dL (74-106); Magnesium 2.4 mg/dL (1.8-2.4); NT PRO-BNP 235 pg/mL (<450); Potassium 4.2 mmol/L (3.5-5.1); Protein, Total 6.6 g/dL (6.4-8.2); Sodium Level 142 mmol/L (136-145); Troponin (Emerg Dept Use Only) < 0.02 ng/mL (0.0-0.045)
[2020-07-09 03:41] LABS: Alkaline Phosphatase < 10 U/L (45-117)
--- NOTE | 2020-07-09 05:03 | ER ---
Nurse's Notes [facility] Name: Theresa Mancera Age: 80 yrs Sex: Female : 1940 Arrival Date: 07/08/2020 Time: 23:55 Bed 6 Private MD: Wilian Golden Diagnosis: Chest pain, unspecified Presentation: 07/09 00:53 Chief complaint: Patient states: Pain across back and across shoulders since this lp1 morning; reports x3 episodes of diarrhea; states BP low at home systolic of 70; reports some dizziness on movement. Coronavirus screen: Client denies travel out of the [place] in the last 14 days. At this time, the client does not indicate any symptoms associated with coronavirus-19. Ebola Screen: No symptoms or risks identified at this time. Initial Sepsis Screen: Does the patient meet any 2 criteria? No. Patient's initial sepsis screen is negative. Does the patient have a suspected source of infection? No. Patient's initial sepsis screen is negative. Risk Assessment: Do you want to hurt yourself or someone else? Patient reports no desire to harm self or others. Onset of symptoms was July 07, 2020. 00:53 Method Of Arrival: Wheelchair lp1 00:53 Acuity: RADHA 3 lp1 Historical: - Allergies: 01:09 No Known Allergies; lp1 - PMHx: 01:09 Lupus; lp1 - PSHx: 01:09 Cholecystectomy; Hysterectomy; breast reduction; lp1 - Immunization history:: Adult Immunizations up to date. - Social history:: Smoking status: Patient denies any tobacco usage or history of. Screenin:49 Abuse screen: Denies threats or abuse. Denies injuries from another. Nutritional rv screening: No deficits noted. Tuberculosis screening: No symptoms or risk factors identified. Fall Risk None identified. Assessment: 03:00 General: Appears comfortable, Behavior is calm, cooperative. rv 03:00 Pain: Complains of pain in left shoulder. Neuro: Level of Consciousness is awake, rv alert, obeys commands, Oriented to person, place, time, situation. Cardiovascular: Patient's skin is warm and dry. Respiratory: Airway is patent Respiratory effort is even, unlabored, Breath sounds are clear bilaterally. Derm: Skin is intact. 04:11 Reassessment: Patient and/or family updated on plan of care and expected duration. Pain ea level reassessed. Patient is alert, oriented x 3, equal unlabored respirations, skin warm/dry/pink. 08:00 Reassessment: Patient appears in no apparent distress at this time. Patient and/or jl7 family updated on plan of care and expected duration. Pain level reassessed. Patient is alert, oriented x 3, equal unlabored respirations, skin warm/dry/pink. Patient denies pain at this time. 09:00 Reassessment: Patient appears in no apparent distress at this time. No changes from jl7 previously documented assessment. Patient and/or family updated on plan of care and expected duration. Pain level reassessed. Patient is alert, oriented x 3, equal unlabored respirations, skin warm/dry/pink. 10:00 Reassessment: Patient appears in no apparent distress at this time. No changes from jl7 previously documented assessment. Patient and/or family updated on plan of care and expected duration. Pain level reassessed. Patient is alert, oriented x 3, equal unlabored respirations, skin warm/dry/pink. Vital Signs: 00:53 BP 103 / 61; Pulse 62; Resp 18; Temp 97.6(O); Pulse Ox 98% on R/A; Weight 68.95 kg (R); lp1 Height 5 ft. 2 in. (157.48 cm); Pain 0/10; 03:48 BP 134 / 54; Pulse 59; Resp 14; Pulse Ox 96% on R/A; rv 04:11 BP 123 / 59; Pulse 66; Resp 16; Pulse Ox 99% on R/A; ea 07:00 BP 119 / 95; Pulse 63; Resp 15 S; Pulse Ox 100% on R/A; jl7 00:53 Body Mass Index 27.80 (68.95 kg, 157.48 cm) lp1 ED Course: 07/08 23:55 Patient arrived in ED. es 23:56 Wilian Godlen DO is Private Physician. es 07/09 00:59 Triage completed. lp1 00:59 Arm band placed on left wrist. lp1 01:56 Rocky Gaston MD is Attending Physician. mh7 02:27 Jacob Dickey, SNEHA is Primary Nurse. rv 03:03 XRAY Chest (1 view) In Process Unspecified. EDMS 03:49 Patient has correct armband on for positive identification. state appellate clerk on. Pulse rv ox on. NIBP on. 05:02 José Miguel Bates MD is Hospitalizing Provider. [facility] 08:00 Inserted saline lock: 20 gauge in left antecubital area, using aseptic technique. jl7 ,using aseptic technique. Inserted by ER. 10:00 No provider procedures requiring assistance completed. Patient admitted, IV remains in jl7 place. intact, No redness/swelling at site. Administered Medications: 05:36 Drug: Aspirin Chewable Tablet 324 mg Route: PO; ea 07:53 Follow up: Response: No adverse reaction jl7 Outcome: 05:02 Decision to Hospitalize by Provider. [facility] 10:05 Admitted to Tele accompanied by tech, via wheelchair, room 213, with chart, Report jl7 called to SNEHA Wolf 10:05 Condition: stable 10:05 Discharge instructions given to patient, Instructed on the need for admit, Demonstrated understanding of instructions. 10:05 Patient left the ED. [facility] Signatures: Dispatcher [employer] EDMS Giselle Garza Laura, RN RN lp1 Rudy Drake RN RN jl7 Sena Murray RN Jacob Blevins ea, RN RN Rocky Christensen MD MD [facility]
--- NOTE | 2020-07-09 05:03 | EDPHYS ---
Physician Documentation [facility] Name: Theresa Mancera Age: 80 yrs Sex: Female : 1940 Arrival Date: 07/08/2020 Time: 23:55 Bed 6 Private MD: [facility] ED Physician Rocky Gaston HPI: 07/09 04:56 This 80 yrs old Female presents to ER via Wheelchair with complaints of mh7 Shoulder Pain, low blood pressure. 04:57 The patient or guardian reports chest pain that is located primarily in the substernal mh7 area. 04:57 Onset: last night. The pain radiates to both shoulders. Associated signs and symptoms: 7 Pertinent negatives: abdominal pain, cough, diaphoresis, dizziness, headache, lower extremity pain, lower extremity swelling, lightheadedness, nausea, near syncope, palpitations, recent travel, shortness of breath, syncope, vomiting. The chest pain is described as a pressure. Duration: The patient or guardian reports multiple episodes, that are intermittent, that wax and wane. Modifying factors: The symptoms are alleviated by nothing. the symptoms are aggravated by nothing. Severity of pain: At its worst the pain was moderate last night, in the emergency department the pain has improved moderately. Historical: - Allergies: 01:09 No Known Allergies; lp1 - PMHx: 01:09 Lupus; lp1 - PSHx: 01:09 Cholecystectomy; Hysterectomy; breast reduction; lp1 - Immunization history:: Adult Immunizations up to date. - Social history:: Smoking status: Patient denies any tobacco usage or history of. ROS: 04:57 Constitutional: Negative for fever, chills, and weight loss, Eyes: Negative for injury, mh7 pain, redness, and discharge, ENT: Negative for injury, pain, and discharge, Neck: Negative for injury, pain, and swelling, Respiratory: Negative for shortness of breath, cough, wheezing, and pleuritic chest pain, : Negative for injury, bleeding, discharge, and swelling, MS/Extremity: Negative for injury and deformity, Skin: Negative for injury, rash, and discoloration, Neuro: Negative for headache, weakness, numbness, tingling, and seizure, Psych: Negative for depression, anxiety, suicide ideation, homicidal ideation, and hallucinations, Allergy/Immunology: Negative for hives, rash, and allergies, Endocrine: Negative for neck swelling, polydipsia, polyuria, polyphagia, and marked weight changes, Hematologic/Lymphatic: Negative for swollen nodes, abnormal bleeding, and unusual bruising. 04:57 Abdomen/GI: Positive for diarrhea, after taking laxatives. Exam: 04:57 Constitutional: This is a well developed, well nourished patient who is awake, alert, mh7 and in no acute distress. Head/Face: Normocephalic, atraumatic. Eyes: Pupils equal round and reactive to light, extra-ocular motions intact. Lids and lashes normal. Conjunctiva and sclera are non-icteric and not injected. Cornea within normal limits. Periorbital areas with no swelling, redness, or edema. Neck: Trachea midline, no thyromegaly or masses palpated, and no cervical lymphadenopathy. Supple, full range of motion without nuchal rigidity, or vertebral point tenderness. No Meningismus. Chest/axilla: Normal chest wall appearance and motion. Nontender with no deformity. No lesions are appreciated. Cardiovascular: Regular rate and rhythm with a normal S1 and S2. No gallops, murmurs, or rubs. Normal PMI, no JVD. No pulse deficits. Respiratory: Lungs have equal breath sounds bilaterally, clear to auscultation and percussion. No rales, rhonchi or wheezes noted. No increased work of breathing, no retractions or nasal flaring. Abdomen/GI: Soft, non-tender, with normal bowel sounds. No distension or tympany. No guarding or rebound. No evidence of tenderness throughout. Back: No spinal tenderness. No costovertebral tenderness. Full range of motion. Skin: Warm, dry with normal turgor. Normal color with no rashes, no lesions, and no evidence of cellulitis. MS/ Extremity: Pulses equal, no cyanosis. Neurovascular intact. Full, normal range of motion. Neuro: Awake and alert, GCS 15, oriented to person, place, time, and situation. Cranial nerves II-XII grossly intact. Motor strength 5/5 in all extremities. Sensory grossly intact. Cerebellar exam normal. Normal gait. Psych: Awake, alert, with orientation to person, place and time. Behavior, mood, and affect are within normal limits. Vital Signs: 00:53 BP 103 / 61; Pulse 62; Resp 18; Temp 97.6(O); Pulse Ox 98% on R/A; Weight 68.95 kg (R); lp1 Height 5 ft. 2 in. (157.48 cm); Pain 0/10; 03:48 BP 134 / 54; Pulse 59; Resp 14; Pulse Ox 96% on R/A; rv 04:11 BP 123 / 59; Pulse 66; Resp 16; Pulse Ox 99% on R/A; ea 07:00 BP 119 / 95; Pulse 63; Resp 15 S; Pulse Ox 100% on R/A; jl7 00:53 Body Mass Index 27.80 (68.95 kg, 157.48 cm) lp1 MDM: 05:00 Differential diagnosis: abnormal EKG, acute myocardial infarction, acute pericarditis, mh7 anxiety, coronary artery disease chest wall pain, costochondritis, myocarditis, pericarditis, pneumonia. HEART Score: History: Moderately Suspicious (1), ECG: Non specific repolarization disturbance / LBTB / PM (1), Age: > or = 65 years (2), Risk Factors: 1 or 2 risk factors (1), [Hypertension] Troponin: < or = 1 x Normal Limit (0), Total Score = 5. The patient was given aspirin in the Emergency Department. Data reviewed: vital signs, nurses notes, lab test result(s), cardiac enzymes, CBC, electrolytes, urinalysis, EKG, radiologic studies, plain films. Data interpreted: Pulse oximetry: on room air is 99 %. Interpretation: normal. Counseling: I had a detailed discussion with the patient and/or guardian regarding: the historical points, exam findings, and any diagnostic results supporting the discharge/admit diagnosis, lab results, radiology results, the need for further work-up and treatment in the hospital. 05:02 Patient medically screened. [facility] 07/09 02:28 Order name: Basic Metabolic Panel 07/09 02:28 Order name: CBC with Diff; Complete Time: 03:25 07/09 02:28 Order name: LFT's; Complete Time: 04:42 07/09 02:28 Order name: Magnesium; Complete Time: 04:42 07/09 02:28 Order name: NT PRO-BNP; Complete Time: 04:42 07/09 02:28 Order name: PT-INR; Complete Time: 03:25 07/09 02:28 Order name: Troponin (emerg Dept Use Only); Complete Time: 04:42 07/09 02:28 Order name: XRAY Chest (1 view) 07/09 02:28 Order name: EKG; Complete Time: 02:28 07/09 02:28 Order name: Basic Metabolic Panel; Complete Time: 04:42 [facility] 07/09 05:55 Order name: COVID-19 tt3 07/09 06:25 Order name: CORONAVIRUS [facility] 07/09 08:53 Order name: SARS-COV-2 RT PCR [facility] 07/09 02:28 Order name: Cardiac monitoring; Complete Time: 02:35 07/09 02:28 Order name: EKG - Nurse/Tech; Complete Time: 02:35 07/09 02:28 Order name: IV Saline Lock; Complete Time: 02:35 07/09 02:28 Order name: Labs collected and sent; Complete Time: 02:35 07/09 02:28 Order name: O2 Per Protocol; Complete Time: 02:35 07/09 02:28 Order name: O2 Sat Monitoring; Complete Time: 02:35 ea Administered Medications: 05:36 Drug: Aspirin Chewable Tablet 324 mg Route: PO; ea 07:53 Follow up: Response: No adverse reaction jl7 Disposition: 07/09/20 05:02 Hospitalization ordered by José Miguel Bates for Observation. Preliminary diagnosis is Chest pain, unspecified. - Bed requested for Telemetry/MedSurg (observation). - Status is Observation. jl7 - Condition is Stable. - Problem is new. - Symptoms have improved. Signatures: Dispatcher [employer] EDMS Heaven Franklin, RN RN lp1 Kristofer Martins, PROFILE TRIMMER-C PROFILE TRIMMER-Cla1 Rudy Drake RN RN jl7 Sena Murray RN RN Alicia Aguilar Maurice, MD MD mh7 Corrections: (The following items were deleted from the chart) 09:52 05:02 Hospitalization Ordered by José Miguel Bates MD for Observation. Preliminary eb diagnosis is Chest pain, unspecified. Bed requested for Telemetry/MedSurg (observation). Status is Observation. Condition is Stable. Problem is new. Symptoms have improved. mh7 10:05 09:52 07/09/2020 05:02 Hospitalization Ordered by José Miguel Bates MD for Observation. jl7 Preliminary diagnosis is Chest pain, unspecified. Bed requested for Telemetry/MedSurg (observation). Status is Observation. Condition is Stable. Problem is new. Symptoms have improved. eb
--- NOTE | 2020-07-09 05:20 | P.HP ---
Certification for Inpatient Patient admitted to: Observation With expected LOS: <2 Midnights Patient will require the following post-hospital care: None Practitioner: I am a practitioner with admitting privileges, knowledge of patient current condition, hospital course, and medical plan of care. Services: Services provided to patient in accordance with Admission requirements found in Title 42 Section 412.3 of the Code of Federal Regulations <Kristofer Martins - Last Filed: 07/09/20 05:17> Patient History Date of Service: 07/09/20 Primary Care Provider: Dr. Golden Reason for admission: Chest pain History of Present Illness: 80-year-old female with history of lupus presents the emergency department for back pain/chest pain. Patient reports that over the course of the last 2 days she has had intermittent pain that she feels started her back radiating to her chest, describes pain as "pushing". Patient denies associated symptoms, reports pain is exacerbated by moving her arms. Patient does report a family history of coronary artery disease, last stress test approximately 1.5 years ago, reports that she had both exercise and chemical stress test performed at that time. Labs unremarkable, EKG without any acute changes chest x-ray unremarkable. ED provider wishes to admit patient for further evaluation and management. - Past Medical/Surgical History Diabetic: No -: Lupus -: Hypothyroidism -: Cholecystectomy -: Stomach re alignment -: breast reduction -: hysterectomy -: cataract surgery Psychosocial/ Personal History: Patient is retired, lives with her - Family History Father -: Heart disease, Diabetes Mother -: Cancer Notes: Colon Cancer Brother -: Heart disease, Diabetes - Social History Smoking Status: Never smoker Alcohol use: No CD- Drugs: No Caffeine use: Yes Place of Residence: Home <Kristofer Martins - Last Filed: 07/09/20 05:17> Date of Service: 07/16/20 <José Miguel Bates - Last Filed: 07/16/20 20:01> Allergies No Known Allergies Allergy (Verified 05/05/20 20:31) Home Medications: Ascorbic Acid [Vitamin C] 1,000 mg PO BID 07/09/20 Cholecalciferol (Vitamin D3) [Vitamin D3] 2,000 unit PO DAILY 07/09/20 Estradiol [Estrace] 1 mg PO DAILY 07/09/20 Hydroxychloroquine [Plaquenil*] 200 mg PO BID 07/09/20 LORazepam [Ativan*] 1 mg PO BID PRN 07/09/20 Lactobacillus Acidophilus [Probiotic Acidophilus] 1 each PO DAILY 07/09/20 Leflunomide 20 mg PO [id number] 07/09/20 Levothyroxine Sodium [Euthyrox] 75 mcg PO [id number] 07/09/20 Levothyroxine Sodium [Synthroid] 100 mcg PO [id number] 07/09/20 Lisinopril [Zestril] 10 mg PO BEDTIME 07/09/20 Multivitamin 1 each PO DAILY 07/09/20 Omeprazole [Prilosec] 40 mg PO DAILY 07/09/20 Prednisone 2.5 mg PO BID 07/09/20 Solifenacin [Vesicare*] 10 mg PO DAILY 07/09/20 Review of Systems 10-point ROS is otherwise unremarkable Cardiovascular: Chest Pain <Kristofer Martins - Last Filed: 07/09/20 05:17> Physical Examination - Physical Exam General: Alert, In no apparent distress HEENT: Atraumatic, PERRLA, Mucous membr. moist/pink Neck: Supple, 2+ carotid pulse no bruit, No LAD Respiratory: Clear to auscultation bilaterally, Normal air movement Cardiovascular: Regular rate/rhythm, Normal S1 S2 Gastrointestinal: Normal bowel sounds, No tenderness Musculoskeletal: No tenderness Integumentary: No rashes Neurological: Normal speech, Normal strength at 5/5 x4 extr, Normal tone, Normal affect - Studies Laboratory Data (last 24 hrs) 07/09/20 02:40: PT 10.6, INR 0.90 07/09/20 02:40: WBC 11.0 H, Hgb 13.2, Hct 41.4, Plt Count 167 07/09/20 02:40: Sodium 142, Potassium 4.2, BUN 25 H, Creatinine 0.91, Glucose 123 H, Magnesium 2.4, Total Bilirubin 0.3, AST 20, ALT 28, Alkaline Phosphatase < 10 L <Kristofer Martins - Last Filed: 07/09/20 05:17> Assessment and Plan - Plan Assessment Chest pain rule out ACS Lupus Hypothyroidism Plan Chest pain rule out ACS: Monitor on telemetry, trend troponins, cardiology consult in place. Continue daily aspirin, statin therapy. Lipid panel, thyroid panel with next troponin. Lupus: Obtain and continue home medications as appropriate. Hypothyroidism: Obtain and continue home medication, check thyroid panel. Discharge Plan: Home Plan to discharge in: 24 Hours - Advance Directives Does patient have a Living Will: Yes Does patient have a Durable POA for Healthcare: Yes - Code Status/Comfort Care Code Status Assessed: Yes (Full code) Critical Care: No Time Spent Managing Pts Care (In Minutes): 55 <Kristofer Martins - Last Filed: 07/09/20 05:17> - Plan Plan of care reviewed as noted above by Kristofer Martins. Chest pain, atypical. trend troponins. Cardiology consulted <José Miguel Bates - Last Filed: 07/16/20 20:01>
[2020-07-09] MEDS ORDERED: ASPIRIN 81 MG CHEWABLE TABLET ONE (05:37)
--- NOTE | 2020-07-09 08:16 | RAD REPORT ---
EXAM DESCRIPTION: RAD - Chest Single View - 07/09/2020 3:04 am CLINICAL HISTORY: CHEST PAIN COMPARISON: Portable November 2011 TECHNIQUE: AP portable chest image was obtained 07/09/2020 3:04 am . FINDINGS: Lung volumes are low. No peripheral mass or consolidation. Interstitial pattern is similar to comparison. Heart and vasculature are normal. No measurable pleural effusion and no pneumothorax. No acute bony abnormality seen. No acute aortic findings suspected. IMPRESSION: No acute cardiopulmonary process. No significant change from comparison study.
[2020-07-09] MEDS ORDERED: ACETAMINOPHEN 500 MG TAB PO PRN (10:01)
[2020-07-09] MEDS ORDERED: ASPIRIN EC 81 MG TAB PO SCH (10:01)
[2020-07-09] MEDS ORDERED: ONDANSETRON 4 MG/2 ML VIAL IV PRN (10:01)
[2020-07-09] MEDS ORDERED: ENOXAPARIN 40 MG/0.4 ML SQ SCH (10:01)
[2020-07-09 10:14] VITALS: O2SAT 100
[2020-07-09 10:36] VITALS: BMI 29.2
[2020-07-09 11:03] LABS: Thyroid Stimulating Hormone 0.056 uIU/mL (0.360-3.740); Troponin I < 0.02 ng/mL (0.0-0.045)
--- NOTE | 2020-07-09 15:49 | CON ---
Date of Consultation: 07/09/2020 Reason For Consultation: Chest pain. History Of Present Illness: A 80-year-old female, history of lupus. No other medical problems, pres ented with pain that is between her shoulders that happened while doing housework. She had 2 episode s, first one lasted a few minutes, got better with rest; the second one lasted few hours, so she pres ented to the emergency room. Denies any shortness of breath. At the present time, she is completely asymptomatic. Past Medical History: No past medical history. Medications: Refer to reconciliation sheet for detailed list. Allergies: NO KNOWN DRUG ALLERGIES. Family History: Brother with heart attack at age 54. Social History: Does not smoke or drink. Does not use drugs. Review of Systems: All systems reviewed and they were negative except for what mentioned in the HPI. Physical Examination: Vital Signs: Temperature is 97.0, pulse 58, breathing at 18, blood pressure , saturating 9 8% on room air. General: Pleasant, elderly female, in no apparent distress. Head and Neck: Pupils are equal, reactive to light. Intact eye movements. No JVD. No cervical lym phadenopathy. Neck: Supple. Thyroid is not enlarged. Lungs: Clear to auscultation bilaterally. No rhonchi, rales, or crackles. No accessory muscle use. Heart: Regular rate and rhythm. No extra sounds. Abdomen: Soft, nontender. Bowel sounds positive. No organomegaly. No masses or hernia. No rigidi ty or rebound. Extremities: No edema, clubbing, or cyanosis. Intact pulses. Skin: No rash noted. Neurologic: Alert, awake, oriented x3. No acute focal deficits appreciated. Investigations: Troponin less than 0.02 x2. Hemoglobin is 13.2. Assessment And Plan: Chest pain and shoulder pain. This could represent an angina. Recommend exerc ise nuclear stress test to further evaluate. Cardiac enzymes are negative so far. Please obtain an echocardiogram. Thank you for the consult. /DIANE Voice ID: [id number] Report ID: [id number]
[2020-07-09 18:33] VITALS: BP 117/76; TEMP 97
[2020-07-09] MEDS ORDERED: ATORVASTATIN 40 MG TAB PO SCH (21:00)
--- NOTE | 2020-07-09 21:44 | P.DS ---
Admission Date: 07/09/20 Discharge Date: 07/09/20 Primary Care Provider: Dr. Golden Disposition: ROUTINE DISCHARGE Discharge Condition: GOOD Reason for Admission: Chest pain Consultations: Cardiology - Dr. Lee Procedures: Problem List: Chest pain rule out ACS Lupus Hypothyroidism Brief History of Present Illness: 80-year-old female with history of lupus presents the emergency department for back pain/chest pain. Patient reports that over the course of the last 2 days she has had intermittent pain that she feels started her back radiating to her chest, describes pain as "pushing". Patient denies associated symptoms, reports pain is exacerbated by moving her arms. Patient does report a family history of coronary artery disease, last stress test approximately 1.5 years ago, reports that she had both exercise and chemical stress test performed at that time. Labs unremarkable, EKG without any acute changes chest x-ray unremarkable. ED provider wishes to admit patient for further evaluation and management. Hospital Course: Chest pain resolved shortly after admission. Troponins negative x 3. Cardiology consulted, possible atypical anginal pain. Patient felt better and wanted to be discharged home. She was discharged and is to f/u with Dr. Lee this coming week for outpatient stress testing. Vital Signs/Physical Exam: Temp Pulse Resp BP Pulse Ox 97 F 77 18 117/76 97 07/09/20 16:00 07/09/20 16:00 07/09/20 16:00 07/09/20 16:00 07/09/20 16:00 Laboratory Data at Discharge: WBC 11.0 K/uL (4.3-10.9) H 07/09/20 02:40 Hgb 13.2 g/dL (12.0-15.0) 07/09/20 02:40 Hct 41.4 % (36.0-45.0) 07/09/20 02:40 Plt Count 167 K/uL (152-406) 07/09/20 02:40 PT 10.6 SECONDS (9.5-12.5) 07/09/20 02:40 INR 0.90 07/09/20 02:40 Sodium 142 mmol/L (136-145) 07/09/20 02:40 Potassium 4.2 mmol/L (3.5-5.1) 07/09/20 02:40 BUN 25 mg/dL (7-18) H 07/09/20 02:40 Creatinine 0.91 mg/dL (0.55-1.3) 07/09/20 02:40 Glucose 123 mg/dL (74-106) H 07/09/20 02:40 Magnesium 2.4 mg/dL (1.8-2.4) 07/09/20 02:40 Total Bilirubin 0.3 mg/dL (0.2-1.0) 07/09/20 02:40 AST 20 U/L (15-37) 07/09/20 02:40 ALT 28 U/L (12-78) 07/09/20 02:40 Alkaline Phosphatase < 10 U/L (45-117) L 07/09/20 02:40 Troponin I < 0.02 ng/mL (0.0-0.045) 07/09/20 16:45 Home Medications: Ascorbic Acid [Vitamin C] 1,000 mg PO BID 07/09/20 Cholecalciferol (Vitamin D3) [Vitamin D3] 2,000 unit PO DAILY 07/09/20 Estradiol [Estrace] 1 mg PO DAILY 07/09/20 Hydroxychloroquine [Plaquenil*] 200 mg PO BID 07/09/20 LORazepam [Ativan*] 1 mg PO BID PRN 07/09/20 Lactobacillus Acidophilus [Probiotic Acidophilus] 1 each PO DAILY 07/09/20 Leflunomide 20 mg PO [id number] 07/09/20 Levothyroxine Sodium [Euthyrox] 75 mcg PO [id number] 07/09/20 Levothyroxine Sodium [Synthroid] 100 mcg PO [id number] 07/09/20 Lisinopril [Zestril] 10 mg PO BEDTIME 07/09/20 Multivitamin 1 each PO DAILY 07/09/20 Omeprazole [Prilosec] 40 mg PO DAILY 07/09/20 Prednisone 2.5 mg PO BID 07/09/20 Solifenacin [Vesicare*] 10 mg PO DAILY 07/09/20 Patient Discharge Instructions: Your EKG and cardiac enzymes were normal. You did not have signs of a heart attack. You may resume home medications as prescribed. Please follow up with Dr. Lee this week for a stress test. 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 Lee to schedule an appointment ) Time spent managing pt's care (in minutes): 35
== END 2020-07-09 17:20 | disposition home or self-care (01) ==
LOC: ER 23:51 → ERHOLD 07-09 05:13 → 2ND 07-09 09:57
PROVIDERS: ADMIT Hospitalist; ATTEND Hospitalist
DX: R07.9 Chest pain, unspecified (principal); M32.9 Systemic lupus erythematosus, unspecified; E03.9 Hypothyroidism, unspecified; M25.519 Pain in unspecified shoulder; Z20.822 Contact with and (suspected) exposure to COVID-19; Z90.49 Acquired absence of other specified parts of digestive tract; Z90.710 Acquired absence of both cervix and uterus; Z82.49 Family history of ischemic heart disease and other diseases of the circulatory system; Z83.3 Family history of diabetes mellitus; Z80.0 Family history of malignant neoplasm of digestive organs
CPT/HCPCS: 93005; 85025; 80048; 36415; 83735; 85610; 80076; 84443; 84484 ×3; 84439; 83880; 71045; 99285; U0003; J1650; G0378 ×3

== ENCOUNTER 2020-09-28 04:59 | Emergency (ER) | payer OTHER ==
--- OUTSIDE RECORDS SUMMARY | 2020-09-28 05:03 | XMS REPORT | Continuity of Care Document ---
:1940 Author Organization [facility] t Address [address] [place] [address] Care Team Providers Name Role Phone Asked, Pcp Primary Care Physician Unavailable Tio CURRY Attending Clinician Elder CURRY, P. Attending Clinician EMIGDIO Attending Clinician Unavailable SHAKILA Attending Clinician Unavailable GARRY Attending Clinician Unavailable Payers Payer Name Policy Type Policy Effective Date Expiration Date Sour ce Number MEDICAREMEDICARE PART [id number] Jimy Gee AND 00:00:00 [facility] [id number] 1988[facility] [place] [id number] 2006 [facility] MED 00:00:00 Mormon [id number] 2006 -Commercial Problems Condition Condition Condition Status Onset Resolution Last Treating Co mments Source Name Details Category Date Date Treatment Clinician Date Chest pain Chest pain Disease Active Paul walker 5-10 Methodi 00:00: st 00 Allergies, Adverse Reactions, Alerts Allergy Allergy Status Severity Reaction(s) Onset Inactive Treating Comm ents Source Name Type Date Date Clinician No Known DA Active [facility] 4[facility]14 [facility] Family History Family Member Diagnosis Comments Start Date Stop Date Source Natural brother Diabetes Jones Carey ethodist Natural brother Heart disease [place] Mormon Natural father Diabetes Jones Burris thodist Natural father Heart disease Jones Mormon Paternal grandmother Heart disease H denise Batesist Social History Social Habit Start Date Stop Date Quantity Comments Source Tobacco use and 2019-09-09 2019-09-09 Never used Jones Carey ethodist exposure 00:00:00 00:00:00 Alcohol intake 2019-09-09 2019-09-09 Current Jones Burris thodist 00:00:00 00:00:00 non-drinker of alcohol (finding) Sex [birth year] At [birth year] Jones Carey ethodist 00:00:00 00:00:00 Smoking Status Start Date Stop Date Source Never smoker [facility] t Medications Ordered Filled Start Stop Current Ordering Indication Dosage Frequency Signature Comments Components Source Medication Medication Date Date Medication? Clinician (SIG) Name Name Hydroxychlo Hydroxychlo 2019-0 2020- No Wilian [address] [facility] roquine roquine 9-17 10-17 [facility] - Sulfate Sulfate 00:00: 00:00 [facility] 00 :[facility] l [facility]pat[facility] ent Clinics cyanocobala 2020-0 Yes Inject as [place] min, - directed. [facility] vitamin 08:49: st B-12, (B-12 18 KIT INJ) predniSONE 2020-0 Yes 15mg QD Take 15 mg [place] (DELTASONE) 09-08 by mouth Meth renetta 5 mg tablet 08:48: daily. st 28 hydroxychlo 2020-0 Yes Q.5D Take by Cameron ston roquine -26 mouth 2 [facility] (PLAQUENIL) 08:48: (two) st 200 mg 28 times a tablet day. estradiol 2020-0 Yes 1mg QD Take 1 mg Cameron ston (ESTRACE) 1 - by mouth Meth renetta MG tablet 08:48: daily. st 28 levothyroxi 2020-0 Yes 100ug QD Take 100 [place] ne 3- mcg by [facility] (SYNTHROID, 08:48: mouth st [...] 20 MG 08:48: daily. st capsule 28 LORAZepam 2018-0 Yes [place] (ATIVAN) 1 2-14 [facility] MG tablet 00:00: st 00 Multi Multi Yes Wilian [address] [facility] Vitamin Vitamin [facility] Levothyroxi Levothyroxi Yes Wilian TAKE [address] [facility] ne Sodium ne Sodium Golden TABLET BY [facility] - MOUTH ONCE Memoria DAILY IN l THE Outpati MORNING ON ent AN EMPTY Clinics STOMACH FOR 90 DAYS MiraLax MiraLax Yes Wilian not [facility] Golden defined [facility] Synthroid Synthroid Yes Wilian [address] [facility] Golden in the [facility] - morning on [facility] an empty l stomach [facility] Tylenol Tylenol Yes Wilian not [facility] Arthritis Arthritis Golden defined [facility] - Pain Pain [facility] Omeprazole Omeprazole Yes Wilian [address] [facility] Golden 30 minutes [facility] - before [facility] morning l meal [facility] Lorazepam Lorazepam Yes Wilian [address] [facility] Golden as needed [facility] VESIcare VESIcare Yes Wilian [address] [facility] Stool Stool Yes Wilian [address] Softener Softener Golden as needed [facility] PredniSONE PredniSONE Yes Wilian [address] [facility] Estradiol Estradiol Yes Wilian 1 tablet [facility] Vitamin D3 Vitamin D3 Yes Wilian 1 tablet [facility] Vitamin C Vitamin C Yes Wilian 1 tablet [facility] Procedures Procedure Date / Time Performed Performing Clinician [facility] e US BREAST COMPLETE 2020-07-26 11:58:56 Alondra Benz on Mormon BILATERAL MAMMO BREAST DIAGNOSTIC 2020-07-26 11:14:55 Alondra Benz Mormon TOMOSYNTHESIS BILATERAL Plan of Care Planned Activity Planned Date Details Comments Source Future Scheduled 2021-01-14 INFLUENZA VACCINE Anup gipson Mormon Test 00:00:00 [code = INFLUENZA VACCINE] Future Scheduled 2006 65+ PNEUMOCOCCAL Goldman Mormon Test 00:00:00 VACCINE (1 of 1 - PPSV23) [code = 65+ PNEUMOCOCCAL VACCINE (1 of 1 - PPSV23)] Future Scheduled 1991 SHINGLES VACCINES (#1) H denise Mormon Test 00:00:00 [code = SHINGLES VACCINES (#1)] Future Scheduled 1959 Hepatitis C screening [facility] Mormon Test 00:00:00 (procedure) [code = 323463750] Future Scheduled 1957 COVID-19 VACCINE (1) Cameron cazares Mormon Test 00:00:00 [code = COVID-19 VACCINE (1)] Encounters Start End Encounter Admission Attending Care Care Encounter Source Date/Time Date/Time Type Type Clinicians Facility Department ID 2020-09-15 2020-09-15 Outpatient [facility] [id number] [facility]00 [facility] 2020-09-11 2020-09-11 Office Sabrina Kinsey [id number] 11:55:16 12:10:16 Visit AMBULATOR [id number] Y [id number] 2020-07-27 2020-07-27 Outpatient [facility] [id number] [facility] 2020-07-26 2020-07-26 Outpatient ELDER, [facility] [id number] [place] 00:00:00 00:00:00 ALONDRA Gonzalez [facility] 2020-07-26 2020-07-26 Outpatient ELDER, [facility] [id number] [place] 00:00:00 00:00:00 ALONDRA Summers [facility] 2020-07-17 2020-07-17 Outpatient [facility] [id number] [facility] 2020-07-13 2020-07-13 Outpatient [facility] [id number] [facility] 2020-06-08 2020-06-08 Outpatient [facility] [id number] [facility] 2020-06-02 2020-06-02 Outpatient [facility] [id number] [facility] 2020-05-26 2020-05-26 Outpatient [facility] [id number] [facility] 2020-05-22 2020-05-22 Outpatient [facility] [id number] [facility] 2020-05-02 2020-05-02 Outpatient EMIGDIO, [facility] [id number] [place] 00:00:00 00:00:00 NADIM [address] 2020-05-01 2020-05-01 Outpatient [facility] [id number] [facility] 2020-04-26 2020-04-26 Outpatient [facility] [id number] [facility] 2020-04-12 2020-04-12 Outpatient [facility] [id number] [facility] 2020-04-03 2020-04-03 Outpatient [facility] [id number] [facility] 2020-03-21 2020-03-21 Outpatient [facility] [id number] [facility] 2020-03-20 2020-03-20 [facility] [id number] [facility] 2020-03-14 2020-03-14 Office Sabrina Kinsey BCCherry [id number] 09:52:56 10:36:43 Visit AMBULATOR [id number] Y [id number] 2020-03-02 2020-03-02 [facility] [id number] [address] 11:23:00 11:23:00 t [employer] [facility] 2020-02-25 2020-02-25 [facility] [id number] 07:46:00 07:46:00 t Death by Party s - [place] [facility] 2020-02-15 2020-02-15 [facility] [id number] 16:40:00 16:40:00 t [employer] - [place] [facility] 2020-02-01 2020-02-01 [facility] [id number] 10:00:00 10:00:00 t [facility] 2020-01-13 2020-01-13 [facility] [id number] 09:12:00 09:12:00 t [employer] [facility] ent Clinics 2020-01-12 2020-01-12 [facility] [id number] 13:09:00 13:09:00 t [place] [employer] - [employer] [facility] Medicine Medicine Outpati ent Clinics 2020-01-10 2020-01-10 [facility] [id number] 13:35:00 13:35:00 t [place] [employer] - Drive [facility] Medicine Medicine Outpati ent Clinics 2020-01-04 2020-01-04 [facility] [id number] 10:30:00 10:30:00 t [place] [employer] s - Drive [facility] Medicine l Medicine Outpati ent Clinics 2019-11-04 2019-11-04 [facility] [id number] 10:25:00 10:25:00 t [facility] [address] [employer] [facility] l Medicine Outpati ent Clinics 2019-10-07 2019-10-07 [facility] [address] 09:00:00 09:00:00 t Death by Party s - [employer] [facility] Medicine Outpati ent Clinics 2019-10-07 2019-10-07 [facility] [address] 08:00:00 08:00:00 t Death by Party s [employer]pping [facility] Medicine Outpati ent Clinics 2019-08-24 2019-08-24 Outpatient SHAKILA, [facility] [id number] [place] 00:00:00 00:00:[address] LOVE [address] 2019-07-22 2019-07-22 Outpatient COSBRITTA, [facility] [id number] [place] 00:00:00 00:00:00 ALONDRA [address] 2019-07-22 2019-07-22 Outpatient GARRY, [facility] [id number] [place] 00:00:00 00:00:00 CONRAD [address] 2019-07-22 2019-07-22 Outpatient GARRY, [facility] [id number] [place] 00:00:00 00:00:00 CONRAD [address] 2019-07-22 2019-07-22 Outpatient COSBRITTA, [facility] [id number] [place] 00:00:00 00:00:00 ALONDRA [address] Results Test Description Test Time Test Comments Results Result Comments Source COVID 19 INHOUSE AG 2020-09-27 13:48:00 Test Item Value Reference Range Interpretation Comme nts COVID 19 INHOUSE AG (test code = NEGATIVE Negative Per medical aide, negative [id number]) results should be treated aspresumptive a nd, if inconsistent wi th clinical signs andsymptoms or necessary for patient managem ent, should betested with a n alternative molecular assay . Negative resultsdo not p reclude SARS-CoV-2 infection and s hould not be usedas the sole basis for patient management deci sions. Negative results should be considered in the context of apatient's recent exposures, hist ory, presence of clinicalsigns a nd symptoms consistent with COVID-19. CBC W/AUTO [id number] 13:34:00 Test Item Value Reference Range Interpretation Comments WHITE BLOOD CELL (test code = 8.7 K/mm3 3.5-11.0 N WBC) RED BLOOD CELL (test code = 3.75 M/mm3 4.70-6.10 L RBC) HEMOGLOBIN (test code = HGB) 12.3 G/DL 10.4-14.9 N HEMATOCRIT (test code = HCT) 38.0 % 31.5-44.1 N MEAN CELL VOLUME (test code = 101.3 Fl 84.5-98.6 H MCV) MEAN CELL HGB (test code = MCH) 32.8 pg 27.0-34.2 N MEAN CELL HGB CONCETRATION 32.4 G/DL 31.5-34.0 N (test code = MCHC) RED CELL DISTRIBUTION WIDTH 13.0 SD 11.5-14.5 N (test code = RDW) PLATELET COUNT (test code = 161 K/mm3 150-450 N PLT) MEAN PLATELET VOLUME (test code 11.20 fL 7.0-10.5 H = MPV) NEUTROPHIL % (test code = NT%) 44.4 % 40-76 N IMMATURE GRANULOCYTE % (test 0.2 % 0.0-5.0 N code = IG%) LYMPHOCYTE % (test code = LY%) 33.3 % 20.5-51.1 N MONOCYTE % (test code = MO%) 14.3 % 1.7-9.3 H EOSINOPHIL % (test code = EO%) 6.9 % 0.0-6.0 H BASOPHIL % (test code = BA%) 0.9 % 0.0-2.0 N NUCLEATED RBC % (test code = 0.0 /100WBC% 0.0-1.0 N NRBC%) NEUTROPHIL # (test code = NT#) 3.8 K/mm3 1.8-7.6 N IMMATURE GRANULOCYTE # (test 0.02 x10 3/uL 0.00-0.03 N code = IG#) LYMPHOCYTE # (test code = LY#) 2.9 K/mm3 0.6-3.2 N MONOCYTE # (test code = MO#) 1.2 K/mm3 0.3-1.1 H EOSINOPHIL # (test code = EO#) 0.6 K/mm3 0.0-0.4 H BASOPHIL # (test code = BA#) 0.1 K/mm3 0.0-0.1 N NUCLEATED RBC # (test code = 0.0 K/mm3 0.0-0.1 N NRBC#) MANUAL DIFF REQUIRED (test code NO DIFF/SCN CRITERIA = MDIFF) US Breast Complete [id number] 12:47:09There is no mammographic or sonographic evidence of malignancy. Continued monitoring of the clinical examination and annual mammography in 1 year is recommended. Findings and recommendations were discussed with the patient at the time of the examination. BI-RADS Category 2:Benign Finding(s) Workstation Name: [id number] A NEGATIVE X-RAY REPORT SHOULD NOT DELAY BIOPSY IF A DOMINANT OR CLINICALLY SUSPICIOUS MASS IS PRESENT. NOT ALL CANCERS ARE IDENTIFIED BY X-RAY. Interface, Radiology Results Incoming - 07/26/2020 12:47 PM CST PROCEDURE:Bilateral Tomosynthesis Diagnostic Mammogram, Bilateral Breast Ultrasound HISTORY:Patient is 80 years old and is seen for diagnostic evaluation. The patient has a history of bilateral breast reduction. The patient has no family history of breast cancer. The patient has no current palpable breast complaints. FILMS COMPARED:The present examination has been compared to prior imaging studies dated 05/29/2017, 07/21/2018 and 07/22/2019. MAMMOGRAM FINDINGS:The breast tissue is heterogeneously dense, which may obscure detection of small masses. There are two biopsy marker clips in right breast. There are no suspicious masses, calcifications, or areas of architectural distortion in either breast. Therehas been no significant interval change. ULTRASOUND FINDINGS:Bilateral real-time whole breast sonography included all four quadrants and the retroareolar regions under close supervision by the radiologist. There is a stable 0.8 cm mass in the left lower outer quadrant. There is no evidence of any solid mass or cystic masses of concern. IMPRESSION:There is no mammographic or sonographic evidence of malignancy. Continued monitoring of the clinical examination and annual mammography in 1 year is recommended. Findings and recommendations were discussed with the patient at the time of the examination. BI-RADS Category 2:Benign Finding(s) Workstation Name: [id number] A NEGATIVE X-RAY REPORT SHOULD NOT DELAY BIOPSY IF A DOMINANT OR CLINICALLY SUSPICIOUS MASS IS PRESENT. NOT ALL CANCERS ARE IDENTIFIED BY X-RAY.[facility] Breast Diagnostic Tomosynthesis [id number] 12:47:09There is no mammographic or sonographic evidence of malignancy. Continued monitoring of the clinicalexamination and annual mammography in 1 year is recommended. Findings and recommendations were discu ssed with the patient at the time of the examination. BI-RADS Category 2:Benign Finding(s) Workstation Name: [id number] A NEGATIVE X-RAY REPORT SHOULD NOT DELAY BIOPSY IF A DOMINANT OR CLINICALLY SUSPICIOUS MASS IS PRESENT. NOT ALL CANCERS ARE IDENTIFIED BY X-RAY. [facility], Radiology Results Incoming - 07/26/2020 12:47 PM CST PROCEDURE:Bilateral Tomosynthesis Diagnostic Mammogram, Bilateral Breast Ultrasound HISTORY:Patient is 80 years old and is seen for diagnostic evaluation. The patient has a history of bilateral breast reduction. The patient has no family history of breast cancer. The patient has no current palpable breast complaints. FILMS COMPARED:The present examination has been compared to prior imaging studies dated 05/29/2017, 07/21/2018 and 07/22/2019. MAMMOGRAM FINDINGS:The breast tissue is heterogeneously dense, which may obscure detection of small masses. There are two biopsy marker clips in right breast. There are no suspicious masses, calcifications, or areas of architectural distortion in either breast. Therehas been no significant interval change. ULTRASOUND FINDINGS:Bilateral real-time whole breast sonography included all four quadrants and the retroareolar regions under close supervision by the radiologist. There is a stable 0.8 cm mass in the left lower outer quadrant. There is no evidence of any solid mass or cystic masses of concern. IMPRESSION:There is no mammographic or sonographic evidence of malignancy. Continued monitoring of the clinical examination and annual mammography in 1 year is recommended. Findings and recommendations were discussed with the patient at the time of the examination. BI-RADS Category 2:Benign Finding(s) Workstation Name: [id number] A NEGATIVE X-RAY REPORT SHOULD NOT DELAY BIOPSY IF A DOMINANT OR CLINICALLY SUSPICIOUS MASS IS PRESENT. NOT ALL CANCERS ARE IDENTIFIED BY X-RAY. Jones Krueger
--- NOTE | 2020-09-28 05:45 | EDPHYS ---
Physician Documentation [facility] Name: Theresa Mancera Age: 80 yrs Sex: Female : 1940 Arrival Date: 09/28/2020 Time: 05:04 Bed 20 Private MD: ED Physician Emir Bates HPI: 09/28 05:39 This 80 yrs old Female presents to ER via Ambulatory with complaints of rn Dehydration. 05:39 Reports almost complete with bowel prep for colonoscopy at 0700, states felt rn "restlessness and fluttering in chest", no chest pain, no sob, no abd pain. No blood in stool. Reports already feeling better but wanted to get checked. No acute complaints now. . Onset: The symptoms/episode began/occurred just prior to arrival. Severity of symptoms: At their worst the symptoms were mild in the emergency department the symptoms have improved. The patient has not experienced similar symptoms in the past. The patient has been recently seen by a physician:. Historical: - Allergies: 05:37 No Known Allergies; bb - Home Meds: 05:37 prednisone 2.5 mg Oral tab 1 tab 2 times per day [Active]; hydroxychloroquine 200 mg bb oral tab 1 tab 2 times per day [Active]; lorazepam 1 mg Oral tab 1 tab 2 times per day [Active]; estradiol 1 mg Oral tab 1 tab once daily [Active]; Synthroid 100 mcg Oral tab 1 tab once daily [Active]; MD-3 [Active]; Vitamin C 1,000 mg Oral tab twice a day [Active]; Multiple Vitamins oral oral [Active]; Omeprazole Oral [Active]; Probiotic oral oral [Active]; euthyrox 75 mcg [Active]; lisinopril 10 mg Oral tab 1 tab once daily [Active]; solifenacin oral 10 mg daily oral [Active]; furosemide 40 mg Oral tab 1 tab once daily [Active]; potassium chloride 20 mEq Oral TbER 1 tab once daily [Active]; - PMHx: 05:37 Lupus; Hypertension; Hypothyroidism; bb - PSHx: 05:37 Cholecystectomy; Hysterectomy; breast reduction; bb - Immunization history:: Adult Immunizations up to date. - Social history:: Smoking status: Patient denies any tobacco usage or history of. Patient/guardian denies using alcohol, street drugs, IV drugs. - Family history:: not pertinent. - Hospitalizations: : No recent hospitalization is reported. ROS: 05:39 Constitutional: Negative for fever, chills, and weight loss, Eyes: Negative for injury, rn pain, redness, and discharge, Neck: Negative for injury, pain, and swelling, Cardiovascular: Negative for chest pain, and edema, Respiratory: Negative for shortness of breath, cough, wheezing, and pleuritic chest pain, Abdomen/GI: Negative for abdominal pain, nausea, vomiting, diarrhea, and constipation, Back: Negative for injury and pain, MS/Extremity: Negative for injury and deformity, Skin: Negative for injury, rash, and discoloration, Neuro: Negative for headache, weakness, numbness, tingling, and seizure. Exam: 05:39 Constitutional: This is a well developed, well nourished patient who is awake, alert, rn and in no acute distress. Head/Face: Normocephalic, atraumatic. Eyes: Pupils equal round and reactive to light, extra-ocular motions intact. Lids and lashes normal. Conjunctiva and sclera are non-icteric and not injected. Cornea within normal limits. Periorbital areas with no swelling, redness, or edema. Cardiovascular: Regular rate and rhythm. No pulse deficits. Respiratory: No increased work of breathing, no retractions or nasal flaring. Abdomen/GI: soft, nontender Skin: Warm, dry MS/ Extremity: Pulses equal, no cyanosis. Neuro: Awake and alert, GCS 15 Vital Signs: 05:29 BP 140 / 86; Pulse 75; Resp 18 S; Temp 97.6(O); Pulse Ox 97% on R/A; Weight 68.95 kg bb (R); Height 5 ft. 2 in. (157.48 cm) (R); Pain 0/10; 05:30 BP 134 / 58; Pulse 65; Resp 16; Pulse Ox 96% ; sf 05:29 Body Mass Index 27.80 (68.95 kg, 157.48 cm) bb MDM: 05:28 Patient medically screened. rn 05:39 Differential Diagnosis adverse effect of bowel prep and/or reglan. Data reviewed: vital rn signs, nurses notes, and as a result, I will discharge patient. Counseling: I had a detailed discussion with the patient and/or guardian regarding: the historical points, exam findings, and any diagnostic results supporting the discharge/admit diagnosis, the need for outpatient follow up, to return to the emergency department if symptoms worsen or persist or if there are any questions or concerns that arise at home. Response to treatment: the patient's symptoms have markedly improved after treatment, and as a result, I will discharge patient. Special discussion: I discussed with the patient/guardian in detail that at this point there is no indication for admission to the hospital. It is understood, however, that if the symptoms persist or worsen the patient needs to return immediately for re-evaluation. Based on the history and exam findings, there is no indication for further emergent testing or inpatient evaluation. I discussed with the patient/guardian the need to see the insurance advisor for further evaluation of the symptoms. ED course: Possible dehydration vs adverse effect to reglan. Now much better, vitals stable, will dc to complete her colonoscopy as has to drive to [place] for procedure. Patient not sure if she wants to do it. . Administered Medications: No medications were administered Disposition: 09/28/20 05:44 Discharged to Home. Impression: Adverse effect of antiallergic and antiemetic drugs - Bowel prep. - Condition is Stable. - Discharge Instructions: Colonoscopy. - Medication Reconciliation Form, Thank You Letter, Antibiotic Education, Prescription Opioid Use form. - Follow up: Private Physician; When: As needed; Reason: Recheck today's complaints, Re-evaluation by your physician. - Problem is new. - Symptoms have improved. Signatures: Theresa Reid RN RN bb Nieto, Roman, MD MD rn Fitzpatrick, Steven, RN RN sf Corrections: (The following items were deleted from the chart) 05:52 05:44 09/28/2020 05:44 Discharged to Home. Impression: Adverse effect of antiallergic sf and antiemetic drugs - Bowel prep. Condition is Stable. Forms are Medication Reconciliation Form, Thank You Letter, Antibiotic Education, Prescription Opioid Use. Follow up: Private Physician; When: As needed; Reason: Recheck today's complaints, Re-evaluation by your physician. Problem is new. Symptoms have improved. rn
--- NOTE | 2020-09-28 05:45 | ER ---
Nurse's Notes [facility] Name: Theresa Mancera Age: 80 yrs Sex: Female : 1940 Arrival Date: 09/28/2020 Time: 05:04 Bed 20 Private MD: Diagnosis: Adverse effect of antiallergic and antiemetic drugs-Bowel prep Presentation: 09/28 05:29 Chief complaint: Patient states: she took colonoscopy prep last night and started bb feeling "little things" all over her mouth got dry and she drank 2 bottles of water then she felt better but is still having those feelings. She denies pain. Coronavirus screen: At this time, the client does not indicate any symptoms associated with coronavirus-19. Ebola Screen: No symptoms or risks identified at this time. Initial Sepsis Screen: Does the patient meet any 2 criteria? No. Patient's initial sepsis screen is negative. Does the patient have a suspected source of infection? No. Patient's initial sepsis screen is negative. Risk Assessment: Do you want to hurt yourself or someone else? Patient reports no desire to harm self or others. Onset of symptoms was September 28, 2020. 05:29 Method Of Arrival: Ambulatory bb 05:29 Acuity: RADHA 3 bb Historical: - Allergies: 05:37 No Known Allergies; bb - Home Meds: 05:37 prednisone 2.5 mg Oral tab 1 tab 2 times per day [Active]; hydroxychloroquine 200 mg bb oral tab 1 tab 2 times per day [Active]; lorazepam 1 mg Oral tab 1 tab 2 times per day [Active]; estradiol 1 mg Oral tab 1 tab once daily [Active]; Synthroid 100 mcg Oral tab 1 tab once daily [Active]; MD-3 [Active]; Vitamin C 1,000 mg Oral tab twice a day [Active]; Multiple Vitamins oral oral [Active]; Omeprazole Oral [Active]; Probiotic oral oral [Active]; euthyrox 75 mcg [Active]; lisinopril 10 mg Oral tab 1 tab once daily [Active]; solifenacin oral 10 mg daily oral [Active]; furosemide 40 mg Oral tab 1 tab once daily [Active]; potassium chloride 20 mEq Oral TbER 1 tab once daily [Active]; - PMHx: 05:37 Lupus; Hypertension; Hypothyroidism; bb - PSHx: 05:37 Cholecystectomy; Hysterectomy; breast reduction; bb - Immunization history:: Adult Immunizations up to date. - Social history:: Smoking status: Patient denies any tobacco usage or history of. Patient/guardian denies using alcohol, street drugs, IV drugs. - Family history:: not pertinent. - Hospitalizations: : No recent hospitalization is reported. Screenin:29 Abuse screen: Denies threats or abuse. Denies injuries from another. Nutritional sf screening: No deficits noted. Tuberculosis screening: No symptoms or risk factors identified. Fall Risk None identified. Total Ventura Fall Scale indicates No Risk (0-24 pts). Assessment: 05:29 General: Appears in no apparent distress. comfortable, Behavior is calm, cooperative. sf Pain: Denies pain. Neuro: Level of Consciousness is awake, alert. Cardiovascular: No deficits noted. Patient's skin is warm and dry. Respiratory: No deficits noted. Airway is patent Respiratory effort is even, unlabored, Respiratory pattern is regular, symmetrical. GI: No deficits noted. No signs and/or symptoms were reported involving the gastrointestinal system. : No deficits noted. No signs and/or symptoms were reported regarding the genitourinary system. EENT: No deficits noted. No signs and/or symptoms were reported regarding the EENT system. Derm: Skin is pink, warm \\T\\ dry. Reports tingling, all over. Musculoskeletal: No deficits noted. No signs and/or symptoms reported regarding the musculoskeletal system. Vital Signs: 05:29 BP 140 / 86; Pulse 75; Resp 18 S; Temp 97.6(O); Pulse Ox 97% on R/A; Weight 68.95 kg bb (R); Height 5 ft. 2 in. (157.48 cm) (R); Pain 0/10; 05:30 BP 134 / 58; Pulse 65; Resp 16; Pulse Ox 96% ; sf 05:29 Body Mass Index 27.80 (68.95 kg, 157.48 cm) ED Course: 05:04 Patient arrived in ED. cl3 05:28 Emir Bates MD is Attending Physician. rn 05:29 Junior Sawant RN is Primary Nurse. sf 05:29 Patient has correct armband on for positive identification. Placed in gown. Bed in low sf position. Call light in reach. Side rails up X 1. Pulse ox on. NIBP on. Door closed. Noise minimized. Visitors limited. Lights dimmed. Warm blanket given. Verbal reassurance given. 05:31 Triage completed. bb 05:37 Arm band placed on Patient placed in an exam room, on a stretcher, on pulse oximetry. bb Family accompanied patient. 05:47 No provider procedures requiring assistance completed. Patient did not have IV access sf during this emergency room visit. Administered Medications: No medications were administered Outcome: 05:44 Discharge ordered by . rn 05:47 Discharged to home ambulatory. sf 05:47 Condition: stable 05:47 Discharge instructions given to patient, family, Instructed on discharge instructions, follow up and referral plans. Demonstrated understanding of instructions, follow-up care. 05:52 Patient left the ED. sf Signatures: Theresa Reid RN RN bb Emir Bates MD MD rn Lewis, Charde cl3 Junior Sawant RN RN sf
[2020-09-28 05:57] VITALS: TEMP 97.6
[2020-09-28 05:59] VITALS: BP 134/58; O2SAT 96
== END 2020-09-28 05:52 | disposition home or self-care (01) ==
LOC: ER 04:59
DX: R45.1 Restlessness and agitation (principal); T45.0X5A Adverse effect of antiallergic and antiemetic drugs, initial encounter; I10 Essential (primary) hypertension; E03.9 Hypothyroidism, unspecified
CPT/HCPCS: 99283

== ENCOUNTER 2020-11-23 12:46 | Emergency (ER) | payer OTHER ==
--- OUTSIDE RECORDS SUMMARY | 2020-11-23 12:50 | XMS REPORT | Continuity of Care Document ---
:1940 Author Organization [facility] t Address [address] [place] [address] Care Team Providers Name Role Phone Asked, Pcp Primary Care Physician Unavailable Tio CURRY Attending Clinician Elder CURRY, P. Attending Clinician EMIGDIO Attending Clinician Unavailable SHAKILA Attending Clinician Unavailable GARRY Attending Clinician Unavailable Payers Payer Name Policy Type Policy Effective Date Expiration Date Sour ce Number MEDICAREMEDICARE PART [id number] 1989 Jimy barbosa A AND 00:00:00 [facility] [id number] 1988[place] [facility] SECURE HORIZONSSECURE [id number] 2006 [facility] MED 00:00:00 Catholic [id number] 2006 -PresentCommercial Problems Condition Condition Condition Status Onset Resolution Last Treating Co mments Source Name Details Category Date Date Treatment Clinician Date Chest pain Chest pain Disease Active Paul walker 10-23 Janai 00:00: st 00 Allergies, Adverse Reactions, Alerts Allergy Allergy Status Severity Reaction(s) Onset Inactive Treating Comm ents Source Name Type Date Date Clinician No Known DA Active [facility] Allergie 4-14 [place]lan s 00:00: d 00 [facility] Family History Family Member Diagnosis Comments Start Date Stop Date Source Natural brother Diabetes Jones Carey ethodist Natural brother Heart disease [place] [facility] Natural father Diabetes Jones Burris thodist Natural father Heart disease Jones Batesist Paternal grandmother Heart disease H ousage Batesist Social History Social Habit Start Date Stop Date Quantity Comments Source Tobacco use and 2019-09-09 2019-09-09 Never used Jones Carey ethodist exposure 00:00:00 00:00:00 Alcohol intake 2019-09-09 2019-09-09 Current Goldman thodist 00:00:00 00:00:00 non-drinker of alcohol (finding) Sex [birth year] Jones Carey ethodist 00:00:00 00:00:00 Smoking Status Start Date Stop Date Source Never smoker Goldman Marielle alejandro Medications Ordered Filled Start Stop Current Ordering [...] daily. st capsule 28 LORAZepam 2018-0 Yes Goldman (ATIVAN) 1 2-14 Methodi MG tablet 00:00: st 00 Lorazepam Lorazepam Yes Wilian [address] [facility] VESIcare VESIcare Yes Wilian [address] [facility] Stool Stool Yes Wilian [address] Softener Softener Golden as needed [facility] PredniSONE PredniSONE Yes Wilian [address] [facility] Estradiol Estradiol Yes Wilian [address] [facility] Vitamin D3 Vitamin D3 Yes Wilian [address] [facility] Vitamin C Vitamin C Yes Wilian [address] [facility] Multi Multi Yes Wilian [address] [facility] Vitamin Vitamin Golden [facility] Levothyroxi Levothyroxi Yes Wilian TAKE [address] [facility] ne Sodium ne Sodium Golden TABLET BY [facility]CE [facility] DAILY IN l THE Outpati MORNING ON ent AN EMPTY Clinics STOMACH FOR 90 DAYS MiraLax MiraLax Yes Wilian not [facility] defined [facility] Synthroid Synthroid Yes Wilian [address] [facility] Golden in the [facility] morning on [facility] an empty l stomach [facility] Tylenol Tylenol Yes Wilian not [facility] Arthritis Arthritis Golden defined [facility] Omeprazole Omeprazole Yes Wilian [address] [facility] Golden 30 minutes [facility] before [facility] morning l meal Outpati ent Clinics Procedures Procedure Date / Time Performed Performing Clinician [facility] US BREAST COMPLETE 2020-07-26 11:58:56 Alondra Benz [facility] BILATERAL MAMMO BREAST DIAGNOSTIC 2020-07-26 11:14:55 Alondra Benz [facility] TOMOSYNTHESIS BILATERAL Plan of Care Planned Activity Planned Date Details Comments Source Future Scheduled 2021-01-14 INFLUENZA VACCINE Deanto leonela [facility] Test 00:00:00 [code = INFLUENZA VACCINE] Future Scheduled 2006 65+ PNEUMOCOCCAL Goldman [facility] Test 00:00:00 VACCINE (1 of 1 - PPSV23) [code = 65+ PNEUMOCOCCAL VACCINE (1 of 1 - PPSV23)] Future Scheduled 1991 SHINGLES VACCINES (#1) H denise [facility] Test 00:00:00 [code = SHINGLES VACCINES (#1)] Future Scheduled 1959 Hepatitis C screening Ho familia [facility] Test 00:00:00 (procedure) [code = 445765700] Future Scheduled 1953 COVID-19 VACCINE (1) Cameron cazares [facility] Test 00:00:00 [code = COVID-19 VACCINE (1)] Encounters Start End Encounter Admission Attending Care Care Encounter Source Date/Time Date/Time Type Type Clinicians Facility Department ID 2020-10-27 2020-10-27 Outpatient [facility] [id number] [facility] 2020-10-12 2020-10-12 Outpatient [facility] [id number] [facility] 2020-10-12 2020-10-12 Outpatient [facility] [id number] [facility] 2020-10-04 2020-10-04 Outpatient [facility] [id number] [facility] 2020-09-15 2020-09-15 Outpatient [facility] [id number] [facility] 2020-09-11 2020-09-11 Office Sabrina Kinsey [facility] [id number] 11:55:16 12:10:16 Visit AMBULATOR [id number] Y [id number] 2020-07-27 2020-07-27 Outpatient [facility] [id number] [facility] 2020-07-26 2020-07-26 Outpatient [facility] [id number] [place] 00:00:00 00:00:00 ALONDRA [address] 2020-07-26 2020-07-26 Outpatient [facility] [id number] [place] 00:00:00 00:00:00 ALONDRA [address] 2020-07-17 2020-07-17 Outpatient [facility] [id number] [facility] 2020-07-13 2020-07-13 Outpatient [facility] [id number] [facility] 2020-06-08 2020-06-08 Outpatient [facility] [id number] [facility] 2020-06-02 2020-06-02 Outpatient [facility] [id number] [facility] 2020-05-26 2020-05-26 Outpatient [facility] [id number] [facility] 2020-05-22 2020-05-22 Outpatient [facility] [id number] [facility] 2020-05-02 2020-05-02 Outpatient EMIGDIO Paul [facility] [id number] [place] 00:00:00 00:00:[address] [facility] 2020-05-01 2020-05-01 Outpatient [facility] [id number] [facility] 2020-04-26 2020-04-26 Outpatient [facility] [id number] [facility] 2020-04-12 2020-04-12 Outpatient [facility] [id number] [facility] 2020-04-03 2020-04-03 Outpatient [facility] [id number] [facility] 2020-03-21 2020-03-21 Outpatient [facility] [id number] [facility] 2020-03-20 2020-03-20 Outpatient [facility] [id number] [facility] 2020-03-14 2020-03-14 Office Sabrina Kinsey [facility] [id number] 09:52:56 10:36:43 Visit AMBULATOR [id number] Y [id number] 2020-03-02 2020-03-02 [facility] [id number] [address] 11:23:00 11:23:[address] [employer] s - Drive [facility] Medicine Outpati ent Clinics 2020-02-25 2020-02-25 [facility] [id number] 07:46:00 07:46:[address] [employer] s - Drive [facility] Medicine Outpati ent Clinics 2020-02-15 2020-02-15 [facility] [id number] 16:40:00 16:40:00 t Alderson Ald[address] [employer] [facility] s - Drive [facility] Medicine Outpati ent Clinics 2020-02-01 2020-02-01 [facility] [id number] 10:00:00 10:00:00 t [facility] 2020-01-13 2020-01-13 [facility] [id number] 09:12:00 09:12:00 t [employer] - [email or web address] [facility] Medicine Outpati ent Clinics 2020-01-12 2020-01-12 [facility] [id number] 13:09:00 13:09:00 t [email or web address] [facility] Medicine Outpati ent Clinics 2020-01-10 2020-01-10 [facility] [id number] 13:35:00 13:35:00 t [employer] [facility] Outpati ent Clinics 2020-01-04 2020-01-04 [facility] [id number] 10:30:00 10:30:00 t [employer] [facility] Medicine Outpati ent Clinics 2019-11-04 2019-11-04 [facility] [id number] 10:25:00 10:25:[address] [facility] Medicine Outpati ent Clinics 2019-10-07 2019-10-07 [facility] [id number] 09:00:00 09:00:00 t [employer] [facility] Medicine Outpati ent Clinics 2019-10-07 2019-10-07 [facility] [id number] 08:00:00 08:00:00 t [employer] [facility] Medicine Outpati ent Clinics 2019-08-24 2019-08-24 Outpatient SHAKILA [facility] [id number] [place] 00:00:00 00:00:[address] [facility] 2019-07-22 2019-07-22 Outpatient ELDER [facility] [id number] [place] 00:00:00 00:00:00 ALONDRA [address] 2019-07-22 2019-07-22 Outpatient GARRY, [facility] [id number] [place] 00:00:00 00:00:00 CONRAD [address] 2019-07-22 2019-07-22 Outpatient GARRY, [facility] [id number] [place] 00:00:00 00:00:00 CONRAD [address] 2019-07-22 2019-07-22 Outpatient COSELLI, [facility] [id number] [place] 00:00:00 00:00:00 ALONDRA [address] Results Test Description Test Time Test Comments Results Result Comments Source COVID 19 INHOUSE AG 2020-09-27 13:48:00 Test Item Value Reference Range Interpretation Comme nts COVID 19 INHOUSE AG (test code = NEGATIVE Negative Per reimbursement director, negative [id number]) results should be treated aspresumptive a nd, [...] nd symptoms consistent with COVID-19. CBC W/AUTO [id number] 13:34:00 Test Item Value Reference Range Interpretation [...] DIFF/SCN CRITERIA = MDIFF) US Breast Complete [id number] 12:47:09There is no mammographic or sonographic evidence [...] ARE IDENTIFIED BY X-RAY. Interface, Radiology Results - 07/26/2020 12:47 PM CST PROCEDURE:Bilateral Tomosynthesis [...] PRESENT. NOT ALL CANCERS ARE IDENTIFIED BY X-RAY.[facility] Breast Diagnostic Tomosynthesis [id number] 12:47:09There is no mammographic or sonographic evidence [...] NOT ALL CANCERS ARE IDENTIFIED BY X-RAY. [facility], Radiology Results Incoming - 07/26/2020 12:47 PM [...]
[2020-11-23] MEDS ORDERED: LIDOCAINE 1% W/EPI 1:100,000 MDV 20 ML VIAL ONE (13:37)
--- NOTE | 2020-11-23 14:27 | RAD REPORT ---
EXAM DESCRIPTION: Shagufta Tabares (2 Views)11/23/2020 2:16 pm CLINICAL HISTORY: Cough COMPARISON: June 2020 FINDINGS: The lungs appear clear of acute infiltrate. The heart is mildly enlarged IMPRESSION: No acute abnormalities displayed
--- NOTE | 2020-11-23 14:36 | ER ---
Nurse's Notes [facility] Name: Theresa Mancera Age: 80 yrs Sex: Female : 1940 Arrival Date: 11/23/2020 Time: 12:50 Bed 15 Private MD: Wilian Golden Diagnosis: Cough Presentation: 11/23 13:05 Chief complaint: Patient states: i went to urgent care for this wet cough for 4 weeks, tw2 they sent me here for a CHF workup, pcp Dr. Golden is out of town, also some swelling to b/l LE for a while now, pt spouse states she cant walk across the room without needing to sit down and say she is winded. Chief complaint: Patient states: i am also dizzy, which i always dizzy, it seems like i am more dizzy lately when i get up from a chair. Coronavirus screen: cough unrelated to allergies, Client presents with at least one sign or symptom that may indicate coronavirus-19. Standard/surgical mask placed on the client. Provider contacted for isolation considerations. Ebola Screen: Patient denies travel to an Ebola-affected area in the 21 days before illness onset. Initial Sepsis Screen: Does the patient meet any 2 criteria? No. Patient's initial sepsis screen is negative. Does the patient have a suspected source of infection? No. Patient's initial sepsis screen is negative. Risk Assessment: Do you want to hurt yourself or someone else? Patient reports no desire to harm self or others. Onset of symptoms was November 23, 2020. 13:05 Method Of Arrival: Ambulatory tw2 13:05 Acuity: RADHA 3 tw2 Triage Assessment: 13:11 General: Appears in no apparent distress. well groomed, Behavior is calm, cooperative, tw2 appropriate for age. Pain: Complains of pain in right leg and left leg. Historical: - Allergies: 13:10 No Known Allergies; tw2 - PMHx: 13:10 Hypertension; Hypothyroidism; Lupus; tw2 - PSHx: 13:10 Cholecystectomy; Hysterectomy; tw2 13:11 breast reduction; Knee surgery; tw2 - Immunization history:: Adult Immunizations up to date, Client reports receiving the 2nd dose of the Covid vaccine. - Social history:: Smoking status: Patient denies any tobacco usage or history of. Screenin:33 Abuse screen: Denies threats or abuse. Nutritional screening: No deficits noted. tw2 Tuberculosis screening: No symptoms or risk factors identified. Fall Risk None identified. Assessment: 15:13 Reassessment: Patient appears in no apparent distress at this time. No changes from tw2 previously documented assessment. Patient and/or family updated on plan of care and expected duration. Pain level reassessed. Patient is alert, oriented x 3, equal unlabored respirations, skin warm/dry/pink. Vital Signs: 13:05 BP 121 / 80; Pulse 71; Resp 17; Temp 98.1(TE); Pulse Ox 98% on R/A; Weight 67.13 kg tw2 (R); Height 5 ft. 2 in. (157.48 cm); Pain 7/10; 13:05 Body Mass Index 27.07 (67.13 kg, 157.48 cm) tw2 ED Course: 12:50 Patient arrived in ED. mr 12:51 Wilian Golden DO is Private Physician. mr 13:09 Triage completed. tw2 13:11 Arm band placed on. tw2 13:11 Bed in low position. Call light in reach. Side rails up X 1. Adult w/ patient. Pulse ox tw2 on. NIBP on. 13:17 Miguel Reich PA is PHCP. jr8 13:17 Samm Medrano MD is Attending Physician. jr8 13:41 Charla Michael RN is Primary Nurse. tr6 14:16 XRAY Chest Pa And Lat (2 Views) In Process Unspecified. EDMS 14:35 Wilian Golden DO is Referral Physician. jr8 15:13 No provider procedures requiring assistance completed. Patient did not have IV access tw2 during this emergency room visit. Administered Medications: No medications were administered Outcome: 14:35 Discharge ordered by . jr8 15:13 Discharged to home ambulatory, with significant other. tw2 15:13 Condition: stable 15:13 Discharge instructions given to patient, significant other, Instructed on discharge instructions, follow up and referral plans. Demonstrated understanding of instructions, follow-up care. 15:13 Patient left the ED. tw2 Signatures: Dispatcher [employer] EDNY Gertrude Travis mr Miguel Reich PA PA jr8 Nandini Schumacher RN RN tw2 Charla Michael, RN RN tr6
--- NOTE | 2020-11-23 14:36 | EDPHYS ---
Physician Documentation [facility] Name: Theresa Mancera Age: 80 yrs Sex: Female : 1940 Arrival Date: 11/23/2020 Time: 12:50 Bed 15 Private MD: [place] ED Physician Samm Medrano HPI: 11/23 14:02 This 80 yrs old Female presents to ER via Ambulatory with complaints of Cough.jr8 14:02 The patient or guardian reports cough, that is intermittent, described as mild, with jr8 productive sputum, that is white. Onset: The symptoms/episode began/occurred gradually, 4 week(s) ago. Severity of symptoms: At their worst the symptoms were mild, in the emergency department the symptoms are unchanged. Modifying factors: The symptoms are alleviated by nothing, the symptoms are aggravated by nothing. Associated signs and symptoms: The patient has no apparent associated signs or symptoms. The patient has not experienced similar symptoms in the past. It is unknown whether or not the patient has recently seen a physician. Patient stated that she has had persistent cough for about 1 month now that is sometimes productive and sometimes not. Has not been able to get rid of it. Denies no other symptoms at this time . Historical: - Allergies: 13:10 No Known Allergies; tw2 - PMHx: 13:10 Hypertension; Hypothyroidism; Lupus; tw2 - PSHx: 13:10 Cholecystectomy; Hysterectomy; tw2 13:11 breast reduction; Knee surgery; tw2 - Immunization history:: Adult Immunizations up to date, Client reports receiving the 2nd dose of the Covid vaccine. - Social history:: Smoking status: Patient denies any tobacco usage or history of. ROS: 14:02 Eyes: Negative for injury, pain, redness, and discharge, ENT: Negative for injury, jr8 pain, and discharge, Neck: Negative for injury, pain, and swelling, Cardiovascular: Negative for chest pain, palpitations, and edema, Abdomen/GI: Negative for abdominal pain, nausea, vomiting, diarrhea, and constipation, Back: Negative for injury and pain, MS/Extremity: Negative for injury and deformity, Skin: Negative for injury, rash, and discoloration, Neuro: Negative for headache, weakness, numbness, tingling, and seizure. 14:02 Respiratory: Positive for cough, Negative for dyspnea on exertion, shortness of breath, wheezing. Exam: 14:02 Eyes: Pupils equal round and reactive to light, extra-ocular motions intact. Lids and jr8 lashes normal. Conjunctiva and sclera are non-icteric and not injected. Cornea within normal limits. Periorbital areas with no swelling, redness, or edema. ENT: Nares patent. No nasal discharge, no septal abnormalities noted. Tympanic membranes are normal and external auditory canals are clear. Oropharynx with no redness, swelling, or masses, exudates, or evidence of obstruction, uvula midline. Mucous membranes moist. Neck: Trachea midline, no thyromegaly or masses palpated, and no cervical lymphadenopathy. Supple, full range of motion without nuchal rigidity, or vertebral point tenderness. No Meningismus. Cardiovascular: Regular rate and rhythm with a normal S1 and S2. No gallops, murmurs, or rubs. Normal PMI, no JVD. No pulse deficits. Respiratory: Lungs have equal breath sounds bilaterally, clear to auscultation and percussion. No rales, rhonchi or wheezes noted. No increased work of breathing, no retractions or nasal flaring. Abdomen/GI: Soft, non-tender, with normal bowel sounds. No distension or tympany. No guarding or rebound. No evidence of tenderness throughout. Back: No spinal tenderness. No costovertebral tenderness. Full range of motion. Skin: Warm, dry with normal turgor. Normal color with no rashes, no lesions, and no evidence of cellulitis. MS/ Extremity: Pulses equal, no cyanosis. Neurovascular intact. Full, normal range of motion. Neuro: Awake and alert, GCS 15, oriented to person, place, time, and situation. Motor strength 5/5 in all extremities. Sensory grossly intact. Vital Signs: 13:05 BP 121 / 80; Pulse 71; Resp 17; Temp 98.1(TE); Pulse Ox 98% on R/A; Weight 67.13 kg tw2 (R); Height 5 ft. 2 in. (157.48 cm); Pain 7/10; 13:05 Body Mass Index 27.07 (67.13 kg, 157.48 cm) tw2 MDM: 13:18 Patient medically screened. jr8 14:02 Data reviewed: vital signs, nurses notes, radiologic studies, plain films. Data jr8 interpreted: Pulse oximetry: on room air is 98 %. Interpretation: normal. Counseling: I had a detailed discussion with the patient and/or guardian regarding: the historical points, exam findings, and any diagnostic results supporting the discharge/admit diagnosis, radiology results, the need for outpatient follow up, a family practitioner, to return to the emergency department if symptoms worsen or persist or if there are any questions or concerns that arise at home. ED course: Discussed with patient that cough can be from various causes. That she is already on omeprazole which is good and less likely to be cause of persistent cough. Chest Xray was negative. Recommended 2 week trial of H1 nathen. If that is not improving then would f/u again with PCP and talk about [employer]UNG-[employer] cough. Patient good with this and knows to come back if worse . 11/23 13:42 Order name: XRAY Chest Pa And Lat (2 Views); Complete Time: 14:35 jr8 Administered Medications: No medications were administered Disposition: 15:22 Co-signature as Attending Physician, Samm Medrano MD I agree with the assessment and kdr plan of care. Disposition: 11/23/20 14:35 Discharged to Home. Impression: Cough. - Condition is Stable. - Discharge Instructions: Cough, Adult. - Medication Reconciliation Form, Thank You Letter, Antibiotic Education, Prescription Opioid Use form. - Follow up: Wilian Golden DO; When: 1 week; Reason: Recheck today's complaints, Continuance of care, Re-evaluation by your physician. - Problem is new. - Symptoms have improved. - Notes: Zyrtec for 2 weeks once a day Signatures: Dispatcher [employer] EDMS Samm Medrano MD MD [facility] Miguel Reich PA PA jr8 Nandini Schumacher RN RN tw2 Corrections: (The following items were deleted from the chart) 15:13 14:35 11/23/2020 14:35 Discharged to Home. Impression: Cough. Condition is Stable. tw2 Forms are Medication Reconciliation Form, Thank You Letter, Antibiotic Education, Prescription Opioid Use. Follow up: Wilian Golden; When: 1 week; Reason: Recheck today's complaints, Continuance of care, Re-evaluation by your physician. Problem is new. Symptoms have improved. jr8
[2020-11-23 15:30] VITALS: BP 121/80; TEMP 98.1; O2SAT 98
== END 2020-11-23 15:13 | disposition home or self-care (01) ==
LOC: ER 12:46
DX: R05 Cough (principal); I10 Essential (primary) hypertension
CPT/HCPCS: 71046; 99283

== ENCOUNTER 2021-10-01 22:35 | Emergency (ER) | payer OTHER ==
--- OUTSIDE RECORDS SUMMARY | 2021-10-01 23:25 | XMS REPORT | Continuity of Care Document ---
:1940 Author Organization [facility] t Address [address] [place] [address] Care Team Providers Name Role Phone Cherry Zuleta Primary Care Physician Cherry Goledn Attending Clinician Unavailable Paul Waller Attending Clinician Unavailable Salena Attending Clinician Unavailable Emigdio Attending Clinician [phone] Vamshi HOOVER, D Attending Clinician Unavailable Only, Test Attending Clinician Unavailable Efe CURRY Attending Clinician EFE Attending Clinician Unavailable Rajendra Hanson DO Attending Clinician Tio CURRY Attending Clinician Demar CURRY, P. Attending Clinician Physician, Primary or Family Admitting Clinician Unavailroel e Salena Admitting Clinician Unavailable Payers Payer Name Policy Type Policy Number Effective Date Expiration Date Phuong HOROWITZ - [id number] [facility] (MEDICARE REPLACEMENT/[place] GE - PPO) MEDICARE B-[place]: [id number] 1989 MIGSIF 00:00:00 [facility] [id number] OPTIONS (MEDICARE SUPPLEMENT) MEDICARE PART A \T\ [id number] B - MEDICARE GENERIC PPO - [id number] GENERIC PAYOR [facility] GENERIC PLAN - [id number] [facility] Problems Condition Condition Condition Status Onset Resolution Last Treating Co mments Source Name Details Category Date Date Treatment Clinician Date Chest pain Chest pain Disease Active [facility]10 [facility] 00:00: Hospita 00 l No known No known Disease [facility] active active College problems problems of Medicin e Allergies, Adverse Reactions, Alerts Allergy Allergy Status Severity Reaction(s) Onset Inactive Treating Comm ents Source Name Type Date Date Clinician No Known DA Active [facility] No Known DA Active [facility] NO KNOWN Drug Active Univers ALLERGIE Class ity of S [facility] Family History Family Member Diagnosis Comments Start Date Stop Date Source Natural father [facility] father Heart disease [facility] Paternal grandmother Heart disease [facility] Natural brother Diabetes [facility] Natural brother Heart disease [facility] Social History Social Habit Start Date Stop Date Quantity Comments Source Exposure to Not sure [facility] SARS-CoV-2 [facility] [place] [facility] Alcohol intake 2019-09-09 2019-09-09 [facility] 00:00:00 00:00:00 non-drinker of alcohol (finding) Tobacco use and 2016-10-23 2016-10-23 Smokeless tobacco [facility] exposure 00:00:00 00:00:00 non-user Sex Ass[birth year] At [birth year] [facility] 00:00:00 00:00:00 Smoking Status Start Date Stop Date Source Unknown if ever smoked [facility] Never smoker [facility] o f Medicine Medications Ordered Filled Start Stop Current Ordering Indication Dosage Frequency Signature Comments Components Source Medication Medication Date Date Medication? Clinician (SIG) Name Name acetaminoph 2019-06 Yes [id number] 1{tbl} Take 1 Tab [facility] en-codeine 0-12 by mouth Colle ge (TYLENOL/CO 00:00: every 4 of DEINE #3) 00 hours as Medici n 300-30 MG needed for e per tablet Pain. mupirocin 2019-06 Yes Apply to [facility] (BACTROBAN) 0-12 wound College 2 % 00:00: twice a of ointment 00 day Medicin e acetaminoph 2020- Yes [id number] 1{tbl} Take 1 Tab [facility] en-codeine 0-12 by mouth Colle ge (TYLENOL/CO 00:00: every 4 of DEINE #3) 00 hours as Medici n 300-30 MG needed for e per tablet Pain. mupirocin 2019- Yes Apply to [facility] (BACTROBAN) 0-12 wound College 2 % 00:00: twice a of ointment 00 day Medicin e levothyroxi 2020-0 Yes Synthroid [facility] ne 03-14 88 mcg College (SYNTHROID) 15:04: tablet of 88 MCG 47 Medicin tablet e Cholecalcif 2020-0 Yes 2000U Take 2,000 [facility] luis (D2000 9-29 Units by P[facility] ULTRA 15:04: mouth. of STRENGTH) 47 Medicin 50 MCG e (1999 UT) CAPS omeprazole 2020-0 Yes 20mg Take 20 mg [facility] (PRILOSEC) 9 by mouth. Piter ege 20 MG 15:04: of capsule 47 Medicin e levothyroxi 2020-0 Yes Synthroid [facility] ne 03-14 88 mcg College (SYNTHROID) 15:04: tablet of 88 MCG 47 Medicin tablet e Cholecalcif 2020-0 Yes 2000U Take 2,000 [facility] luis (D2000 9-29 Units by Piter ege ULTRA 15:04: mouth. of STRENGTH) 47 Medicin 50 MCG e (1999 UT) CAPS omeprazole 2020-0 Yes 20mg Take 20 mg [facility] (PRILOSEC) 9- by mouth. Piter ege 20 MG 15:04: of capsule 47 Medicin e levothyroxi 2020-0 Yes Synthroid [facility] ne 03-14 88 mcg College (SYNTHROID) 10:04: tablet of 88 MCG 47 Medicin tablet e Cholecalcif 2020-0 Yes 2000U Take 2,000 [facility] luis (D2000 9-29 Units by Piter ege ULTRA 10:04: mouth. of STRENGTH) 47 Medicin 50 MCG e (1999 UT) CAPS omeprazole 2020-0 Yes 20mg Take 20 mg [facility] (PRILOSEC) 9-29 by mouth. Piter ege 20 MG 10:04: of capsule 47 Medicin e hydroxychlo 2019-0 Yes TAKE 1 [facility] roquine 9-17 TABLET BY [place] (PLAQUINIL) 00:00: MOUTH of 200 MG 00 TWICE Medicin tablet DAILY e hydroxychlo 2020-0 Yes TAKE 1 [facility] roquine 9-17 TABLET BY [place] (PLAQUINIL) 00:00: MOUTH of 200 MG 00 TWICE Medicin tablet DAILY e hydroxychlo 2019-0 Yes TAKE 1 [facility] roquine 9-17 TABLET BY [place] (PLAQUINIL) 00:00: MOUTH of 200 MG 00 TWICE Medicin tablet DAILY e Hydroxychlo Hydroxychlo 2019-0 2020- No Wilian [address] [facility] roquine roquine 9-17 04-01 [facility]: [facility] lorazepam 2019-0 Yes TAKE 1 [facility] (ATIVAN) 9-11 TABLET BY Colleg e 0.5 MG 00:00: MOUTH of tablet 00 TWICE Medicin DAILY e NEEDED FOR SEVERE ANXIETY lorazepam 0 Yes TAKE 1 [facility] (ATIVAN) 9-11 TABLET BY Colleg e 0.5 MG 00:00: MOUTH of tablet 00 TWICE Medicin DAILY e NEEDED FOR SEVERE ANXIETY lorazepam 2019-0 Yes TAKE 1 [facility] (ATIVAN) 9-11 TABLET BY Colleg e 0.5 MG 00:00: MOUTH of tablet 00 TWICE Medicin DAILY e NEEDED FOR SEVERE ANXIETY solifenacin 2019-0 Yes TAKE 1 [facility] (VESICARE) 9-04 TABLET BY P[facility] 10 MG 00:00: MOUTH ONCE of tablet 00 DAILY Medicin e solifenacin 2019-0 Yes TAKE 1 [facility] (VESICARE) 9-04 TABLET BY Piter ege 10 MG 00:00: MOUTH ONCE of tablet 00 DAILY Medicin e solifenacin 2019-0 Yes TAKE 1 [facility] (VESICARE) 9-04 TABLET BY Piter ege 10 MG 00:00: MOUTH ONCE of tablet 00 DAILY Medicin e predniSONE 2019-0 Yes TAKE 1 [facility] (DELTASONE) 9-02 TABLET BY Col lege 5 MG tablet 00:00: MOUTH of 00 THREE Medicin TIMES e DAILY predniSONE 2019-0 Yes TAKE 1 [facility] (DELTASONE) 9-02 TABLET BY Col lege 5 MG tablet 00:00: MOUTH of 00 THREE Medicin TIMES e DAILY predniSONE 2020-0 Yes TAKE 1 [facility] (DELTASONE) 9-02 TABLET BY Col lege 5 MG tablet 00:00: MOUTH of 00 THREE Medicin TIMES e DAILY estradiol 2020-0 Yes TAKE 1 [facility] (ESTRACE) 1 8-14 TABLET BY Col lege MG tablet 00:00: MOUTH ONCE of 00 DAILY Medicin e estradiol 2020-0 Yes TAKE 1 [facility] (ESTRACE) 1 8-14 TABLET BY Col lege MG tablet 00:00: MOUTH ONCE of 00 DAILY Medicin e estradiol 2020-0 Yes TAKE 1 [facility] (ESTRACE) 1 8-14 TABLET BY Col lege MG tablet 00:00: MOUTH ONCE of 00 DAILY Medicin e cyanocobala 2020-0 Yes Inject as M ethodi min, 3-[address] vitamin 08:49: Hospita B-12, (B-12 18 l KIT INJ) predniSONE 2020-0 Yes 15mg QD Take 15 mg M ethodi (DELTASONE) 3-[address] 5 mg tablet 08:48: daily. Hosp td 28 l hydroxychlo 2020-0 Yes Q.5D Take by Met hodi roquine 3-[address] (PLAQUENIL) 08:48: (two) Hospi ta 200 mg 28 times a l tablet day. estradiol 2020-0 Yes 1mg QD Take 1 mg Met hodi (ESTRACE) 1 3-[address] MG tablet 08:48: daily. Hospit a 28 l levothyroxi 2020-0 Yes 100ug QD Take 100 M ethodi ne 3-[address] (SYNTHROID, 08:48: mouth Hospi ta LEVOXYL) 28 daily. l 100 mcg tablet cholecalcif 2020-0 Yes 2000U QD Take 2,000 Methodi luis, 3-[address] vitamin D3, 08:48: mouth Hospi ta (VITAMIN 28 daily. l D3) 2,000 unit capsule capsule acetaminoph 2020-0 Yes 650mg Q6H Take 650 M ethodi en 3-[address] (TYLENOL) 08:48: mouth Hospita 325 MG 28 every 6 l tablet (six) hours as needed for fever. ascorbic 2020-0 Yes 1000mg QD Take 1,000 M ethodi acid, 3-[address] vitamin C, 08:48: mouth Hospit a (VITAMIN C) 28 daily. l 500 MG tablet multivitami 2019-0 Yes 1{tbl} QD Take 1 Me thodi n 3-[address] (THERAGRAN) 08:48: mouth Hospi ta tablet 28 daily. l omeprazole Yes 20mg QD Take 20 mg M ethodi (PriLOSEC) 3-[address] 20 MG 08:48: daily. Hospita capsule 28 l LORAZepam Yes Methodi (ATIVAN) 1 2-14 st MG tablet 00:00: Hospita 00 l No known 2015-06 No Univers medications - ity of 00:00: [address] No known 2015-06 No Univers medications 07-14 ity of 00:00: [address] Lorazepam Lorazepam Yes Wilian [address] [facility] [facility] VESIcare VESIcare Yes Wilian [address] [facility] Stool Stool Yes Wilian [address] Softener Softener Golden as needed [facility]ics PredniSONE PredniSONE Yes Wilian [address] [facility] [facility] Estradiol Estradiol Yes Wilian [address] [facility] Vitamin D3 Vitamin D3 Yes Wilian [address] [facility] [facility] Vitamin C Vitamin C Yes Wilian [address] [facility] [facility] Multi Multi Yes Wilian [address] Vitamin Vitamin [facility] Levothyroxi Levothyroxi Yes Wilian TAKE [address] [facility] ne Sodium ne Sodium Golden TABLET BY [facility]ukes - MOUTH ONCE Memoria DAILY IN l THE Outpati MORNING ON ent AN EMPTY Clinics STOMACH FOR 90 DAYS MiraLax MiraLax Yes Wilian not [facility] defined [facility] Synthroid Synthroid Yes Wilian [address] [facility] in the [facility] - morning on Memoria an empty l stomach Outpati ent Clinics Tylenol Tylenol Yes Wilian not [facility] Arthritis Arthritis Golden defined [facility] Pain Pain [facility] Omeprazole Omeprazole Yes Wilian [address] [facility] [facility] 30 minutes [facility] - before [facility] morning l meal [facility] ent [facility] Vital Signs Vital Name Observation Time Observation Value Comments Source Body height 2020-12-26 15:36:00 157.5 cm [facility] Body weight 2020-12-26 15:36:00 67.132 kg [facility] ollege of Medicine BMI 2020-12-26 15:36:00 27.07 kg/m2 [facility] ol[facility] of Medicine Systolic blood 2020-12-26 15:36:00 132 mm[Hg] [facility] pressure Medicine Diastolic blood 2020-12-26 15:36:00 63 mm[Hg] [facility] Medicine Heart rate 2020-12-26 15:36:00 78 /min [facility] ol[facility] of Medicine Body temperature 2020-12-26 15:36:00 36.17 [facility]ene [facility] Body height 2020-09-11 17:02:00 157.5 cm [facility] Body weight 2020-09-11 17:02:00 68.947 kg [facility] BMI 2020-09-11 17:02:00 27.80 kg/m2 [facility] ol[facility] of Medicine Body height 2020-09-11 17:02:00 157.5 cm [facility] ol[facility] of Medicine Body weight 2020-09-11 17:02:00 68.947 kg [facility] ol[facility] of Medicine BMI 2020-09-11 17:02:00 27.80 kg/m2 [facility] ol[facility] of Medicine Systolic blood 2020-03-14 14:59:00 133 mm[Hg] [facility] pressure Medicine Diastolic blood 2020-03-14 14:59:00 69 mm[Hg] [facility] pressure Medicine Heart rate 2020-03-14 14:59:00 74 /min [facility] ol[facility] of Medicine Body height 2020-03-14 14:59:00 157.5 cm [facility] ol[facility] of Medicine Body weight 2020-03-14 14:59:00 72.576 kg [facility] ol[facility] of Medicine BMI 2020-03-14 14:59:00 29.26 kg/m2 [facility] Systolic blood 2020-03-14 14:59:00 133 mm[Hg] [facility] pressure Medicine Diastolic blood 2020-03-14 14:59:00 69 mm[Hg] [facility] pressure Medicine Heart rate 2020-03-14 14:59:00 74 /min [facility] Body height 2020-03-14 14:59:00 157.5 cm [facility] Body weight 2020-03-14 14:59:00 72.576 kg [facility] BMI 2020-03-14 14:59:00 29.26 kg/m2 [facility] Procedures Procedure Date / Time Performing Clinician Source Performed US BREAST COMPLETE 2020-07-26 17:58:56 Alondra Benz [facility] BILATERAL MAMMO BREAST DIAGNOSTIC 2020-07-26 17:14:55 Alondra Benz [facility] TOMOSYNTHESIS BILATERAL Plan of Care Planned Activity Planned Date Details Comments Source Future Scheduled 2021-07-02 COVID-[address] Test 14:09:49 (1) [code = Hospital COVID-19 VACCINE (1)] Future Scheduled 2021-07-02 SHINGLES VACCINES Method ist Test 14:09:49 (#1) [code = Hospital SHINGLES VACCINES (#1)] Future Scheduled 2021-07-02 65+ PNEUMOCOCCAL [facility] Test 14:09:49 VACCINE (1 of 1 - Hospital PPSV23) [code = 65+ PNEUMOCOCCAL VACCINE (1 of 1 - PPSV23)] Future Scheduled 2021-07-02 INFLUENZA VACCINE Method ist Test 14:09:49 [code = INFLUENZA Hospital VACCINE] Future Scheduled 2020-12-26 XR THORACIC SPINE 1 Occurrences [facility] [employer] Test 14:03:09 (COMPLETE) [code = [place] [address]-3] 12/26/2020 until 12/26/2021 Future Scheduled 2020-12-26 MRI LUMBAR SPINE WO 1 Occurrences [place] [facility] Test 11:30:32 CONTRAST [code = starting of Medicine 31289-0] 12/26/2020 until 12/26/2021 Future Scheduled 2020-12-26 MRI CERVICAL SPINE 1 Occurrences [facility] Test 11:30:32 WO CONTRAST [code = starting of Medic ine 10133-1] 12/26/2020 until 12/26/2021 Future Scheduled 2020-12-26 COVID-19 Vaccine [facility] College Test 10:37:31 (1) [code = of Medicine COVID-19 Vaccine (1)] Future Scheduled 2020-12-26 TETANUS SHOT [facility] Test 10:37:31 (ADULT) [code = of Medicine TETANUS SHOT (ADULT)] Future Scheduled 2020-12-26 BMI FOLLOW UP PLAN [facility] r College Test 10:37:31 [code = BMI FOLLOW of Medici ne UP PLAN] Future Scheduled 2020-12-26 Hepatitis C [facility] Test 10:37:31 screening of Medicine (procedure) [code = 366631334] Future Scheduled 2020-12-26 MEDICARE AWV [facility] Test 10:37:31 (Initial) [code = of Medicin e MEDICARE AWV (Initial)] Future Scheduled 2020-12-26 ZOSTER VACCINE (1 [facility] Test 10:37:31 of 2) [code = of Medicine ZOSTER VACCINE (1 of 2)] Future Scheduled 2020-12-26 FALL SCREEN [code = [facility] [place] Test 10:37:31 FALL SCREEN] of Medicine Future Scheduled 2020-12-26 Screening for [facility] Col [facility]ge Test 10:37:31 osteoporosis of Medicine (procedure) [code = 327369443] Future Scheduled 2020-12-26 FLU VACCINE > 6 [facility] C ollege Test 10:37:31 MONTHS [code = FLU of Medici ne VACCINE > 6 MONTHS] Future Scheduled [place] TANGENTIAL Ordered: [facility] Col [facility]ge Test BIOPSY SKIN SINGLE 03/14/2020 of Medici ne LESION [code = 74851] Future Scheduled [place] DESTRUC Ordered: [facility] Test PREMALIGNANT, FIRST 03/14/2020 of Medic ine LESION(76958) [code = 76055] Future Scheduled [place] DESTRUC Ordered: [facility] Test PREMALIGNANT,2-14 03/14/2020 of Medicin e LESIONS(32362) [code = 78799] Future Scheduled TETANUS SHOT [facility] Test (ADULT) [code = of Medicine TETANUS SHOT (ADULT)] Future Scheduled BMI FOLLOW UP PLAN [place] [employer] Test [code = BMI FOLLOW of Medici ne UP PLAN] Future Scheduled HEPATITIS C [facility] Piter [facility]ge Test SCREENING [code = of Medicin e HEPATITIS C SCREENING] Future Scheduled MEDICARE AWV [facility] Test (Initial) [code = of Medicin e MEDICARE AWV (Initial)] Future Scheduled ZOSTER VACCINE (1 [facility] College Test of 2) [code = of Medicine ZOSTER VACCINE (1 of 2)] Future Scheduled FALL SCREEN [code = [facility] Test FALL SCREEN] of Medicine Future Scheduled OSTEOPOROSIS [facility] Test SCREENING [code = of Medicin e OSTEOPOROSIS SCREENING] Future Scheduled PNEUMOVAX >=65 [facility] l[facility] Test (PPSV23) [code = of Medicine PNEUMOVAX >=65 (PPSV23)] Future Scheduled FLU VACCINE > 6 [facility] C ollege Test MONTHS [code = FLU of Medici ne VACCINE > 6 MONTHS] Future Scheduled [place] DESTRUC Ordered: [facility] P[facility] Test PREMALIGNANT, FIRST 09/11/2020 of Medic ine LESION(94215) [code = 29452] Future Scheduled [place] DESTRUC Ordered: [facility] Test PREMALIGNANT,2-14 09/11/2020 of Medicin e LESIONS(65527) [code = 48804] Future Scheduled TETANUS SHOT [facility] Test (ADULT) [code = of Medicine TETANUS SHOT (ADULT)] Future Scheduled COVID-19 Vaccine [facility] Test (1) [code = of Medicine COVID-19 Vaccine (1)] Future Scheduled BMI FOLLOW UP PLAN [facility] r College Test [code = BMI FOLLOW of Medici ne UP PLAN] Future Scheduled Hepatitis C [facility] Piter [facility] Test screening of Medicine (procedure) [code = 881319728] Future Scheduled MEDICARE AWV [facility] Test (Initial) [code = of Medicin e MEDICARE AWV (Initial)] Future Scheduled ZOSTER VACCINE (1 [facility] Test of 2) [code = of Medicine ZOSTER VACCINE (1 of 2)] Future Scheduled FALL SCREEN [code = [facility] Test FALL SCREEN] of Medicine Future Scheduled Screening for [facility] Col [facility]ge Test osteoporosis of Medicine (procedure) [code = 892704584] Future Scheduled FLU VACCINE > 6 [facility] C ollege Test MONTHS [code = FLU of Medici ne VACCINE > 6 MONTHS] Encounters Start End Encounter Admission Attending Care Care Encounter Source Date/Time Date/Time Type Type Clinicians Facility Department ID 2021-07-11 Outpatient Golden, STLC [facility] [id number] 14:31:01 [facility] 2021-07-11 Outpatient Golden, STLMLC STLC [id number] 13:35:28 [facility] 2021-07-11 Outpatient [facility], STLC [facility]LC [facility] 12:26:20 [facility] 93984 [facility] 2021-07-11 Outpatient Golden, [facility]LC [facility] 12:25:29 [facility] 2021-07-11 Outpatient Golden, STLC [facility]LC [facility] 11:59:34 Wilian 12575 [facility] 2021-07-11 [facility] 11:38[facility]32 Wil[facility] [id number] [facility] 2021-07-11 [facility] 11:34:19 Wilian 04560 [facility] 2021-07-11 [facility] 11:19:03 Wilian 65380 [facility] 2020-09-28 Inpatient Christin, [facility] [id number] [facility] 09:00:[id number] [place] [address] 2020-09-27 Inpatient EL Christin, [facility]O [id number] [facility] 11:00:[id number] [place] [address] 2021-08-15 2021-08-15 ambulatory [facility] [id number] [facility] 2021-08-06 2021-08-06 ambulatory [facility]LC [facility] [id number] [facility] 2021-08-03 2021-08-03 Outpatient [place]_M [facility] [id number] [place] 04:09:00 04:09:00 [facility] 2021-07-28 2021-07-28 Outpatient [place]_M [facility] [id number] [place] 02:54:00 02:54:00 [facility] 2021-07-02 2021-07-02 Outpatient [place]_M [facility] [id number] [place] 04:35:00 04:35:00 [facility] 2021-07-02 2021-07-02 Outpatient [place]_M [facility] [id number] [place] 04:35:00 04:35:00 [facility] 2021-07-02 2021-07-02 Outpatient Emigdio, [facility] [id number] 00:00:00 00:00:00 Alondra [id number] 2021-06-22 2021-06-22 ambulatory STLMLC [facility]LML[facility] [id number] [facility] 00[facility]00 [facility] 2021-06-03 2021-06-03 Telephone ROSY Bonds [id number] Univers 00:00:00 00:00:00 Maye MUÑOZ [id number] i ty [facility] [id number] [place] [id number] [facility] [address] 2021-06-02 2021-06-02 Laboratory Only, Adc Test RUST [id number] [facility] 11:00:00 11:15:00 Only Alondra Wilks [id number] [facility] [id number] [facility] [id number] [facility] [address] 2021-06-02 2021-06-02 Outpatient Alexandria [facility] [id number] Univers 11:00:00 11:00:00 ALONDRA [facility] 2021-05-21 2021-05-21 Outpatient [place]_M [facility] [id number] [place] [address] 12:00:00 12:00:00 [id number] [facility] 2021-05-14 2021-05-14 ambulatory [facility]LMLC ST[facility] [id number] [facility] 2021-02-20 2021-02-20 Outpatient [facility]LMLC [facility] [id number] [facility] 2021-02-19 2021-02-19 [facility] [id number] [facility] 2021-02-15 2021-02-15 [id number] 2021-02-09 2021-02-09 [facility] [id number] [facility] 2021-01-22 2021-01-22 [facility] [id number] [facility] 2021-01-17 2021-01-17 Outpatient [facility] [id number] [facility] 09:10:52 09:10:52 Colleg e of Medicin e 2021-01-17 2021-01-17 Outpatient [facility] [id number] [facility] 07:46:47 07:46:47 Colleg e of Medicin e 2021-01-17 2021-01-17 Outpatient [facility] [id number] [facility] 07:45:07 07:45:07 Colleg e of Medicin e 2021-01-01 2021-01-01 [facility] [id number] [facility] 2020-12-26 2020-12-26 Office DAMASO Hanson [id number] [facility] 09:50:23 13:46:09 Visit Anjum Drew AMBULATOR [id number] College Y [id number] of [id number] [facility] real 805 e 2020-10-27 2020-10-27 Outpatient [facility]LC [facility] [id number] [facility] 2020-10-12 2020-10-12 Outpatient [facility] [id number] [facility] 2020-10-12 2020-10-12 Outpatient [facility] [id number] [facility] 2020-10-04 2020-10-04 [facility] [id number] [facility] 2020-09-15 2020-09-15 [facility] [id number] [facility] 2020-09-11 2020-09-11 Office Sabrina Kinsey [id number] [facility] 11:55:16 12:10:16 Visit AMBULATOR [id number] College Y [id number] of [id number] [facility] real 300 e 2020-09-11 2020-09-11 Office Sabrina Kinsey [id number] 11:55:16 12:10:16 Visit AMBULATOR [id number] Y [id number] 2020-07-27 2020-07-27 Outpatient [facility] [id number] [facility]00 [facility] 2020-07-26 2020-07-26 Hospital Cosjose j, [id number] [facility]i 10:09:35 23:59:00 Encounter Alondra Arshad [id number] 3.430.2.7 Hospit a .[id number] l .8 2020-07-26 2020-07-26 Hospital [facility], 1.2.840.1 [id number] Methodi 10:08:25 10:08:25 Encounter Alondra Arshad [id number] 3.430.2.7 Hospit a .[id number] l .8 2020-07-26 2020-07-26 Travel 1.2.840.1 [id number] Methodi 00:00:00 00:00:[id number] 3.430.2.7 0.2.7.3.698 spita .[id number] 084.8 l .8 2020-07-17 2020-07-17 Outpatient [facility] [id number] [facility] 2020-07-13 2020-07-13 Out[facility] [id number] [facility] 2020-06-08 2020-06-08 [facility] [id number] [facility] 2020-06-02 2020-06-02 Out[facility] [id number] [facility] 2020-05-26 2020-05-26 [facility] [id number] [facility] 2020-05-22 2020-05-22 [facility] [id number] [facility] 2020-05-01 2020-05-01 Out[facility] [id number] [facility] 2020-04-26 2020-04-26 Out[facility] [id number] [facility] 2020-04-12 2020-04-12 Outpatient [facility] [id number] [facility] 2020-04-03 2020-04-03 Outpatient [facility] [id number] [facility] 2020-03-21 2020-03-21 Outpatient [facility] [id number] [facility] 2020-03-20 2020-03-20 Outpatient [facility] [id number] [facility] 2020-03-14 2020-03-14 Office Sabrina Kinsey BCCherry [id number] [facility] 09:52:56 10:36:43 Visit AMBULATOR 350.1.13.21 College Y 0.2.7.2.686 [id number] [facility] real 300 e 2020-03-14 2020-03-14 Office Tio Sabrina BCCherry [id number] 09:52:56 10:36:43 Visit AMBULATOR 350.1.13.21 Y 0.2.7.2.686 [id number] 300 2020-03-02 2020-03-02 [facility] [id number] [facility] 11:23:00 11:23:00 t [employer] s - [facility] Medicine Outpati [facility] Clinics 2020-02-25 2020-02-25 [facility] [id number] [facility] [address] 07:46:00 07:46:00 t [employer] s - [facility] Medicine Outpat[facility] ent Clinics 2020-02-15 2020-02-15 [facility] [id number] [address] 16:40:00 16:40:00 t [place] [employer] [facility] - Drive [facility] Medicine Outpati ent Clinics 2020-02-01 2020-02-01 [facility] [id number] 10:00:00 10:00:00 t [facility] 2020-01-13 2020-01-13 [facility] [id number] 09:12:00 09:12:00 t [employer] [facility] 2020-01-12 2020-01-12 [facility] [id number] 13:09:00 13:09:00 t [employer] [facility] Medicine Outpati ent Clinics 2020-01-10 2020-01-10 [facility] [id number] 13:35:00 13:35:00 t [employer] [facility] ent Clinics 2020-01-04 2020-01-04 [facility] [id number] 10:30:00 10:30:00 t [place] [facility] 2019-11-04 2019-11-04 [facility] [id number] 10:25:00 10:25:00 [facility] 2019-10-07 2019-10-07 [facility] [address] 09:00:00 09:00:00 t [employer] [facility] 2019-10-07 2019-10-07 [facility] [address] 08:00:00 08:00:00 t [employer] 2020 [facility] Results Test Description Test Time Test Comments Results Result Comments Source COVID 19 INHOUSE AG 2020-09-27 13:48:00 Test Item Value Reference Range Interpretation Comme nts COVID 19 INHOUSE AG (test code = NEGATIVE Negative Per photogeologist, negative [id number]) results should be treated aspresumptive a nd, [...] nd symptoms consistent with COVID-19. CBC W/AUTO [id number] 13:34:00 Test Item Value Reference Range Interpretation [...]
[2021-10-01] MEDS ORDERED: lisinopriL 20 MG TAB ONE (23:50)
[2021-10-01 23:58] LABS: Absolute Lymphocytes (CBC) 2.7 K/uL (0.7-4.9); Hematocrit 37.8 % (36.0-45.0); MPV 8.1 fL (7.6-11.3); RBC Red Blood Cell Count 3.94 M/uL (3.86-4.86)
[2021-10-02 00:26] LABS: BUN Blood Urea Nitrogen 14 mg/dL (7-18); Bicarbonate 27 mmol/L (21-32); Glucose Level 111 mg/dL (74-106); Potassium 3.4 mmol/L (3.5-5.1); Sodium Level 146 mmol/L (136-145); Troponin High Sensitivity 17.6 pg/mL (<58.9)
[2021-10-02] MEDS ORDERED: cloNIDine HCL 0.1 MG TAB ONE (01:57)
--- NOTE | 2021-10-02 06:56 | ER ---
Nurse's Notes [facility] Name: Theresa Mancera Age: 81 yrs Sex: Female : 1940 Arrival Date: 10/01/2021 Time: 22:44 Bed 2 Private MD: Diagnosis: Hypertensive heart disease without heart failure Presentation: 10/01 22:51 Chief complaint:. lg3 22:56 Chief complaint: Patient states: watching tv and suddenly got a headache. temples sore lg3 to touch. checked my blood pressure. at home it was 167/72. that's higher than it normally is. shortly after my right hand went numb and it has gradually gone up into my underarm. Coronavirus screen: Client denies travel out of the [place] in the last 14 days. At this time, the client does not indicate any symptoms associated with coronavirus-19. Ebola Screen: No symptoms or risks identified at this time. Initial Sepsis Screen: Does the patient meet any 2 criteria? No. Patient's initial sepsis screen is negative. Does the patient have a suspected source of infection? No. Patient's initial sepsis screen is negative. Risk Assessment: Do you want to hurt yourself or someone else? Patient reports no desire to harm self or others. Onset of symptoms was October 01, 2021 at 20:30. 22:56 Method Of Arrival: Wheelchair lg3 22:56 Acuity: RADHA 3 lg3 Triage Assessment: 23:01 General: Appears in no apparent distress. comfortable, Behavior is calm, cooperative. lg3 Pain: Complains of pain in headache. EENT: No deficits noted. No signs and/or symptoms were reported regarding the EENT system. Neuro: No deficits noted. Level of Consciousness is awake, alert, obeys commands, Oriented to person, place, time, situation, Gait is steady, Speech is normal, Facial symmetry appears normal. Cardiovascular: No deficits noted. Reports chest pain, lightheadedness, Denies nausea, vomiting. Respiratory: No deficits noted. Airway is patent Trachea midline Respiratory effort is even, unlabored, Respiratory pattern is regular, symmetrical. GI: No deficits noted. No signs and/or symptoms were reported involving the gastrointestinal system. Abdomen is flat, non-distended. : No deficits noted. No signs and/or symptoms were reported regarding the genitourinary system. Derm: No deficits noted. No signs and/or symptoms reported regarding the dermatologic system. Skin is intact, is healthy with good turgor, Skin is dry. Musculoskeletal: No deficits noted. No signs and/or symptoms reported regarding the musculoskeletal system. Circulation, motion, and sensation intact. Capillary refill < 3 seconds, Range of motion: intact in all extremities. Historical: - Allergies: 23:01 No Known Allergies; lg3 - Home Meds: 23:48 estradiol 0.5 mg oral tab [Active]; euthyrox 75 mcg 50mcg 1 tab daily [Active]; sm5 furosemide 40 mg Oral tab 1 tab as needed [Active]; hydroxychloroquine 200 mg Oral tab 1 tab once daily [Active]; lorazepam 0.5 mg oral tab 1 tab daily [Active]; MD-3 daily [Active]; Vitamin C 1,000 mg Oral tab twice a day [Active]; Multiple Vitamins Oral [Active]; Omeprazole Oral [Active]; Probiotic Oral [Active]; prednisone 5 mg oral tab 1 tab once daily [Active]; memantine 10 mg oral tab 2 tab daily for moderate to severe Alzheimer's type dementia [Active]; donepezil 5 mg oral tab 1 tab once daily [Active]; Advil 200 mg Oral tab 1 tab daily [Active]; leflunomide 20 mg oral tab 1 tab once daily [Active]; - PMHx: 23:01 Hypertension; Hypothyroidism; Lupus; lg3 - PSHx: 23:01 Cholecystectomy; hysterectomy; lg3 - Immunization history:: Adult Immunizations up to date, Client reports receiving the 2nd dose of the Covid vaccine, moderna X2. - Social history:: Smoking status: Patient denies any tobacco usage or history of. Patient uses alcohol, only on a social basis. Screenin:04 Abuse screen: Denies threats or abuse. Denies injuries from another. Nutritional lg3 screening: No deficits noted. Tuberculosis screening: No symptoms or risk factors identified. Fall Risk None identified. Assessment: 23:41 General: Appears in no apparent distress. Behavior is cooperative. Pain: Complains of sm5 pain in chest Quality of pain is described as pressure. Neuro: Level of Consciousness is awake, alert, obeys commands, Oriented to person, place, time, situation, Reports headache paresthesias in right hand. Cardiovascular: Reports chest pressure Capillary refill < 3 seconds Patient's skin is warm and dry. Respiratory: No deficits noted. Airway is patent Trachea midline Respiratory effort is even, unlabored. GI: No deficits noted. 10/02 00:47 Reassessment: Patient and/or family updated on plan of care and expected duration. Pain sm5 level reassessed. Patient states feeling better. 01:25 Reassessment: No changes from previously documented assessment. sm5 03:30 Reassessment: No changes from previously documented assessment. Patient and/or family sm5 updated on plan of care and expected duration. Pain level reassessed. 04:45 Reassessment: No changes from previously documented assessment. Patient is alert, sm5 oriented x 3, equal unlabored respirations, skin warm/dry/pink. 06:50 Reassessment: No changes from previously documented assessment. Patient is alert, sm5 oriented x 3, equal unlabored respirations, skin warm/dry/pink. Vital Signs: 10/01 22:56 BP 188 / 67; Pulse 67; Resp 18 S; Temp 98.2(O); Pulse Ox 97% on R/A; Weight 66.45 kg lg3 (R); Height 5 ft. (152.40 cm) (R); Pain 0/10; 23:43 BP 179 / 66; Pulse 61; Resp 18; Pulse Ox 97% on R/A; sm5 10/02 00:15 BP 147 / 53; Pulse 59; Resp 17; Pulse Ox 94% on R/A; sm5 01:25 BP 180 / 72; Pulse 68; Resp 19; Pulse Ox 97% on R/A; sm5 01:50 BP 197 / 70; Pulse 59; Resp 17; Pulse Ox 99% on R/A; sm5 02:56 BP 138 / 48; Pulse 50; Resp 17; Pulse Ox 93% on R/A; sm5 04:20 BP 101 / 44; Pulse 49; Resp 16; Pulse Ox 93% on R/A; sm5 06:50 BP 136 / 57; Pulse 51; Resp 17; Pulse Ox 96% on R/A; sm5 10/01 22:56 Body Mass Index 28.61 (66.45 kg, 152.40 cm) lg3 ED Course: 10/01 22:44 Patient arrived in ED. kian 22:49 Liban, Robyn, RN is Primary Nurse. sm5 22:55 Samm Medrano MD is Attending Physician. kdr 23:01 Triage completed. lg3 23:01 Arm band placed on right wrist. lg3 23:03 Inserted saline lock: 20 gauge in right forearm, using aseptic technique. Blood sm5 collected. 10/02 00:44 Head Brain Wo Cont In Process Unspecified. EDMS 01:12 XRAY Chest (1 view) In Process Unspecified. EDMS 01:17 CT Head Angio In Process Unspecified. EDMS 04:35 CT Head Brain wo Cont In Process Unspecified. EDMS 07:03 Patient has correct armband on for positive identification. Bed in low position. Call sm5 light in reach. Side rails up X2. campus monitor on. Pulse ox on. NIBP on. 07:03 No provider procedures requiring assistance completed. IV discontinued, intact, sm5 bleeding controlled, No redness/swelling at site. Pressure dressing applied. Administered Medications: 10/01 23:40 Not Given (ordered on wrong pt): NS 0.9% 1000 ml IV at 1 bolus Per protocol; 1000 mL sm5 bolus 23:41 Not Given (ordered on wrong pt): Phenergan (promethazine) 25 mg IVP once sm5 23:41 Not Given (ordered on wrong pt): Pepcid (famotidine) 20 mg IVP once; dilute with 10 mL sm5 0.9% NaCl; give over 2 minutes 23:48 Drug: Lisinopril 20 mg Route: PO; sm5 10/02 00:40 Follow up: Response: Blood pressure is lowered sm5 01:55 Drug: cloNIDine 0.1 mg Route: PO; sm5 03:52 Follow up: Response: Blood pressure is lowered 5 Outcome: 06:55 Discharge ordered by . kdr 07:04 Discharged to home ambulatory, with significant other. sm5 07:04 Condition: stable 07:04 Discharge instructions given to patient, significant other, Instructed on discharge instructions, follow up and referral plans. Demonstrated understanding of instructions, follow-up care. 07:04 Patient left the ED. 5 Signatures: Dispatcher [employer] Samm Lal MD MD kdr Shannon Pedraza RN RN 3 Robyn Louie RN RN 5 [place], Una kz Corrections: (The following items were deleted from the chart) 10/01 23:43 23:41 Neuro: Level of Consciousness is awake, alert, obeys commands, Oriented to sm5 person, place, time, situation, Reports headache paresthesias in left hand sm5
--- NOTE | 2021-10-02 06:56 | EDPHYS ---
Physician Documentation [facility] Name: Theresa Mancera Age: 81 yrs Sex: Female : 1940 Arrival Date: 10/01/2021 Time: 22:44 Bed 2 Private MD: ED Physician Samm Medrano HPI: 10/02 01:04 This 81 yrs old Female presents to ER via Wheelchair with complaints of High kdr Blood Pressure, Numbness Of Hand - Left. 01:04 The patient has elevated blood pressure and discovered this at home, with a home kdr device. Onset: The symptoms/episode began/occurred suddenly, just prior to arrival. Modifying factors: The symptoms are aggravated by. Associated signs and symptoms: Pertinent positives: headache, visual changes, weakness, Pertinent negatives: chest pain, dizziness, dyspnea. Severity of symptoms: At its worst the blood pressure was moderate, just prior to arrival, in the emergency department the blood pressure is unchanged. The patient has not experienced similar symptoms in the past. The patient has been recently seen by a physician: Patient had 2 general wellness checks today by different providers. At both times her blood pressure was noted to be elevated in the 150s to 160s. While this was discussed, no action was taken by the PCPs at that time. Patient was watching TV tonight with her when she suddenly felt a mild headache. She also noted that when she pushed on her temples, she also felt wrist pain. She checked her blood pressure at that time and it was noted to be 167/72. Her normal is in the 120s systolic. Shortly after that she began to have discomfort in her left hand (it is stated as right handed nurses notes), and has subsequently moved up under her left arm. Currently she is in no acute distress her blood pressure was noted to be about 179/66 at the time of my evaluation. She was in not in any acute distress and not acutely in a situation where an life or limb threat is expected. Historical: - Allergies: 10/01 23:01 No Known Allergies; lg3 - Home Meds: 23:48 estradiol 0.5 mg oral tab [Active]; euthyrox 75 mcg 50mcg 1 tab daily [Active]; sm5 furosemide 40 mg Oral tab 1 tab as needed [Active]; hydroxychloroquine 200 mg Oral tab 1 tab once daily [Active]; lorazepam 0.5 mg oral tab 1 tab daily [Active]; MD-3 daily [Active]; Vitamin C 1,000 mg Oral tab twice a day [Active]; Multiple Vitamins Oral [Active]; Omeprazole Oral [Active]; Probiotic Oral [Active]; prednisone 5 mg oral tab 1 tab once daily [Active]; memantine 10 mg oral tab 2 tab daily for moderate to severe Alzheimer's type dementia [Active]; donepezil 5 mg oral tab 1 tab once daily [Active]; Advil 200 mg Oral tab 1 tab daily [Active]; leflunomide 20 mg oral tab 1 tab once daily [Active]; - PMHx: 23:01 Hypertension; Hypothyroidism; Lupus; lg3 - PSHx: 23:01 Cholecystectomy; hysterectomy; lg3 - Immunization history:: Adult Immunizations up to date, Client reports receiving the 2nd dose of the Covid vaccine, moderna X2. - Social history:: Smoking status: Patient denies any tobacco usage or history of. Patient uses alcohol, only on a social basis. ROS: 10/02 01:04 Constitutional: Negative for fever, chills, and weight loss, Eyes: Negative for injury, kdr pain, redness, and discharge, ENT: Negative for injury, pain, and discharge, Neck: Negative for injury, pain, and swelling, Cardiovascular: Negative for chest pain, palpitations, and edema, Respiratory: Negative for shortness of breath, cough, wheezing, and pleuritic chest pain, Abdomen/GI: Negative for abdominal pain, nausea, vomiting, diarrhea, and constipation, Back: Negative for injury and pain, : Negative for injury, bleeding, discharge, and swelling, MS/Extremity: Negative for injury and deformity, Skin: Negative for injury, rash, and discoloration, Psych: Negative for depression, anxiety, suicide ideation, homicidal ideation, and hallucinations, Allergy/Immunology: Negative for hives, rash, and allergies, Endocrine: Negative for neck swelling, polydipsia, polyuria, polyphagia, and marked weight changes, Hematologic/Lymphatic: Negative for swollen nodes, abnormal bleeding, and unusual bruising. Neuro: Positive for headache, Paresthesia to left arm/very mild and diffuse. Exam: 10/01 23:11 ECG was reviewed by the Attending Physician. kdr 10/02 01:04 Constitutional: This is a well developed, well nourished patient who is awake, alert, kdr and in no acute distress. Head/Face: Normocephalic, atraumatic. Eyes: Pupils equal round and reactive to light, extra-ocular motions intact. Lids and lashes normal. Conjunctiva and sclera are non-icteric and not injected. Cornea within normal limits. Periorbital areas with no swelling, redness, or edema. Neck: Trachea midline, no thyromegaly or masses palpated, and no cervical lymphadenopathy. Supple, full range of motion without nuchal rigidity, or vertebral point tenderness. No Meningismus. Chest/axilla: Normal chest wall appearance and motion. Nontender with no deformity. No lesions are appreciated. Cardiovascular: Regular rate and rhythm with a normal S1 and S2. No gallops, murmurs, or rubs. Normal PMI, no JVD. No pulse deficits. Respiratory: Lungs have equal breath sounds bilaterally, clear to auscultation and percussion. No rales, rhonchi or wheezes noted. No increased work of breathing, no retractions or nasal flaring. Abdomen/GI: Soft, non-tender, with normal bowel sounds. No distension or tympany. No guarding or rebound. No evidence of tenderness throughout. Back: No spinal tenderness. No costovertebral tenderness. Full range of motion. Skin: Warm, dry with normal turgor. Normal color with no rashes, no lesions, and no evidence of cellulitis. MS/ Extremity: Pulses equal, no cyanosis. Neurovascular intact. Full, normal range of motion. Neuro: Awake and alert, GCS 15, oriented to person, place, time, and situation. Cranial nerves II-XII grossly intact. Motor strength 5/5 in all extremities. Sensory grossly intact. Cerebellar exam normal. Normal gait. Psych: Awake, alert, with orientation to person, place and time. Behavior, mood, and affect are within normal limits. Vital Signs: 10/01 22:56 BP 188 / 67; Pulse 67; Resp 18 S; Temp 98.2(O); Pulse Ox 97% on R/A; Weight 66.45 kg lg3 (R); Height 5 ft. (152.40 cm) (R); Pain 0/10; 23:43 BP 179 / 66; Pulse 61; Resp 18; Pulse Ox 97% on R/A; sm5 10/02 00:15 BP 147 / 53; Pulse 59; Resp 17; Pulse Ox 94% on R/A; sm5 01:25 BP 180 / 72; Pulse 68; Resp 19; Pulse Ox 97% on R/A; sm5 01:50 BP 197 / 70; Pulse 59; Resp 17; Pulse Ox 99% on R/A; sm5 02:56 BP 138 / 48; Pulse 50; Resp 17; Pulse Ox 93% on R/A; sm5 04:20 BP 101 / 44; Pulse 49; Resp 16; Pulse Ox 93% on R/A; sm5 06:50 BP 136 / 57; Pulse 51; Resp 17; Pulse Ox 96% on R/A; sm5 10/01 22:56 Body Mass Index 28.61 (66.45 kg, 152.40 cm) lg3 MDM: 01:04 Data reviewed: vital signs, nurses notes, lab test result(s), radiologic studies. kdr Counseling: I had a detailed discussion with the patient and/or guardian regarding: the historical points, exam findings, and any diagnostic results supporting the discharge/admit diagnosis, lab results, radiology results. 06:55 Patient medically screened. kdr 10/02 00:20 Order name: CBC with Automated Diff EDMS 10/02 00:24 Order name: Basic Metabolic Panel; Complete Time: 01:01 EDMS 10/02 00:24 Order name: Troponin High Sensitivity; Complete Time: 01:01 EDMS 10/01 22:55 Order name: XRAY Chest (1 view) kdr 10/01 23:38 Order name: CT Head Angio vc1 10/02 00:27 Order name: Head Brain Wo Cont EDMS 10/02 04:07 Order name: CT Head Brain wo Cont kdr 10/01 22:55 Order name: EKG; Complete Time: 00:22 kdr 10/01 22:55 Order name: Cardiac monitoring; Complete Time: 23:08 kdr 10/01 22:55 Order name: EKG - Nurse/Tech; Complete Time: 23:08 kdr 10/01 22:55 Order name: IV Saline Lock; Complete Time: 23:08 kdr 10/01 22:55 Order name: Labs collected and sent; Complete Time: 23:08 kdr 10/01 22:55 Order name: O2 Per Protocol; Complete Time: 23:08 kdr 10/01 22:55 Order name: O2 Sat Monitoring; Complete Time: 23:08 kdr EC/18 23:11 Rate is 63 beats/min. Rhythm is regular, Sinus Rhythm with Right bundle branch block. kdr QRS [place] is Normal. [place] interval is normal. QRS interval is normal. Clinical impression: NSR w/ Non-specific ST/T Changes. Administered Medications: 23:40 Not Given (ordered on wrong pt): NS 0.9% 1000 ml IV at 1 bolus Per protocol; 1000 mL sm5 bolus 23:41 Not Given (ordered on wrong pt): Phenergan (promethazine) 25 mg IVP once sm5 23:41 Not Given (ordered on wrong pt): Pepcid (famotidine) 20 mg IVP once; dilute with 10 mL sm5 0.9% NaCl; give over 2 minutes 23:48 Drug: Lisinopril 20 mg Route: PO; sm5 10/02 00:40 Follow up: Response: Blood pressure is lowered sm5 01:55 Drug: cloNIDine 0.1 mg Route: PO; sm5 03:52 Follow up: Response: Blood pressure is lowered sm5 Disposition Summary: 10/02/21 06:55 Discharge Ordered Location: Home kdr Problem: new kdr Symptoms: have improved kdr Condition: Stable kdr Diagnosis - Hypertensive heart disease without heart failure kdr Followup: kdr - With: Private Physician - When: 2 - 3 days - Reason: If symptoms return, Further diagnostic work-up, Recheck today's complaints, Continuance of care, Re-evaluation by your physician Discharge Instructions: - Discharge Summary Sheet kdr - Hypertension, Adult, [place]-Svlr kdr Forms: - Medication Reconciliation Form kdr - Thank You Letter kdr Signatures: Dispatcher [employer] EDMS Samm Medrano MD MD kdr Shannon Pedraza, SNEHA RN lg3 Robyn Louie RN RN sm5 Natalya Raímrez RN RN vc1 Corrections: (The following items were deleted from the chart) 00:32 00:22 BASIC METABOLIC PANEL+C.LAB.BRZ ordered. EDMS EDMS 00:32 00:22 CBC+H.LAB.BRZ ordered. EDMS EDMS 00:32 00:22 Troponin High Sensitivity+C.LAB.BRZ ordered. EDMS EDMS 00:47 00:28 Head Angio+CT.RAD.BRZ ordered. EDMS EDMS
--- NOTE | 2021-10-02 08:59 | EKG ---
Test Date: 2021-10-01 Test Time: 22:52:58 Ad Operations Coordinator: YUSUF MEASUREMENT RESULTS: Intervals: Rate: 63 HI: 156 QRSD: 126 QT: 454 QTc: 464 [place]: P: 54 HI: 156 QRS: 66 T: -21 INTERPRETIVE STATEMENTS: Normal sinus rhythm Right bundle branch block Abnormal ECG Compared to ECG 07/09/2020 02:32:00 Ventricular premature complex(es) no longer present Electronically Signed On 10-02-21 08:58:12 CDT by Munir Rock
--- NOTE | 2021-10-02 10:39 | RAD REPORT ---
EXAM DESCRIPTION: ADDENDUM #1 Results were verbally communicated to Dr. Samm Medrano by Ronny Araujo and report receipt was confi rmed by Dr. Samm Medrano on 10/02/2021 1:19 AM CDT. Electronically signed by: Diaz Crow MD 10/02/2021 6:28 AM CDT End of Addendum EXAM DESCRIPTION: CT Head Without Intravenous Contrast CLINICAL HISTORY: The patient is 81 years old and is Female; DIZZY TECHNIQUE: Axial computed tomography images of the head/brain without intravenous contrast. Sagitt al and coronal reformatted images were created and reviewed. This CT exam was performed using one o r more of the following dose reduction techniques: automated exposure control, adjustment of the mA and/or kV according to patient size, and/or use of iterative reconstruction technique. COMPARISON: MRI brain July 05, 2020. FINDINGS: Artifacts: Linear 1 cm focal hyperdensity along the right frontal convexity which is tho ught to represent artifact, but hemorrhage is not entirely excluded. Consider short-interval follow-u p head CT for further evaluation. Brain: Mild cerebral atrophy. Mild nonspecific white matter changes likely related to chronic microvascular ischemic diseas e. No hemorrhage. Ventricles: Unremarkable. No ventriculomegaly. Bones/joints: Unremarkable. No acute fracture. Soft tissues: Unremarkable. Sinuses: Unremarkable as visualized. Mastoid air cells: Unremarkable as visualized. No mastoid effusion. IMPRESSION: 1. Linear 1 cm focal hyperdensity along the right frontal convexity which is thought t o represent artifact, but hemorrhage is not entirely excluded. Consider short-interval follow-up head CT ( 4 hour) for further evaluation. 2. Mild cerebral atrophy. 3. Mild nonspecific white matter changes likely related to chronic microvascular ischemic disease. Electronically signed by: Diza Crow MD 10/02/2021 1:10 AM CDT Due to temporary technical issues with the PACS/Fluency reporting system, reports are being signed by the in house radiologists without review as a courtesy to insure prompt reporting. The interpreting radiologist is fully responsible for the content of the report.
--- NOTE | 2021-10-02 10:50 | RAD REPORT ---
EXAM DESCRIPTION: CTA of the head with contrast. CLINICAL HISTORY: 81 years, Female, Left upper extremity weakness COMPARISON: None. TECHNIQUE: Axial CTA images of the head obtained following the uncomplicated intravenous administrat ion of iodinated contrast. 3-D/MIP reformatted images available. This exam was performed according to our departmental dose-optimization program, which includes automated exposure control, adjustment of the mA and/or kV according to patient size and/or use of iterative reconstruction technique. FINDINGS: CTA head: In the anterior circulation, the intracranial internal carotid arteries have normal course and calibe r. Mild nonflow limiting atherosclerotic plaque at the paraclinoid intracranial internal carotid chidi coby. The internal carotid arteries bifurcate into widely patent A1 and M1 segments of the anterior a nd middle cerebral arteries respectively. No evidence of flow-limiting stenosis, aneurysm, occlusion, or dissection in the anterior circulation. The anterior communicating artery is patent. In the posterior circulation, the intracranial vertebral arteries combine to form a widely patent bas ilar artery. The basilar artery bifurcates into widely patent P1 segments of the posterior cerebral a rtery. No evidence of stenosis, aneurysm, occlusion, or dissection in the posterior circulation. No definite acute intracranial abnormality identified. No acute abnormality of the osseous calvarium. Paranasal sinuses and mastoid air cells are well aerated. IMPRESSION: 1. No evidence of flow-limiting stenosis, occlusion, or aneurysm in the intracranial art erial circulation. Electronically signed by: Tim Escalona 10/02/2021 1:47 AM CDT Due to temporary technical issues with the PACS/Fluency reporting system, reports are being signed by the in house radiologists without review as a courtesy to insure prompt reporting. The interpreting radiologist is fully responsible for the content of the report.
--- NOTE | 2021-10-02 13:11 | RAD REPORT ---
EXAM DESCRIPTION: XR Chest, 1 View CLINICAL HISTORY: CHEST PAIN TECHNIQUE: Frontal view of the chest. COMPARISON: No relevant prior studies available. FINDINGS: Lungs: Coarsened interstitial markings. No focal consolidation. Pleural space: Unremarkable. No pneumothorax. Heart: Unremarkable. No cardiomegaly. Mediastinum: Unremarkable. Bones/joints: Unremarkable. Vasculature: Thoracic aortic atherosclerosis. IMPRESSION: No acute disease. Electronically signed by: Laurence Black MD 10/02/2021 1:40 AM CDT Due to temporary technical issues with the PACS/Fluency reporting system, reports are being signed by the in house radiologists without review as a courtesy to insure prompt reporting. The interpreting radiologist is fully responsible for the content of the report.
--- NOTE | 2021-10-02 13:13 | RAD REPORT ---
EXAM DESCRIPTION: CT of the head without contrast CLINICAL HISTORY: Headache, sudden, severe COMPARISON: 10/01/2021 TECHNIQUE: Axial CT of the head obtained from the skull apex to the skull base without contrast. Thi s exam was performed according to our departmental dose-optimization program, which includes automate d exposure control, adjustment of the mA and/or kV according to patient size and/or use of iterative reconstruction technique. FINDINGS: No acute intracranial hemorrhage identified. Previously visualized area of hyperdensity al diane the right frontal convexity is not definitely identified on this study. No mass, mass effect, ellie ft of the midline, abnormal extra-axial fluid collection or CT evidence of acute ischemic change iden tified. 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 Scattered areas of hypodensity throughout the supratentorial white matter are nonspecific an d may be related to chronic small vessel ischemic change. The visualized paranasal sinuses and mastoid air cells are well aerated. No skull fracture identifi ed. Visualized orbits and globes are unremarkable. Atherosclerotic calcification of the intracranial internal carotid arteries. IMPRESSION: 1. No acute intracranial abnormality by CT criteria. Previously visualized. Hyperdensi ty along the right frontal convexity is not definitely identified on this study. No definite intracra nial hemorrhage. Electronically signed by: Tim Escalona 10/02/2021 5:01 AM CDT Due to temporary technical issues with the PACS/Fluency reporting system, reports are being signed by the in house radiologists without review as a courtesy to insure prompt reporting. The interpreting radiologist is fully responsible for the content of the report.
[2021-10-02 14:06] VITALS: TEMP 98.2
[2021-10-02 14:17] VITALS: BP 136/57; O2SAT 96
== END 2021-10-02 07:04 | disposition home or self-care (01) ==
LOC: ER 22:35
DX: I11.9 Hypertensive heart disease without heart failure (principal); I10 Essential (primary) hypertension; E03.9 Hypothyroidism, unspecified
CPT/HCPCS: 93005; 85025; 80048; 36415; 84484; 70450 ×2; 70496; 71045; Q9967; 99284

== ENCOUNTER 2022-05-17 09:18 | Emergency (ER) | payer OTHER ==
--- OUTSIDE RECORDS SUMMARY | 2022-05-17 09:26 | XMS REPORT | Continuity of Care Document ---
:1940 Author Organization [facility] t Address [address] [place] [address] Care Team Providers Name Role Phone RAMAKRISHNA DENT Primary Care Physician Unavailable Wilian Golden Attending Clinician Unavailable CHRISTEL DOUGLAS Attending Clinician Unavailable Only, Ang Db Test Attending Clinician Unavailable Unknown, Attending Attending Clinician Unavailable Mary Nathan RN Attending Clinician Unavailable VA MARKHAM Attending Clinician Unavailable Only, Adc Pob2 Test Attending Clinician Unavailable Salena Attending Clinician Unavailable Alondra Beal Attending Clinician [phone] Maye Bonds RN Attending Clinician Unavailable Only, Adc Test Attending Clinician Unavailable Alondra Wilks MD Attending Clinician ALONDRA WILKS Attending Clinician Unavailable Anjum Hanson DO Attending Clinician [phone] Ashok Marks Attending Clinician Unavailable Sabrina Kinsey MD Attending Clinician Alondra Benz MD Attending Clinician NATE BEAL Attending Clinician Unavailable LOVE JHAVERI Attending Clinician Unavailable CONRAD CASTAÑEDA Attending Clinician Unavailable Salena Admitting Clinician Unavailable Physician, No Primary or Family Admitting Clinician Unavaila ble Payers Payer Name Policy Type Policy Number Effective Date Expiration Date Phuong delong [employer]/AARP [id number] 2021 MCARE ADV CHOICE 00:00:00 PPO AARP MCR [id number] 2022 Common ADVANTAGE 00:00:00 [facility] - [id number] [facility] (MEDICARE REPLACEMENT/ADVA NTAGE - PPO) MEDICARE B-[place]: [id number] 1989 NOVITAS 00:00:00 [facility] [id number] OPTIONS (MEDICARE SUPPLEMENT) [employer] C1 [id number] 2006 Common CSD 00:00:00 [facility] MEDICARE NOVITAS MB [id number] Common [facility] MEDICARE PART A [id number] \T\ B - MEDICARE GENERIC PPO - [id number] GENERIC [facility] GENERIC PLAN [id number] - [facility] Problems Condition Condition Condition Status Onset Resolution Last Treating Co mments Source Name Details Category Date Date Treatment Clinician Date Body mass Body Mass Problem Active [place] ston index 30+ Index 30+ 6-11 Metr o - obesity - Obesity 00:00: Urol ogy 00 Chronic Chronic Problem Active [place] constipati Constipati 6-05 Me tro on on 00:00: Urology 00 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 6-05 Metro incontinen Incontinen 00:00: Ur ology ce ce 00 Nocturia Nocturia Problem Active [place] 6-05 [facility] 00:00: Urology 00 Chest pain Chest pain Disease Active M ethodi 5-10 st 00:00: Hospita 00 l Atrophic Atrophic Problem Active [place] vaginitis Vaginitis 1-20 Metr o 00:00: Urology 00 Urgent Urgent Problem Active [place] desire to Desire to 1-20 Metr o urinate Urinate 00:00: Urology 00 No known No known Disease Kiersten r active active Standard problems problems of Medicin e Hypertensi HTN Problem Commo n on (hypertens Spirit ion) - [facility] [id number] Postmenopa Problem Co mmon usal Spirit symptoms - [facility] [id number] Panic Problem Common disorder Spirit [episodic - CHI paroxysmal St anxiety] [facility] [id number] History of Problem Co mmon gallstones Spirit - [facility] [id number] Hypothyroi Problem Com mon dism, Spirit unspecifie - [facility]I d type [facility] [id number] Anxiety Problem Common Spirit - [facility] [id number] Constipati Problem Com mon on, Spirit unspecifie - CHI d St constipati 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 - [facility] type, Center unspecifie d organ involvemen t status [id number] Generalize Problem Com mon d anxiety Spirit disorder - [facility] [id number] GERD Problem Common without Spirit esophagiti - [facility]I s [facility] [id number] Swelling Problem Comm on of lower Spirit extremity - [facility] [id number] Mild Problem Common cognitive Spirit impairment - [facility] with [facility] [id number] group home Problem Co mmon 86502 (current) Spirit use of - CHI systemic [facility] [id number] Overactive Problem Co mmon bladder Spirit - [facility] [id number] Advanced Problem Com mon 61187 dementia Spirit - [facility] [id number] 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, - CHI unspecifie [facility] [id number] Thyroid Problem Common disease [facility] [id number] Dementia Problem Commo n without Spirit behavioral - [facility] disturbanc [facility] unspecifie Medica l d dementia Center type [id number] Vitamin D Problem Comm on deficiency Spirit [facility] [id number] Swelling Problem Commo n Spirit - [facility] [id number] Memory Problem Common change Spirit [facility] [id number] Piriformis Problem C ommon 45879 syndrome Spirit of right - CHI side [facility] [id number] Piriformis Problem C ommon 15523 syndrome Spirit of left - CHI side [facility] [id number] Benzodiaze Problem Co mmon pine Spirit dependence - [facility] , [facility] Allergies, Adverse Reactions, Alerts Allergy Allergy Status Severity Reaction(s) Onset Inactive Treating Comm ents Source Name Type Date Date Clinician No Known DA Active [facility] -14 [place] [facility] 00:[facility]: d 00 [facility] No Known DA Active U [facility] All[facility]ie 4-14 [place] [facility] 00:[facility]: d [facility] NO KNOWN Drug Active Univers ALLERGIE Class ity of S [facility] Family History Family Member Diagnosis Comments Start Date Stop Date Source Natural brother Diabetes [facility] Natural brother Heart disease Method [facility] Natural father Diabetes [facility] Natural father Heart disease [facility] Paternal grandmother Heart disease [facility] Social History Social Habit Start Date Stop Date Quantity Comments Source History of Common Spirit - Tobacco Use [facility] Exposure to 2021-11-27 2021-12-07 Not sure University SARS-CoV-2 00:00:00 14:53:00 [facility] (event) Branch Alcohol intake 2019-09-09 2019-09-09 [facility] 00:00:00 00:00:00 non-drinker of alcohol (finding) Tobacco use and 2017-08-12 2017-08-12 Smokeless tobacco [facility] exposure 00:00:00 00:00:00 non-user Sex Assigned At [birth year] [facility] 00:00:00 00:00:00 Smoking Status Start Date Stop Date Source Tobacco smoking consumption [facility] Never Smoker Common Spirit - [facility] Medications Ordered Filled Start Stop Current Ordering Indication Dosage Frequency Signature Comments Components Source Medication Medication Date Date Medication? Clinician (SIG) Name Name LORazepam LORazepam No 1{table QD LORazepam 0.5 MG 0.5 MG 02-27 t_as_ne 0.5 MG 00:00: eded} 00 LORazepam LORazepam No 1{table QD LORazepam 0.5 MG 0.5 MG 02-27 t_as_ne 0.5 MG 00:00: eded} 00 LORazepam LORazepam No 1{table QD LORazepam 0.5 MG 0.5 MG 02-19 t_as_ne 0.5 MG 00:00: eded} 00 LORazepam LORazepam 2021-0 No 1{table QD LORazepam 0.5 MG 0.5 MG 6-02 t_as_ne 0.5 MG 00:00: eded} 00 LORazepam LORazepam 2021-0 No 1{table QD LORazepam 0.5 MG 0.5 MG 6-02 t_as_ne 0.5 MG 00:00: eded} 00 amLODIPine amLODIPine 2021-0 No 1{table QD amLODIPine Besylate 5 Besylate 5 4-26 t} Besylate 5 MG MG 00:00: MG 00 amLODIPine amLODIPine 2021-0 No 1{table QD amLODIPine Besylate 5 Besylate 5 4-26 t} Besylate 5 MG MG 00:00: MG 00 amLODIPine amLODIPine 2021-0 No 1{table QD amLODIPine Besylate 5 Besylate 5 4-26 t} Besylate 5 MG MG 00:00: MG 00 amLODIPine amLODIPine 2021-0 No 1{table QD amLODIPine Besylate 5 Besylate 5 4-26 t} Besylate 5 MG MG 00:00: MG 00 LORazepam LORazepam 2021-0 No 1{table QD LORazepam 0.5 MG 0.5 MG 3-02 t_as_ne 0.5 MG 00:00: eded} 00 LORazepam LORazepam 2021-0 No 1{table QD LORazepam 0.5 MG 0.5 MG 3-02 t_as_ne 0.5 MG 00:00: eded} 00 LORazepam LORazepam 2021-0 No 1{table QD LORazepam 0.5 MG 0.5 MG 3-02 t_as_ne 0.5 MG 00:00: eded} 00 LORazepam LORazepam 2021-0 No 1{table QD LORazepam 0.5 MG 0.5 MG 3-02 t_as_ne 0.5 MG 00:00: eded} 00 Medrol 4 MG Medrol 4 MG 2021-0 2021- No Medrol 4 06-2213 MG 00:00: 00:00 00 :00 Azithromyci Azithromyci 2021-0 2- No QD Azithromyc n 250 MG n 250 MG 06-22 in 250 MG 00:00: 00:00 00 :00 LORazepam LORazepam 2020-1 No 1{table QD LORazepam 0.5 MG 0.5 MG 1-29 t_as_ne 0.5 MG 00:00: eded} LORazepam LORazepam 2020-06 No 1{table QD LORazepam 0.5 MG 0.5 MG 1-29 t_as_ne 0.5 MG 00:00: eded} LORazepam LORazepam 2020-06 No 1{table QD LORazepam 0.5 MG 0.5 MG 1-29 t_as_ne 0.5 MG 00:00: eded} LORazepam LORazepam 2020-06 No 1{table QD LORazepam 0.5 MG 0.5 MG 1-23 t_as_ne 0.5 MG 00:00: eded} LORazepam LORazepam 2020-06 No 1{table QD LORazepam 0.5 MG 0.5 MG 1-23 t_as_ne 0.5 MG 00:00: eded} LORazepam LORazepam 2020-06 No 1{table QD LORazepam 0.5 MG 0.5 MG 1-23 t_as_ne 0.5 MG 00:00: eded} LORazepam LORazepam 2020-06 No 1{table QD LORazepam 0.5 MG 0.5 MG 1-23 t_as_ne 0.5 MG 00:00: eded} LORazepam LORazepam 2020-06 No 1{table QD LORazepam 0.5 MG 0.5 MG 1-23 t_as_ne 0.5 MG 00:00: eded} LORazepam LORazepam 2020-06 No 1{table QD LORazepam 0.5 MG 0.5 MG 1-23 t_as_ne 0.5 MG 00:00: eded} LORazepam LORazepam 2020-06 No 1{table QD LORazepam 0.5 MG 0.5 MG 1-23 t_as_ne 0.5 MG 00:00: eded} LORazepam LORazepam 2020-06 No 1{table QD LORazepam 0.5 MG 0.5 MG 1-23 t_as_ne 0.5 MG 00:00: eded} LORazepam LORazepam 2020-06 No 1{table QD LORazepam 0.5 MG 0.5 MG 1-23 t_as_ne 0.5 MG 00:00: eded} 00 acetaminoph 2020-1 Yes [id number] 1{tbl} Take 1 Tab [facility] en-codeine 0-12 by mouth Colle ge (TYLENOL/CO 00:00: every 4 of DEINE #3) 00 hours as Medici n 300-30 MG needed for e per tablet Pain. mupirocin 2020-1 Yes Apply to [facility] (BACTROBAN) 0-12 wound College 2 % 00:00: twice a of ointment 00 day Medicin e acetaminoph 2020-1 Yes [id number] 1{tbl} Take 1 Tab [place] en-codeine 0-12 by mouth Colle ge (TYLENOL/CO 00:00: every 4 of DEINE #3) 00 hours as Medici n 300-30 MG needed for e per tablet Pain. mupirocin 2020-1 Yes Apply to [facility] (BACTROBAN) 0-12 wound College 2 % 00:00: twice a of ointment 00 day Medicin e levothyroxi 2020-0 Yes Synthroid [place] ne 03-14 88 mcg Standard (SYNTHROID) 15:04: tablet of 88 MCG 47 Medicin tablet e Cholecalcif 2020-0 Yes 2000U Take 2,000 [facility] luis (D2000 9- Units by Piter ege ULTRA 15:04: mouth. of STRENGTH) 47 Medicin 50 MCG e (1999 UT) CAPS omeprazole 2020-0 Yes 20mg Take 20 mg [facility] (PRILOSEC) 03-14 by mouth. Piter ege 20 MG 15:04: of capsule 47 Medicin e levothyroxi 2020-0 Yes Synthroid [place] ne 03-14 88 mcg Standard (SYNTHROID) 15:04: tablet of 88 MCG 47 Medicin tablet e Cholecalcif 2020-0 Yes 2000U Take 2,000 [facility] luis (D2000 9- Units by Piter ege ULTRA 15:04: mouth. of STRENGTH) 47 Medicin 50 MCG e (1999 UT) CAPS omeprazole 2020-0 Yes 20mg Take 20 mg [facility] [place] (PRILOSEC) 9 by mouth. Piter ege 20 MG 15:04: of capsule 47 Medicin e levothyroxi 2020-0 Yes Synthroid [place] ne 03-14 88 mcg Standard (SYNTHROID) 10:04: tablet of 88 MCG 47 Medicin tablet e Cholecalcif 2020-0 Yes 2000U Take 2,000 [facility] luis (D2000 9- Units by Piter chaves ULTRA 10:04: mouth. of STRENGTH) 47 Medicin 50 MCG e (1999 UT) CAPS omeprazole 2020-0 Yes 20mg Take 20 mg [facility] [place] (PRILOSEC) 9- by mouth. Piter ege 20 MG 10:04: of capsule 47 Medicin e hydroxychlo 2020-0 Yes TAKE 1 [facility] roquine 9-17 TABLET BY Standard (PLAQUINIL) 00:00: MOUTH of 200 MG 00 TWICE Medicin tablet DAILY e hydroxychlo 2020-0 Yes TAKE 1 [facility] roquine 9-17 TABLET BY Standard (PLAQUINIL) 00:00: MOUTH of 200 MG 00 TWICE Medicin tablet DAILY e hydroxychlo 2020-0 Yes TAKE 1 [facility] roquine 9-17 TABLET BY Standard (PLAQUINIL) 00:00: MOUTH of 200 MG 00 TWICE Medicin tablet DAILY e Hydroxychlo Hydroxychlo 2020-0 2020- No Wilian 1 tablet Common roquine roquine 9-17 - [facility] Sulfate Sulfate 00:00: 00:00 - [facility]I 00 :00 [facility] lorazepam 2020-0 Yes TAKE 1 [facility] (ATIVAN) 9-11 TABLET BY Colleg e 0.5 MG 00:00: MOUTH of tablet 00 TWICE Medicin DAILY e NEEDED FOR SEVERE ANXIETY lorazepam 2020-0 Yes TAKE 1 [place] (ATIVAN) 9-11 TABLET BY Colleg e 0.5 MG 00:00: MOUTH of tablet 00 TWICE Medicin DAILY e NEEDED FOR SEVERE ANXIETY lorazepam 2020-0 Yes TAKE 1 [facility] (ATIVAN) 9-11 TABLET BY Colleg e 0.5 MG 00:00: MOUTH of tablet 00 TWICE Medicin DAILY e NEEDED FOR SEVERE ANXIETY solifenacin 2020-0 Yes TAKE 1 [facility] (VESICARE) 9-04 TABLET BY Piter ege 10 MG 00:00: MOUTH ONCE of tablet 00 DAILY Medicin e solifenacin 2020-0 Yes TAKE 1 [facility] (VESICARE) 9-04 TABLET BY Piter ege 10 MG 00:00: MOUTH ONCE of tablet 00 DAILY Medicin e solifenacin 2020-0 Yes TAKE 1 [facility] (VESICARE) 9-04 TABLET BY Piter ege 10 MG 00:00: MOUTH ONCE of tablet 00 DAILY Medicin e predniSONE 2020-0 Yes TAKE 1 [facility] [...] Medicin e estradiol 2020-0 Yes TAKE 1 [facility] (ESTRACE) 1 8-14 TABLET BY Col lege MG tablet 00:00: MOUTH ONCE of 00 DAILY Medicin e cyanocobala 2020-0 Yes Inject as M ethodi min, 3-[address] vitamin 08:49: Hospita B-12, (B-12 18 l KIT INJ) cyanocobala 2020-0 Yes Inject as M ethodi min, 3-[address] vitamin 08:49: Hospita B-12, (B-12 18 l KIT INJ) cyanocobala 2020-0 Yes Inject as M ethodi min, 3-[address] vitamin 08:49: Hospita B-12, (B-12 18 l KIT INJ) cyanocobala 2020-0 Yes Inject as M ethodi min, 3-[address] vitamin 08:49: Hospita B-12, (B-12 18 l KIT INJ) predniSONE 2020-0 Yes 15mg QD Take 15 mg M ethodi (DELTASONE) - by mouth st 5 mg tablet 08:48: [...] 28 daily. l 500 MG tablet multivitami 2020-0 Yes 1{tbl} QD Take 1 Me thodi n 3-[address] (THERAGRAN) 08:48: mouth Hospi ta tablet 28 daily. l omeprazole 2020-0 Yes 20mg QD Take 20 mg M ethodi (PriLOSEC) 3-[address] 20 MG 08:48: daily. Hospita capsule 28 l predniSONE 2020-0 Yes 15mg QD Take 15 [...] 28 daily. l 500 MG tablet multivitami 2020-0 Yes 1{tbl} QD Take 1 Me thodi n 3-[address] (THERAGRAN) 08:48: mouth Hospi ta tablet 28 daily. l omeprazole 2020-0 Yes 20mg QD Take 20 mg M ethodi (PriLOSEC) 3-[address] 20 MG 08:48: daily. Hospita capsule 28 l predniSONE 2020-0 Yes 15mg QD Take 15 [...] 28 daily. l 500 MG tablet multivitami 2020-0 Yes 1{tbl} QD Take 1 Me thodi n 3-[address] (THERAGRAN) 08:48: mouth Hospi ta tablet 28 daily. l omeprazole 2020-0 Yes 20mg QD Take 20 mg M ethodi (PriLOSEC) 3-[address] 20 MG 08:48: daily. Hospita capsule 28 l predniSONE 2020-0 Yes 15mg QD Take 15 mg M ethodi (DELTASONE) 3-[address] 5 mg tablet 08:48: daily. Hosp td 28 l hydroxychlo 2020-0 Yes Q.5D Take by Met hodi roquine 3-[address] (PLAQUENIL) 08:48: (two) Hospi ta 200 mg 28 times a l tablet day. estradiol 2020-0 Yes 1mg QD Take 1 mg Met hodi (ESTRACE) 1 3- by mouth st MG tablet 08:48: daily. Hospit a 28 l levothyroxi 2020-0 Yes 100ug QD Take 100 M ethodi ne 3-26 mcg by (SYNTHROID, 08:48: mouth Hospi ta LEVOXYL) 28 daily. l 100 mcg tablet cholecalcif 2020-0 Yes 2000U QD Take 2,000 Methodi luis, 3-26 Units by vitamin D3, 08:48: mouth Hospi ta (VITAMIN [...] 28 daily. l 500 MG tablet multivitami 2020-0 Yes 1{tbl} QD Take 1 Me thodi n 3-[address] (THERAGRAN) 08:48: mouth Hospi ta tablet 28 daily. l omeprazole 2020-0 Yes 20mg QD Take 20 mg M ethodi (PriLOSEC) 3-[address] 20 MG 08:48: daily. Hospita capsule 28 l LORAZepam 2017- Yes [facility] (ATIVAN) 1 2-14 st MG tablet 00:00: Hospita 00 l LORAZepam 2017- Yes [facility] (ATIVAN) 1 2-14 st MG tablet 00:00: Hospita 00 l LORAZepam 2017- Yes [facility] (ATIVAN) 1 2-14 st MG tablet 00:00: Hospita 00 l LORAZepam 2017- Yes [facility] (ATIVAN) 1 2-14 st MG tablet 00:00: Hospita 00 l No known 2015-06 No Univers medications - ity of 00:00: [address] No known 2015-06 No Univers medications 07-14 ity of 00:00: [address] No known 2015-06 No Univers medications 07-14 ity of 00:00: [address] No known 2015-06 No Univers medications 07-14 ity of 00:00: [address] No known 2015-06 No No known Unive rs medications 07-14 medication it y of 00:00: s [address] donepezil 5 donepezil 5 No donepezil Goldman mg tablet mg tablet 5 mg [facility] TAKE 1 TAKE 1 tablet Urology TABLET BY TABLET BY TAKE 1 MOUTH ONCE MOUTH ONCE TABLET BY DAILY DAILY MOUTH ONCE DAILY estradiol estradiol No estradiol [place] 0.5 mg 0.5 mg 0.5 mg [facility] tablet TAKE tablet TAKE tablet Urology 1 TABLET BY 1 TABLET BY TAKE 1 MOUTH ONCE MOUTH ONCE TABLET BY DAILY FOR DAILY FOR MOUTH ONCE 90 DAYS 90 DAYS DAILY FOR 90 DAYS Euthyrox 50 Euthyrox 50 No Euthyrox [place] mcg tablet mcg tablet 50 mcg M etro TAKE 1 TAKE 1 tablet Urology TABLET BY TABLET BY TAKE 1 MOUTH ONCE MOUTH ONCE TABLET BY DAILY IN DAILY IN MOUTH ONCE THE MORNING THE MORNING DAILY IN ON AN EMPTY ON AN EMPTY THE STOMACH STOMACH MORNING ON AN EMPTY STOMACH furosemide furosemide No furosemide [place] 40 mg 40 mg 40 mg [facility] tablet TAKE tablet TAKE tablet Urology 1 TABLET BY 1 TABLET BY TAKE 1 MOUTH ONCE MOUTH ONCE TABLET BY DAILY DAILY MOUTH ONCE DAILY hydroxychlo hydroxychlo No hydroxychl [place] roquine 200 roquine 200 oroquine [facility] mg tablet mg tablet 200 mg Uro logy TAKE 1 TAKE 1 tablet TABLET BY TABLET BY TAKE 1 MOUTH ONCE MOUTH ONCE TABLET BY DAILY DAILY MOUTH ONCE DAILY Klor-Con Klor-Con No Klor-Con [place] ston M20 mEq M20 mEq M20 mEq [facility] tablet,exte tablet,exte tablet,ext Urology nded nded ended release release release TAKE 1 TAKE 1 TAKE 1 TABLET BY TABLET BY TABLET BY MOUTH ONCE MOUTH ONCE MOUTH ONCE DAILY DAILY DAILY lorazepam lorazepam No lorazepam [place] 0.5 mg 0.5 mg 0.5 mg [facility] tablet TAKE tablet TAKE tablet Urology 1 TABLET BY 1 TABLET BY TAKE 1 MOUTH ONCE MOUTH ONCE TABLET BY DAILY DAILY MOUTH ONCE NEEDED NEEDED DAILY NEEDED memantine 5 memantine 5 No memantine [place] mg tablet mg tablet 5 mg [facility] tablet Urology multivitami multivitami No multivitam [place] n n in [facility] Urology Lorazepam Lorazepam Yes Wilian 1 tablet Common Golden as needed [facility] VESIcare VESIcare Yes Wilian 1 tablet C ommon Golden [facility] Stool Stool Yes Wilian 1 capsule Common Softener Softener Golden as needed S pirit [facility] PredniSONE PredniSONE Yes Wilian 1 tablet Common Golden [facility] Estradiol Estradiol Yes Wilian 1 tablet Common Golden [facility] Vitamin D3 Vitamin D3 Yes Wilian 1 tablet Common Golden [facility] Vitamin C Vitamin C Yes Wilian 1 tablet Common Golden [facility] Multi Multi Yes Wilian 1 tablet Common Vitamin Vitamin Golden [facility] Levothyroxi Levothyroxi Yes Wilian TAKE 1 Common ne Sodium ne Sodium Golden TABLET BY Spirit MOUTH ONCE - CHI DAILY IN THE [facility] MORNING ON Medical AN EMPTY [place] STOMACH FOR 90 DAYS MiraLax MiraLax Yes Wilian not Common Golden defined [facility] Synthroid Synthroid Yes Wilian 1 tablet Common Golden in the Spirit morning on - CHI an empty stomach [facility] Tylenol Tylenol Yes Wilian not Common Arthritis Arthritis Golden defined S pirit Pain Pain [facility] Omeprazole Omeprazole Yes Wilian 1 capsule Common Golden 30 minutes Spirit before - [facility] morning [facility] Stool Stool No 1{capsu TID Stool Softener Softener le_as_n Softener 100 MG 100 MG eeded} 100 MG predniSONE predniSONE No 1{table BID predniSONE 5 MG 5 MG t} 5 MG Lisinopril Lisinopril No 1{table QD Lisinopril 10 MG 10 MG t} 10 MG Hydroxychlo Hydroxychlo No 1{table QD Hydroxychl roquine roquine t} oroquine Sulfate 200 Sulfate 200 Sulfate MG MG 200 MG Tylenol Tylenol No Tylenol Arthritis Arthritis Arthritis Pain Pain Pain Vitamin D3 Vitamin D3 No 1{table QD Vitamin D3 50 MCG 50 MCG t} 50 MCG (1999 UT) (1999 UT) (1999 UT) VESIcare 10 VESIcare 10 No 1{table QD VESIcare MG MG t} 10 MG nitroglycer nitroglycer No nitroglyce [place] in 0.4 mg in 0.4 mg rin 0.4 mg [facility] sublingual sublingual sublingual Urology tablet PRN. tablet PRN. tablet Has never Has never PRN. Has taken it taken it never taken it Synthroid Synthroid No QD Synthroid 50 MCG 50 MCG 50 MCG Hydroxychlo Hydroxychlo No Hydroxychl roquine roquine oroquine Sulfate 200 Sulfate 200 Sulfate MG MG 200 MG Euthyrox 50 Euthyrox 50 No Euthyrox MCG MCG 50 MCG Acetaminoph Acetaminoph No Acetaminop en-Codeine en-Codeine hen-Codein #3 #3 e #3 Multi Multi No 1{table QD Multi Vitamin - Vitamin - t} Vitamin - Estradiol 1 Estradiol 1 No 1{table QD Estradiol MG MG t} 1 MG Omeprazole Omeprazole No QD Omeprazole 20 MG 20 MG 20 MG Vitamin C Vitamin C No 1{table BID Vitamin C 1000 MG 1000 MG t} 1000 MG Mupirocin Mupirocin No Mupirocin Leflunomide Leflunomide No 1{table QD Leflunomid 20 MG 20 MG t} e 20 MG prednisone prednisone No prednisone [place] 5 mg tablet 5 mg tablet 5 mg M etro TAKE 1 TAKE 1 tablet Urology TABLET BY TABLET BY TAKE 1 MOUTH ONCE MOUTH ONCE TABLET BY DAILY DAILY MOUTH ONCE DAILY MiraLax MiraLax No MiraLax Cephalexin Cephalexin No Cephalexin Memantine Memantine No BID Memantine HCl 10 MG HCl 10 MG HCl 10 MG Potassium Potassium No 1{table QD Potassium Chloride ER Chloride ER t_with_ Chloride 20 MEQ 20 MEQ food} ER 20 MEQ Donepezil Donepezil No 1{table QD Donepezil HCl 5 MG HCl 5 MG t_at_be HCl 5 MG dtime} Furosemide Furosemide No 1{table QD Furosemide 40 MG 40 MG t} 40 MG Leflunomide Leflunomide No 1{table QD Leflunomid 20 MG 20 MG t} e 20 MG Vitamin C Vitamin C No 1{table BID Vitamin C 1000 MG 1000 MG t} 1000 MG Multi Multi No 1{table QD Multi Vitamin - Vitamin - t} Vitamin - Stool Stool No 1{capsu TID Stool Softener Softener le_as_n Softener 100 MG 100 MG eeded} 100 MG predniSONE predniSONE No 1{table BID predniSONE 5 MG 5 MG t} 5 MG Lisinopril Lisinopril No 1{table QD Lisinopril 10 MG 10 MG t} 10 MG Hydroxychlo Hydroxychlo No 1{table QD Hydroxychl roquine roquine t} oroquine Sulfate 200 Sulfate 200 Sulfate MG MG 200 MG Vitamin D3 Vitamin D3 No 1{table QD Vitamin D3 50 MCG 50 MCG t} 50 MCG (1999 UT) (1999 UT) (1999) VESIcare 10 VESIcare 10 No 1{table QD VESIcare MG MG t} 10 MG Hydroxychlo Hydroxychlo No Hydroxychl roquine roquine oroquine Sulfate 200 Sulfate 200 Sulfate MG MG 200 MG Euthyrox 50 Euthyrox 50 No Euthyrox MCG MCG 50 MCG Acetaminoph Acetaminoph No Acetaminop en-Codeine en-Codeine hen-Codein #3 #3 e #3 Synthroid Synthroid No QD Synthroid 50 MCG 50 MCG 50 MCG Tylenol Tylenol No Tylenol Arthritis Arthritis Arthritis Pain Pain Pain Stool Stool No Stool Goldman Softener Softener Softener Met ro Urology Omeprazole Omeprazole No QD Omeprazole 20 MG 20 MG 20 MG Mupirocin Mupirocin No Mupirocin Estradiol 1 Estradiol 1 No 1{table QD Estradiol MG MG t} 1 MG MiraLax MiraLax No MiraLax Cephalexin Cephalexin No Cephalexin Memantine Memantine No BID Memantine HCl 10 MG HCl 10 MG HCl 10 MG Potassium Potassium No 1{table QD Potassium Chloride ER Chloride ER t_with_ Chloride 20 MEQ 20 MEQ food} ER 20 MEQ Donepezil Donepezil No 1{table QD Donepezil HCl 5 MG HCl 5 MG t_at_be HCl 5 MG dtime} Furosemide Furosemide No 1{table QD Furosemide 40 MG 40 MG t} 40 MG MiraLax MiraLax No MiraLax VESIcare 10 VESIcare 10 No 1{table QD VESIcare MG MG t} 10 MG predniSONE predniSONE No 1{table BID predniSONE 5 MG 5 MG t} 5 MG Omeprazole Omeprazole No QD Omeprazole 20 MG 20 MG 20 MG Vitamin D3 Vitamin D3 No 1{table QD Vitamin D3 50 MCG 50 MCG t} 50 MCG (1999 UT) (1999 UT) (1999) Euthyrox 50 Euthyrox 50 No Euthyrox MCG MCG 50 MCG Potassium Potassium No 1{table QD Potassium Chloride ER Chloride ER t_with_ Chloride 20 MEQ 20 MEQ food} ER 20 MEQ Multi Multi No 1{table QD Multi Vitamin - Vitamin - t} Vitamin - Leflunomide Leflunomide No 1{table QD Leflunomid 20 MG 20 MG t} e 20 MG Memantine Memantine No BID Memantine HCl 10 MG HCl 10 MG HCl 10 MG Donepezil Donepezil No 1{table QD Donepezil HCl 5 MG HCl 5 MG t_at_be HCl 5 MG dtime} Acetaminoph Acetaminoph No Acetaminop en-Codeine en-Codeine hen-Codein #3 #3 e #3 Tylenol Tylenol No Tylenol Arthritis Arthritis Arthritis Pain Pain Pain Lisinopril Lisinopril No 1{table QD Lisinopril 10 MG 10 MG t} 10 MG Hydroxychlo Hydroxychlo No Hydroxychl roquine roquine oroquine Sulfate 200 Sulfate 200 Sulfate MG MG 200 MG Estradiol 1 Estradiol 1 No 1{table QD Estradiol MG MG t} 1 MG Cephalexin Cephalexin No Cephalexin Synthroid Synthroid No QD Synthroid 50 MCG 50 MCG 50 MCG Vitamin C Vitamin C No 1{table BID Vitamin C 1000 MG 1000 MG t} 1000 MG Furosemide Furosemide No 1{table QD Furosemide 40 MG 40 MG t} 40 MG Stool Stool No 1{capsu TID Stool Softener Softener le_as_n Softener 100 MG 100 MG eeded} 100 MG Vitamin B6 Vitamin B6 No Vitamin B6 [facility] Mupirocin Mupirocin No Mupirocin Omeprazole Omeprazole No QD Omeprazole 20 MG 20 MG 20 MG Hydroxychlo Hydroxychlo No 1{table QD Hydroxychl roquine roquine t} oroquine Sulfate 200 Sulfate 200 Sulfate MG MG 200 MG Euthyrox 50 Euthyrox 50 No Euthyrox MCG MCG 50 MCG Donepezil Donepezil No 1{table QD Donepezil HCl 5 MG HCl 5 MG t_at_be HCl 5 MG dtime} predniSONE predniSONE No 1{table BID predniSONE 5 MG 5 MG t} 5 MG Vitamin C Vitamin C No 1{table BID Vitamin C 1000 MG 1000 MG t} 1000 MG Memantine Memantine No BID Memantine HCl 10 MG HCl 10 MG HCl 10 MG Multi Multi No 1{table QD Multi Vitamin - Vitamin - t} Vitamin - Mupirocin Mupirocin No Mupirocin Cephalexin Cephalexin No Cephalexin Probiotic Probiotic No Probiotic Hydroxychlo Hydroxychlo No Hydroxychl roquine roquine oroquine Sulfate 200 Sulfate 200 Sulfate MG MG 200 MG Estradiol 1 Estradiol 1 No 1{table QD Estradiol MG MG t} 1 MG Potassium Potassium No 1{table QD Potassium Chloride ER Chloride ER t_with_ Chloride 20 MEQ 20 MEQ food} ER 20 MEQ Advil 200 Advil 200 No TID Advil 200 MG MG MG Furosemide Furosemide No 1{table QD Furosemide 40 MG 40 MG t} 40 MG MiraLax MiraLax No MiraLax VESIcare 10 VESIcare 10 No 1{table QD VESIcare MG MG t} 10 MG Acetaminoph Acetaminoph No Acetaminop en-Codeine en-Codeine hen-Codein #3 #3 e #3 Vitamin D3 Vitamin D3 No Vitamin D3 [facility] Lisinopril Lisinopril No 1{table QD Lisinopril 10 MG 10 MG t} 10 MG Leflunomide Leflunomide No 1{table QD Leflunomid 20 MG 20 MG t} e 20 MG Stool Stool No 1{capsu TID Stool Softener Softener le_as_n Softener 100 MG 100 MG eeded} 100 MG Vitamin D3 Vitamin D3 No 1{table QD Vitamin D3 50 MCG 50 MCG t} 50 MCG (1999 [facility]) (1999) (1999) Synthroid Synthroid No QD Synthroid 25 MCG 25 MCG 25 MCG Tylenol Tylenol No Tylenol Arthritis Arthritis Arthritis Pain Pain Pain Omeprazole Omeprazole No QD Omeprazole 20 MG 20 MG 20 MG Hydroxychlo Hydroxychlo No 1{table QD Hydroxychl roquine roquine t} oroquine Sulfate 200 Sulfate 200 Sulfate MG MG 200 MG Euthyrox 50 Euthyrox 50 No Euthyrox MCG MCG 50 MCG Donepezil Donepezil No 1{table QD Donepezil HCl 5 MG HCl 5 MG t_at_be HCl 5 MG dtime} predniSONE predniSONE No 1{table BID predniSONE 5 MG 5 MG t} 5 MG Vitamin C Vitamin C No 1{table BID Vitamin C 1000 MG 1000 MG t} 1000 MG Memantine Memantine No BID Memantine HCl 10 MG HCl 10 MG HCl 10 MG Multi Multi No 1{table QD Multi Vitamin - Vitamin - t} Vitamin - Mupirocin Mupirocin No Mupirocin Cephalexin Cephalexin No Cephalexin Probiotic Probiotic No Probiotic Hydroxychlo Hydroxychlo No Hydroxychl roquine roquine oroquine Sulfate 200 Sulfate 200 Sulfate MG MG 200 MG Estradiol 1 Estradiol 1 No 1{table QD Estradiol MG MG t} 1 MG Potassium Potassium No 1{table QD Potassium Chloride ER Chloride ER t_with_ Chloride 20 MEQ 20 MEQ food} ER 20 MEQ Advil 200 Advil 200 No TID Advil 200 MG MG MG Furosemide Furosemide No 1{table QD Furosemide 40 MG 40 MG t} 40 MG MiraLax MiraLax No MiraLax VESIcare 10 VESIcare 10 No 1{table QD VESIcare MG MG t} 10 MG Acetaminoph Acetaminoph No Acetaminop en-Codeine en-Codeine hen-Codein #3 #3 e #3 Lisinopril Lisinopril No 1{table QD Lisinopril 10 MG 10 MG t} 10 MG Leflunomide Leflunomide No 1{table QD Leflunomid 20 MG 20 MG t} e 20 MG Stool Stool No 1{capsu TID Stool Softener Softener le_as_n Softener 100 MG 100 MG eeded} 100 MG Vitamin D3 Vitamin D3 No 1{table QD Vitamin D3 50 MCG 50 MCG t} 50 MCG (1999) (1999) (1999 [facility]) Synthroid Synthroid No QD Synthroid 25 MCG 25 MCG 25 MCG Tylenol Tylenol No Tylenol Arthritis Arthritis Arthritis Pain Pain Pain Cephalexin Cephalexin No Cephalexin Leflunomide Leflunomide No 1{table QD Leflunomid 20 MG 20 MG t} e 20 MG Vitamin D3 Vitamin D3 No 1{table QD Vitamin D3 50 MCG 50 MCG t} 50 MCG (1999) (1999) (2000 [facility]) Hydroxychlo Hydroxychlo No 1{table QD Hydroxychl roquine roquine t} oroquine Sulfate 200 Sulfate 200 Sulfate MG MG 200 MG Probiotic Probiotic No Probiotic Furosemide Furosemide No 1{table QD Furosemide 40 MG 40 MG t} 40 MG Euthyrox 50 Euthyrox 50 No Euthyrox MCG MCG 50 MCG Hydroxychlo Hydroxychlo No Hydroxychl roquine roquine oroquine Sulfate 200 Sulfate 200 Sulfate MG MG 200 MG Advil 200 Advil 200 No TID Advil 200 MG MG MG Stool Stool No 1{capsu TID Stool Softener Softener le_as_n Softener 100 MG 100 MG eeded} 100 MG Potassium Potassium No 1{table QD Potassium Chloride ER Chloride ER t_with_ Chloride 20 MEQ 20 MEQ food} ER 20 MEQ Synthroid Synthroid No QD Synthroid 25 MCG 25 MCG 25 MCG Tylenol Tylenol No Tylenol Arthritis Arthritis Arthritis Pain Pain Pain Memantine Memantine No BID Memantine HCl 10 MG HCl 10 MG HCl 10 MG Lisinopril Lisinopril No 1{table QD Lisinopril 10 MG 10 MG t} 10 MG Vitamin C Vitamin C No 1{table BID Vitamin C 1000 MG 1000 MG t} 1000 MG Donepezil Donepezil No 1{table QD Donepezil HCl 5 MG HCl 5 MG t_at_be HCl 5 MG dtime} predniSONE predniSONE No 1{table BID predniSONE 5 MG 5 MG t} 5 MG Acetaminoph Acetaminoph No Acetaminop en-Codeine en-Codeine hen-Codein #3 #3 e #3 Mupirocin Mupirocin No Mupirocin MiraLax MiraLax No MiraLax Omeprazole Omeprazole No QD Omeprazole 20 MG 20 MG 20 MG Estradiol 1 Estradiol 1 No 1{table QD Estradiol MG MG t} 1 MG Multi Multi No 1{table QD Multi Vitamin - Vitamin - t} Vitamin - VESIcare 10 VESIcare 10 No 1{table QD VESIcare MG MG t} 10 MG Furosemide Furosemide No 1{table QD Furosemide 40 MG 40 MG t} 40 MG Leflunomide Leflunomide No 1{table QD Leflunomid 20 MG 20 MG t} e 20 MG Cephalexin Cephalexin No Cephalexin Hydroxychlo Hydroxychlo No 1{table QD Hydroxychl roquine roquine t} oroquine Sulfate 200 Sulfate 200 Sulfate MG MG 200 MG Probiotic Probiotic No Probiotic Euthyrox 50 Euthyrox 50 No Euthyrox MCG MCG 50 MCG Hydroxychlo Hydroxychlo No Hydroxychl roquine roquine oroquine Sulfate 200 Sulfate 200 Sulfate MG MG 200 MG Donepezil Donepezil No 1{table QD Donepezil HCl 5 MG HCl 5 MG t_at_be HCl 5 MG dtime} Advil 200 Advil 200 No TID Advil 200 MG MG MG Vitamin C Vitamin C No 1{table BID Vitamin C 1000 MG 1000 MG t} 1000 MG Stool Stool No 1{capsu TID Stool Softener Softener le_as_n Softener 100 MG 100 MG eeded} 100 MG Acetaminoph Acetaminoph No Acetaminop en-Codeine en-Codeine hen-Codein #3 #3 e #3 Mupirocin Mupirocin No Mupirocin Memantine Memantine No BID Memantine HCl 10 MG HCl 10 MG HCl 10 MG Tylenol Tylenol No Tylenol Arthritis Arthritis Arthritis Pain Pain Pain Levothyroxi Levothyroxi No Levothyrox ne Sodium ne Sodium ine Sodium 25 MCG 25 MCG 25 MCG predniSONE predniSONE No 1{table BID predniSONE 5 MG 5 MG t} 5 MG Lisinopril Lisinopril No 1{table QD Lisinopril 10 MG 10 MG t} 10 MG Vitamin D3 Vitamin D3 No 1{table QD Vitamin D3 50 MCG 50 MCG t} 50 MCG (1999 [facility]) (1999 [facility]) (1999) Potassium Potassium No 1{table QD Potassium Chloride ER Chloride ER t_with_ Chloride 20 MEQ 20 MEQ food} ER 20 MEQ MiraLax MiraLax No MiraLax Omeprazole Omeprazole No QD Omeprazole 20 MG 20 MG 20 MG Estradiol 1 Estradiol 1 No 1{table QD Estradiol MG MG t} 1 MG Multi Multi No 1{table QD Multi Vitamin - Vitamin - t} Vitamin - VESIcare 10 VESIcare 10 No 1{table QD VESIcare MG MG t} 10 MG Furosemide Furosemide No 1{table QD Furosemide 40 MG 40 MG t} 40 MG Leflunomide Leflunomide No 1{table QD Leflunomid 20 MG 20 MG t} e 20 MG Cephalexin Cephalexin No Cephalexin Hydroxychlo Hydroxychlo No 1{table QD Hydroxychl roquine roquine t} oroquine Sulfate 200 Sulfate 200 Sulfate MG MG 200 MG Probiotic Probiotic No Probiotic Euthyrox 50 Euthyrox 50 No Euthyrox MCG MCG 50 MCG Hydroxychlo Hydroxychlo No Hydroxychl roquine roquine oroquine Sulfate 200 Sulfate 200 Sulfate MG MG 200 MG Donepezil Donepezil No 1{table QD Donepezil HCl 5 MG HCl 5 MG t_at_be HCl 5 MG dtime} Advil 200 Advil 200 No TID Advil 200 MG MG MG Vitamin C Vitamin C No 1{table BID Vitamin C 1000 MG 1000 MG t} 1000 MG Stool Stool No 1{capsu TID Stool Softener Softener le_as_n Softener 100 MG 100 MG eeded} 100 MG Acetaminoph Acetaminoph No Acetaminop en-Codeine en-Codeine hen-Codein #3 #3 e #3 Mupirocin Mupirocin No Mupirocin Memantine Memantine No BID Memantine HCl 10 MG HCl 10 MG HCl 10 MG Tylenol Tylenol No Tylenol Arthritis Arthritis Arthritis Pain Pain Pain Levothyroxi Levothyroxi No Levothyrox ne Sodium ne Sodium ine Sodium 25 MCG 25 MCG 25 MCG predniSONE predniSONE No 1{table BID predniSONE 5 MG 5 MG t} 5 MG Lisinopril Lisinopril No 1{table QD Lisinopril 10 MG 10 MG t} 10 MG Vitamin D3 Vitamin D3 No 1{table QD Vitamin D3 50 MCG 50 MCG t} 50 MCG (1999) (1999 [facility]) (1999) Potassium Potassium No 1{table QD Potassium Chloride ER Chloride ER t_with_ Chloride 20 MEQ 20 MEQ food} ER 20 MEQ MiraLax MiraLax No MiraLax Omeprazole Omeprazole No QD Omeprazole 20 MG 20 MG 20 MG Estradiol 1 Estradiol 1 No 1{table QD Estradiol MG MG t} 1 MG Multi Multi No 1{table QD Multi Vitamin - Vitamin - t} Vitamin - VESIcare 10 VESIcare 10 No 1{table QD VESIcare MG MG t} 10 MG Furosemide Furosemide No 1{table QD Furosemide 40 MG 40 MG t} 40 MG Leflunomide Leflunomide No 1{table QD Leflunomid 20 MG 20 MG t} e 20 MG Cephalexin Cephalexin No Cephalexin Hydroxychlo Hydroxychlo No 1{table QD Hydroxychl roquine roquine t} oroquine Sulfate 200 Sulfate 200 Sulfate MG MG 200 MG Probiotic Probiotic No Probiotic Euthyrox 50 Euthyrox 50 No Euthyrox MCG MCG 50 MCG Hydroxychlo Hydroxychlo No Hydroxychl roquine roquine oroquine Sulfate 200 Sulfate 200 Sulfate MG MG 200 MG Donepezil Donepezil No 1{table QD Donepezil HCl 5 MG HCl 5 MG t_at_be HCl 5 MG dtime} Advil 200 Advil 200 No TID Advil 200 MG MG MG Vitamin C Vitamin C No 1{table BID Vitamin C 1000 MG 1000 MG t} 1000 MG Stool Stool No 1{capsu TID Stool Softener Softener le_as_n Softener 100 MG 100 MG eeded} 100 MG Acetaminoph Acetaminoph No Acetaminop en-Codeine en-Codeine hen-Codein #3 #3 e #3 Mupirocin Mupirocin No Mupirocin Memantine Memantine No BID Memantine HCl 10 MG HCl 10 MG HCl 10 MG Tylenol Tylenol No Tylenol Arthritis Arthritis Arthritis Pain Pain Pain Levothyroxi Levothyroxi No Levothyrox ne Sodium ne Sodium ine Sodium 25 MCG 25 MCG 25 MCG predniSONE predniSONE No 1{table BID predniSONE 5 MG 5 MG t} 5 MG Lisinopril Lisinopril No 1{table QD Lisinopril 10 MG 10 MG t} 10 MG Vitamin D3 Vitamin D3 No 1{table QD Vitamin D3 50 MCG 50 MCG t} 50 MCG (1999) (1999) (1999 [facility]) Potassium Potassium No 1{table QD Potassium Chloride ER Chloride ER t_with_ Chloride 20 MEQ 20 MEQ food} ER 20 MEQ MiraLax MiraLax No MiraLax Omeprazole Omeprazole No QD Omeprazole 20 MG 20 MG 20 MG Estradiol 1 Estradiol 1 No 1{table QD Estradiol MG MG t} 1 MG Multi Multi No 1{table QD Multi Vitamin - Vitamin - t} Vitamin - VESIcare 10 VESIcare 10 No 1{table QD VESIcare MG MG t} 10 MG Donepezil Donepezil No 1{table QD Donepezil HCl 5 MG HCl 5 MG t_at_be HCl 5 MG dtime} Vitamin D3 Vitamin D3 No 1{table QD Vitamin D3 50 MCG 50 MCG t} 50 MCG (1999) (1999) (1999) Memantine Memantine No BID Memantine HCl 10 MG HCl 10 MG HCl 10 MG Stool Stool No 1{capsu TID Stool Softener Softener le_as_n Softener 100 MG 100 MG eeded} 100 MG Synthroid Synthroid No QD Synthroid 25 MCG 25 MCG 25 MCG Hydroxychlo Hydroxychlo No 1{table QD Hydroxychl roquine roquine t} oroquine Sulfate 200 Sulfate 200 Sulfate MG MG 200 MG LORazepam LORazepam No 1{table QD LORazepam 0.5 MG 0.5 MG t_as_ne 0.5 MG eded} predniSONE predniSONE No 1{table BID predniSONE 5 MG 5 MG t} 5 MG Omeprazole Omeprazole No QD Omeprazole 20 MG 20 MG 20 MG Estradiol 1 Estradiol 1 No 1{table QD Estradiol MG MG t} 1 MG Vitamin C Vitamin C No 1{table BID Vitamin C 1000 MG 1000 MG t} 1000 MG Tylenol Tylenol No Tylenol Arthritis Arthritis Arthritis Pain Pain Pain VESIcare 10 VESIcare 10 No 1{table QD VESIcare MG MG t} 10 MG Multi Multi No 1{table QD Multi Vitamin - Vitamin - t} Vitamin - Donepezil Donepezil No 1{table QD Donepezil HCl 5 MG HCl 5 MG t_at_be HCl 5 MG dtime} Vitamin D3 Vitamin D3 No 1{table QD Vitamin D3 50 MCG 50 MCG t} 50 MCG (1999 [facility]) (1999 [facility]) (1999) Memantine Memantine No BID Memantine HCl 10 MG HCl 10 MG HCl 10 MG Stool Stool No 1{capsu TID Stool Softener Softener le_as_n Softener 100 MG 100 MG eeded} 100 MG Synthroid Synthroid No QD Synthroid 25 MCG 25 MCG 25 MCG Hydroxychlo Hydroxychlo No 1{table QD Hydroxychl roquine roquine t} oroquine Sulfate 200 Sulfate 200 Sulfate MG MG 200 MG LORazepam LORazepam No 1{table QD LORazepam 0.5 MG 0.5 MG t_as_ne 0.5 MG eded} predniSONE predniSONE No 1{table BID predniSONE 5 MG 5 MG t} 5 MG Omeprazole Omeprazole No QD Omeprazole 20 MG 20 MG 20 MG Estradiol 1 Estradiol 1 No 1{table QD Estradiol MG MG t} 1 MG Vitamin C Vitamin C No 1{table BID Vitamin C 1000 MG 1000 MG t} 1000 MG Tylenol Tylenol No Tylenol Arthritis Arthritis Arthritis Pain Pain Pain VESIcare 10 VESIcare 10 No 1{table QD VESIcare MG MG t} 10 MG Multi Multi No 1{table QD Multi Vitamin - Vitamin - t} Vitamin - Multi Multi No 1{table QD Multi Vitamin - Vitamin - t} Vitamin - Hydroxychlo Hydroxychlo No Hydroxychl roquine roquine oroquine Sulfate 200 Sulfate 200 Sulfate MG MG 200 MG Stool Stool No 1{capsu TID Stool Softener Softener le_as_n Softener 100 MG 100 MG eeded} 100 MG Memantine Memantine No BID Memantine HCl 10 MG HCl 10 MG HCl 10 MG Levothyroxi Levothyroxi No Levothyrox ne Sodium ne Sodium ine Sodium 25 MCG 25 MCG 25 MCG Synthroid Synthroid No QD Synthroid 25 MCG 25 MCG 25 MCG Donepezil Donepezil No 1{table QD Donepezil HCl 5 MG HCl 5 MG t_at_be HCl 5 MG dtime} Estradiol 1 Estradiol 1 No 1{table QD Estradiol MG MG t} 1 MG Vitamin D3 Vitamin D3 No 1{table QD Vitamin D3 50 MCG 50 MCG t} 50 MCG (1999) (1999) (1999) Vitamin C Vitamin C No 1{table BID Vitamin C 1000 MG 1000 MG t} 1000 MG VESIcare 10 VESIcare 10 No 1{table QD VESIcare MG MG t} 10 MG Euthyrox 25 Euthyrox 25 No Euthyrox MCG MCG 25 MCG Tylenol Tylenol No Tylenol Arthritis Arthritis Arthritis Pain Pain Pain predniSONE predniSONE No 1{table BID predniSONE 5 MG 5 MG t} 5 MG Omeprazole Omeprazole No QD Omeprazole 20 MG 20 MG 20 MG Estradiol 1 Estradiol 1 No 1{table QD Estradiol MG MG t} 1 MG Omeprazole Omeprazole No QD Omeprazole 20 MG 20 MG 20 MG Hydroxychlo Hydroxychlo No 1{table QD Hydroxychl roquine roquine t} oroquine Sulfate 200 Sulfate 200 Sulfate MG MG 200 MG Memantine Memantine No BID Memantine HCl 10 MG HCl 10 MG HCl 10 MG Donepezil Donepezil No 1{table QD Donepezil HCl 5 MG HCl 5 MG t_at_be HCl 5 MG dtime} Furosemide Furosemide No 1{table QD Furosemide 40 MG 40 MG t} 40 MG Levothyroxi Levothyroxi No Levothyrox ne Sodium ne Sodium ine Sodium 25 MCG 25 MCG 25 MCG Leflunomide Leflunomide No 1{table QD Leflunomid 20 MG 20 MG t} e 20 MG amLODIPine amLODIPine No 1{table QD amLODIPine Besylate Besylate t} Besylate 2.5 MG 2.5 MG 2.5 MG predniSONE predniSONE No 1{table BID predniSONE 5 MG 5 MG t} 5 MG Vitamin D3 Vitamin D3 No 1{table QD Vitamin D3 50 MCG 50 MCG t} 50 MCG (1999 [facility]) (1999 [facility]) (1999) Stool Stool No 1{capsu TID Stool Softener Softener le_as_n Softener 100 MG 100 MG eeded} 100 MG Tylenol Tylenol No Tylenol Arthritis Arthritis Arthritis Pain Pain Pain Vitamin C Vitamin C No 1{table BID Vitamin C 1000 MG 1000 MG t} 1000 MG Euthyrox 25 Euthyrox 25 No Euthyrox MCG MCG 25 MCG Synthroid Synthroid No QD Synthroid 25 MCG 25 MCG 25 MCG Multi Multi No 1{table QD Multi Vitamin - Vitamin - t} Vitamin - Hydroxychlo Hydroxychlo No Hydroxychl roquine roquine oroquine Sulfate 200 Sulfate 200 Sulfate MG MG 200 MG amLODIPine amLODIPine No 1{table QD amLODIPine Besylate 5 Besylate 5 t} Besylate 5 MG MG MG VESIcare 10 VESIcare 10 No 1{table QD VESIcare MG MG t} 10 MG Donepezil Donepezil No 1{table QD Donepezil HCl 5 MG HCl 5 MG t_at_be HCl 5 MG dtime} Estradiol 1 Estradiol 1 No 1{table QD Estradiol MG MG t} 1 MG Levothyroxi Levothyroxi No Levothyrox ne Sodium ne Sodium ine Sodium 25 MCG 25 MCG 25 MCG Stool Stool No 1{capsu TID Stool Softener Softener le_as_n Softener 100 MG 100 MG eeded} 100 MG Hydroxychlo Hydroxychlo No 1{table QD Hydroxychl roquine roquine t} oroquine Sulfate 200 Sulfate 200 Sulfate MG MG 200 MG Furosemide Furosemide No 1{table QD Furosemide 40 MG 40 MG t} 40 MG Hydroxychlo Hydroxychlo No Hydroxychl roquine roquine oroquine Sulfate 200 Sulfate 200 Sulfate MG MG 200 MG Leflunomide Leflunomide No 1{table QD Leflunomid 20 MG 20 MG t} e 20 MG amLODIPine amLODIPine No 1{table QD amLODIPine Besylate Besylate t} Besylate 2.5 MG 2.5 MG 2.5 MG predniSONE predniSONE No 1{table BID predniSONE 5 MG 5 MG t} 5 MG Multi Multi No 1{table QD Multi Vitamin - Vitamin - t} Vitamin - Vitamin D3 Vitamin D3 No 1{table QD Vitamin D3 50 MCG 50 MCG t} 50 MCG (1999) (1999) (1999) Tylenol Tylenol No Tylenol Arthritis Arthritis Arthritis Pain Pain Pain VESIcare 10 VESIcare 10 No 1{table QD VESIcare MG MG t} 10 MG Euthyrox 25 Euthyrox 25 No Euthyrox MCG MCG 25 MCG Memantine Memantine No BID Memantine HCl 10 MG HCl 10 MG HCl 10 MG Vitamin C Vitamin C No 1{table BID Vitamin C 1000 MG 1000 MG t} 1000 MG amLODIPine amLODIPine No amLODIPine Besylate 5 Besylate 5 Besylate 5 MG MG MG Synthroid Synthroid No QD Synthroid 25 MCG 25 MCG 25 MCG Omeprazole Omeprazole No QD Omeprazole 20 MG 20 MG 20 MG amLODIPine amLODIPine No 1{table QD amLODIPine Besylate 5 Besylate 5 t} Besylate 5 MG MG MG Tylenol Tylenol No Tylenol Arthritis Arthritis Arthritis Pain Pain Pain Vitamin C Vitamin C No 1{table BID Vitamin C 1000 MG 1000 MG t} 1000 MG VESIcare 10 VESIcare 10 No 1{table QD VESIcare MG MG t} 10 MG Omeprazole Omeprazole No QD Omeprazole 20 MG 20 MG 20 MG LORazepam LORazepam No 1{table QD LORazepam 0.5 MG 0.5 MG t_as_ne 0.5 MG eded} Multi Multi No 1{table QD Multi Vitamin - Vitamin - t} Vitamin - Hydroxychlo Hydroxychlo No Hydroxychl roquine roquine oroquine Sulfate 200 Sulfate 200 Sulfate MG MG 200 MG Leflunomide Leflunomide No 1{table QD Leflunomid 20 MG 20 MG t} e 20 MG amLODIPine amLODIPine No 1{table QD amLODIPine Besylate Besylate t} Besylate 2.5 MG 2.5 MG 2.5 MG Vitamin D3 Vitamin D3 No 1{table QD Vitamin D3 50 MCG 50 MCG t} 50 MCG (1999) (1999) (1999) predniSONE predniSONE No 1{table BID predniSONE 5 MG 5 MG t} 5 MG Hydroxychlo Hydroxychlo No 1{table QD Hydroxychl roquine roquine t} oroquine Sulfate 200 Sulfate 200 Sulfate MG MG 200 MG Synthroid Synthroid No QD Synthroid 25 MCG 25 MCG 25 MCG Levothyroxi Levothyroxi No Levothyrox ne Sodium ne Sodium ine Sodium 25 MCG 25 MCG 25 MCG Donepezil Donepezil No 1{table QD Donepezil HCl 5 MG HCl 5 MG t_at_be HCl 5 MG dtime} Stool Stool No 1{capsu TID Stool Softener Softener le_as_n Softener 100 MG 100 MG eeded} 100 MG Euthyrox 25 Euthyrox 25 No Euthyrox MCG MCG 25 MCG amLODIPine amLODIPine No amLODIPine Besylate 5 Besylate 5 Besylate 5 MG MG MG Furosemide Furosemide No 1{table QD Furosemide 40 MG 40 MG t} 40 MG Estradiol 1 Estradiol 1 No 1{table QD Estradiol MG MG t} 1 MG Memantine Memantine No BID Memantine HCl 10 MG HCl 10 MG HCl 10 MG Furosemide Furosemide No 1{table QD Furosemide 40 MG 40 MG t} 40 MG Vitamin D3 Vitamin D3 No 1{table QD Vitamin D3 50 MCG 50 MCG t} 50 MCG (1999) (1999) (1999) amLODIPine amLODIPine No 1{table QD amLODIPine Besylate Besylate t} Besylate 2.5 MG 2.5 MG 2.5 MG Multi Multi No 1{table QD Multi Vitamin - Vitamin - t} Vitamin - Tylenol Tylenol No Tylenol Arthritis Arthritis Arthritis Pain Pain Pain VESIcare 10 VESIcare 10 No 1{table QD VESIcare MG MG t} 10 MG Synthroid Synthroid No QD Synthroid 25 MCG 25 MCG 25 MCG Donepezil Donepezil No 1{table QD Donepezil HCl 5 MG HCl 5 MG t_at_be HCl 5 MG dtime} predniSONE predniSONE No 1{table BID predniSONE 5 MG 5 MG t} 5 MG LORazepam LORazepam No 1{table QD LORazepam 0.5 MG 0.5 MG t_as_ne 0.5 MG eded} Vitamin C Vitamin C No 1{table BID Vitamin C 1000 MG 1000 MG t} 1000 MG amLODIPine amLODIPine No amLODIPine Besylate 5 Besylate 5 Besylate 5 MG MG MG Hydroxychlo Hydroxychlo No Hydroxychl roquine roquine oroquine Sulfate 200 Sulfate 200 Sulfate MG MG 200 MG Stool Stool No 1{capsu TID Stool Softener Softener le_as_n Softener 100 MG 100 MG eeded} 100 MG Memantine Memantine No BID Memantine HCl 10 MG HCl 10 MG HCl 10 MG Levothyroxi Levothyroxi No Levothyrox ne Sodium ne Sodium ine Sodium 25 MCG 25 MCG 25 MCG Euthyrox 25 Euthyrox 25 No Euthyrox MCG MCG 25 MCG amLODIPine amLODIPine No 1{table QD amLODIPine Besylate 5 Besylate 5 t} Besylate 5 MG MG MG Estradiol 1 Estradiol 1 No 1{table QD Estradiol MG MG t} 1 MG Omeprazole Omeprazole No QD Omeprazole 20 MG 20 MG 20 MG Leflunomide Leflunomide No 1{table QD Leflunomid 20 MG 20 MG t} e 20 MG Immunizations Ordered Immunization Filled Immunization Date Status Commen ts Source Name Name FLUZONE HIGH DOSE FLUZONE HIGH DOSE 2022-02-27 Completed [facility] OVER 65 OVER 65 15:00:00 - [facility] FLUZONE HIGH DOSE FLUZONE HIGH DOSE 2022-02-27 Completed [facility] OVER 65 OVER 65 15:00:00 - [facility] FLUZONE HIGH DOSE FLUZONE HIGH DOSE 2022-02-27 Completed [facility] OVER 65 OVER 65 15:00:00 - [facility] FLUZONE HIGH DOSE FLUZONE HIGH DOSE 2022-02-27 Completed [facility] OVER 65 OVER 65 15:00:00 - [facility]rix Shingrix 2022-02-27 Completed [facility] 14:52:00 - [facility] Sh[facility]rix 2022-02-27 Completed [facility] 14:52:00 - [facility] Sh[facility]rix 2022-02-27 Completed [facility] 14:52:00 - [facility] Sh[facility]rix 2022-02-27 Completed [facility] 14:52:00 - [facility] FluAD FluAD 2020-02-17 Completed [facility] 10:58:00 - [facility] FluAD FluAD 2020-02-17 Completed [facility] 10:58:00 - [facility] FluAD FluAD 2020-02-17 Completed [facility] 10:58:00 - [facility] FluAD FluAD 2020-02-17 Completed [facility] 10:58:00 - [facility] FluAD FluAD 2020-02-17 Completed [facility] 10:58:00 - [facility] Flu[facility] FluAD 2020-02-17 Completed [facility] 10:58:00 - [facility] FluAD FluAD 2020-02-17 Completed [facility] 10:58:00 - [facility] Flu[facility] FluAD 2020-02-17 Completed [facility] 10:58:00 - [facility] FluAD FluAD 2020-02-17 Completed [facility] 10:58:00 - [facility] FluAD FluAD 2020-02-17 Completed [facility] 10:58:00 - [facility] FluAD FluAD 2020-02-17 Completed [facility] 10:58:00 - [facility] FluAD FluAD 2020-02-17 Completed [facility] 10:58:00 - [facility] FluAD FluAD 2020-02-17 Completed [facility] 10:58:00 - [facility] FluAD FluAD 2020-02-17 Completed [facility] 10:58:00 - [facility] FluAD FluAD 2020-02-17 Completed [facility] 10:58:00 - [facility] FluAD FluAD 2020-02-17 Completed [facility] 10:58:00 - [facility] influenza, influenza, 2020-01-15 Completed [facility] injectable, injectable, 00:00:00 Urology quadrivalent quadrivalent pneumococcal pneumococcal 2014-06-16 Completed [facility] polysaccharide PPV23 polysaccharide PPV23 00:00:00 Urology Vital Signs Vital Name Observation Time Observation Value Comments Source height 2022-04-03 13:30:00 61 [in_i] [facility] weight 2022-04-03 13:30:00 151 [lb_av] [facility] temperature 2022-04-03 13:30:00 98.1 [degF] [facility] bmi 2022-04-03 13:30:00 28.53 kg/m2 [facility] oximetry 2022-04-03 13:30:00 96 % [facility] respiratory rate 2022-04-03 13:30:00 17 /min Comm on [facility] blood pressure 2022-04-03 13:30:00 126 mm[Hg] [facility] blood pressure 2022-04-03 13:30:00 68 mm[Hg] [facility] - diastolic [facility] height 2022-03-25 15:30:00 61 [in_i] Common S [facility] weight 2022-03-25 15:30:00 151.1 [lb_av] Common [facility] temperature 2022-03-25 15:30:00 97.0 [degF] Common S [facility] bmi 2022-03-25 15:30:00 28.55 kg/m2 [facility] S [facility] oximetry 2022-03-25 15:30:00 95 % [facility] respiratory rate 2022-03-25 15:30:00 17 /min Comm on [facility] blood pressure 2022-03-25 15:30:00 123 mm[Hg] [facility] blood pressure 2022-03-25 15:30:00 65 mm[Hg] Common [facility] - diastolic [facility] height 2022-02-27 14:00:00 61 [in_i] Common S [facility] weight 2022-02-27 14:00:00 143 [lb_av] Common S pirit [facility] temperature 2022-02-27 14:00:00 98.8 [degF] Common S pirit [facility] bmi 2022-02-27 14:00:00 27.02 kg/m2 [facility] 2022-02-27 14:00:00 92 % [facility] respiratory rate 2022-02-27 14:00:00 16 /min Comm on [facility] blood pressure 2022-02-27 14:00:00 116 mm[Hg] Common [facility] - systolic [facility] blood pressure 2022-02-27 14:00:00 58 mm[Hg] [facility] height 2021-11-21 14:50:00 61.5 [in_i] Common S pirit - [facility] weight 2021-11-21 14:50:00 146.5 [lb_av] Common [facility] temperature 2021-11-21 14:50:00 97.6 [degF] Common S pirit - [facility] bmi 2021-11-21 14:50:00 27.23 kg/m2 Common S pirit [facility] oximetry 2021-11-21 14:50:00 96 % Common S pirit - [facility] respiratory rate 2021-11-21 14:50:00 16 /min Comm on [facility] blood pressure 2021-11-21 14:50:00 122 mm[Hg] Common [facility] - systolic [facility] blood pressure 2021-11-21 14:50:00 61 mm[Hg] [facility] height 2021-11-21 15:00:00 61.5 [in_i] Common S pirit [facility] weight 2021-11-21 15:00:00 146.5 [lb_av] [facility] temperature 2021-11-21 15:00:00 97.6 [degF] Common S pirit [facility] bmi 2021-11-21 15:00:00 27.23 kg/m2 Common S pirit [facility] oximetry 2021-11-21 15:00:00 96 % Common S pirit [facility] respiratory rate 2021-11-21 15:00:00 16 /min Comm on [facility] blood pressure 2021-11-21 15:00:00 122 mm[Hg] [facility] blood pressure 2021-11-21 15:00:00 61 mm[Hg] [facility] height 2021-10-09 15:40:00 61.5 [in_i] Common S pirit [facility] weight 2021-10-09 15:40:00 147.8 [lb_av] Common [facility] temperature 2021-10-09 15:40:00 97.7 [degF] Common [facility] bmi 2021-10-09 15:40:00 27.47 kg/m2 [facility] oximetry 2021-10-09 15:40:00 96 % Common [facility] respiratory rate 2021-10-09 15:40:00 16 /min Comm on [facility] blood pressure 2021-10-09 15:40:00 137 mm[Hg] Common [facility] - systolic [facility] blood pressure 2021-10-09 15:40:00 65 mm[Hg] Common [facility] - diastolic [facility] height 2021-08-15 10:10:00 61.5 [in_i] Common [facility] weight 2021-08-15 10:10:00 149.0 [lb_av] [facility] temperature 2021-08-15 10:10:00 97.4 [degF] Common [facility] bmi 2021-08-15 10:10:00 27.69 kg/m2 [facility] oximetry 2021-08-15 10:10:00 95 % [facility] respiratory rate 2021-08-15 10:10:00 16 /min Comm on [facility] blood pressure 2021-08-15 10:10:00 131 mm[Hg] Common [facility] - systolic [facility] blood pressure 2021-08-15 10:10:00 63 mm[Hg] Common [facility] - diastolic [facility] BP Diastolic 2021-07-02 00:00:00 66 mm[Hg] [facility] Height 2021-07-02 00:00:00 62 [in_i] [facility] BMI (Body Mass Index) 2021-07-02 00:00:00 30.5 kg/m2 [facility] BP Systolic 2021-07-02 00:00:00 128 mm[Hg] [facility] Body Weight 2021-07-02 00:00:00 167 [lb_av] [facility] height 2021-05-14 15:00:00 61.5 [in_i] [facility] weight 2021-05-14 15:00:00 147.3 [lb_av] [facility] temperature 2021-05-14 15:00:00 97.7 [degF] [facility] bmi 2021-05-14 15:00:00 27.38 kg/m2 [facility] oximetry 2021-05-14 15:00:00 96 % [facility] respiratory rate 2021-05-14 15:00:00 16 /min Comm on [facility] blood pressure 2021-05-14 15:00:00 135 mm[Hg] [facility] systolic [facility] blood pressure 2021-05-14 15:00:00 65 mm[Hg] [facility] diastolic [facility] Body height 2020-12-26 15:36:00 157.5 cm [facility] Body weight 2020-12-26 15:36:00 67.132 kg [facility] BMI 2020-12-26 15:36:00 27.07 kg/m2 [facility] Systolic blood 2020-12-26 15:36:00 132 mm[Hg] [facility] pressure Medicine Diastolic blood 2020-12-26 15:36:00 63 mm[Hg] [facility] Medicine Heart rate 2020-12-26 15:36:00 78 /min [facility] Body temperature 2020-12-26 15:36:00 36.17 [facility] Body height 2020-09-11 17:02:00 157.5 cm [facility] Body weight 2020-09-11 17:02:00 68.947 kg [facility] BMI 2020-09-11 17:02:00 27.80 kg/m2 [facility] Body height 2020-09-11 17:02:00 157.5 cm [facility] Body weight 2020-09-11 17:02:00 68.947 kg [facility] BMI 2020-09-11 17:02:00 27.80 kg/m2 [facility] Systolic blood 2020-03-14 14:59:00 133 mm[Hg] [facility] pressure Medicine Diastolic blood 2020-03-14 14:59:00 69 mm[Hg] [facility] of pressure Medicine Heart rate 2020-03-14 14:59:00 74 /min [facility] Body height 2020-03-14 14:59:00 157.5 cm [facility] Body weight 2020-03-14 14:59:00 72.576 kg [facility] BMI 2020-03-14 14:59:00 29.26 kg/m2 [facility] Systolic blood 2020-03-14 14:59:00 133 mm[Hg] [facility] pressure Medicine Diastolic blood 2020-03-14 14:59:00 69 mm[Hg] [facility] of pressure Medicine Heart rate 2020-03-14 14:59:00 74 /min [facility] Body height 2020-03-14 14:59:00 157.5 cm [facility] Body weight 2020-03-14 14:59:00 72.576 kg [facility] BMI 2020-03-14 14:59:00 29.26 kg/m2 [facility] Procedures Procedure Date / Time Performing Clinician Source Performed US BREAST COMPLETE 2020-07-26 17:58:56 Alondra Benz [facility] BILATERAL MAMMO BREAST DIAGNOSTIC 2020-07-26 17:14:55 Alondra Benz [facility] TOMOSYNTHESIS BILATERAL Diagnostic Colonoscopy 2014-06-16 00:00:00 [facility] 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 1973-06-16 00:00:00 [facility] U[facility] MUSCU- Knee Surgery [facility] Plan of Care Planned Activity Planned Date Details Comments Source Future Scheduled 2022-04-18 HEPATITIS B [facility] Test 17:52:58 VACCINES (1 of 3 - Hospital 3-dose series) [code = HEPATITIS B VACCINES (1 of 3 - 3-dose series)] Future Scheduled 2022-04-18 COVID-[address] Test 17:52:58 (#1) [code = Hospital COVID-19 VACCINE (#1)] Future Scheduled 2022-04-18 SHINGLES VACCINES Method ist Test 17:52:58 (1 of 2) [code = Hospital SHINGLES VACCINES (1 of 2)] Future Scheduled 2022-04-18 65+ [facility]NEUMOCOCC[address] [facility] Test 17:52:58 VACCINE (1 - PCV) Hospital [code = 65+ PNEUMOCOCCAL VACCINE (1 - PCV)] Future Scheduled 2022-04-18 INFLUENZA VACCINE Method ist Test 17:52:58 [code = INFLUENZA Hospital VACCINE] Future Scheduled 2022-02-13 HEPATITIS B [facility] Test 08:23:01 VACCINES (1 of 3 - Hospital 3-dose series) [code = HEPATITIS B VACCINES (1 of 3 - 3-dose series)] Future Scheduled 2022-02-13 COVID-[address] Test 08:23:01 (#1) [code = Hospital COVID-19 VACCINE (#1)] Future Scheduled 2022-02-13 SHINGLES VACCINES Method ist Test 08:23:01 (1 of 2) [code = Hospital SHINGLES VACCINES (1 of 2)] Future Scheduled 2022-02-13 65+ PNEUMOCOCCAL [facility] Test 08:23:01 VACCINE (1 - PCV) Hospital [code = 65+ PNEUMOCOCCAL VACCINE (1 - PCV)] Future Scheduled 2022-02-13 INFLUENZA VACCINE Method ist Test 08:23:01 [code = INFLUENZA Hospital VACCINE] Future Scheduled 2021-07-02 COVID-[address] [...] [code = INFLUENZA Hospital VACCINE] Future Scheduled 2021-07-02 COVID-[address] [...] Test 14:09:49 [code = INFLUENZA Hospital VACCINE] Diagnostic Test 2021-07-02 urinalysis, [facility] o Pending 00:00:00 dipstick [code = Urology urinalysis, dipstick] Future Scheduled 2020-12-26 XR THORACIC SPINE 1 Occurrences [employer] Test 14:03:09 (COMPLETE) [code = [place] [address]-5] 12/26/2020 until 12/26/2021 Future Scheduled 2020-12-26 MRI LUMBAR SPINE WO 1 Occurrences [employer] Test 11:30:32 CONTRAST [code = starting of Medicine 38199-7] 12/26/2020 until 12/26/2021 Future Scheduled 2020-12-26 MRI CERVICAL SPINE 1 Occurrences [employer] Test 11:30:32 WO CONTRAST [code = starting of Medic ine 40038-2] 12/26/2020 until 12/26/2021 Future Scheduled 2020-12-26 COVID-19 Vaccine [facility] Test 10:37:31 (1) [code = of Medicine COVID-19 Vaccine (1)] Future Scheduled 2020-12-26 TETANUS SHOT [facility] Test 10:37:31 (ADULT) [code = of Medicine TETANUS SHOT (ADULT)] Future Scheduled 2020-12-26 BMI FOLLOW UP PLAN [facility] Test 10:37:31 [code = BMI FOLLOW of Medici ne UP PLAN] Future Scheduled 2020-12-26 Hepatitis C [facility] Test 10:37:31 screening of Medicine (procedure) [code = 729810983] Future Scheduled 2020-12-26 MEDICARE AWV [facility] Test 10:37:31 (Initial) [code = of Medicin e MEDICARE AWV (Initial)] Future Scheduled 2020-12-26 ZOSTER VACCINE (1 [facility] Test 10:37:31 of 2) [code = of Medicine ZOSTER VACCINE (1 of 2)] Future Scheduled 2020-12-26 FALL SCREEN [code = [employer] Test 10:37:31 FALL SCREEN] of Medicine Future Scheduled 2020-12-26 Screening for [facility] Test 10:37:31 osteoporosis of Medicine (procedure) [code = 926208782] Future Scheduled 2020-12-26 FLU VACCINE > 6 [facility] Test 10:37:31 MONTHS [code = FLU of Medici ne VACCINE > 6 MONTHS] Future Scheduled RI TANGENTIAL Ordered: [facility] Test BIOPSY SKIN SINGLE 03/14/2020 of Medici ne LESION [code = 10930] Future Scheduled RI DESTRUC Ordered: [facility] Test PREMALIGNANT, FIRST 03/14/2020 of Medic ine LESION(86695) [code = 60723] Future Scheduled RI DESTRUC Ordered: [facility] Test PREMALIGNANT,2-14 03/14/2020 of Medicin e LESIONS(49743) [code = 69655] Future Scheduled TETANUS SHOT [facility] Test (ADULT) [code = of Medicine TETANUS SHOT (ADULT)] Future Scheduled BMI FOLLOW UP PLAN [facility] Test [code = BMI FOLLOW of Medici ne UP PLAN] Future Scheduled HEPATITIS C [facility] Test SCREENING [code = of Medicin e HEPATITIS C SCREENING] Future Scheduled MEDICARE AWV [facility] Test (Initial) [code = of Medicin e MEDICARE AWV (Initial)] Future Scheduled ZOSTER VACCINE (1 [facility] Test of 2) [code = of Medicine ZOSTER VACCINE (1 of 2)] Future Scheduled FALL SCREEN [code = [employer] Test FALL SCREEN] of Medicine Future Scheduled OSTEOPOROSIS [facility] Test SCREENING [code = of Medicin e OSTEOPOROSIS SCREENING] Future Scheduled PNEUMOVAX >=65 [facility] Test (PPSV23) [code = of Medicine PNEUMOVAX >=65 (PPSV23)] Future Scheduled FLU VACCINE > 6 [facility] Test MONTHS [code = FLU of Medici ne VACCINE > 6 MONTHS] Future Scheduled RI DESTRUC Ordered: [facility] Test PREMALIGNANT, FIRST 09/11/2020 of Medic ine LESION(49887) [code = 12840] Future Scheduled RI DESTRUC Ordered: [facility] Test PREMALIGNANT,2-14 09/11/2020 of Medicin e LESIONS(36368) [code = 94373] Future Scheduled TETANUS SHOT [facility] Test (ADULT) [code = of Medicine TETANUS SHOT (ADULT)] Future Scheduled COVID-19 Vaccine [facility] Test (1) [code = of Medicine COVID-19 Vaccine (1)] Future Scheduled BMI FOLLOW UP PLAN [facility] Test [code = BMI FOLLOW of Medici ne UP PLAN] Future Scheduled Hepatitis C [facility] Test screening of Medicine (procedure) [code = 950463898] Future Scheduled MEDICARE AWV [facility] Test (Initial) [code = of Medicin e MEDICARE AWV (Initial)] Future Scheduled ZOSTER VACCINE (1 [facility] Test of 2) [code = of Medicine ZOSTER VACCINE (1 of 2)] Future Scheduled FALL SCREEN [code = [facility] Test FALL SCREEN] of Medicine Future Scheduled Screening for [facility] Test osteoporosis of Medicine (procedure) [code = 176437299] Future Scheduled FLU VACCINE > 6 [facility] C [facility] Test MONTHS [code = FLU of Medici ne VACCINE > 6 MONTHS] Future Appointment 2022-07-02 Dean Quezada 00:00:00 [address] [facility] [address]; , [place] [address] Encounters Start End Encounter Admission Attending Care Care Encounter Source Date/Time Date/Time Type Type Clinicians Facility Department ID 2022-02-26 Outpatient Golden, [facility] [id number] Common 11:45:01 Wilian [facility] 2021-07-11 Outpatient Golden, [facility] [id number] Common 14:31:01 Wilian [facility] 2021-07-11 Outpatient Golden, [facility] [id number] Common 13:35:28 Wilian [facility] 2021-07-11 Outpatient Golden, [facility]LMLC STLC [id number] Common 12:26:20 Wilian [id number] [facility] 2021-07-11 Outpatient Golden, STLMLC STLC [id number] Common 12:25:29 Wilian 94216 [facility] 2021-07-11 Outpatient Golden, STLMLC STLC [id number] Common 11:59:34 Wilian 01247 [facility] 2021-07-11 Outpatient Golden, STLMLC STLC [id number] Common 11:38:32 Wilian [id number] [facility] 2021-07-11 Outpatient Golden, STLC STLC [id number] Common 11:34:19 Wilian [id number] [facility] 2021-07-11 [facility] [id number] Common 11:19:03 Wilian [id number] [facility] 2022-04-19 2022-04-19 Outpatient R STELLA, [facility] [id number] Univers 10:30:00 10:59:03 CHRISTEL rodrigues [facility] 2022-04-19 2022-04-19 Laboratory Only, Ang Db Test [facility] 1.2.8 40.114 [id number] Univers 10:30:00 10:45:00 Only Unknown, Attending HEALTH [id number] ity lee [facility] 4.2.7.2.686 Henry as LIAT?BLEA [phone] [address] MEDICAL OFFICE BUILDING 2022-04-03 2022-04-03 OFFICE STLMLC STLC [id number] Co mmon 00:00:00 00:00:00 VISIT [facility] ESTAB PT - CHI LEVEL 2 [facility] 2022-03-25 2022-03-25 OFFICE STLMLC STLMLC [id number] Co mmon 00:00:00 00:00:00 VISIT [facility] ESTAB PT - CHI LEVEL 4 [facility] 2022-03-22 2022-03-22 (TEL) STLMLC STLMLC [id number] Co mmon 00:00:00 00:00:00 Spirit - CHI [facility] 2022-02-27 2022-02-27 OFFICE STLC STLC [id number] Co mmon 00:00:00 00:00:00 VISIT [facility] ESTAB PT - CHI LEVEL 4 [facility] 2022-02-19 2022-02-19 (TEL) STLC STLC [id number] Co mmon 00:00:00 00:00:00 Spirit - CHI [facility] 2021-12-08 2021-12-08 Letter VenitaROSY [id number] Univers 00:00:00 00:00:00 (Out) Mary MUÑOZ 350.1.13.10 it [facility] [id number] [place] as [phone] [address] 2021-12-07 2021-12-07 Outpatient Alexandria MARKHAM [facility] [id number] Univers 15:00:00 15:27:12 [facility] st[facility] 2021-12-07 2021-12-07 Laboratory Only, Adc Pob2 Test [facility] 1.2 .840.114 [id number] Univers 15:00:00 15:15:00 Only Unknown, Attending ROSALBA 350.1.13.1 0 [facility] [id number] Shannan SHINE [phone] Wy dical [facility] [address] [facility] 2021-11-21 2021-11-21 [facility] [id number] Co mmon 00:00:00 00:00:00 VISIT [facility] ESTAB PT - CHI LEVEL 4 [facility] 2021-11-21 2021-11-21 SUB ANNUAL STLC STLC [id number] Common 00:00:00 00:00:00 MCR Spirit WELLNESS - CHI VISIT [facility] 2021-11-15 2021-11-15 (TEL) STLMLC STLC [id number] Co mmon 00:00:00 00:00:00 Spirit - CHI [facility] 2021-11-14 2021-11-14 (TEL) STLC STLC [id number] Co mmon 00:00:00 00:00:00 [facility] 2021-10-18 2021-10-18 (TEL) STLMLC STLMLC [id number] Co mmon 00:00:00 00:00:00 [facility] 2021-10-09 2021-10-09 OFFICE STLMLC STLMLC [id number] Co mmon 00:00:00 00:00:00 VISIT [facility] PT - CHI LEVEL 4 [facility] 2021-10-02 2021-10-02 (TEL) STLMLC STLMLC [id number] Co mmon 00:00:00 00:00:00 [facility] 2021-08-15 2021-08-15 OFFICE STLMLC STLMLC [id number] Co mmon 00:00:00 00:00:00 VISIT [facility] PT - CHI LEVEL 4 [facility] 2021-08-06 2021-08-06 (TEL) STLMLC STLMLC [id number] Co mmon 00:00:00 00:00:00 [facility] 2021-08-03 2021-08-03 Outpatient [place] [id number] [place] 04:09:00 04:09:00 [facility] 2021-07-28 2021-07-28 Outpatient [place] U [id number] [place] 02:54:00 02:54:00 [facility] 2021-07-02 2021-07-02 Outpatient [place] U [id number] [id number] [place] 04:35:00 04:35:00 [facility] 2021-07-02 2021-07-02 [facility] [place] - [id number] H denise 00:00:00 00:00:00 [facility]al [facility]: [facility] [address], [place] [address] , Ph. 2021-07-02 2021-07-02 Outpatient THAIS Beal U [id number] 00:00:00 00:00:00 Alondra [id number] 2021-06-22 2021-06-22 (TEL) STLMLC STLMLC [id number] Co mmon 00:00:00 00:00:00 Spirit [facility] 2021-06-03 2021-06-03 Telephone ROSY Bonds [id number] Univers 00:00:00 00:00:00 Maye MUÑOZ 350.1.13.10 i [facility] 4.2.7.2.686 Henry [phone] [facility] [address] 2021-06-02 2021-06-02 Laboratory Only, Adc Test [facility] 1.2.840. 114 [id number] [facility] 11:00:00 11:15:00 Only [facility].10 [facility] 4[facility]2.7.2.686 [facility] [phone] [facility] [address] 2021-06-02 2021-06-02 Outpatient Alexandria WILKS [facility] [id number] [facility] 11:00:00 11:00:00 ALONDRA stuart [facility] 2021-05-21 2021-05-21 Outpatient Salena [facility] [id number] [facility] [place] 12:00:00 12:00:00 [id number] [facility] 2021-05-14 2021-05-14 OFFICE STLMLC STLMLC [id number] Co mmon 00:00:00 00:00:00 VISIT [facility] PT - CHI LEVEL 4 [facility] 2021-02-20 2021-02-20 Outpatient STLMLC STLMLC [id number] Common 00:00:00 00:00:00 Spirit [facility] 2021-02-19 2021-02-19 Outpatient STLMLC STLMLC [id number] Common 00:00:00 00:00:00 [facility] 2021-02-15 2021-02-15 Outpatient STLMLC STLMLC [id number] Common 00:00:00 00:00:00 [facility] 2021-02-09 2021-02-09 Outpatient STLMLC STLMLC [id number] Common 00:00:00 00:00:00 [facility] 2021-01-22 2021-01-22 Outpatient STLMLC STLMLC [id number] Common 00:00:00 00:00:00 [facility] 2021-01-17 2021-01-17 Outpatient [facility] [id number] [facility] 09:10:52 09:10:52 [facility] 2021-01-17 2021-01-17 Outpatient [facility] [id number] [facility] 07:46:47 07:46:47 [facility] 2021-01-17 2021-01-17 Outpatient [facility] [id number] [facility] 07:45:07 07:45:07 [facility] 2021-01-01 2021-01-01 Outpatient STLMLC STLMLC [id number] Common 00:00:00 00:00:00 [facility] 2020-12-26 2020-12-26 Office DAMASO Hanson 1.2.840.114 [id number] [facility] 09:50:23 13:46:09 Visit Anjum Derw AMBULATOR 350.1.13.21 College Y 0.2.7.2.686 [phone] Medi real 805 e 2020-10-27 2020-10-27 Outpatient STLMLC STLMLC [id number] Common 00:00:00 00:00:00 [facility] 2020-10-12 2020-10-12 Outpatient STLMLC STLMLC [id number] Common 00:00:00 00:00:00 [facility] 2020-10-12 2020-10-12 Outpatient STLMLC STLMLC [id number] Common 00:00:00 00:00:00 [facility] 2020-10-04 2020-10-04 Outpatient STLMLC STLMLC [id number] Common 00:00:00 00:00:00 [facility] 2020-09-25 2020-09-25 Inpatient EL Christin, HCAPM HCAPM [id number] [facility] 16:13:10 16:13:10 Ashok 53 [facility] 2020-09-15 2020-09-15 Outpatient STLMLC STLMLC [id number] Common 00:00:00 00:00:00 [facility] 2020-09-11 2020-09-11 Office Sabrina Kinsey 1.2.840.114 [id number] [facility] 11:55:16 12:10:16 Visit AMBULATOR 350.1.13.21 College Y 0.2.7.2.686 of [id number] [facility] 300 e 2020-09-11 2020-09-11 Office Sabrina Kinsey 1.2.840.114 [id number] 11:55:16 12:10:16 Visit AMBULATOR 350.1.13.21 Y 0.2.7.2.686 [id number] 300 2020-07-27 2020-07-27 Outpatient STLMLC STLMLC [id number] Common 00:00:00 00:00:00 [facility] 2020-07-26 2020-07-26 [facility], 1.2.840.1 [id number] Methodi 10:09:35 23:59:00 Encounter Alondra Nath50.1.[address] 3.430.2.7 Hospit a .3.008824 l .8 2020-07-26 2020-07-26 [facility], 1.2.840.1 [id number] Methodi 10:08:25 10:08:25 Encounter Alondra Nath50.1.[address] 3.430.2.7 Hospit a .3.364654 l .8 2020-07-26 2020-07-26 Travel 1.2.840.1 1.2.217.511 [id number] Methodi 00:00:00 00:00:[address] 3.430.2.7 0.2.7.3.698 [facility] .3.169069 084.8 l .8 2020-07-17 2020-07-17 Outpatient STLMLC STLMLC [id number] Common 00:00:00 00:00:00 [facility] 2020-07-13 2020-07-13 Outpatient STLMLC STLMLC [id number] Common 00:00:00 00:00:00 [facility] 2020-06-08 2020-06-08 Outpatient STLMLC STLMLC [id number] Common 00:00:00 00:00:00 [facility] 2020-06-02 2020-06-02 Outpatient STLMLC STLMLC [id number] Common 00:00:00 00:00:00 [facility] 2020-05-26 2020-05-26 Outpatient STLMLC STLMLC [id number] Common 00:00:00 00:00:00 [facility] 2020-05-22 2020-05-22 Outpatient STLMLC STLMLC [id number] Common 00:00:00 00:00:00 [facility] 2020-05-02 2020-05-02 Outpatient [facility] [id number] [address] [place] 00:00:00 00:00:00 NADIM [address] 2020-05-01 2020-05-01 Outpatient [facility] [id number] Common 00:00:00 00:00:00 [facility] 2020-04-26 2020-04-26 Outpatient [facility] [id number] Common 00:00:00 00:00:00 [facility] 2020-04-12 2020-04-12 Outpatient [facility] [id number] Common 00:00:00 00:00:00 [facility] 2020-04-03 2020-04-03 Outpatient [facility] [id number] Common 00:00:00 00:00:00 [facility] 2020-03-21 2020-03-21 Outpatient [facility] [id number] Common 00:00:00 00:00:00 [facility] 2020-03-20 2020-03-20 Outpatient [facility] [id number] Common 00:00:00 00:00:00 [facility] 2020-03-14 2020-03-14 Office Sabrina Kinsey [id number] [facility] 09:52:56 10:36:43 Visit AMBULATOR [id number] [employer] Y [id number] of [id number] Medi [facility] 300 e 2020-03-14 2020-03-14 Office Sabrina Kinsey [id number] 09:52:56 10:36:43 Visit AMBULATOR [id number] Y [id number] 2020-03-02 2020-03-02 [facility] [id number] Common 11:23:00 11:23:[address] [facility] 2020-02-25 2020-02-25 [facility] [id number] Common 07:46:00 07:46:[address] [facility] 2020-02-15 2020-02-15 [facility] [id number] Common 16:40:00 16:40:[address] [facility] 2020-02-01 2020-02-01 [facility] [id number] Common 10:00:00 10:00:00 [facility] 2020-01-13 2020-01-13 [facility] [id number] Common 09:12:00 09:12:[address] [facility] 2020-01-12 2020-01-12 [facility] [id number] Common 13:09:00 13:09:[address] [facility] 2020-01-10 2020-01-10 [facility] [id number] Common 13:35:00 13:35:[address] [facility] 2020-01-04 2020-01-04 [facility] [id number] Common 10:30:00 10:30:[address] [facility] 2019-11-04 2019-11-04 [facility] [id number] Common 10:25:00 10:25:[address] [facility] [address] [facility] 2019-10-07 2019-10-07 [facility] 29 Common 09:00:00 09:00:[address] [facility] 2019-10-07 2019-10-07 [facility] 29 Common 08:00:00 08:00:[address] [facility] 2019-08-24 2019-08-24 Outpatient SHONNACHTSOURAV, [facility] [id number] [place] 00:00:00 00:00:00 LOVE [address] 2019-07-22 2019-07-22 Outpatient COSELLI, [facility] [id number] [address] [place] 00:00:00 00:00:00 ALONDRA [address] 2019-07-22 2019-07-22 Outpatient GARRY, [facility] [id number] [address] [place] 00:00:00 00:00:00 CONRAD [address] 2019-07-22 2019-07-22 Outpatient GARRY, [facility] [id number] [address] [place] 00:00:00 00:00:00 CONRAD [address] 2019-07-22 2019-07-22 Outpatient COSELLI, [facility] [id number] [place] 00:00:00 00:00:00 ALONDRA [address] Results Test Description Test Time Test Comments Results Result Comments Source COVID 19 INHOUSE [facility] 2020-09-27 13:48:00 Test Item Value Reference Range Interpretation Comme nts COVID 19 INHOUSE [facility] (test code = NEGATIVE Negative Per sand miller, negative [id number]) results should be treated aspresumptive a nd, [...] nd symptoms consistent with COVID-19. CBC W/AUTO [id number] 13:34:00 Test Item Value Reference Range Interpretation [...]
--- NOTE | 2022-05-17 09:59 | EDPHYS ---
Physician Documentation [facility] Name: Theresa Mancera Age: 82 yrs Sex: Female : 1940 Arrival Date: 05/17/2022 Time: 09:19 Bed 7 Private MD: Jeanine Goldenh ED Physician Emir Bates HPI: 05/17 09:51 This 82 yrs old Female presents to ER via Ambulatory with complaints of Wound Check. rn 09:51 This 82 yrs old Female presents to ER via Ambulatory with complaints of cellulitis. rn 09:51 The patient presents with cellulitis of the left leg. Description: erythematous, warm. rn Onset: The symptoms/episode began/occurred 2 day(s) ago. Possible cause(s): unknown. Associated signs and symptoms: Pertinent positives: drainage, erythema, Pertinent negatives: fever. Modifying factors: the symptoms are alleviated by nothing, the symptoms are aggravated by nothing. Severity of symptoms: At their worst the symptoms were mild, in the emergency department the symptoms are unchanged. The patient has not experienced similar symptoms in the past. The patient has not recently seen a physician. Pt reports had sutures placed on LLE 2 months ago, wound has had slow healing, now with a couple of days of small amount of drainage.. Historical: - Allergies: 09:48 No Known Allergies; kb3 - Home Meds: 09:48 Advil 200 mg Oral tab 1 tab daily [Active]; donepezil 5 mg Oral tab 1 tab once daily kb3 [Active]; estradiol 0.5 mg Oral tab [Active]; euthyrox 75 mcg 50mcg 1 tab daily [Active]; furosemide 40 mg Oral tab 1 tab as needed [Active]; hydroxychloroquine 200 mg Oral tab 1 tab once daily [Active]; leflunomide 20 mg Oral tab 1 tab once daily [Active]; lorazepam 0.5 mg Oral tab 1 tab daily [Active]; MD-3 daily [Active]; memantine 10 mg Oral tab 2 tab daily for Moderate to Severe Alzheimer's Type Dementia [Active]; Multiple Vitamins Oral [Active]; Omeprazole Oral [Active]; prednisone 5 mg Oral tab 1 tab once daily [Active]; Probiotic Oral [Active]; Vitamin C 1,000 mg Oral tab twice a day [Active]; - PMHx: 09:48 Hypertension; Hypothyroidism; Lupus; Dementia; kb3 - PSHx: 09:48 Cholecystectomy; hysterectomy; kb3 - Immunization history:: Adult Immunizations up to date, Client reports receiving the 2nd dose of the Covid vaccine, Last tetanus immunization: up to date. - Social history:: Smoking status: Patient denies any tobacco usage or history of. - Family history:: not pertinent. - Hospitalizations: : No recent hospitalization is reported. ROS: 09:51 Constitutional: Negative for fever, chills, and weight loss, Cardiovascular: Negative rn for chest pain, palpitations, and edema, Respiratory: Negative for shortness of breath, cough, wheezing, and pleuritic chest pain, Abdomen/GI: Negative for abdominal pain, nausea, vomiting, diarrhea, and constipation, MS/Extremity: Negative for injury and deformity, Skin: + redness and drainage to LLE Neuro: Negative for headache, weakness, numbness, tingling, and seizure. Exam: 09:51 Constitutional: This is a well developed, well nourished patient who is awake, alert, rn and in no acute distress. Cardiovascular: Regular rate and rhythm. No pulse deficits. Skin: Warm, dry, LLE with distal previously sutured wound with minimal purulent and bloody drainage. Palpated all around wond without any further drainage. No fluctuance. No wound dehiscence. No streaking. No significant erythema or warmth surrounding wound. MS/ Extremity: Pulses equal, no cyanosis. Neurovascular intact. Full, normal range of motion. Neuro: Awake and alert, GCS 15 Vital Signs: 09:45 BP 145 / 67; Pulse 66; Resp 20; Temp 97.2; Pulse Ox 98% ; Weight 65.77 kg; Height 5 ft. kb3 2 in. (157.48 cm); Pain 2/10; 09:45 Body Mass Index 26.52 (65.77 kg, 157.48 cm) kb3 MDM: 09:22 Patient medically screened. rn 09:51 Differential diagnosis: cellulitis. Data reviewed: vital signs, nurses notes, old rn medical records, and as a result, I will discharge patient. Counseling: I had a detailed discussion with the patient and/or guardian regarding: the historical points, exam findings, and any diagnostic results supporting the discharge/admit diagnosis, the need for outpatient follow up, to return to the emergency department if symptoms worsen or persist or if there are any questions or concerns that arise at home. Special discussion: I discussed with the patient/guardian in detail that at this point there is no indication for admission to the hospital. It is understood, however, that if the symptoms persist or worsen the patient needs to return immediately for re-evaluation. Based on the history and exam findings, there is no indication for further emergent testing or inpatient evaluation. I discussed with the patient/guardian the need to see the primary care provider for further evaluation of the symptoms. Administered Medications: No medications were administered Disposition Summary: 05/17/22 09:58 Discharge Ordered Location: Home rn Problem: new rn Symptoms: are unchanged rn Condition: Stable rn Diagnosis - Cellulitis of left lower limb rn Followup: rn - With: Wilian Golden DO - When: 5 - 6 days - Reason: Recheck today's complaints, Re-evaluation by your physician Discharge Instructions: - Discharge Summary Sheet rn - Cellulitis, Adult rn Forms: - Medication Reconciliation Form rn - Thank You Letter rn - Antibiotic business intern - Prescription Opioid Use rn Prescriptions: - Cephalexin 500 mg Oral Capsule - take 1 capsule by ORAL route every 12 hours for 10 days; 20 capsule; Refills: rn 0, Product Selection Permitted - Bactrim DS 800-160 mg Oral Tablet - take 1 tablet by ORAL route every 12 hours for 10 days; 20 tablet; Refills: 0, rn Product Selection Permitted Signatures: Emir Bates MD MD rn Bradberry, Kelly, RN RN kb3 Corrections: (The following items were deleted from the chart) 09:56 09:51 Constitutional: This is a well developed, well nourished patient who is awake, rn alert, and in no acute distress. Cardiovascular: Regular rate and rhythm. No pulse deficits. Skin: Warm, dry, LLE with distal previously sutured wound with minimal purulent and bloody drainage. Palpated all around wond without any further drainage. No fluctuance. No wound dehiscence. No streaking. No significant erythema or warmth surrounding wound. MS/ Extremity: Pulses equal, no cyanosis. Neurovascular intact. Full, normal range of motion. Equal circumference. Neuro: Awake and alert, GCS 15 rn
--- NOTE | 2022-05-17 09:59 | ER ---
Nurse's Notes [facility] Name: Theresa Mancera Age: 82 yrs Sex: Female : 1940 Arrival Date: 05/17/2022 Time: 09:19 Bed 7 Private MD: Wilian Golden Diagnosis: Cellulitis of left lower limb Presentation: 05/17 09:45 Chief complaint: Patient states: Wound to left lower extremity 2 months ago that was kb3 sutured in this ER, sutures removed at PCP 1 month ago. Wound began draining clear, blood-tinged fluid 1 week ago. PT reports occasional pain and swelling to area of wound. Coronavirus screen: Vaccine status: Patient reports receiving the 2nd dose of the covid vaccine. Client indicates they have traveled out of the [place] in the last 14 days. Client traveled to: [place] At this time, the client does not indicate any symptoms associated with coronavirus-19. Ebola Screen: Patient negative for fever greater than or equal to 101.5 degrees Fahrenheit, and additional compatible Ebola Virus Disease symptoms Patient denies exposure to infectious person. No symptoms or risks identified at this time. Initial Sepsis Screen: Does the patient meet any 2 criteria? No. Patient's initial sepsis screen is negative. Does the patient have a suspected source of infection? No. Patient's initial sepsis screen is negative. Risk Assessment: Do you want to hurt yourself or someone else? Patient reports no desire to harm self or others. Onset of symptoms was May 10, 2022. 09:45 Method Of Arrival: Ambulatory [facility] 09:45 Acuity: RADHA 3 kb3 Triage Assessment: 09:47 General: Appears in no apparent distress. uncomfortable, Behavior is calm, cooperative, bp appropriate for age. Pain: Complains of pain in lateral aspect of left calf. EENT: No deficits noted. Neuro: No deficits noted. Cardiovascular: No deficits noted. Respiratory: No deficits noted. GI: No signs and/or symptoms were reported involving the gastrointestinal system. : No signs and/or symptoms were reported regarding the genitourinary system. Derm: Wound noted lateral aspect of left calf. Musculoskeletal: No signs and/or symptoms reported regarding the musculoskeletal system. Historical: - Allergies: 09:48 No Known Allergies; kb3 - Home Meds: 09:48 Advil 200 mg Oral tab 1 tab daily [Active]; donepezil 5 mg Oral tab 1 tab once daily kb3 [Active]; estradiol 0.5 mg Oral tab [Active]; euthyrox 75 mcg 50mcg 1 tab daily [Active]; furosemide 40 mg Oral tab 1 tab as needed [Active]; hydroxychloroquine 200 mg Oral tab 1 tab once daily [Active]; leflunomide 20 mg Oral tab 1 tab once daily [Active]; lorazepam 0.5 mg Oral tab 1 tab daily [Active]; MD-3 daily [Active]; memantine 10 mg Oral tab 2 tab daily for Moderate to Severe Alzheimer's Type Dementia [Active]; Multiple Vitamins Oral [Active]; Omeprazole Oral [Active]; prednisone 5 mg Oral tab 1 tab once daily [Active]; Probiotic Oral [Active]; Vitamin C 1,000 mg Oral tab twice a day [Active]; - PMHx: 09:48 Hypertension; Hypothyroidism; Lupus; Dementia; kb3 - PSHx: 09:48 Cholecystectomy; hysterectomy; kb3 - Immunization history:: Adult Immunizations up to date, Client reports receiving the 2nd dose of the Covid vaccine, Last tetanus immunization: up to date. - Social history:: Smoking status: Patient denies any tobacco usage or history of. - Family history:: not pertinent. - Hospitalizations: : No recent hospitalization is reported. Screenin:49 Abuse screen: Denies threats or abuse. Denies injuries from another. Nutritional bp screening: No deficits noted. Tuberculosis screening: No symptoms or risk factors identified. Fall Risk None identified. Assessment: 09:50 General: SEE TRIAGE NOTE. bp Vital Signs: 09:45 BP 145 / 67; Pulse 66; Resp 20; Temp 97.2; Pulse Ox 98% ; Weight 65.77 kg; Height 5 ft. kb3 2 in. (157.48 cm); Pain 2/10; 09:45 Body Mass Index 26.52 (65.77 kg, 157.48 cm) kb3 ED Course: 09:19 Patient arrived in ED. rg4 09:19 Wilian Golden DO is Private Physician. rg4 09:22 Emir Bates MD is Attending Physician. rn 09:47 Davon Lozada RN is Primary Nurse. bp 09:48 Triage completed. kb3 09:48 Arm band placed on. bp 09:49 Patient has correct armband on for positive identification. Bed in low position. Call bp light in reach. Side rails up X2. Adult w/ patient. 09:54 No provider procedures requiring assistance completed. Patient did not have IV access bp during this emergency room visit. Wound care: to ABSCESS located on lateral aspect of left calf was dressed with 4X4s, Patient tolerated well. 09:58 Wilian Golden DO is Referral Physician. rn Administered Medications: No medications were administered Medication: 10: VIS not applicable for this client. vg1 Outcome: :58 Discharge ordered by . rn 10:07 Discharged to home ambulatory, with family. vg1 10:07 Condition: good 10:07 Discharge instructions given to patient, Instructed on discharge instructions, follow up and referral plans. medication usage, wound care, Demonstrated understanding of instructions, follow-up care, medications, wound care, Prescriptions given X 2. 10:07 Patient left the ED. vg1 Signatures: Emir Bates MD MD rn Garcia, Rubi rg4 Davon Lozada RN RN Ginger Ramirez RN RN vg1 Una Godfrey, RN RN kb3
[2022-05-17 10:13] VITALS: BP 145/67; TEMP 97.2; O2SAT 98
== END 2022-05-17 10:07 | disposition home or self-care (01) ==
LOC: ER 09:18
DX: L03.116 Cellulitis of left lower limb (principal)
CPT/HCPCS: 99283

== ENCOUNTER 2022-07-22 10:25 | Emergency (ER) | payer OTHER ==
--- OUTSIDE RECORDS SUMMARY | 2022-07-22 10:36 | XMS REPORT | Continuity of Care Document ---
:1940 Author Organization [facility] t Address [address] [place] [address] Care Team Providers Name Role Phone Christian Zuleta Cherry Primary Care Physician LOTUS HANSEN Attending Clinician Unavailable Wilian Golden Attending Clinician Unavailable Pob, [facility] Lab Main Attending Clinician Unavailable CHRISTEL DOUGLAS Attending Clinician Unavailable Only, Ang Db Test Attending Clinician Unavailable Unknown, Attending Attending Clinician Unavailable Mary Nathan RN Attending Clinician Unavailable VA MARKHAM Attending Clinician Unavailable Only, Adc Pob2 Test Attending Clinician Unavailable Salena Attending Clinician Unavailable Alondra Beal Attending Clinician [phone] Maye Bonds RN Attending Clinician Unavailable Only, Adc Test Attending Clinician Unavailable Alondra Wilks MD Attending Clinician ALONDRA WILKS Attending Clinician Unavailable Anjum Hanson DO Attending Clinician [phone] Ashok Marks Attending Clinician Unavailable Sabrina Kinsey MD Attending Clinician Alondra Benz MD Attending Clinician NATE BEAL Attending Clinician Unavailable LOVE JHAVERI Attending Clinician Unavailable CONRAD CASTAÑEDA Attending Clinician Unavailable MARIVEL CANDELARIA Attending Clinician Unavailable LOTUS HANSEN Admitting Clinician Unavailable Salena Admitting Clinician Unavailable Physician, No Primary or Family Admitting Clinician Unavaila ble Payers Payer Name Policy Type Policy Number Effective Date Expiration Date S sindi [employer]/AARP [id number] 2021 MCARE ADV CHOICE 00:00:00 PPO AARP [facility] [id number] 2022 Common ADVANTAGE 00:00:00 [facility] GROUP - [id number] [facility] (MEDICARE REPLACEMENT/ADVA NTAGE - PPO) MEDICARE B-[place]: [id number] 1989 NOVITAS 00:00:00 SOLUTIONS [facility] [id number] OPTIONS (MEDICARE SUPPLEMENT) [employer] C1 [id number] 2006 Common CSD 00:00:00 [facility] MEDICARE NOVITAS MB [id number] Common [facility] MEDICARE PART A [id number] \T\ B - MEDICARE GENERIC PPO - [id number] GENERIC PAYOR [facility] GENERIC PLAN [id number] - [facility] Problems Condition Condition Condition Status Onset Resolution Last Treating Co mments Source Name Details Category Date Date Treatment Clinician Date Amnesia Amnesia Disease Active Univers 1-25 ity of 00:00: [place] [facility] Anxiety Anxiety Disease Active Univers 1-25 ity of 00:00: [place] [facility] 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 00:[place] , , 00 Medical continuous continuous Br anch Irritable Irritable Disease Active Uni vers bowel bowel 1-25 ity of syndrome syndrome 00:00: [place] [id number] Medical Branch Dementia Dementia Disease Active Unive rs without without 1-25 ity of behavioral behavioral 00:00: [place] disturbanc disturbanc 00 Me dical e e Branch watermaster skilled nursing Disease Active Uni vers current current 1-25 ity of use of use of 00:00: [place] systemic systemic 00 Medica l steroids steroids Branch 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 [id number] Postmenopa Problem Co mmon usal Spirit symptoms - [facility] [id number] Panic Problem Common disorder Spirit [episodic - [facility] paroxysmal [facility] anxiety] [facility] [id number] History of Problem Co mmon gallstones Spirit - [facility] [id number] Constipati Problem Com mon on, Spirit unspecifie - [facility] d constipati [facility] on [facility] [id number] Generalize Problem Com mon d anxiety [facility] disorder [facility] [id number] GERD Problem Common without Spirit esophagiti - [facility] s [facility] [id number] Swelling Problem Comm on of lower [facility] extremity [facility] [id number] Mild Problem Common cognitive Spirit impairment - [facility] with [facility] [id number] Advanced Problem Com [place] [id number] dementia [facility] [id number] Thyroid Problem Common disease [facility] [id number] Vitamin D Problem Comm on deficiency [facility] [id number] Swelling Problem Commo n [facility] [id number] Memory Problem Common change [facility] [id number] Piriformis Problem C ommon 77032 syndrome [facility] of right - [facility] side [facility] [id number] Piriformis Problem C ommon 511[address] syndrome [facility] of left - [facility] side [facility] Allergies, Adverse Reactions, Alerts Allergy Allergy Status Severity Reaction(s) Onset Inactive Treating Comm ents Source Name Type Date Date Clinician No Known DA Active U [facility] Allergie 4-14 [place] 00:00: d 00 [facility] No Known DA Active U [facility] Allergie 4-14 [place] 00:[facility]: d 00 [facility] NO KNOWN Drug Active Univers ALLERGIE Class ity of S [place] [facility] [place] Family History Family Member Diagnosis Comments Start Date Stop Date Source Natural brother [facility] Natural brother Heart disease [facility] father Diabetes [facility] Natural father Heart disease [facility] Paternal grandmother Heart disease [facility] Social History Social Habit Start Date Stop Date Quantity Comments Source History of Common Spirit - Tobacco Use [facility] Exposure to 2021-11-27 2021-12-07 Not sure University of SARS-CoV-2 00:00:00 14:53:00 [facility] [place] Tobacco use and 2020-03-14 2020-03-14 Never used [facility] llege of exposure 00:00:00 00:00:00 Medicine Alcohol intake 2019-09-09 2019-09-09 [facility] 00:00:00 00:00:00 non-drinker of alcohol (finding) Sex Ass[birth year] [facility] 00:00:00 00:00:00 Smoking Status Start Date Stop Date Source Tobacco smoking consumption Univ ersity of [place] [facility] unknown Branch Never Smoker Common Spirit - [facility] Medications Ordered Filled Start Stop Current Ordering Indication Dosage Frequency Signature Comments Components Source Medication Medication Date Date Medication? Clinician (SIG) Name Name omeprazole Yes 1{capsu Take 1 Un gil[place] 20 mg 1-25 le} capsule by ity of capsule 13:56: mouth in [place] [address] the Medical morning. Branch multivit, Yes 1{tbl} Take 1 Un gilmar x,calcium,i 1-25 tablet by ity of allyson nice 13:56: mouth [place] (MULTIVITAM 33 daily. Medica l IN AND Branch MINERAL ORAL) calcium Yes 1999[iU Take 2,000 U nivers carbonate/v 1-25 ] Int'l ity of itamin D3 13:56: Units by [place] s (VITAMIN 33 mouth Medical D-3 ORAL) daily. Branch vitamin C Yes 1{tbl} Take 1 Univ ers with migue 1-25 tablet by ity o f hips 1,000 13:56: mouth in [facility] as mg tablet 33 the Medical morning Branch and 1 tablet in the evening. furosemide Yes 40mg Take 40 mg U nivers 40 mg 1-25 by mouth ity of tablet 13:56: as needed. [place] [address] Medical Branch donepeziL 5 Yes 1{tbl} Take 1 Un gilmar mg tablet 1-25 tablet by ity o f 13:56: mouth at [place] [address] bedtime. Medical Branch predniSONE Yes 1{tbl} Take 1 Uni vers 5 mg tablet 1-25 tablet by ity of 13:56: mouth in [place] [address] the Medical morning. Branch omeprazole Yes 1{capsu Take 1 Un gilmar 20 mg 1-25 le} capsule by ity of capsule 13:56: mouth in [place] [address] the Medical morning. Branch multivit, Yes 1{tbl} Take 1 Un gilmar x,calcium,i 1-25 tablet by ity of allyson nice 13:56: mouth [place] (MULTIVITAM 33 daily. Medica l IN AND Branch MINERAL ORAL) calcium Yes 1999[iU Take 2,000 U nivers carbonate/v 1-25 ] Int'l ity of itamin D3 13:56: Units by [place] (VITAMIN 33 mouth Medical D-3 ORAL) daily. Branch vitamin C Yes 1{tbl} Take 1 Univ ers with migue 1-25 tablet by ity o f hips 1,000 13:56: mouth in [place] as mg tablet 33 the Medical morning Branch and 1 tablet in the evening. furosemide Yes 40mg Take 40 mg U nivers 40 mg 1-25 by mouth ity of tablet 13:56: as needed. [place] [address] Medical Branch donepeziL 5 Yes 1{tbl} Take 1 Un gilmar mg tablet 1-25 tablet by ity o f 13:56: mouth at [place] [address] bedtime. Medical Branch predniSONE Yes 1{tbl} Take 1 Uni vers 5 mg tablet 1-25 tablet by ity of 13:56: mouth in [place] [address] the Medical morning. Branch Nitrofurant 2022- Yes [id number] 100mg Take 1 Univers oin&Nit. 1-25 02-01 capsule by ity of Macrocryst 00:00: 05:59 [place] (MACROBID) 00 :00 bedtime Medica l 100 mg for 6 Branch capsule doses. 3 days prior to procedure and 3 days after Nitrofurant 2022- Yes [id number] 100mg Take 1 Univers oin&Nit. 1-25 02- capsule by ity of Macrocryst 00:00: 05:59 mouth [place] (MACROBID) 00 :00 bedtime Medica l 100 mg for 6 Branch capsule doses. 3 days prior to procedure and 3 days after hydrOXYchlo Yes 1{tbl} Take 1 Un gil[place] roQUINE 200 1-24 tablet by ity of mg tablet 00:00: [place] the Medical morning. Branch hydrOXYchlo Yes 1{tbl} Take 1 Un gil[place] roQUINE 200 1-24 tablet by ity of mg tablet 00:00: [place] 00 the Medical morning. Branch LORazepam LORazepam 2021-06 No 1{table QD LORazepam 0.5 MG 0.5 MG 2-19 t_as_ne 0.5 MG 00:00: eded} 00 tolterodine 2021-06 Yes 2mg Take 2 mg U nivers LA 2 mg 24 2-05 by mouth ity o f hr capsule 00:00: in the [place] morning. Medical Branch tolterodine 2021-06 Yes 2mg Take 2 mg U nivers LA 2 mg 24 2-05 by mouth ity o f hr capsule 00:00: in the [place] morning. Medical Branch memantine 2021-06 Yes 10mg Take 10 mg Un gilmar 10 mg 1-25 by mouth ity of tablet 00:00: in the [place] morning Medical and 10 mg Branch in the evening. memantine 2021-06 Yes 10mg Take 10 mg Un gilmar 10 mg 1-25 by mouth ity of tablet 00:00: in the [place] morning Medical and 10 mg Branch in the evening. LORazepam LORazepam No 1{table QD LORazepam 0.5 MG 0.5 MG 9-14 t_as_ne 0.5 MG 00:00: eded} 00 LORazepam LORazepam No 1{table QD LORazepam 0.5 MG 0.5 MG 9-14 t_as_ne 0.5 MG 00:00: eded} 00 LORazepam LORazepam No 1{table QD LORazepam 0.5 MG 0.5 MG 9-06 t_as_ne 0.5 MG 00:00: eded} 00 LORazepam LORazepam No 1{table QD LORazepam 0.5 MG 0.5 MG 6-02 t_as_ne 0.5 MG 00:00: eded} 00 LORazepam LORazepam No 1{table QD LORazepam 0.5 MG 0.5 MG 6-02 t_as_ne 0.5 MG 00:00: eded} 00 amLODIPine amLODIPine No 1{table QD amLODIPine Besylate 5 Besylate 5 4-26 t} Besylate 5 MG MG 00:00: MG 00 amLODIPine amLODIPine No 1{table QD amLODIPine Besylate [...] 0.5 MG 00:00: eded} 00 LORazepam LORazepam 0 No 1{table QD LORazepam 0.5 MG 0.5 MG 3-02 t_as_ne 0.5 MG 00:00: eded} 00 LORazepam LORazepam 0 No 1{table QD LORazepam 0.5 MG 0.5 MG 3-02 t_as_ne 0.5 MG 00:00: eded} 00 LORazepam LORazepam 0 No 1{table QD LORazepam 0.5 MG 0.5 MG 3-02 t_as_ne 0.5 MG 00:00: eded} 00 Medrol 4 MG Medrol 4 MG 2021-0 2021- No Medrol 4 06-2213 MG 00:00: 00:00 00 :00 Azithromyci Azithromyci 2021-0 2021- No QD Azithromyc n 250 MG n 250 MG 06-22 in 250 MG 00:00: 00:00 00 :00 LORazepam LORazepam 2020-06 No 1{table QD LORazepam 0.5 MG 0.5 MG -29 t_as_ne 0.5 MG 00:00: eded} 00 LORazepam LORazepam 2020-06 No 1{table QD LORazepam 0.5 MG 0.5 MG -29 t_as_ne 0.5 MG 00:00: eded} 00 LORazepam LORazepam 2020-06 No 1{table QD LORazepam 0.5 MG 0.5 MG -29 t_as_ne 0.5 MG 00:00: eded} 00 LORazepam LORazepam 2020-06 No 1{table QD LORazepam [...] MG 1-23 t_as_ne 0.5 MG 00:00: eded} acetaminoph 2019-06 Yes [id number] 1{tbl} Take 1 Tab [facility] en-codeine 0-12 by mouth Colle ge (TYLENOL/CO 00:00: every 4 of DEINE #3) 00 hours as Medici n 300-30 MG needed for e per tablet Pain. mupirocin 2019-06 Yes Apply to [place] (BACTROBAN) 0-12 wound College 2 % 00:00: twice a of ointment 00 day Medicin e acetaminoph 2019-06 Yes [id number] 1{tbl} Take 1 Tab [place] en-codeine 0-12 by mouth Colle ge (TYLENOL/CO 00:00: every 4 of DEINE #3) 00 hours as Medici n 300-30 MG needed for e per tablet Pain. mupirocin 2020-1 Yes Apply to [place] (BACTROBAN) 0-12 wound [place] 2 % 00:00: twice a of ointment 00 day Medicin e levothyroxi 2020-0 Yes Synthroid [place] ne - 88 mcg [place] (SYNTHROID) 15:04: tablet of 88 MCG 47 [...] Synthroid [place] ne 03-14 88 mcg [place] (SYNTHROID) 15:04: tablet of 88 MCG 47 [...] Synthroid [place] ne 03-14 88 mcg [place] (SYNTHROID) 10:04: tablet of 88 MCG 47 Medicin tablet e Cholecalcif 2020-0 Yes 2000U Take 2,000 [facility] luis (D2000 9-29 Units by [place] ege ULTRA 10:04: mouth. of STRENGTH) 47 Medicin 50 MCG e (1999 UT) CAPS omeprazole 2020-0 Yes 20mg Take 20 mg [facility] [place] (PRILOSEC) 9- by mouth. Piter ege 20 MG 10:04: of capsule 47 Medicin e hydroxychlo 2020-0 Yes TAKE 1 [place] roquine 9-17 TABLET BY [place] (PLAQUINIL) 00:00: MOUTH of 200 MG 00 TWICE Medicin tablet DAILY e hydroxychlo 2020-0 Yes TAKE 1 [place] roquine 9-17 TABLET BY [place] (PLAQUINIL) 00:00: MOUTH of 200 MG 00 TWICE Medicin tablet DAILY e hydroxychlo 2020-0 Yes TAKE 1 [place] [facility] roquine 9-17 TABLET BY [place] (PLAQUINKY) 00:00: MOUTH of 200 MG 00 TWICE Medicin tablet DAILY e Hydroxychlo Hydroxychlo 2019-0 2020- No Wilian 1 tablet Common roquine roquine -17 04-01 [place] [facility] Sulfate Sulfate 00:00: 00:00 - [facility] 00 :00 [facility] lorazepam 2019-0 Yes TAKE 1 [place] (ATIVAN) 9-11 TABLET BY Colleg e 0.5 MG 00:00: MOUTH of tablet 00 TWICE Medicin DAILY e NEEDED FOR SEVERE ANXIETY lorazepam 2019-0 Yes TAKE 1 [facility] (ATIVAN) 9-11 TABLET BY Colleg e 0.5 MG 00:00: MOUTH of tablet 00 TWICE Medicin DAILY e NEEDED FOR SEVERE ANXIETY lorazepam 2019-0 Yes TAKE 1 [facility] (ATIVAN) 9-11 TABLET BY Colleg e 0.5 [...] 00 THREE Medicin TIMES e DAILY estradiol 2019-0 Yes TAKE 1 [place] (ESTRACE) 1 8-14 TABLET BY Col lege MG tablet 00:00: MOUTH ONCE of 00 DAILY Medicin e estradiol 2020-0 Yes TAKE 1 [place] (ESTRACE) 1 8-14 TABLET BY Col lege MG tablet 00:00: MOUTH ONCE of 00 DAILY Medicin e estradiol 2020-0 Yes TAKE 1 [facility] (ESTRACE) 1 8-14 TABLET BY Col lege MG tablet 00:00: MOUTH ONCE of 00 DAILY Medicin e cyanocobala 2020-0 Yes Inject as M ethodi min, 3-26 directed. vitamin 08:49: Hospita B-12, (B-12 18 l KIT INJ) cyanocobala 2020-0 Yes Inject as M ethodi min, 3-26 directed. vitamin 08:49: Hospita B-12, (B-12 18 l KIT INJ) cyanocobala 2020-0 Yes Inject as M ethodi min, 3-26 directed. vitamin 08:49: Hospita B-12, (B-12 18 l KIT INJ) cyanocobala 2020-0 Yes Inject as M ethodi min, 3-26 directed. vitamin 08:49: Hospita B-12, (B-12 18 l KIT INJ) cyanocobala 2020-0 Yes Inject as M ethodi min, 3-26 directed. vitamin 08:49: Hospita B-12, (B-12 18 l KIT INJ) predniSONE 2020-0 Yes 15mg QD Take 15 mg M ethodi (DELTASONE) 3-[address] 5 mg tablet 08:48: daily. Hosp td 28 l hydroxychlo 2020-0 Yes Q.5D Take by Met marvini roquine 3-[address] (PLAQUENIL) 08:48: [...] 2020-0 Yes 2000U QD Take 2,000 Methodi ulis, 3-[address] vitamin D3, 08:48: [...] 650 M ethodi en 3-26 mg by (TYLENOL) 08:48: mouth Hospita 325 MG 28 [...] 1,000 M ethodi acid, 3-26 mg by vitamin C, 08:48: mouth Hospit a (VITAMIN C) 28 daily. l 500 MG tablet multivitami 2020-0 Yes 1{tbl} QD Take 1 Me thodi n 3-26 tablet by (THERAGRAN) 08:48: mouth Hospi ta tablet 28 daily. l omeprazole 2020-0 Yes 20mg QD Take 20 mg M ethodi (PriLOSEC) 3-[address] 20 MG 08:48: daily. Hospita capsule 28 l LORAZepam 2018-0 Yes Methodi (ATIVAN) 1 2-14 st MG tablet 00:00: Hospita 00 l LORAZepam 2018-0 Yes Methodi (ATIVAN) 1 2-14 st MG tablet 00:00: Hospita 00 l LORAZepam 2018-0 Yes Methodi (ATIVAN) 1 2-14 st MG tablet 00:00: Hospita 00 l LORAZepam 2018-0 Yes Methodi (ATIVAN) 1 2-14 st MG tablet 00:00: Hospita 00 l LORAZepam 2018-0 Yes Methodi (ATIVAN) 1 2-14 st MG tablet 00:00: Hospita 00 l No known 2015-06 No Univers medications - ity of 00:00: [address] No known 2015-06 No Univers medications - ity of 00:00: [address] No known 2015-06 No Univers medications - ity of 00:00: [address] No known 2015-06 No Univers medications 07-14 ity of 00:00: [address] No known 2015-06 No No known Unive rs medications 07-14 medication it y of 00:00: s [address] donepezil 5 donepezil 5 No donepezil [place] mg tablet mg tablet 5 mg [facility] TAKE 1 TAKE 1 tablet Urology TABLET BY TABLET BY TAKE 1 MOUTH ONCE MOUTH ONCE TABLET BY DAILY DAILY MOUTH ONCE DAILY estradiol estradiol No estradiol [place] 0.5 mg 0.5 mg 0.5 mg [place] tablet TAKE tablet TAKE tablet Urology 1 TABLET BY 1 TABLET BY TAKE 1 MOUTH ONCE MOUTH ONCE TABLET BY DAILY FOR DAILY FOR MOUTH ONCE 90 DAYS 90 DAYS DAILY FOR 90 DAYS Euthyrox 50 Euthyrox 50 No Euthyrox [place] mcg tablet mcg tablet 50 mcg M etro TAKE 1 TAKE 1 tablet Urology TABLET BY TABLET BY TAKE 1 MOUTH ONCE MOUTH ONCE TABLET BY DAILY IN DAILY IN MOUTH ONCE THE MORNING THE MORNING DAILY IN ON AN EMPTY ON AN EMPTY THE STOMACH STOMACH MORNING ON AN EMPTY STOMACH furosemide furosemide No furosemide [place] 40 mg 40 mg 40 mg [place] tablet TAKE tablet TAKE tablet Urology 1 TABLET BY 1 TABLET BY TAKE 1 MOUTH ONCE MOUTH ONCE TABLET BY DAILY DAILY MOUTH ONCE DAILY hydroxychlo hydroxychlo No hydroxychl [place] roquine 200 roquine 200 oroquine [place] mg [...] DAILY DAILY DAILY lorazepam lorazepam No lorazepam [place] 0.5 mg 0.5 mg 0.5 mg [place] tablet TAKE tablet TAKE tablet Urology 1 TABLET BY 1 TABLET BY TAKE 1 MOUTH ONCE MOUTH ONCE TABLET BY DAILY DAILY MOUTH ONCE NEEDED NEEDED DAILY NEEDED memantine 5 memantine 5 No memantine [place] mg tablet mg tablet 5 mg [facility] tablet Urology multivitami multivitami No multivitam [place] n n in [facility] Urology nitroglycer nitroglycer No nitroglyce [place] in 0.4 mg in 0.4 mg rin 0.4 mg [place] sublingual sublingual sublingual Urology tablet PRN. tablet PRN. tablet Has never Has never PRN. Has taken it taken it never taken it prednisone prednisone No prednisone [place] 5 mg tablet 5 mg tablet 5 mg M etro TAKE 1 TAKE 1 tablet Urology TABLET BY TABLET BY TAKE 1 MOUTH ONCE MOUTH ONCE TABLET BY DAILY DAILY MOUTH ONCE DAILY Stool Stool No Stool [place] Softener Softener Softener [facility] Urology Vitamin B6 Vitamin B6 No Vitamin B6 [facility] Urology Vitamin D3 Vitamin D3 No Vitamin D3 [facility] Urology Lorazepam Lorazepam Yes [place] 1 tablet Common [place] as needed [facility] VESIcare VESIcare Yes [place] 1 tablet C ommon Golden [facility] Stool Stool Yes [place] 1 capsule Common Softener Softener [place] as needed S pirit [facility] PredniSONE PredniSONE Yes [place] 1 tablet Common Golden [facility] Estradiol Estradiol Yes [place] 1 tablet Common Golden [facility] Vitamin D3 Vitamin D3 Yes Wilian 1 tablet Common Golden [facility] Vitamin C Vitamin C Yes Wilian 1 tablet Common Golden [facility] Multi Multi Yes [place]ian 1 tablet Common Vitamin Vitamin Golden [facility] Levothyroxi Levothyroxi Yes [place] TAKE 1 Common ne Sodium ne Sodium [place] TABLET BY Spirit MOUTH ONCE - [facility] DAILY IN THE [facility] MORNING ON Medical AN EMPTY Center STOMACH FOR 90 DAYS MiraLax MiraLax Yes [place] not Common Golden defined [facility] Synthroid Synthroid Yes [place] 1 tablet Common [place] in the Spirit morning on - [facility] an empty [facility] Tylenol Tylenol Yes [place] not Common Arthritis Arthritis [place] defined S pirit Pain Pain [facility] Omeprazole Omeprazole Yes Wilian 1 capsule Common Golden 30 minutes Spirit before - [facility] morning [facility] Stool Stool No 1{capsu TID Stool Softener [...] 10 MG Synthroid Synthroid No QD Synthroid 50 MCG [...] MG 20 MG t} e 20 MG MiraLax MiraLax No MiraLax Cephalexin Cephalexin [...] MCG t} 50 MCG (1999) (1999) (1999) VESIcare 10 VESIcare 10 No 1{table [...] MCG t} 50 MCG (1999) (1999) (1999) Euthyrox 50 Euthyrox 50 No Euthyrox [...] 100 MG 100 MG eeded} 100 MG Mupirocin Mupirocin No Mupirocin Omeprazole Omeprazole No [...] MCG t} 50 MCG (1999) (1999) (1999) Synthroid Synthroid No QD Synthroid [...] MCG t} 50 MCG (1999) (1999) (1999) Synthroid Synthroid No QD Synthroid 25 MCG 25 MCG 25 MCG Tylenol Tylenol No Tylenol Arthritis Arthritis Arthritis Pain Pain Pain Cephalexin Cephalexin No Cephalexin Leflunomide Leflunomide No 1{table QD Leflunomid 20 MG 20 MG t} e 20 MG Vitamin D3 Vitamin D3 No 1{table QD Vitamin D3 50 MCG 50 MCG t} 50 MCG (1999) (1999) (1999) Hydroxychlo Hydroxychlo No 1{table QD Hydroxychl roquine [...] MCG t} 50 MCG (1999) (1999) (1999) Potassium Potassium No 1{table QD Potassium [...] t} 50 MCG (1999) (1999 UT) (1999) Memantine Memantine No BID [...] MCG t} 50 MCG (1999) (1999) (1999) Stool Stool No 1{capsu TID Stool [...] 50 MCG (1999 UT) (1999 UT) (1999) Tylenol Tylenol No Tylenol Arthritis Arthritis [...] t} 50 MCG (1999 UT) (1999) (1999) predniSONE predniSONE No 1{table BID [...] MG 20 MG t} e 20 MG Furosemide Furosemide No 1{table QD Furosemide [...] 5 MG 5 MG t} 5 MG Synthroid Synthroid No QD Synthroid 25 MCG 25 MCG 25 MCG LORazepam LORazepam No 1{table QD LORazepam 0.5 MG 0.5 MG t_as_ne 0.5 MG eded} Donepezil Donepezil No 1{table QD Donepezil HCl 5 MG HCl 5 MG t_at_be HCl 5 MG dtime} Estradiol 1 Estradiol 1 No 1{table QD Estradiol MG MG t} 1 MG Vitamin C Vitamin C No 1{table BID Vitamin C 1000 MG 1000 MG t} 1000 MG amLODIPine amLODIPine No amLODIPine Besylate 5 Besylate 5 Besylate 5 MG MG MG VESIcare 10 VESIcare 10 No 1{table QD VESIcare MG MG t} 10 MG Stool Stool No 1{capsu TID [...] 5 t} Besylate 5 MG MG MG Hydroxychlo Hydroxychlo No Hydroxychl roquine roquine oroquine Sulfate 200 Sulfate 200 Sulfate MG MG 200 MG Omeprazole Omeprazole No QD Omeprazole 20 MG 20 MG 20 MG Leflunomide Leflunomide No 1{table QD Leflunomid 20 MG 20 MG t} e 20 MG Multi Multi No 1{table QD Multi Vitamin - Vitamin - t} Vitamin - Memantine Memantine No BID Memantine HCl 10 MG HCl 10 MG HCl 10 MG Vitamin C Vitamin C No 1{table BID Vitamin C 1000 MG 1000 MG t} 1000 MG Tylenol Tylenol No Tylenol Arthritis Arthritis Arthritis Pain Pain Pain Stool Stool No 1{capsu TID Stool Softener Softener le_as_n Softener 100 MG 100 MG eeded} 100 MG Furosemide Furosemide No 1{table QD Furosemide 40 MG 40 MG t} 40 MG Hydroxychlo Hydroxychlo No Hydroxychl roquine roquine oroquine Sulfate 200 Sulfate 200 Sulfate MG MG 200 MG predniSONE predniSONE No 1{table BID predniSONE 5 MG 5 MG t} 5 MG amLODIPine amLODIPine No amLODIPine Besylate 5 Besylate 5 Besylate 5 MG MG MG Vitamin D3 Vitamin D3 No 1{table QD Vitamin D3 50 MCG 50 MCG t} 50 MCG (1999 UT) (1999 UT) (1999) amLODIPine amLODIPine No 1{table QD amLODIPine Besylate 5 Besylate 5 t} Besylate 5 MG MG MG Hydroxychlo Hydroxychlo No 1{table QD Hydroxychl roquine roquine t} oroquine Sulfate 200 Sulfate 200 Sulfate MG MG 200 MG Donepezil Donepezil No 1{table QD Donepezil HCl 5 MG HCl 5 MG t_at_be HCl 5 MG dtime} Euthyrox 25 Euthyrox 25 No Euthyrox MCG MCG 25 MCG VESIcare 10 VESIcare 10 No 1{table QD VESIcare MG MG t} 10 MG Estradiol 1 Estradiol 1 No 1{table QD Estradiol MG MG t} 1 MG amLODIPine amLODIPine No 1{table QD amLODIPine Besylate Besylate t} Besylate 2.5 MG 2.5 MG 2.5 MG Leflunomide Leflunomide No 1{table QD Leflunomid 20 MG 20 MG t} e 20 MG Levothyroxi Levothyroxi No Levothyrox ne Sodium ne Sodium ine Sodium 25 MCG 25 MCG 25 MCG Omeprazole Omeprazole No QD Omeprazole 20 MG 20 MG 20 MG Synthroid Synthroid No QD Synthroid 25 MCG 25 MCG 25 MCG Immunizations Ordered Immunization Filled Immunization Date Status Commen ts Source Name Name FLUZONE HIGH DOSE FLUZONE HIGH DOSE 2022-02-27 [facility] OVER [facility] 15:00:00 - [facility] FLUZONE HIGH DOSE FLUZONE HIGH DOSE 2022-02-27 Completed [facility] OVER 65 OVER 65 15:00:00 - [facility] FLUZONE HIGH DOSE FLUZONE HIGH DOSE 2022-02-27 Completed [facility] OVER 65 OVER 65 15:00:00 - [facility] FLUZONE HIGH DOSE FLUZONE HIGH DOSE 2022-02-27 Completed [facility] OVER 65 OVER 65 15:00:00 - [facility] FLUZONE HIGH DOSE FLUZONE HIGH DOSE 2022-02-27 Completed [facility] OVER 65 OVER 65 15:00:00 - [facility] FLUZONE HIGH DOSE FLUZONE HIGH DOSE 2022-02-27 Completed [facility] OVER 65 OVER 65 15:00:00 - [facility] Shingrix Shingrix 2022-02-27 Completed [facility] 14:52:00 - [facility] Shingrix Shingrix 2022-02-27 Completed [facility] 14:52:00 - [facility] Shingrix Shingrix 2022-02-27 Completed [facility] 14:52:00 - [facility] Shingrix Shingrix 2022-02-27 [facility]pleted [facility] 14:52:00 - [facility] Shingrix Shingrix 2022-02-27 [facility]pleted [facility] 14:52:00 - [facility] Shingrix Shingrix 2022-02-27 [facility]pleted [facility] 14:52:00 - [facility] FluAD FluAD 2020-02-17 Completed [facility] 10:58:00 - [facility] FluAD FluAD 2020-02-17 Completed [facility] 10:58:00 - [facility] FluAD FluAD 2020-02-17 Completed [facility] 10:58:00 - [facility] FluAD FluAD 2020-02-17 Completed [facility] 10:58:00 - [facility] FluAD FluAD 2020-02-17 Completed [facility] 10:58:00 - [facility] FluAD FluAD 2020-02-17 Completed [facility] 10:58:00 - [facility] FluAD FluAD 2020-02-17 Completed [facility] 10:58:00 - [facility] FluAD FluAD 2020-02-17 Completed [facility] 10:58:00 - [facility] FluAD FluAD 2020-02-17 Completed [facility] 10:58:00 - [facility] FluAD FluAD 2020-02-17 Completed [facility] 10:58:00 - [facility] FluAD FluAD 2020-02-17 Completed [facility] 10:58:00 - [facility] FluAD FluAD 2020-02-17 Completed [facility] 10:58:00 - [facility] FluAD FluAD 2020-02-17 Completed [facility] 10:58:00 - [facility] FluAD FluAD 2020-02-17 Completed [facility] 10:58:00 - [facility] FluAD FluAD 2020-02-17 Completed [facility] 10:58:00 - [facility] FluAD FluAD 2020-02-17 Completed [facility] 10:58:00 - [facility] FluAD FluAD 2020-02-17 Completed [facility] 10:58:00 - [facility] FluAD FluAD 2020-02-17 Completed [facility] 10:58:00 - [facility] influenza, influenza, 2020-01-15 Completed [facility] injectable, injectable, 00:00:00 Urology quadrivalent quadrivalent pneumococcal pneumococcal 2014-06-16 Completed [facility] polysaccharide PPV23 polysaccharide PPV23 00:00:00 Urology Vital Signs Vital Name Observation Time Observation Value Comments Source height 2022-06-03 10:10:00 61 [in_i] [facility] weight 2022-06-03 10:10:00 153.0 [lb_av] [facility] temperature 2022-06-03 10:10:00 97.0 [degF] [facility] bmi 2022-06-03 10:10:00 28.91 kg/m2 [facility] oximetry 2022-06-03 10:10:00 91 % [facility] respiratory rate 2022-06-03 10:10:00 16 /min Comm on [facility] blood pressure 2022-06-03 10:10:00 112 mm[Hg] [facility] - systolic [facility] blood pressure 2022-06-03 10:10:00 64 mm[Hg] [facility] - diastolic [facility] height 2022-04-03 13:30:00 61 [in_i] [facility] weight 2022-04-03 13:30:00 151 [lb_av] [facility] temperature 2022-04-03 13:30:00 98.1 [degF] [facility] bmi 2022-04-03 13:30:00 28.53 kg/m2 [facility] oximetry 2022-04-03 13:30:00 96 % [facility] respiratory rate 2022-04-03 13:30:00 17 /min Comm on [facility] blood pressure 2022-04-03 13:30:00 126 mm[Hg] [facility] - systolic [facility] blood pressure 2022-04-03 13:30:00 68 mm[Hg] [facility] - diastolic [facility] height 2022-03-25 15:30:00 61 [in_i] [facility] weight 2022-03-25 15:30:00 151.1 [lb_av] [facility] temperature 2022-03-25 15:30:00 97.0 [degF] [facility] bmi 2022-03-25 15:30:00 28.55 kg/m2 [facility] oximetry 2022-03-25 15:30:00 95 % [facility] respiratory rate 2022-03-25 15:30:00 17 /min Comm on [facility] blood pressure 2022-03-25 15:30:00 123 mm[Hg] [facility] - systolic [facility] blood pressure 2022-03-25 15:30:00 65 mm[Hg] [facility] - diastolic [facility] height 2022-02-27 14:00:00 61 [in_i] [facility] weight 2022-02-27 14:00:00 143 [lb_av] [facility] temperature 2022-02-27 14:00:00 98.8 [degF] [facility] bmi 2022-02-27 14:00:00 27.02 kg/m2 [facility] oximetry 2022-02-27 14:00:00 92 % [facility] respiratory rate 2022-02-27 14:00:00 16 /min Comm on [facility] blood pressure 2022-02-27 14:00:00 116 mm[Hg] [facility] - systolic [facility] blood pressure 2022-02-27 14:00:00 58 mm[Hg] [facility] - diastolic [facility] height 2021-11-21 14:50:00 61.5 [in_i] [facility] weight 2021-11-21 14:50:00 146.5 [lb_av] [facility] temperature 2021-11-21 14:50:00 97.6 [degF] [facility] bmi 2021-11-21 14:50:00 27.23 kg/m2 [facility] oximetry 2021-11-21 14:50:00 96 % [facility] respiratory rate 2021-11-21 14:50:00 16 /min Comm on [facility] blood pressure 2021-11-21 14:50:00 122 mm[Hg] [facility] - systolic [facility] blood pressure 2021-11-21 14:50:00 61 mm[Hg] [facility] - diastolic [facility] height 2021-11-21 15:00:00 61.5 [in_i] [facility] weight 2021-11-21 15:00:00 146.5 [lb_av] [facility] temperature 2021-11-21 15:00:00 97.6 [degF] [facility] bmi 2021-11-21 15:00:00 27.23 kg/m2 [facility] oximetry 2021-11-21 15:00:00 96 % [facility] respiratory rate 2021-11-21 15:00:00 16 /min Comm on [facility] blood pressure 2021-11-21 15:00:00 122 mm[Hg] [facility] - systolic [facility] blood pressure 2021-11-21 15:00:00 61 mm[Hg] [facility] - diastolic [facility] height 2021-10-09 15:40:00 61.5 [in_i] [facility] weight 2021-10-09 15:40:00 147.8 [lb_av] [facility] temperature 2021-10-09 15:40:00 97.7 [degF] [facility] bmi 2021-10-09 15:40:00 27.47 kg/m2 [facility] oximetry 2021-10-09 15:40:00 96 % [facility] respiratory rate 2021-10-09 15:40:00 16 /min Comm on [facility] blood pressure 2021-10-09 15:40:00 137 mm[Hg] [facility] - systolic [facility] blood pressure 2021-10-09 15:40:00 65 mm[Hg] Common [facility] diastolic [facility] height 2021-08-15 10:10:00 61.5 [in_i] [facility] weight 2021-08-15 10:10:00 149.0 [lb_av] [facility] temperature 2021-08-15 10:10:00 97.4 [degF] [facility] bmi 2021-08-15 10:10:00 27.69 kg/m2 [facility] oximetry 2021-08-15 10:10:00 95 % [facility] respiratory rate 2021-08-15 10:10:00 16 /min Comm on [facility] blood pressure 2021-08-15 10:10:00 131 mm[Hg] [facility] - systolic [facility] blood pressure 2021-08-15 10:10:00 63 mm[Hg] [facility] - diastolic [facility] BP Diastolic 2021-07-02 00:00:00 66 mm[Hg] [facility] Height 2021-07-02 00:00:00 62 [in_i] [facility] BMI (Body Mass Index) 2021-07-02 00:00:00 30.5 kg/m2 [facility] BP Systolic 2021-07-02 00:00:00 128 mm[Hg] [facility] Body Weight 2021-07-02 00:00:00 167 [lb_av] [facility] 2021-05-14 15:00:00 61.5 [in_i] [facility] weight 2021-05-14 15:00:00 147.3 [lb_av] [facility] temperature 2021-05-14 15:00:00 97.7 [degF] [facility] bmi 2021-05-14 15:00:00 27.38 kg/m2 [facility] oximetry 2021-05-14 15:00:00 96 % [facility] respiratory rate 2021-05-14 15:00:00 16 /min Comm on [facility] blood pressure 2021-05-14 15:00:00 135 mm[Hg] [facility] - systolic [facility] blood pressure 2021-05-14 15:00:00 65 mm[Hg] [facility] - diastolic [facility] Body height 2020-12-26 15:36:00 157.5 cm [facility] Body weight 2020-12-26 15:36:00 67.132 kg [facility] BMI 2020-12-26 15:36:00 27.07 kg/m2 [facility] Systolic blood 2020-12-26 15:36:00 132 mm[Hg] [facility] Medicine Diastolic blood 2020-12-26 15:36:00 63 mm[Hg] [facility] pressure Medicine Heart rate 2020-12-26 15:36:00 78 /min [facility] Body temperature 2020-12-26 15:36:00 36.17 Helene [facility] Body height 2020-09-11 17:02:00 157.5 cm [facility] Body weight 2020-09-11 17:02:00 68.947 kg [facility] BMI 2020-09-11 17:02:00 27.80 kg/m2 [facility] Body height 2020-09-11 17:02:00 157.5 cm [facility] Body weight 2020-09-11 17:02:00 68.947 kg [facility] BMI 2020-09-11 17:02:00 27.80 kg/m2 [facility] Systolic blood 2020-03-14 14:59:00 133 mm[Hg] [facility] pressure Medicine Diastolic blood 2020-03-14 14:59:00 69 mm[Hg] [facility] pressure Medicine Heart rate 2020-03-14 14:59:00 74 /min [facility] Body height 2020-03-14 14:59:00 157.5 cm [facility] Body weight 2020-03-14 14:59:00 72.576 kg [facility] BMI 2020-03-14 14:59:00 29.26 kg/m2 [facility] Systolic blood 2020-03-14 14:59:00 133 mm[Hg] [facility] pressure Medicine Diastolic blood 2020-03-14 14:59:00 69 mm[Hg] [facility] pressure Medicine Heart rate 2020-03-14 14:59:00 74 /min [employer] [facility] [facility] Body height 2020-03-14 14:59:00 157.5 cm [facility] Body weight 2020-03-14 14:59:00 72.576 kg [facility] BMI 2020-03-14 14:59:00 29.26 kg/m2 [facility] Procedures Procedure Date / Time Performing Clinician Source Performed US BREAST COMPLETE 2020-07-26 17:58:56 Alondra Benz [facility] BILATERAL MAMMO BREAST DIAGNOSTIC 2020-07-26 17:14:55 Alondra Benz [facility] TOMOSYNTHESIS BILATERAL Diagnostic Colonoscopy 2014-06-16 00:00:00 [facility] [facility] INGREDIENT SCALER- Hysterectomy 1973-06-16 00:00:00 [facility] tro Urology MUSCU- Knee Surgery [facility] Plan of Care Planned Activity Planned Date Details Comments Source Future Scheduled 2022-07-22 COVID-[address] Test 10:31:13 (#1) [code = Hospital COVID-19 VACCINE (#1)] Future Scheduled 2022-07-22 SHINGLES VACCINES [facility] Test 10:31:13 (1 of 2) [code = Hospital SHINGLES VACCINES (1 of 2)] Future Scheduled 2022-07-22 65+ PNEUMOCOCC[address] [facility] Test 10:31:13 VACCINE (2 - PCV) Hospital [code = 65+ PNEUMOCOCCAL VACCINE (2 - PCV)] Future Scheduled 2022-07-22 INFLUENZA VACCINE Method ist Test 10:31:13 [code = INFLUENZA Hospital VACCINE] Future Scheduled 2022-04-18 HEPATITIS B [employer] [facility] 17:52:58 VACCINES (1 of 3 - [...] Hospital VACCINE] Future Scheduled 2022-02-13 HEPATITIS B [employer] [facility] 08:23:01 VACCINES (1 of 3 - [...] (COMPLETE) [code = [place] [address]-9] 12/26/2020 until 12/26/2021 Future Scheduled 2020-12-26 MRI LUMBAR SPINE WO 1 Occurrences [employer] Test 11:30:32 CONTRAST [code = starting of Medicine 75925-9] 12/26/2020 until 12/26/2021 Future Scheduled 2020-12-26 MRI CERVICAL SPINE 1 Occurrences [employer] Test 11:30:32 WO CONTRAST [code = starting of Medic ine 58064-0] 12/26/2020 until 12/26/2021 Future Scheduled 2020-12-26 COVID-19 Vaccine [employer] Test 10:37:31 (1) [code = of Medicine COVID-19 Vaccine (1)] Future Scheduled 2020-12-26 TETANUS SHOT [employer] [facility] 10:37:31 (ADULT) [code = of Medicine TETANUS SHOT (ADULT)] Future Scheduled 2020-12-26 BMI FOLLOW UP PLAN [facility] Test 10:37:31 [code = BMI FOLLOW of Medici ne UP PLAN] Future Scheduled 2020-12-26 Hepatitis C [employer] [facility] 10:37:31 screening of Medicine (procedure) [code = 443965928] Future Scheduled 2020-12-26 MEDICARE AWV [employer] [facility] 10:37:31 (Initial) [code = of Medicin e MEDICARE AWV (Initial)] Future Scheduled 2020-12-26 ZOSTER VACCINE (1 [employer] Test 10:37:31 of 2) [code = of Medicine ZOSTER VACCINE (1 of 2)] Future Scheduled 2020-12-26 FALL SCREEN [code = [employer] Test 10:37:31 FALL SCREEN] of Medicine Future Scheduled 2020-12-26 Screening for [employer] Test 10:37:31 osteoporosis of Medicine (procedure) [code = 448479047] Future Scheduled 2020-12-26 FLU VACCINE > 6 [employer] [facility] [employer] [facility] 10:37:31 MONTHS [code = FLU of Medici ne VACCINE > 6 MONTHS] Future Scheduled [place] TANGENTIAL Ordered: [employer] [employer] [facility] BIOPSY SKIN SINGLE 03/14/2020 of Medici ne LESION [code = 79516] Future Scheduled [place] DESTRUC Ordered: [employer] [employer] [facility] PREMALIGNANT, FIRST 03/14/2020 of Medic ine LESION(71430) [code = 80127] Future Scheduled [place] DESTRUC Ordered: [facility] [employer] [facility] PREMALIGNANT,2-14 03/14/2020 of Medicin e LESIONS(50658) [code = 49113] Future Scheduled TETANUS SHOT [employer] [facility] (ADULT) [code = of Medicine TETANUS SHOT (ADULT)] Future Scheduled BMI FOLLOW UP PLAN [employer] Test [code = BMI FOLLOW of Medici ne UP PLAN] Future Scheduled HEPATITIS C [employer] [facility] SCREENING [code = of Medicin e HEPATITIS C SCREENING] Future Scheduled MEDICARE AWV [employer] [facility] (Initial) [code = of Medicin e MEDICARE AWV (Initial)] Future Scheduled ZOSTER VACCINE (1 [facility] Test of 2) [code = of Medicine ZOSTER VACCINE (1 of 2)] Future Scheduled FALL SCREEN [code = [facility] Test FALL SCREEN] of Medicine Future Scheduled OSTEOPOROSIS [employer] [employer] [facility] SCREENING [code = of Medicin e OSTEOPOROSIS SCREENING] Future Scheduled PNEUMOVAX >=65 [employer] Test (PPSV23) [code = of Medicine PNEUMOVAX >=65 (PPSV23)] Future Scheduled FLU VACCINE > 6 [employer] [facility] [employer] Test MONTHS [code = FLU of Medici ne VACCINE > 6 MONTHS] Future Scheduled [place] DESTRUC Ordered: [employer] [employer] [facility] PREMALIGNANT, FIRST 09/11/2020 of Medic ine LESION(30701) [code = 08208] Future Scheduled [place] DESTRUC Ordered: [employer] [facility] PREMALIGNANT,2-14 09/11/2020 of Medicin e LESIONS(43373) [code = 67320] Future Scheduled TETANUS SHOT [employer] [facility] (ADULT) [code = of Medicine TETANUS SHOT (ADULT)] Future Scheduled COVID-19 Vaccine [facility] Test (1) [code = of Medicine COVID-19 Vaccine (1)] Future Scheduled BMI FOLLOW UP PLAN [facility] Test [code = BMI FOLLOW of Medici ne UP PLAN] Future Scheduled Hepatitis C [employer] [employer] screening of Medicine (procedure) [code = 472831014] Future Scheduled MEDICARE AWV [facility] [employer] Test (Initial) [code = of Medicin e MEDICARE AWV (Initial)] Future Scheduled ZOSTER VACCINE (1 [facility] Test of 2) [code = of Medicine ZOSTER VACCINE (1 of 2)] Future Scheduled FALL SCREEN [code = [facility] Test FALL SCREEN] of Medicine Future Scheduled Screening for [employer] [facility] osteoporosis of Medicine (procedure) [code = 038422201] Future Scheduled FLU VACCINE > 6 [employer] MONTHS [code = FLU of Medici ne VACCINE > 6 MONTHS] Encounters Start End Encounter Admission Attending Care Care Encounter Source Date/Time Date/Time Type Type Clinicians Facility Department ID 2022-07-12 Outpatient R [facility] INGREDIENT SCALER [id number] [facility] 07:03:46 LOTUS [facility] 2022-05-30 Outpatient [facility], [facility] [id number] Common 14:57:01 [facility] 2022-02-26 Outpatient [facility], [facility] [id number] Common 11:45:01 [facility] 2021-07-11 [facility] [id number] Common 14:31:01 Wil[facility] 2021-07-11 Out[facility], [facility] [id number] Common 13:35:28 Wilian [facility] 2021-07-11 Outpatient [facility], [facility] [id number] Common 12:26:20 [facility] 2021-07-11 [facility] [id number] Common 12:25:29 Wilian [facility] 2021-07-11 Outpatient [facility], [facility] [id number] Common 11:59:34 Wilian [address] [facility] 2021-07-11 Outpatient [facility], [facility] [id number] Common 11:38:32 Wilian 33[address] [facility] 2021-07-11 Outpatient Golden, [facility] [id number] Common 11:34:19 Wilian [address] [facility] 2021-07-11 Outpatient Golden, [facility] [id number] Common 11:19:03 [facility] [address] [facility] 2022-07-17 2022-07-17 [facility] [id number] Univers 00:00:00 00:00:00 Lotus NAVARRETE [id number] i ty [facility] [id number] [phone] Ca dical NAL 098 [facility] 2022-07-11 2022-07-11 Hoe Worker Cornel, Adc Lab Main [facility] 1.2.8 [id number] Univers 12:30:00 12:45:00 Visit Lotus Hansen ROSALBA [id number] ity of [facility] [id number] [phone] [facility] 353 [facility] 2022-07-11 2022-07-11 [facility] [id number] Univers 12:30:00 12:30:00 [facility] 2022-07-10 2022-07-10 Outpatient R [facility] [id number] Univers 10:30:00 [facility]27[facility] 2022-07-10 Prep For [facility] [id number] Univers 00:00:00 00:00:00 Surgery Lotus NAVARRETE [id number] i ty of [facility] [id number] [phone] Ca dical NAL 098 [facility] 2022-06-03 2022-06-03 OFFICE [facility] ST[facility] [id number] Co mmon 00:00:00 00:00:00 [facility]ISIT [facility] PT - CHI LEVEL 4 [facility] 2022-05-16 2022-05-16 (TEL) STLMLC STLMLC [id number] Co mmon 00:00:00 00:00:00 [facility] 2022-04-19 2022-04-19 Outpatient R [facility] [id number] Univers 10:30:00 10:59:03 CHRISTEL stuart o [facility] 2022-04-19 2022-04-19 Laboratory Only, Ang Db Test [facility] 1.2.8 [id number] Univers 10:30:00 10:45:00 Only Unknown, Attending HEALTH [id number] ity [facility] [id number] [place] as ILAT?BLEA [phone] [address] MEDICAL OFFICE BUILDING 2022-04-03 2022-04-03 OFFICE STLMLC STLMLC [id number] Co mmon 00:00:00 00:00:00 [facility] ESTAB PT - CHI LEVEL 2 [facility] 2022-03-25 2022-03-25 OFFICE STLMLC STLMLC [id number] Co mmon 00:00:00 00:00:00 [facility] ESTAB PT - CHI LEVEL 4 [facility] 2022-03-22 2022-03-22 (TEL) STLMLC STLMLC [id number] Co mmon 00:00:00 00:00:00 [facility] 2022-02-27 2022-02-27 OFFICE STLMLC STLMLC [id number] Co mmon 00:00:00 00:00:00 [facility] ESTAB PT - CHI LEVEL 4 [facility] 2022-02-19 2022-02-19 (TEL) STLMLC STLMLC [id number] Co mmon 00:00:00 00:00:00 [facility] 2021-12-08 2021-12-08 Letter ROSY Nathan [id number] Univers 00:00:00 00:00:00 (Out) Mary MUÑOZ [id number] it y of [facility] [id number] [place] as [phone] [address] 2021-12-07 2021-12-07 Outpatient Alexandria [facility] [id number] Univers 15:00:00 15:27:12 [facility] 2021-12-07 2021-12-07 Laboratory Only, Adc Pob2 Test [facility] [id number] [facility] 15:00:00 15:15:00 Only Unknown, Attending ROSALBA [id number] 0 Kerrie [id number] Shannan SHINE [phone] Ca dical [address] 2021-11-21 2021-11-21 OFFICE STLMLC STLMLC [id number] Co mmon 00:00:00 00:00:00 VISIT Spirit ESTAB PT - CHI LEVEL 4 [facility] 2021-11-21 2021-11-21 SUB ANNUAL STLMLC STLMLC [id number] Common 00:00:00 00:00:00 MCR Spirit WELLNESS - CHI VISIT [facility] 2021-11-15 2021-11-15 (TEL) STLMLC STLMLC [id number] Co mmon 00:00:00 00:00:00 [facility] 2021-11-14 2021-11-14 (TEL) STLMLC STLMLC [id number] Co mmon 00:00:00 00:00:00 [facility] 2021-10-18 2021-10-18 (TEL) STLMLC STLMLC [id number] Co mmon 00:00:00 00:00:00 [facility] 2021-10-09 2021-10-09 OFFICE STLMLC STLMLC [id number] Co mmon 00:00:00 00:00:00 VISIT Spirit ESTAB PT - CHI LEVEL [address] [place] [address] 2021-10-02 2021-10-02 (TEL) STLMLC STLMLC [id number] Co mmon 00:00:00 00:00:00 [facility] CHI [facility] 2021-08-15 2021-08-15 OFFICE STLMLC STLMLC [id number] Co mmon 00:00:00 00:00:00 VISIT Spirit ESTAB PT - CHI LEVEL [address] [place] [address] 2021-08-06 2021-08-06 (TEL) STLMLC STLMLC [id number] Co mmon 00:00:00 00:00:00 [facility] 2021-08-03 2021-08-03 Outpatient [place]_M [facility] U [id number] [place] 04:09:00 04:09:00 [facility] 2021-07-28 2021-07-28 Outpatient Emigdio_M [facility] [id number] [place] 02:54:00 02:54:00 [facility] 2021-07-02 2021-07-02 Outpatient Emigdio_M [facility] U [id number] [place] 04:35:00 04:35:00 [facility] 2021-07-02 2021-07-02 Alondra [facility] [place] - [id number] H denise 00:00:00 00:00:00 Jones Beal MD: [id number] [place] [address] [facility], [place] [address] , Ph. 2021-07-02 2021-07-02 Outpatient THAIS Beal U [id number] 00:00:00 00:00:00 Alondra [id number] 2021-06-22 2021-06-22 (TEL) STLC STLC [id number] Co mmon 00:00:00 00:00:00 [facility] 2021-06-03 2021-06-03 Telephone ROSY Bonds [id number] [facility] 00:00:00 00:00:00 Maye MUÑOZ 350.1.13.10 i ty [facility] 4.2.7.2.686 Henry [id number] [facility] [address] 2021-06-02 2021-06-02 Laboratory Only, Adc Test [facility] 1.2.840. 114 [id number] Univers 11:00:00 11:15:00 Only Alondra Wilks 350.1.13.10 ity [facility] 4.2.7.2.686 [facility] [id number] [facility] [address] 2021-06-02 2021-06-02 Outpatient Alexandria WILKS [facility] [id number] [facility] 11:00:00 11:00:00 ALONDRA stuart [facility] 2021-05-21 2021-05-[address] [facility] [id number] [place] 12:00:00 12:00:00 [id number] [facility] 2021-05-14 2021-05-14 OFFICE STLMLC STLMLC [id number] Co mmon 00:00:00 00:00:00 VISIT [facility] 4 [facility] 2021-02-20 2021-02-20 Outpatient STLMLC STLMLC [id number] Common 00:00:00 00:00:00 [facility] 2021-02-19 2021-02-19 Outpatient STLMLC STLMLC [id number] Common 00:00:00 00:00:00 [facility] 2021-02-15 2021-02-15 Outpatient STLMLC STLMLC [id number] Common 00:00:00 00:00:00 [facility] 2021-02-09 2021-02-09 Outpatient STLMLC STLMLC [id number] Common 00:00:00 00:00:00 [facility] 2021-01-22 2021-01-22 Outpatient STLMLC STLMLC [id number] Common 00:00:00 00:00:00 [facility] 2021-01-17 2021-01-17 Outpatient BCM M [id number] 09:10:52 09:10:[facility] 2021-01-17 2021-01-17 Outpatient BCM BCM [id number] 07:46:47 07:46:47 [facility] 2021-01-17 2021-01-17 Outpatient BCM BCM [id number] 07:45:07 07:45:07 [facility] 2021-01-01 2021-01-01 Outpatient STLMLC STLMLC [id number] Common 00:00:00 00:00:00 [facility] 2020-12-26 2020-12-26 Office DAMASO Hanson [id number] [facility] 09:50:23 13:46:09 Visit Anjum Drew AMBULATOR 350.1.13.21 College Y 0.2.7.2.686 of [id number] [facility] real 805 e 2020-10-27 2020-10-27 Outpatient STLMLC STLMLC [id number] Common 00:00:00 00:00:00 [facility] 2020-10-12 2020-10-12 Outpatient STLMLC STLMLC [id number] Common 00:00:00 00:00:00 [facility] 2020-10-12 2020-10-12 Outpatient STLMLC STLMLC [id number] Common 00:00:00 00:00:00 [facility] 2020-10-04 2020-10-04 Outpatient STLMLC STLMLC [id number] Common 00:00:00 00:00:00 [facility] 2020-09-25 2020-09-25 Inpatient EL Christin, HCAPM HCAPM [id number] [facility] 16:13:10 16:13:[address] 2020-09-15 2020-09-15 Outpatient STLMLC STLMLC [id number] Common 00:00:00 00:00:00 [facility] 2020-09-11 2020-09-11 Office Sabrina Kinsey 1.2.840.114 [id number] 11:55:16 12:10:16 Visit AMBULATOR 350.1.13.21 Y 0.2.7.2.686 [id number] 300 2020-09-11 2020-09-11 Office Sabrina Kinsey 1.2.840.114 [id number] [facility] 11:55:16 12:10:16 Visit AMBULATOR 350.1.13.21 College Y 0.2.7.2.686 of [id number] [facility] 300 e 2020-07-27 2020-07-27 Outpatient STLMLC STLMLC [id number] Common 00:00:00 00:00:00 [facility] 2020-07-26 2020-07-26 [facility] Coselli, 1.2.840.1 [id number] Methodi 10:09:35 23:59:00 Encounter Alondra Arshad [id number] 3.430.2.7 Hospit a .3.662729 l .8 2020-07-26 2020-07-26 Hospital Coselli, 1.2.840.1 [id number] Methodi 10:08:25 10:08:25 Encounter Alondra Arshad [id number] 3.430.2.7 Hospit a .3.402654 l .8 2020-07-26 2020-07-26 Travel 1.2.840.1 [id number] [id number] Methodi 00:00:00 00:00:[id number] 3.430.2.7 0.2.7.3.698 Ho spita .3.411752 084.8 l .8 2020-07-17 2020-07-17 Outpatient STLMLC STLMLC [id number] Common 00:00:00 00:00:00 [facility] 2020-07-13 2020-07-13 Outpatient STLMLC STLMLC [id number] Common 00:00:00 00:00:00 [facility] 2020-06-08 2020-06-08 Outpatient STLMLC STLMLC [id number] Common 00:00:00 00:00:00 [facility] 2020-06-02 2020-06-02 Outpatient STLMLC STLMLC [id number] Common 00:00:00 00:00:00 [facility] 2020-05-26 2020-05-26 Outpatient STLMLC STLMLC [id number] Common 00:00:00 00:00:00 [facility] 2020-05-22 2020-05-22 Outpatient STLMLC STLMLC [id number] Common 00:00:00 00:00:00 [facility] 2020-05-02 2020-05-02 Outpatient [facility] [id number] [address] [place] [address] 00:00:00 00:00:00 NADIM [address] 2020-05-01 2020-05-01 Outpatient STLMLC STLMLC [id number] Common 00:00:00 00:00:00 [facility] 2020-04-26 2020-04-26 Outpatient STLMLC STLMLC [id number] Common 00:00:00 00:00:00 [facility] 2020-04-12 2020-04-12 Outpatient STLMLC STLMLC [id number] Common 00:00:00 00:00:00 [facility] 2020-04-03 2020-04-03 Outpatient STLMLC STLMLC [id number] Common 00:00:00 00:00:00 [facility] 2020-03-21 2020-03-21 Outpatient STLMLC STLMLC [id number] Common 00:00:00 00:00:00 [facility] 2020-03-20 2020-03-20 Outpatient STLMLC STLMLC [id number] Common 00:00:00 00:00:00 [facility] 2020-03-14 2020-03-14 Office Sabrina Kinsey BCCherry 1.2.840.114 [id number] 09:52:56 10:36:43 Visit AMBULATOR 350.1.13.21 Y 0.2.7.2.686 [id number] [facility] 2020-03-14 2020-03-14 Office Sabrina Kinsey 1.2.840.114 [id number] [facility] 09:52:56 10:36:43 Visit AMBULATOR 350.1.13.21 College Y 0.2.7.2.686 [id number] [facility] 300 e 2020-03-02 2020-03-02 Outpatient [facility] [id number] Common 11:23:00 11:23:00 [place] [employer] [address] [facility] 2020-02-25 2020-02-25 Outpatient [facility] [id number] Common 07:46:00 07:46:00 [place] [address] [facility] 2020-02-15 2020-02-15 Outpatient [facility] [id number] Common 16:40:00 16:40:00 [place] [address] [facility] 2020-02-01 2020-02-01 Outpatient [facility] [id number] Common 10:00:00 10:00:00 [facility] 2020-01-13 2020-01-13 Out[facility] [id number] Common 09:12:00 09:12:00 [place] [address] [facility] 2020-01-12 2020-01-12 Outpatient [facility] [id number] Common 13:09:00 13:09:00 [place] [address] [facility] 2020-01-10 2020-01-10 Outpatient [facility] [id number] Common 13:35:00 13:35:00 [place] [address] [facility] 2020-01-04 2020-01-04 Out[facility] [id number] Common 10:30:00 10:30:00 [place] [address] [facility] 2019-11-04 2019-11-04 Outpatient [facility] [id number] Common 10:25:00 10:25:[address] [facility] [address] [facility] 2019-10-07 2019-10-07 Outpatient [facility] 29 Common 09:00:00 09:00:00 [place] [address] [facility] 2019-10-07 2019-10-07 Outpatient [facility] 29 Common 08:00:00 08:00:00 [place] [address] [facility] 2019-08-24 2019-08-24 Outpatient [facility] [id number] [place] 00:00:00 00:00:00 LOVE [facility] 2019-07-22 2019-07-22 Outpatient [facility] [id number] [place] 00:00:00 00:00:00 ALONDRA Reyes [facility] 2019-07-22 2019-07-22 Outpatient GARRY[facility] [id number] [place] 00:00:00 00:00:00 CONRAD [address] 2019-07-22 2019-07-22 Outpatient GARRY, [facility] [id number] [place] 00:00:00 00:00:00 CONRAD [address] 2019-07-22 2019-07-22 Outpatient COSELLI[facility] [id number] [place] 00:00:00 00:00:00 ALONDRA [address] 2016-05-13 2016-05-14 Emergency X BARI, [facility] ERT [id number] [facility] 22:18:04 01:15:00 [facility] Test Description Test Time Test Comments Results Result Comments Source COVID 19 INHOUSE AG 2020-09-27 13:48:00 Test Item Value Reference Range Interpretation Comme nts COVID 19 INHOUSE [facility] (test code = NEGATIVE Negative Per remote control assembler, negative [id number]) results should be treated aspresumptive a nd, if inconsistent wi th clinical signs andsymptoms or necessary for patient managem ent, should betested with a n alternative molecular assay . Negative resultsdo not p reclude SARS-CoV-2 infection and s hould not be usedas the sole basis for patient management deci sirigoberto. Negative results should be considered in the context of apatient's recent exposures, hist ory, presence of clinicalsigns a nd symptoms consistent with COVID-19. CBC W/AUTO [id number] 13:34:00 Test Item Value Reference Range Interpretation [...]
--- NOTE | 2022-07-22 11:31 | RAD REPORT ---
EXAM DESCRIPTION: CT - Head Brain Wo Cont - 07/22/2022 11:17 am CLINICAL HISTORY: DIZZINESS Headache, chest pain, drowsiness COMPARISON: Head Brain Wo Cont dated 10/02/2021; Head angio dated 10/02/2021 TECHNIQUE: All CT scans are performed using dose optimization technique as appropriate and may inclu de automated exposure control or mA/KV adjustment according to patient size. FINDINGS: No intracranial hemorrhage, hydrocephalus or extra-axial fluid collection.Mild generalized brain atrophy.No areas of brain edema or evidence of midline shift. The paranasal sinuses and mastoids are clear. The calvarium is intact. IMPRESSION: No acute intracranial abnormality.
--- NOTE | 2022-07-22 11:34 | RAD REPORT ---
EXAM DESCRIPTION: RAD - Chest Single View - 07/22/2022 11:23 am CLINICAL HISTORY: CHEST PAIN Chest pain. COMPARISON: Chest Single View dated 10/02/2021; Chest Pa And Lat (2 Views) dated 11/23/2020; Chest Sin gle View dated 07/09/2020; CHEST SINGLE VIEW dated 12/14/2011 FINDINGS: Portable technique limits examination quality. The lungs are grossly clear. The heart is normal in size. No displaced fractures. IMPRESSION: No acute intrathoracic process suspected.
[2022-07-22] MEDS ORDERED: ASPIRIN 81 MG CHEWABLE TABLET ONE (13:08)
[2022-07-22 13:56] LABS: Absolute Lymphocytes (CBC) 1.4 K/uL (0.7-4.9); Hematocrit 41.1 % (36.0-45.0); Lymphocytes % 21.8 % (15.3-44.8); MCV 96.7 fL (80-100); MPV 7.1 fL (7.6-11.3); RBC Red Blood Cell Count 4.25 M/uL (3.86-4.86)
[2022-07-22 14:09] LABS: Potassium 3.8 mmol/L (3.5-5.1)
[2022-07-22 14:13] LABS: Troponin High Sensitivity 18.4 pg/mL (<58.9)
[2022-07-22] MEDS ORDERED: NA CHLORIDE 0.9% 500 ML ONE (15:29)
--- NOTE | 2022-07-22 16:36 | ER ---
Nurse's Notes [facility] Name: Theresa Mancera Age: 82 yrs Sex: Female : 1940 Arrival Date: 07/22/2022 Time: 10:28 Bed 7 Private MD: Wilian Golden Diagnosis: Weakness;Dizziness and giddiness Presentation: 07/22 10:32 Chief complaint: Patient states: Mid-sternal chest pain, shakiness and blurred vision ph that started approx 30 min EXERCISE INSTRUCT while waiting for her at a doctors appointment. Anoop SOB or nausea. Coronavirus screen: Vaccine status: Patient reports receiving the 2nd dose of the covid vaccine. Ebola Screen: No symptoms or risks identified at this time. Initial Sepsis Screen: Does the patient meet any 2 criteria? No. Patient's initial sepsis screen is negative. Does the patient have a suspected source of infection? No. Patient's initial sepsis screen is negative. Risk Assessment: Do you want to hurt yourself or someone else? Patient reports no desire to harm self or others. Onset of symptoms was July 22, 2022. 10:32 Method Of Arrival: Wheelchair ph 10:32 Acuity: RADHA 3 ph Triage Assessment: 10:39 General: Appears in no apparent distress. comfortable, Behavior is calm, cooperative, ph appropriate for age. Pain: Complains of pain in mid-sternal area. Neuro: Level of Consciousness is awake, alert, obeys commands, Oriented to person, place, time, situation. Cardiovascular: Reports chest pain, Capillary refill < 3 seconds in bilateral fingers Patient's skin is warm and dry. Historical: - Allergies: 10:38 No Known Allergies; ph - Home Meds: 10:38 Advil 200 mg Oral tab 1 tab daily [Active]; donepezil 5 mg Oral tab 1 tab once daily ph [Active]; estradiol 0.5 mg Oral tab [Active]; euthyrox 75 mcg 50mcg 1 tab daily [Active]; furosemide 40 mg Oral tab 1 tab as needed [Active]; hydroxychloroquine 200 mg Oral tab 1 tab once daily [Active]; leflunomide 20 mg Oral tab 1 tab once daily [Active]; lorazepam 0.5 mg Oral tab 1 tab daily [Active]; MD-3 daily [Active]; memantine 10 mg Oral tab 2 tab daily for Moderate to Severe Alzheimer's Type Dementia [Active]; Multiple Vitamins Oral [Active]; Omeprazole Oral [Active]; prednisone 5 mg Oral tab 1 tab once daily [Active]; Probiotic Oral [Active]; Vitamin C 1,000 mg Oral tab twice a day [Active]; - PMHx: 10:38 Dementia; Hypertension; Hypothyroidism; Lupus; ph - PSHx: 10:38 Cholecystectomy; hysterectomy; ph - Immunization history:: Adult Immunizations up to date. - Social history:: Smoking status: Patient denies any tobacco usage or history of. Screenin:12 [facility] ED Fall Risk Assessment (Adult) History of falling in the last 3 months, ld1 including since admission No falls in past 3 months (0 pts). Abuse screen: Denies threats or abuse. Denies injuries from another. Nutritional screening: No deficits noted. Tuberculosis screening: No symptoms or risk factors identified. Assessment: 13:12 General: Appears in no apparent distress. comfortable, Behavior is calm, cooperative, ld1 appropriate for age. Pain: Complains of pain in chest and mid-sternal area Pain does not radiate. Pain currently is 6 out of 10 on a pain scale. Quality of pain is described as heavy, Pain began 3 hours ago. Is intermittent. Neuro: Level of Consciousness is awake, alert, obeys commands, Oriented to person, place, time, situation. Cardiovascular: Capillary refill < 3 seconds Patient's skin is warm and dry. Rhythm is sinus rhythm. Respiratory: Airway is patent Respiratory effort is even, unlabored. GI: Abdomen is round non-distended. : No signs and/or symptoms were reported regarding the genitourinary system. EENT: No signs and/or symptoms were reported regarding the EENT system. Derm: No signs and/or symptoms reported regarding the dermatologic system. Musculoskeletal: No signs and/or symptoms reported regarding the musculoskeletal system. 16:27 Reassessment: Pt ambulated to restroom with steady gate, reports improvement in jl7 symptoms, ERD notified. 16:50 Reassessment: Pt requesting to leave. Reports calling PCP and will follow up in office ld1 tomorrow morning. Notified ERP. Pt reports feeling better at this time and does not want to stay in the hospital. Vital Signs: 10:32 BP 145 / 66; Pulse 92; Resp 18; Temp 97.7; Pulse Ox 97% on R/A; Weight 65.77 kg; Height ph 5 ft. 0 in. (152.40 cm); 13:11 BP 165 / 62; Pulse 68; Resp 26; Pulse Ox 95% on R/A; ld1 14:27 BP 103 / 90; Pulse 69; Resp 15; Pulse Ox 99% on R/A; ld1 16:50 BP 111 / 86; Pulse 72; Resp 16; Pulse Ox 99% on R/A; Pain 0/10; ld1 10:32 Body Mass Index 28.32 (65.77 kg, 152.40 cm) ph ED Course: 10:28 Patient arrived in ED. mr 10:29 Wilian Golden DO is Private Physician. mr 10:38 Triage completed. ph 10:40 Arm band placed on. EKG completed in triage. Results shown to MD. ph 10:47 Cristian Sheikh MD is Attending Physician. bs3 11:18 CT Head Brain wo Cont In Process Unspecified. EDMS 11:25 XRAY Chest (1 view) In Process Unspecified. EDMS 12:57 Sarah Cain, SNEHA is Primary Nurse. ld1 13:12 Patient has correct armband on for positive identification. Placed in gown. Bed in low ld1 position. Call light in reach. Side rails up X2. monitoring coordinator on. Pulse ox on. NIBP on. Door closed. Noise minimized. Warm blanket given. 13:12 No provider procedures requiring assistance completed. Patient maintains SpO2 ld1 saturation greater than 95% on room air. 16:35 Wilian Golden DO is Referral Physician. bs3 16:51 IV discontinued, intact, bleeding controlled, No redness/swelling at site. ld1 Administered Medications: 13:10 Drug: Aspirin Chewable Tablet 324 mg Route: PO; ld1 14:29 Follow up: Response: No adverse reaction ld1 13:30 Drug: NS 0.9% 500 ml Route: IV; Rate: bolus; Site: right antecubital; ld1 Medication: 13:12 VIS not applicable for this client. ld1 Outcome: 16:36 Discharge ordered by MD. bs3 16:51 Discharged to home ambulatory, with family. ld1 16:51 Condition: stable 16:51 Discharge instructions given to patient, family, Instructed on discharge instructions, follow up and referral plans. Demonstrated understanding of instructions, follow-up care. 16:51 Patient left the ED. ld1 Signatures: Dispatcher [employer] PEDRO TravisGertrude jama Daniela Zhao, RN RN Rudy Drake RN RN jl7 Sarah Cain RN RN ld1 Cristian Sheikh MD MD bs3
--- NOTE | 2022-07-22 16:36 | EDPHYS ---
Physician Documentation [facility] Name: Theresa Mancera Age: 82 yrs Sex: Female : 1940 Arrival Date: 07/22/2022 Time: 10:28 Bed 7 Private MD: [facility] ED Physician Cristian Sheikh HPI: 07/22 10:57 This 82 yrs old Female presents to ER via Wheelchair with complaints of Chest bs3 Pain, dizziness. 10:57 The patient or guardian reports chest pain that is located primarily in the anterior bs3 chest wall, left. Onset: acutely. The pain radiates to. Associated signs and symptoms: The patient has no apparent associated signs or symptoms. The chest pain is described as a heaviness. Duration: The patient or guardian reports a single episode. Modifying factors: The symptoms are alleviated by nothing. Severity of pain: At its worst the pain was mild. 82-year-old female history of lupus, hypertension presents with 2 complaints she notes that she has chest pain and dizziness the chest pain is left-sided nonradiating described as a pressure that started prior to arrival when she was walking out of a doctor's office in addition she ntoes that she feels shaky/dizzy internall with a slight headache, she notes similar symptoms once or twice, she feels that she will fall if she walks. no blurry vision, no numbness, tingling or weakness. . Historical: - Allergies: 10:38 No Known Allergies; ph - Home Meds: 10:38 Advil 200 mg Oral tab 1 tab daily [Active]; donepezil 5 mg Oral tab 1 tab once daily ph [Active]; estradiol 0.5 mg Oral tab [Active]; euthyrox 75 mcg 50mcg 1 tab daily [Active]; furosemide 40 mg Oral tab 1 tab as needed [Active]; hydroxychloroquine 200 mg Oral tab 1 tab once daily [Active]; leflunomide 20 mg Oral tab 1 tab once daily [Active]; lorazepam 0.5 mg Oral tab 1 tab daily [Active]; MD-3 daily [Active]; memantine 10 mg Oral tab 2 tab daily for Moderate to Severe Alzheimer's Type Dementia [Active]; Multiple Vitamins Oral [Active]; Omeprazole Oral [Active]; prednisone 5 mg Oral tab 1 tab once daily [Active]; Probiotic Oral [Active]; Vitamin C 1,000 mg Oral tab twice a day [Active]; - PMHx: 10:38 Dementia; Hypertension; Hypothyroidism; Lupus; ph - PSHx: 10:38 Cholecystectomy; hysterectomy; ph - Immunization history:: Adult Immunizations up to date. - Social history:: Smoking status: Patient denies any tobacco usage or history of. ROS: 10:57 Constitutional: Negative for fever, chills bs3 10:57 All other systems are negative. Exam: 10:57 Constitutional: This is a well developed, well nourished patient who is awake, alert, bs3 and in no acute distress. Head/Face: Normocephalic, atraumatic. Eyes: Pupils equal round and reactive to light, extra-ocular motions intact. Lids and lashes normal. ENT: mmm, no posterior phyarngeal erythema Neck: Trachea midline, no thyromegaly, no neck stiffness Chest/axilla: Normal chest wall appearance and motion. Nontender with no deformity. No lesions are appreciated. Cardiovascular: Regular rate and rhythm with a normal S1 and S2. symmetric pulses in upper extremities Respiratory: Lungs have equal breath sounds bilaterally, clear to auscultation, no respiratory distress MS/ Extremity: Pulses equal, no cyanosis. Neurovascular intact. Full, normal range of motion. Neuro: awake, alert, no nystagmus, cn II-XII inact, normal visual bauman, she has an unsteady gait and is slow to ambulate. She is hesitant to ambulate, she has 5/5 strength b/l upper and lower extremities, her NIH is 0 Psych: Awake, alert, with orientation to person, place and time. Behavior, mood, and affect are within normal limits. 11:27 ECG was reviewed by the Attending Physician. Sinus at 79 with a right bundle branch bs3 block QTc [address] elevations as interpreted by myself Vital Signs: 10:32 BP 145 / 66; Pulse 92; Resp 18; Temp 97.7; Pulse Ox 97% on R/A; Weight 65.77 kg; Height ph 5 ft. 0 in. (152.40 cm); 13:11 BP 165 / 62; Pulse 68; Resp 26; Pulse Ox 95% on R/A; ld1 14:27 BP 103 / 90; Pulse 69; Resp 15; Pulse Ox 99% on R/A; ld1 16:50 BP 111 / 86; Pulse 72; Resp 16; Pulse Ox 99% on R/A; Pain 0/10; ld1 10:32 Body Mass Index 28.32 (65.77 kg, 152.40 cm) ph MDM: 10:47 Patient medically screened. bs3 10:57 Differential diagnosis: Possible intercranial hemorrhage possible posterior circulation bs3 stroke, possible ACS I considered aortic dissection however she has no numbness tingling or weakness possible vertebral artery injury but again no unilateral symptoms we will get a chest x-ray labs CT brain and reassess. Data reviewed: vital signs, nurses notes. 13:01 Independent interpretation of the following test(s) in the Emergency Department CT bs3 Scan: My interpretation is No intracranial hemorrhage. 13:53 ED course: pt feeling better, pending labs which are being sent now. bs3 15:21 ED course: pt feeling better, but still unsteady on her feet, rec admission for serial bs3 exams, pt wanted to see how she does in 1 hour, will give ivf and reassess, d/w at bedside who agrees. . 16:35 ED course: pt reassessed ambulating much better, wanting to go home, offered admission, bs3 d/w , will go home, return prec given. 07/22 10:49 Order name: Basic Metabolic Panel; Complete Time: 15:11 bs3 07/22 10:49 Order name: CBC with Diff; Complete Time: 15:11 3 07/22 10:49 Order name: Troponin HS; Complete Time: 15:11 bs3 07/22 10:49 Order name: XRAY Chest (1 view); Complete Time: 12:05 bs3 07/22 10:56 Order name: CT Head Brain wo Cont; Complete Time: 12:05 bs3 07/22 10:49 Order name: EKG; Complete Time: 10:50 bs3 07/22 10:49 Order name: Cardiac monitoring; Complete Time: 13:10 bs3 07/22 10:49 Order name: EKG - Nurse/Tech; Complete Time: 13:02 bs3 07/22 10:49 Order name: IV Saline Lock; Complete Time: 14:29 bs3 07/22 10:49 Order name: Labs collected and sent; Complete Time: 14:29 bs3 07/22 10:49 Order name: O2 Per Protocol; Complete Time: 13:02 bs3 07/22 10:49 Order name: O2 Sat Monitoring; Complete Time: 13:02 bs3 Administered Medications: 13:10 Drug: Aspirin Chewable Tablet 324 mg Route: PO; ld1 14:29 Follow up: Response: No adverse reaction ld1 13:30 Drug: NS 0.9% 500 ml Route: IV; Rate: bolus; Site: right antecubital; ld1 Disposition Summary: 07/22/22 16:36 Discharge Ordered Location: Home bs3 Problem: new bs3 Symptoms: are resolved bs3 Condition: Stable bs3 Diagnosis - Weakness bs3 - Dizziness and giddiness bs3 Followup: bs3 - With: Wilian Golden, DO - When: Tomorrow - Reason: Re-evaluation by your physician Discharge Instructions: - Discharge Summary Sheet bs3 - Dizziness, [id number] bs3 Forms: - Medication Reconciliation Form bs3 - Thank You Letter bs3 - Antibiotic Education bs3 - Prescription Opioid Use bs3 Signatures: Dispatcher [employer] Daniela Webber, RN RN ph Sarah Cain RN RN ld1 Cristian Sheikh MD MD bs3
[2022-07-22 17:18] VITALS: TEMP 97.7
[2022-07-22 17:20] VITALS: O2SAT 99
[2022-07-22 17:21] VITALS: BP 111/86
== END 2022-07-22 16:51 | disposition home or self-care (01) ==
LOC: ER 10:25
DX: R53.1 Weakness (principal); R42 Dizziness and giddiness; R07.89 Other chest pain; I10 Essential (primary) hypertension; E03.9 Hypothyroidism, unspecified; G30.9 Alzheimer's disease, unspecified; F02.80 Dementia in other diseases classified elsewhere, unspecified severity, without behavioral disturbance, psychotic disturbance, mood disturbance, and anxiety
CPT/HCPCS: 93005; 85025; 80048; 36415; 84484; 70450; 71045; 99285; J7040

== ENCOUNTER 2022-09-30 06:03 | Day surgery (SDC) | payer OTHER ==
[2022-09-26 11:34] LABS: Absolute Lymphocytes (CBC) 2.8 K/uL (0.7-4.9); Hematocrit 42.2 % (36.0-45.0); Lymphocytes % 37.4 % (15.3-44.8); MCV 98.7 fL (80-100); MPV 7.7 fL (7.6-11.3); RBC Red Blood Cell Count 4.28 M/uL (3.86-4.86)
[2022-09-26 11:38] LABS: Potassium 3.6 mEq/L (3.5-5.1)
[2022-09-30] MEDS ORDERED: Ringers Lactate 1,000 ML IV ONE (06:21)
[2022-09-30] MEDS ORDERED: CEFAZOLIN SODIUM 1 GM/VIAL ONE (06:21)
[2022-09-30] MEDS ORDERED: DEPO-MEDROL 40 MG/ML IM ONE (06:22)
[2022-09-30] MEDS ORDERED: THROMBIN 5000 UNITS/VIAL TOP ONE (06:22)
[2022-09-30] MEDS ORDERED: METHYLPREDNISOLONE 125 MG INJ ONE (06:23)
[2022-09-30] MEDS ORDERED: propofoL 200 MG/20 ML VIAL IV ONE ×3 (07:07→08:30)
[2022-09-30] MEDS ORDERED: FENTANYL CITR 100 MCG/2 ML ONE (07:08)
[2022-09-30] MEDS ORDERED: MIDAZOLAM HCL 2 MG/2 ML INJ ONE (07:09)
[2022-09-30] MEDS ORDERED: ROCURONIUM 50 MG/5 ML VIAL IV ONE (07:10)
[2022-09-30] MEDS ORDERED: LIDOCAINE 2% MPF 5 ML VIAL ONE (07:10)
[2022-09-30] MEDS ORDERED: ONDANSETRON 4 MG/2 ML VIAL ONE ×2 (07:11→08:01)
[2022-09-30] MEDS ORDERED: dexAMETHasone 10 MG/ML VIAL ONE (08:01)
[2022-09-30] MEDS ORDERED: KETAMINE HCL IN 0.9 % NACL 50 MG/5 ML SYRINGE IV ONE (08:01)
[2022-09-30] MEDS ORDERED: VANCOMYCIN 1 GM/VIAL ONE (08:51)
[2022-09-30] MEDS: HYDROMORPHONE HCL 1 MG/ML INJ ONE ×3 (09:51→10:13)
[2022-09-30] MEDS: FENTANYL CITR 100 MCG/2 ML ONE ×3 (10:13→10:26)
--- NOTE | 2022-09-30 11:35 | RAD REPORT ---
EXAM DESCRIPTION: RAD - Fluoroscopy <1 Hour - 09/30/2022 9:52 am CLINICAL HISTORY: L2-L3 DECOMPRESSION COMPARISON: No comparisons FINDINGS/IMPRESSION: 4 fluoroscopic images submitted showing the lumbar spine with lateral view. Ins truments are present at the L2-L3 level nearly in line with the L2-L3 disc. Fluoro time: 0 minutes 2 minutes dose: 2.36 mGy
[2022-09-30 11:56] VITALS: BP 139/60
[2022-09-30 12:17] VITALS: TEMP 96.5; O2SAT 97
== END 2022-09-30 13:30 | disposition home or self-care (01) ==
LOC: OR 06:03
PROVIDERS: ATTEND Orthopaedic Surgery
PROC: 01NB0ZZ Release Lumbar Nerve, Open Approach (ICD-10-PCS; principal; 2022-09-30 07:00)
PROC: 0SB20ZZ Excision of Lumbar Vertebral Disc, Open Approach (ICD-10-PCS; 2022-09-30 07:00)
DX: M48.062 Spinal stenosis, lumbar region with neurogenic claudication (principal)
CPT/HCPCS: 63047; 85025; 80048; 36415; 63048; J2704 ×3; J1030; J2001; J3010 ×2; J1100; J1170; J2930; J2405 ×2; J7120; J0690; 76000; J2250

== ENCOUNTER 2023-04-03 11:45 | Emergency (ER) | payer OTHER ==
--- OUTSIDE RECORDS SUMMARY | 2023-04-03 11:53 | XMS REPORT | Continuity of Care Document ---
:1940 Author Organization [facility] t Address [address] [place] [address] Care Team Providers Name Role Phone Asked, No Pcp Primary Care Physician Unavailable Wilian Golden Attending Clinician Unavailable SABINA AVILA Attending Clinician Unavailable SABINA AVILA Attending Clinician Unavailable LOTUS HANSEN Attending Clinician Unavailable LOTUS HANSEN Attending Clinician Unavailable Nurse, [facility] Attending Clinician Unavailable Doctor Unassigned, [place] Attending Clinician Unavailable Pob, [facility] Lab Main Attending Clinician Unavailable CHRISTEL DOUGLAS Attending Clinician Unavailable Only, Ang Db Test Attending Clinician Unavailable Unknown, Attending Attending Clinician Unavailable Mary Nathan RN Attending Clinician Unavailable VA MARKHAM Attending Clinician Unavailable Only, [facility] Pob2 Test Attending Clinician Unavailable Salnea Attending Clinician Unavailable Alondra Beal Attending Clinician [phone] Maye Bonds RN Attending Clinician Unavailable Only, Adc Test Attending Clinician Unavailable Alondra Wilks MD Attending Clinician ALONDRA WILKS Attending Clinician Unavailable Ashok Waller Attending Clinician Unavailable Coselli MD, Alondra P. Attending Clinician NATE BEAL Attending Clinician Unavailable LOVE JHAVERI Attending Clinician Unavailable CONRAD CASTAÑEDA Attending Clinician Unavailable MARIVEL CANDELARIA Attending Clinician Unavailable Lotus Hansen MD Admitting Clinician Salena Admitting Clinician Unavailable Physician, No Primary or Family Admitting Clinician Unavaila ble Payers Payer Name Policy Type Policy Number Effective Date Expiration Date S sindi [facility]/AAR [id number] 2022 MEDICARE 00:00:00 ADVANTAGE [facility] 53 [id number] 2022 Common ADVANTAGE 00:00:00 [facility] - [id number] [facility] (MEDICARE REPLACEMENT/ADVA NTAGE - PPO) [place]ICARE [place]: [id number] 1989 NOVITAS 00:00:00 SOLUTIONS [facility] [id number] OPTIONS (MEDICARE SUPPLEMENT) [place] [id number] 2006 Common CSD 00:00:00 [facility] MEDICARE NOVITAS MB [id number] Common [facility] Problems Condition Condition Condition Status Onset Resolution Last Treating Co mments Source Name Details Category Date Date Treatment Clinician Date Amnesia Amnesia Disease Active Univers 1-25 ity of 00:00: [place] 00 Medical Branch Anxiety Anxiety Disease Active Univers 1-25 ity of 00:00: Medical Branch 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 [place] , , 00 Medical continuous continuous Br anch Irritable Irritable Disease Active Uni vers bowel bowel 1-25 ity of syndrome syndrome 00:00: [place] 00 Medical Branch Dementia Dementia Disease Active Unive rs without without 1-25 ity of behavioral behavioral 00:00[place] disturbanc disturbanc 00 Me dical e e Branch penitentiary penitentiary Disease Active Uni vers current current 1-25 ity of use of use of 00:00: [place] systemic systemic 00 Medica l steroids steroids Branch 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 Added automatic ally from request for surgery [id number] Urge Urge Disease Active Overview: Univer s urinary urinary 25 Formattin ity o f incontinen incontinen 00:00: g of this [place] ce ce 00 note Medical might be Branch different from the original. 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 [id number] Postmenopa Problem Co mmon usal Spirit symptoms - [facility] [id number] Panic Problem Common disorder Spirit [episodic - [facility] paroxysmal [facility] anxiety] [facility] [id number] History of Problem Co mmon gallstones Spirit - [facility] [id number] Constipati Problem Com mon on, Spirit unspecifie - [facility] d [facility] constipati [facility] [id number] Generalize Problem Com mon d anxiety Spirit disorder - [facility] [id number] GERD Problem Common without Spirit esophagiti - [facility] s [facility] [id number] Swelling Problem Comm on of lower Spirit extremity - [facility] [id number] Mild Problem Common cognitive Spirit impairment - [facility] with [facility] [id number] Advanced Problem Com mon [id number] dementia [facility] [id number] Thyroid Problem Common disease [facility] - [facility] [id number] Vitamin D Problem Comm on deficiency [facility] [id number] Swelling Problem Commo n [facility] [id number] Memory Problem Common change Spirit - [facility] [id number] Piriformis Problem C ommon 74559 syndrome Spirit of right - [facility] side [facility] [id number] Piriformis Problem C ommon 55505 syndrome Spirit of left - [facility] side [facility] Allergies, Adverse Reactions, Alerts Allergy Allergy Status Severity Reaction(s) Onset Inactive Treating Comm ents Source Name Type Date Date Clinician No Known DA Active U [facility] Allergie 4-14 [place] 00:00: d 00 [facility] No Known DA Active U [facility] Allergie 4-14 [place] 00:[facility]: d 00 [facility] NO KNOWN Drug Active Univers ALLERGIE Class ity of S [facility] Family History Family Member Diagnosis Comments Start Date Stop Date Source Natural brother Diabetes [facility] Natural brother Heart disease [facility] Natural father Diabetes [facility] Natural father Heart disease [facility] Paternal grandmother Heart disease [facility] Social History Social Habit Start Date Stop Date Quantity Comments Source Gender identity Universit y of [facility] History of Tobacco Common Spirit - Use [facility] Sexual orientation [facility] Exposure to 2022-09-10 2022-09-20 Not sure University of SARS-CoV-2 (event) 00:00:00 10:17:00 [facility] Tobacco use and 2022-07-18 2022-07-18 Smokeless Universit y of exposure 00:00:00 00:00:00 tobacco non-user [facility] History of Social 2019-09-09 2019-09-[address] function 00:00:00 00:00:00 Hospital Alcohol intake 2019-09-09 2019-09-09 Current [facility] 00:00:00 00:00:00 non-drinker of Hospital alcohol (finding) Sex Ass[birth year] At [birth year] [facility] 00:00:00 00:00:00 Hospital Smoking Status Start Date Stop Date Source Tobacco smoking consumption [facility] Medical unknown Branch Never smoked tobacco [facility] Medical Branch Medications Ordered Filled Start Stop Current Ordering Indication Dosage Frequency Signature Comments Components Source Medication Medication Date Date Medication? Clinician (SIG) Name Name donepeziL 5 2022-0 Yes 5mg Take 1 Univ ers mg tablet 9-14 tablet by ity o f 14:18: mouth at [place] 20 bedtime. Medical Branch donepeziL 5 2022-0 Yes 5mg Take 1 Univ ers mg tablet 9-14 tablet by ity o f 14:18: mouth at [place] 20 bedtime. Medical Branch donepeziL 5 2022-0 Yes 5mg Take 1 Univ ers mg tablet 9-14 tablet by ity o f 14:18: mouth at [place] 20 bedtime. Medical Branch furosemide 2022-0 Yes 40mg Take 1 Unive rs 40 mg 8-04 tablet by ity of tablet 11:50: mouth as [place] 04 needed. Medical Branch amLODIPine 2022-0 Yes 2.5mg Take 1 Univ ers 2.5 mg 8-04 tablet by ity of tablet 11:50: mouth in [place] 04 the Medical morning. Branch levothyroxi 2022-0 Yes 25ug Take 1 Univ ers ne 25 mcg 8-04 tablet by ity o f tablet 11:50: mouth [place] 04 every Medical morning. Branch furosemide 3-0 Yes 40mg Take 1 Unive rs 40 mg 8-04 tablet by ity of tablet 11:50: mouth as [place] 04 needed. Medical Branch amLODIPine 2022-0 Yes 2.5mg Take 1 Univ ers 2.5 mg 8-04 tablet by ity of tablet 11:50: mouth in [place] 04 the Medical morning. Branch levothyroxi 2022-0 Yes 25ug Take 1 Univ ers ne 25 mcg 8-04 tablet by ity o f tablet 11:50: mouth [place] 04 every Medical morning. Branch furosemide 3-0 Yes 40mg Take 1 Unive rs 40 mg 8-04 tablet by ity of tablet 11:50: mouth as [place] 04 needed. Medical Branch amLODIPine 2022-0 Yes 2.5mg Take 1 Univ ers 2.5 mg 8-04 tablet by ity of tablet 11:50: mouth in [place] 04 the Medical morning. Branch levothyroxi 2022-0 Yes 25ug Take 1 Univ ers ne 25 mcg 8-04 tablet by ity o f tablet 11:50: mouth [place] 04 every Medical morning. Branch furosemide 2022-0 Yes 40mg Take 1 Unive rs 40 mg 8-04 tablet by ity of tablet 11:50: mouth as [place] 04 needed. Medical Branch amLODIPine 2022-0 Yes 2.5mg Take 1 Univ ers 2.5 mg 8-04 tablet by ity of tablet 11:50: mouth in [place] 04 the Medical morning. Branch levothyroxi 2022-0 Yes 25ug Take 1 Univ ers ne 25 mcg 8-04 tablet by ity o f tablet 11:50: mouth [place] 04 every Medical morning. Branch furosemide 2022-0 Yes 40mg Take 1 Unive rs 40 mg 8-04 tablet by ity of tablet 11:50: mouth as [place] 04 needed. Medical Branch amLODIPine 2022-0 Yes 2.5mg Take 1 Univ ers 2.5 mg 8-04 tablet by ity of tablet 11:50: mouth in [place] 04 the Medical morning. Branch levothyroxi 2022-0 Yes 25ug Take 1 Univ ers ne 25 mcg 8-04 tablet by ity o f tablet 11:50: mouth [place] 04 every Medical morning. Branch estradioL 2022-0 Yes [id number] Apply 1g Univers (ESTRACE) 8-04 vaginally ity o f 0.01 % (0.1 00:00: at bedtime [place] mg/gram) 00 2 times Medical vaginal per week Branch cream estradioL 2022-0 Yes [id number] Apply 1g Univers (ESTRACE) 8-04 vaginally ity o f 0.01 % (0.1 00:00: at bedtime [place] mg/gram) 00 2 times Medical vaginal per week Branch cream estradioL 2022-0 Yes [id number] Apply 1g Univers (ESTRACE) 8-04 vaginally ity o f 0.01 % (0.1 00:00: at bedtime [place] mg/gram) 00 2 times Medical vaginal per week Branch cream estradioL 2022-0 Yes [id number] Apply 1g Univers (ESTRACE) 8-04 vaginally ity o f 0.01 % (0.1 00:00: at bedtime [place] mg/gram) 00 2 times Medical vaginal per week Branch cream estradioL Yes [id number] Apply 1g Univers (ESTRACE) 804 vaginally ity o f 0.01 % (0.1 00:00: at bedtime [place] mg/gram) 00 2 times Medical vaginal per week Branch cream multivit,th Yes 1{tbl} Take 1 Un gilmar x,calcium,i 2-24 tablet by ity of arlet,mins 11:16: mouth [place] (MULTIVITAM 46 daily. Medica l IN AND Branch MINERAL ORAL) calcium Yes 1999[iU Take 2,000 U nivers carbonate/v 2-24 ] Int'l ity of itamin D3 11:16: Units by [place] (VITAMIN 46 mouth Medical D-3 ORAL) daily. Branch vitamin C Yes 1{tbl} Take 1 Univ ers with migue 2-24 tablet by ity o f hips 1,000 11:16: mouth in [place] as mg tablet 46 the Medical morning Branch and 1 tablet in the evening. donepeziL 5 Yes 1{tbl} Take 1 Un gilmar mg tablet 2-24 tablet by ity o f 11:16: mouth at [place] [address] bedtime. Medical Branch predniSONE Yes 1{tbl} Take 1 Uni vers 5 mg tablet 2-24 tablet by ity of 11:16: mouth in [place] 46 the Medical morning. Branch omeprazole Yes 1{capsu Take 1 Un gilmar 20 mg 2-24 le} capsule by ity of capsule 11:16: mouth in [place] [address] the Medical morning. Branch leflunomide Yes 1{tbl} Take 1 Un gilmar 20 mg 2-24 tablet by ity of tablet 11:16: mouth in [place] 46 the Medical morning. Branch mv-mn/om3/d Yes 2{tbl} Take 2 Un gilmar eckert/epa/fish 2-24 tablets by it y of /lut/tanika 11:16: mouth [place] (OCUVITE 46 daily. Medical ADULT 50 Branch PLUS ORAL) COCONUT OIL Yes 2{capsu Take 2 U nivers ORAL 2-24 le} capsules ity of 11:16: by mouth [place] [address] daily. Medical Branch multivit, Yes 1{tbl} Take 1 Un gilmar x,calcium,i 2-24 tablet by ity of allyson nice 11:16: mouth [place] (MULTIVITAM 46 daily. Medica l IN AND Branch MINERAL ORAL) calcium Yes 1999[iU Take 2,000 U nivers carbonate/v 2-24 ] Int'l ity of itamin D3 11:16: Units [place] (VITAMIN 46 mouth Medical D-3 ORAL) daily. Branch vitamin C Yes 1{tbl} Take 1 Univ ers with migue 2-24 tablet by ity o f hips 1,000 11:16: mouth in [facility] as mg tablet 46 the Medical morning Branch and 1 tablet in the evening. donepeziL 5 Yes 1{tbl} Take 1 Un gilmar mg tablet 2-24 tablet by ity o f 11:16: mouth at [place] [address] bedtime. Medical Branch predniSONE Yes 1{tbl} Take 1 Uni vers 5 mg tablet 2-24 tablet by ity of 11:16: mouth in [place] [address] the Medical morning. Branch omeprazole Yes 1{capsu Take 1 Un gilmar 20 mg 2-24 le} capsule by ity of capsule 11:16: mouth in [place] [address] the Medical morning. Branch leflunomide Yes 1{tbl} Take 1 Un gilmar 20 mg 2-24 tablet by ity of tablet 11:16: mouth in [place] [address] the Medical morning. Branch mv-mn/om3/d Yes 2{tbl} Take 2 Un gilmar eckert/epa/fish 2-24 tablets by it y of /lut/tanika 11:16: mouth [place] (OCUVITE 46 daily. Medical ADULT 50 Branch PLUS ORAL) COCONUT OIL Yes 2{capsu Take 2 U nivers ORAL 2-24 le} capsules ity of 11:16: by mouth [place] [address] daily. Medical Branch multivit, Yes 1{tbl} Take 1 Un gilmar x,calcium,i 2-24 tablet by ity of arletmins 11:16: mouth [place] (MULTIVITAM 46 daily. Medica l IN AND Branch MINERAL ORAL) calcium Yes 1999[iU Take 2,000 U nivers carbonate/v 2-24 ] Int'l ity of itamin D3 11:16: Units [place] (VITAMIN 46 mouth Medical D-3 ORAL) daily. Branch vitamin C Yes 1{tbl} Take 1 Univ ers with migue 2-24 tablet by ity o f hips 1,000 11:16: mouth in [facility] as mg tablet 46 the Medical morning Branch and 1 tablet in the evening. donepeziL 5 Yes 1{tbl} Take 1 Un gilmar mg tablet 2-24 tablet by ity o f 11:16: mouth at [place] [address] bedtime. Medical Branch predniSONE Yes 1{tbl} Take 1 Uni vers 5 mg tablet 2-24 tablet by ity of 11:16: mouth in [place] [address] the Medical morning. Branch omeprazole Yes 1{capsu Take 1 Un gilmar 20 mg 2-24 le} capsule by ity of capsule 11:16: mouth in [place] [address] the Medical morning. Branch leflunomide Yes 1{tbl} Take 1 Un gilmar 20 mg 2-24 tablet by ity of tablet 11:16: mouth in [place] [address] the Medical morning. Branch mv-mn/om3/d Yes 2{tbl} Take 2 Un gilmar eckert/epa/fish 2-24 tablets by it y of /lut/tanika 11:16: mouth [place] (OCUVITE 46 daily. Medical ADULT 50 Branch PLUS ORAL) COCONUT OIL Yes 2{capsu Take 2 U nivers ORAL 2-24 le} capsules ity of 11:16: by mouth [place] 46 daily. Medical Branch multivit,th Yes 1{tbl} Take 1 Un gilmar x,calcium,i 2-24 tablet by ity of arlet,mins 11:16: mouth [place] (MULTIVITAM 46 daily. Medica l IN AND Branch MINERAL ORAL) calcium Yes 2000[iU Take 2,000 U nivers carbonate/v 2-24 ] Int'l ity of itamin D3 11:16: Units [place] (VITAMIN 46 mouth Medical D-3 ORAL) daily. Branch vitamin C Yes 1{tbl} Take 1 Univ ers with migue 2-24 tablet by ity o f hips 1,000 11:16: mouth in [place] as mg tablet 46 the Medical morning Branch and 1 tablet in the evening. donepeziL 5 Yes 1{tbl} Take 1 Un gilmar mg tablet 2-24 tablet by ity o f 11:16: mouth at [place] [address] bedtime. Medical Branch predniSONE Yes 1{tbl} Take 1 Uni vers 5 mg tablet 2-24 tablet by ity of 11:16: mouth in [place] [address] the Medical morning. Branch omeprazole Yes 1{capsu Take 1 Un gilmar 20 mg 2-24 le} capsule by ity of capsule 11:16: mouth in [place] [address] the Medical morning. Branch leflunomide Yes 1{tbl} Take 1 Un gilmar 20 mg 2-24 tablet by ity of tablet 11:16: mouth in [place] [address] the Medical morning. Branch mv-mn/om3/d Yes 2{tbl} Take 2 Un gilmar eckert/epa/fish 2-24 tablets by it y of /lut/tanika 11:16: mouth [place] (OCUVITE 46 daily. Medical ADULT 50 Branch PLUS ORAL) COCONUT OIL Yes 2{capsu Take 2 U nivers ORAL 2-24 le} capsules ity of 11:16: by mouth [place] 46 daily. Medical Branch multivit,th Yes 1{tbl} Take 1 Un gilmar x,calcium,i 2-24 tablet by ity of arlet,mins 11:16: mouth [place] (MULTIVITAM 46 daily. Medica l IN AND Branch MINERAL ORAL) calcium Yes 1999[iU Take 2,000 U nivers carbonate/v 2-24 ] Int'l ity of itamin D3 11:16: Units [place] (VITAMIN 46 mouth Medical D-3 ORAL) daily. Branch vitamin C Yes 1{tbl} Take 1 Univ ers with migue 2-24 tablet by ity o f hips 1,000 11:16: mouth in [place] as mg tablet 46 the Medical morning Branch and 1 tablet in the evening. donepeziL 5 Yes 1{tbl} Take 1 Un gilmar mg tablet 2-24 tablet by ity o f 11:16: mouth at [place] [address] bedtime. Medical Branch predniSONE Yes 1{tbl} Take 1 Uni vers 5 mg tablet 2-24 tablet by ity of 11:16: mouth in [place] 46 the Medical morning. Branch omeprazole Yes 1{capsu Take 1 Un gilmar 20 mg 2-24 le} capsule by ity of capsule 11:16: mouth in [place] 46 the Medical morning. Branch leflunomide Yes 1{tbl} Take 1 Un gilmar 20 mg 2-24 tablet by ity of tablet 11:16: mouth in [place] [address] the Medical morning. Branch mv-mn/om3/d Yes 2{tbl} Take 2 Un gilmar eckert/epa/fish 2-24 tablets by it y of /lut/tanika 11:16: mouth [place] (OCUVITE 46 daily. Medical ADULT 50 Branch PLUS ORAL) COCONUT OIL Yes 2{capsu Take 2 U nivers ORAL 2-24 le} capsules ity of 11:16: by mouth [place] 46 daily. Medical Branch multivit,th Yes 1{tbl} Take 1 Un gilmar x,calcium,i 2-24 tablet by ity of [place],mins 11:16: mouth [place] (MULTIVITAM 46 daily. Medica l IN AND Branch MINERAL ORAL) calcium Yes 1999[iU Take 2,000 U nivers carbonate/v 2-24 ] Int'l ity of itamin D3 11:16: Units [place] (VITAMIN 46 mouth Medical D-3 ORAL) daily. Branch vitamin C Yes 1{tbl} Take 1 Univ ers with migue 2-24 tablet by ity o f hips 1,000 11:16: mouth in [place] as mg tablet 46 the Medical morning Branch and 1 tablet in the evening. donepeziL 5 Yes 1{tbl} Take 1 Un gilmar mg tablet 2-24 tablet by ity o f 11:16: mouth at [place] [address] bedtime. Medical Branch predniSONE Yes 1{tbl} Take 1 Uni vers 5 mg tablet 2-24 tablet by ity of 11:16: mouth in [place] 46 the Medical morning. Branch omeprazole Yes 1{capsu Take 1 Un gilmar 20 mg 2-24 le} capsule by ity of capsule 11:16: mouth in [place] [address] the Medical morning. Branch leflunomide Yes 1{tbl} Take 1 Un gilmar 20 mg 2-24 tablet by ity of tablet 11:16: mouth in [place] [address] the Medical morning. Branch mv-mn/om3/d Yes 2{tbl} Take 2 Un gilmar eckert/epa/fish 2-24 tablets by it y of /lut/tanika 11:16: mouth [place] (OCUVITE 46 daily. Medical ADULT 50 Branch PLUS ORAL) COCONUT OIL Yes 2{capsu Take 2 U nivers ORAL 2-24 le} capsules ity of 11:16: by mouth [place] 46 daily. Medical Branch multivit,th Yes 1{tbl} Take 1 Un gilmar x,calcium,i 2-24 tablet by ity of [place],mins 11:16: mouth [place] (MULTIVITAM 46 daily. Medica l IN AND Branch MINERAL ORAL) calcium Yes 1999[iU Take 2,000 U nivers carbonate/v 2-24 ] Int'l ity of itamin D3 11:16: Units by [place] (VITAMIN 46 mouth Medical D-3 ORAL) daily. Branch vitamin C Yes 1{tbl} Take 1 Univ ers with migue 2-24 tablet by ity o f hips 1,000 11:16: mouth in [facility] as mg tablet 46 the Medical morning Branch and 1 tablet in the evening. donepeziL 5 Yes 1{tbl} Take 1 Un gilmar mg tablet 2-24 tablet by ity o f 11:16: mouth at [place] [address] bedtime. Medical Branch predniSONE Yes 1{tbl} Take 1 Uni vers 5 mg tablet 2-24 tablet by ity of 11:16: mouth in [place] [address] the Medical morning. Branch omeprazole Yes 1{capsu Take 1 Un gilmar 20 mg 2-24 le} capsule by ity of capsule 11:16: mouth in [place] [address] the Medical morning. Branch leflunomide Yes 1{tbl} Take 1 Un gilmar 20 mg 2-24 tablet by ity of tablet 11:16: mouth in [place] [address] the Medical morning. Branch mv-mn/om3/d Yes 2{tbl} Take 2 Un gilmar eckert/epa/fish 2-24 tablets by it y of /lut/tanika 11:16: mouth [place] (OCUVITE 46 daily. Medical ADULT 50 Branch PLUS ORAL) COCONUT OIL Yes 2{capsu Take 2 U nivers ORAL 2-24 le} capsules ity of 11:16: by mouth [place] 46 daily. Medical Branch multivit,th Yes 1{tbl} Take 1 Un gilmar x,calcium,i 2-24 tablet by ity of arlet,mins 11:16: mouth [place] (MULTIVITAM 46 daily. Medica l IN AND Branch MINERAL ORAL) calcium Yes 1999[iU Take 2,000 U nivers carbonate/v 2-24 ] Int'l ity of itamin D3 11:16: Units by [place] (VITAMIN 46 mouth Medical D-3 ORAL) daily. Branch vitamin C Yes 1{tbl} Take 1 Univ ers with migue 2-24 tablet by ity o f hips 1,000 11:16: mouth in [facility] as mg tablet 46 the Medical morning Branch and 1 tablet in the evening. donepeziL 5 Yes 1{tbl} Take 1 Un gilmar mg tablet 2-24 tablet by ity o f 11:16: mouth at [place] [address] bedtime. Medical Branch predniSONE Yes 1{tbl} Take 1 Uni vers 5 mg tablet 2-24 tablet by ity of 11:16: mouth in [place] [address] the Medical morning. Branch omeprazole Yes 1{capsu Take 1 Un gilmar 20 mg 2-24 le} capsule by ity of capsule 11:16: mouth in [place] [address] the Medical morning. Branch leflunomide Yes 1{tbl} Take 1 Un gilmar 20 mg 2-24 tablet by ity of tablet 11:16: mouth in [place] [address] the Medical morning. Branch mv-mn/om3/d Yes 2{tbl} Take 2 Un gilmar eckert/epa/fish 2-24 tablets by it y of /lut/tanika 11:16: mouth [place] (OCUVITE 46 daily. Medical ADULT 50 Branch PLUS ORAL) COCONUT OIL Yes 2{capsu Take 2 U nivers ORAL 2-24 le} capsules ity of 11:16: by mouth [place] 46 daily. Medical Branch multivit, Yes 1{tbl} Take 1 Un gilmar x,calcium,i 2-24 tablet by ity of [place]son nice 11:16: mouth [place] (MULTIVITAM 46 daily. Medica l IN AND Branch MINERAL ORAL) calcium Yes 1999[iU Take 2,000 U nivers carbonate/v 2-24 ] Int'l ity of itamin D3 11:16: Units by [place] (VITAMIN 46 mouth Medical D-3 ORAL) daily. Branch vitamin C Yes 1{tbl} Take 1 Univ ers with migue 2-24 tablet by ity o f hips 1,000 11:16: mouth in [facility] as mg tablet 46 the Medical morning Branch and 1 tablet in the evening. predniSONE Yes 1{tbl} Take 1 Uni vers 5 mg tablet 2-24 tablet by ity of 11:16: mouth in [place] 46 the Medical morning. Branch omeprazole Yes 1{capsu Take 1 Un gilmar 20 mg 2-24 le} capsule by ity of capsule 11:16: mouth in [place] 46 the Medical morning. Branch leflunomide Yes 1{tbl} Take 1 Un gilmar 20 mg 2-24 tablet by ity of tablet 11:16: mouth in [place] [address] the Medical morning. Branch mv-mn/om3/d Yes 2{tbl} Take 2 Un gilmar eckert/epa/fish 2-24 tablets by it y of /lut/tanika 11:16: mouth [place] (OCUVITE 46 daily. Medical ADULT 50 Branch PLUS ORAL) COCONUT OIL Yes 2{capsu Take 2 U nivers ORAL 2-24 le} capsules ity of 11:16: by mouth [place] 46 daily. Medical Branch multivit Yes 1{tbl} Take 1 Un gilmar x,calcium,i 2-24 tablet by ity of [place] nice 11:16: mouth [place] (MULTIVITAM 46 daily. Medica l IN AND Branch MINERAL ORAL) calcium Yes 1999[iU Take 2,000 U nivers carbonate/v 2-24 ] Int'l ity of itamin D3 11:16: Units [place] (VITAMIN 46 mouth Medical D-3 ORAL) daily. Branch vitamin C Yes 1{tbl} Take 1 Univ ers with migue 2-24 tablet by ity o f hips 1,000 11:16: mouth in [place] as mg tablet 46 the Medical morning Branch and 1 tablet in the evening. predniSONE Yes 1{tbl} Take 1 Uni vers 5 mg tablet 2-24 tablet by ity of 11:16: mouth in [place] [address] the Medical morning. Branch omeprazole Yes 1{capsu Take 1 Un gilmar 20 mg 2-24 le} capsule by ity of capsule 11:16: mouth in [place] [address] the Medical morning. Branch leflunomide Yes 1{tbl} Take 1 Un gilmar 20 mg 2-24 tablet by ity of tablet 11:16: mouth in [place] [address] the Medical morning. Branch mv-mn/om3/d Yes 2{tbl} Take 2 Un [facility] eckert/epa/fish 2-24 tablets by it y of /lut/tanika 11:16: mouth [place] (OCUVITE 46 daily. Medical ADULT 50 Branch PLUS ORAL) COCONUT OIL Yes 2{capsu Take 2 U nivers ORAL 2-24 le} capsules ity of 11:16: by mouth [place] 46 daily. Medical Branch multivit,th Yes 1{tbl} Take 1 [facility] x,calcium,i 2-24 tablet by ity of arlet,mins 11:16: mouth [place] (MULTIVITAM 46 daily. Medica l IN AND Branch MINERAL ORAL) calcium Yes 2000[iU Take 2,000 U nivers carbonate/v 2-24 ] Int'l ity of itamin D3 11:16: [place] (VITAMIN 46 mouth Medical D-3 ORAL) daily. Branch vitamin C Yes 1{tbl} Take 1 Univ ers with migue 2-24 tablet by ity o f hips 1,000 11:16: mouth in [place] mg tablet 46 the Medical morning Branch and 1 tablet in the evening. predniSONE 2022-0 Yes 1{tbl} Take 1 Uni vers 5 mg tablet 2-24 tablet by ity of 11:16: mouth in [place] [address] the Medical morning. Branch omeprazole Yes 1{capsu Take 1 [facility] 20 mg 2-24 le} capsule by ity of capsule 11:16: mouth in [place] [address] the Medical morning. Branch leflunomide Yes 1{tbl} Take 1 [facility] 20 mg 2-24 tablet by ity of tablet 11:16: mouth in [place] [address] the Medical morning. Branch mv-mn/om3/d Yes 2{tbl} Take 2 [facility] eckert/epa/fish 2-24 tablets by it y of /lut/tanika 11:16: mouth [place] (OCUVITE 46 daily. Medical ADULT 50 Branch PLUS ORAL) COCONUT OIL Yes 2{capsu Take 2 U nivers ORAL 2-24 le} capsules ity of 11:16: by mouth [place] [address] daily. Medical Branch lactated 2022-0 Yes 1000mL at 75 Univer s ringers IV 2-09 mL/hr, ity of infusion 18:00: 1,000 [place] 1,000 mL 00 IV Medical Infusion, Branch CONTINUOUS , Starting on [place] 07/25/22 at 1200, Until Discontinu ed, Routine, PACU lactated 2022-0 2022- No 1000mL at 75 Unive rs ringers IV 2-09 02-09 mL/hr, ity of infusion 18:00: 21:14 1,000 mL, [place] 1,000 mL 00 :21 IV Medical Infusion, Branch CONTINUOUS , Starting on [place] 07/25/22 at 1200, Until [place] 07/25/22 at 1514, Routine, PACU FENTanyl PF 2022-0 Yes 25ug 25 mcg, Uni vers (SUBLIMAZE 2-09 Slow IV ity of (PF)) 17:55: Push, [place] injection 21 Q5MIN PRN, Medi steven 25 mcg 4 doses, Branch Starting on [place] 07/25/22 at 1155, Until Discontinu ed, Routine, Pain (scale 4-6), PACU ondansetron 2022-0 Yes 4mg 4 mg, Slow Univers (ZOFRAN 2-09 IV Push, ity of (PF)) 17:55: PRN, 1 [place] injection 4 21 dose, Medical mg Starting Branch on [place] 07/25/22 at 1155, Until Discontinu ed, Routine, Nausea and Vomiting (N/V), PACU FENTanyl PF 2022- No 25ug 25 mcg, Un [facility] (SUBLIMAZE 07-25 Slow IV ity o f (PF)) 17:55: 21:14 Push, [place] injection 21 :21 Q5MIN PRN, Medi steven 25 mcg 4 doses, Branch Starting on [place] 07/25/22 at 1155, Until [place] 07/25/22 at 1514, Routine, Pain (scale 4-6), PACU ondansetron 2022- No 4mg 4 mg, Slow Univers (ZOFRAN 07-25 IV Push, ity of (PF)) 17:55: 21:14 PRN, 1 [place] injection 4 21 :21 dose, Medical mg Starting Branch on [place] 07/25/22 at 1155, Until [place] 07/25/22 at 1514, Routine, Nausea and Vomiting (N/V), PACU D5W-LR IV 2022- Yes 1000mL at 125 Univ ers infusion 2-09 mL/hr, IV ity of 1,000 mL 17:45: Infusion, [place] 00 CONTINUOUS Medical , Starting Branch on [place] 07/25/22 at 1145, Until Discontinu ed, Routine D5W-LR IV 2022- No 1000mL at 125 Uni vers infusion 07-25 mL/hr, IV ity o f 1,000 mL 17:45: 21:14 Infusion, [place] 00 :21 CONTINUOUS Medical , Starting Branch on [place] 07/25/22 at 1145, Until [place] 07/25/22 at 1514, Routine NaCl 0.9% 2022- No PRN, Univers (NS) 07-25 Starting ity of injection 17:26: 17:50 on [place] 00 :02 07/25/22 at Medical 1126, Branch Until [place] 07/25/22 at 1150, Routine, Intra-op clostridium 2022- No PRN, Unive rs botulinum 07-25 Starting ity o f toxin 17:22: 17:50 on [facility] (BOTOX) 00 :02 07/25/22 at Medical injection 1122, Branch Until [place] 07/25/22 at 1150, Routine, Intra-op water for 2022- No PRN, Univers irrigation 07-25 Starting ity of irrigation 17:15: 17:50 on [facility] [place] solution 00 :02 07/25/22 at Medica l 1115, Branch Until [place] 07/25/22 at 1150, Routine, Intra-op lidocaine 2022- No PRN, Univers (XYLOCAINE) 07-25 Starting ity of 2 % jelly 17:06: 17:50 on [facility] URO-JET 00 :02 07/25/22 at Medical 1106, Branch Until [place] 07/25/22 at 1150, Routine, Intra-op lactated 2022- No 1000mL at 42 [facility] rs ringers IV 07-25-09 mL/hr, ity of infusion 15:30: 15:41 1,000 mL, [place] 1,000 mL 00 :00 IV Medical Infusion, Branch ONCE, 1 dose, On [place] 07/25/22 at 0930, Routine, DSU Pre-op lactated 2022- No 1000mL at 42 [facility] rs ringers IV 07-25-09 mL/hr, ity of infusion 15:30: 15:41 1,000 mL, [place] 1,000 mL 00 :00 IV Medical Infusion, Branch ONCE, 1 dose, On [place] 07/25/22 at 0930, Routine, DSU Pre-op multivit, Yes 1{tbl} Take 1 Un [facility] x,calcium,i 07-25 tablet by ity of arlet,mins 13:14: mouth [place] (MULTIVITAM 20 daily. Medica l IN AND Branch MINERAL ORAL) calcium Yes 1999[iU Take 2,000 U nivers carbonate/v 07-25 ] Int'l ity of itamin D3 13:14: Units by [place] (VITAMIN 20 mouth Medical D-3 ORAL) daily. [place] vitamin C Yes 1{tbl} Take 1 Univ ers with migue 2-09 tablet by ity o f hips 1,000 13:14: mouth in [place] mg tablet 20 the Medical morning Branch and 1 tablet in the evening. furosemide Yes 40mg Take 40 mg U nivers 40 mg 2-09 by mouth ity of tablet 13:14: as needed. [place] 20 Medical Branch donepeziL 5 Yes 1{tbl} Take 1 Un [facility] mg tablet 2-09 tablet by ity o f 13:14: mouth at [place] 20 bedtime. Medical Branch predniSONE Yes 1{tbl} Take 1 Uni vers 5 mg tablet 2-09 tablet by ity of 13:14: mouth in [place] 20 the Medical morning. Branch omeprazole Yes 1{capsu Take 1 [facility] 20 mg 2-09 le} capsule by ity of capsule 13:14: mouth in [place] 20 the Medical morning. Branch amLODIPine Yes 1{tbl} Take 1 Uni vers 2.5 mg 2-09 tablet by ity of tablet 13:14: mouth in [place] 20 the Medical morning. Branch leflunomide Yes 1{tbl} Take 1 [facility] 20 mg 2-09 tablet by ity of tablet 13:14: mouth in [place] 20 the Medical morning. Branch levothyroxi Yes 1{tbl} Take 1 [facility] ne 25 mcg 2-09 tablet by ity o f tablet 13:14: mouth [place] 20 every Medical morning. Branch mv-mn/om3/d Yes 2{tbl} Take 2 Un [facility] eckert/epa/fish 2-09 tablets by it y of /lut/tanika 13:14: mouth [place] (OCUVITE 20 daily. Medical ADULT 50 Branch PLUS ORAL) COCONUT OIL Yes 2{capsu Take 2 U nivers ORAL 2-09 le} capsules ity of 13:14: by mouth [place] 20 daily. Medical Branch multivit,th Yes 1{tbl} Take 1 [facility] x,calcium,i 2-09 tablet by ity of arlet,mins 13:14: mouth [place] (MULTIVITAM 20 daily. Medica l IN AND Branch MINERAL ORAL) calcium Yes 2000[iU Take 2,000 U nivers carbonate/v 2-09 ] Int'l ity of itamin D3 13:14: Units [place] (VITAMIN 20 mouth Medical D-3 ORAL) daily. Branch vitamin C Yes 1{tbl} Take 1 Univ ers with migue 2-09 tablet by ity o f hips 1,000 13:14: mouth in [place] mg tablet 20 the Medical morning Branch and 1 tablet in the evening. furosemide Yes 40mg Take 40 mg U nivers 40 mg 2-09 by mouth ity of tablet 13:14: as needed. [place] 20 Medical Branch donepeziL 5 Yes 1{tbl} Take 1 Un [facility] mg tablet 2-09 tablet by ity o f 13:14: mouth at [place] 20 bedtime. Medical Branch predniSONE Yes 1{tbl} Take 1 Uni vers 5 mg tablet 2-09 tablet by ity of 13:14: mouth in [place] 20 the Medical morning. Branch omeprazole Yes 1{capsu Take 1 Un [facility] 20 mg 2-09 le} capsule by ity of capsule 13:14: mouth in [place] 20 the Medical morning. Branch amLODIPine Yes 1{tbl} Take 1 Uni vers 2.5 mg 2-09 tablet by ity of tablet 13:14: mouth in [place] 20 the Medical morning. Branch leflunomide Yes 1{tbl} Take 1 Un [facility] 20 mg 2-09 tablet by ity of tablet 13:14: mouth in [place] 20 the Medical morning. Branch levothyroxi Yes 1{tbl} Take 1 Un [facility] ne 25 mcg 2-09 tablet by ity o f tablet 13:14: mouth [place] 20 every Medical morning. Branch mv-mn/om3/d Yes 2{tbl} Take 2 Un [facility] eckert/epa/fish 2-09 tablets by it y of /lut/tanika 13:14: mouth [place] (OCUVITE 20 daily. Medical ADULT 50 Branch PLUS ORAL) COCONUT OIL Yes 2{capsu Take 2 U nivers ORAL 2-09 le} capsules ity of 13:14: by mouth [place] 20 daily. Medical Branch multivit,th Yes 1{tbl} Take 1 Un [facility] x,calcium,i 2-09 tablet by ity of arlet,mins 13:14: mouth [place] (MULTIVITAM 20 daily. Medica l IN AND Branch MINERAL ORAL) calcium Yes 1999[iU Take 2,000 U nivers carbonate/v 2-09 ] Int'l ity of itamin D3 13:14: Units [place] (VITAMIN 20 mouth Medical D-3 ORAL) daily. Branch vitamin C Yes 1{tbl} Take 1 Univ ers with migue 2-09 tablet by ity o f hips 1,000 13:14: mouth in [place] mg tablet 20 the Medical morning Branch and 1 tablet in the evening. furosemide Yes 40mg Take 40 mg U nivers 40 mg 2-09 by mouth ity of tablet 13:14: as needed. [place] 20 Medical Branch donepeziL 5 Yes 1{tbl} Take 1 Un [facility] mg tablet 2-09 tablet by ity o f 13:14: mouth at [place] 20 bedtime. Medical Branch predniSONE Yes 1{tbl} Take 1 Uni vers 5 mg tablet 2-09 tablet by ity of 13:14: mouth in [place] 20 the Medical morning. Branch omeprazole Yes 1{capsu Take 1 Un [facility] 20 mg 2-09 le} capsule by ity of capsule 13:14: mouth in [place] 20 the Medical morning. Branch amLODIPine Yes 1{tbl} Take 1 Uni vers 2.5 mg 2-09 tablet by ity of tablet 13:14: mouth in [place] 20 the Medical morning. Branch leflunomide Yes 1{tbl} Take 1 Un [facility] 20 mg 2-09 tablet by ity of tablet 13:14: mouth in [place] 20 the Medical morning. Branch levothyroxi Yes 1{tbl} Take 1 Un [facility] ne 25 mcg 2-09 tablet by ity o f tablet 13:14: mouth [place] 20 every Medical morning. Branch mv-mn/om3/d Yes 2{tbl} Take 2 Un [facility] eckert/epa/fish 2-09 tablets by it y of /lut/tanika 13:14: mouth [place] (OCUVITE 20 daily. Medical ADULT 50 Branch PLUS ORAL) COCONUT OIL Yes 2{capsu Take 2 U nivers ORAL 2-09 le} capsules ity of 13:14: by mouth [place] 20 daily. Medical Branch multivit,th Yes 1{tbl} Take 1 Un [facility] x,calcium,i 2-09 tablet by ity of arlet,mins 13:14: mouth [place] (MULTIVITAM 20 daily. Medica l IN AND Branch MINERAL ORAL) calcium Yes 1999[iU Take 2,000 U nivers carbonate/v 2-09 ] Int'l ity of itamin D3 13:14: Units [place] (VITAMIN 20 mouth Medical D-3 ORAL) daily. Branch vitamin C Yes 1{tbl} Take 1 Univ ers with migue 2-09 tablet by ity o f hips 1,000 13:14: mouth in [place] mg tablet 20 the Medical morning Branch and 1 tablet in the evening. furosemide Yes 40mg Take 40 mg U nivers 40 mg 2-09 by mouth ity of tablet 13:14: as needed. [place] 20 Medical Branch donepeziL 5 Yes 1{tbl} Take 1 Un [facility] mg tablet 2-09 tablet by ity o f 13:14: mouth at [place] 20 bedtime. Medical Branch predniSONE Yes 1{tbl} Take 1 Uni vers 5 mg tablet 2-09 tablet by ity of 13:14: mouth in [place] 20 the Medical morning. Branch omeprazole Yes 1{capsu Take 1 Un [facility] 20 mg 2-09 le} capsule by ity of capsule 13:14: mouth in [place] 20 the Medical morning. Branch amLODIPine Yes 1{tbl} Take 1 Uni vers 2.5 mg 2-09 tablet by ity of tablet 13:14: mouth in [place] 20 the Medical morning. Branch leflunomide Yes 1{tbl} Take 1 Un [facility] 20 mg 2-09 tablet by ity of tablet 13:14: mouth in [place] 20 the Medical morning. Branch levothyroxi Yes 1{tbl} Take 1 Un [facility] ne 25 mcg 2-09 tablet by ity o f tablet 13:14: mouth [place] 20 every Medical morning. Branch mv-mn/om3/d 0 Yes 2{tbl} Take 2 Un [facility] eckert/epa/fish 2-09 tablets by it y of /lut/tanika 13:14: mouth [place] (OCUVITE 20 daily. Medical ADULT 50 Branch PLUS ORAL) COCONUT OIL 0 Yes 2{capsu Take 2 U nivers ORAL 2-09 le} capsules ity of 13:14: by mouth [place] 20 daily. Medical Branch furosemide 2022-0 Yes 40mg Take 40 mg U nivers 40 mg 2-09 by mouth ity of tablet 13:14: as needed. [place] 20 Medical Branch amLODIPine 2022-0 Yes 1{tbl} Take 1 Uni vers 2.5 mg 2-09 tablet by ity of tablet 13:14: mouth in [place] 20 the Medical morning. Branch levothyroxi 2022-0 Yes 1{tbl} Take 1 Un gil[facility] ne 25 mcg 2-09 tablet by ity o f tablet 13:14: mouth [place] 20 every Medical morning. Branch furosemide 2022-0 Yes 40mg Take 40 mg U nivers 40 mg 2-09 by mouth ity of tablet 13:14: as needed. [place] 20 Medical Branch amLODIPine 2022-0 Yes 1{tbl} Take 1 Uni vers 2.5 mg 2-09 tablet by ity of tablet 13:14: mouth in [place] 20 the Medical morning. Branch levothyroxi 2022-0 Yes 1{tbl} Take 1 Un gilmar ne 25 mcg 2-09 tablet by ity o f tablet 13:14: mouth [place] 20 every Medical morning. Branch furosemide 2022-0 Yes 40mg Take 40 mg U nivers 40 mg 2-09 by mouth ity of tablet 13:14: as needed. [place] 20 Medical Branch amLODIPine 2022-0 Yes 1{tbl} Take 1 Uni vers 2.5 mg 2-09 tablet by ity of tablet 13:14: mouth in [place] 20 the Medical morning. Branch levothyroxi 2022-0 Yes 1{tbl} Take 1 Un gilmar ne 25 mcg 2-09 tablet by ity o f tablet 13:14: mouth [place] 20 every Medical morning. Branch furosemide 2022-0 Yes 40mg Take 40 mg U nivers 40 mg 2-09 by mouth ity of tablet 13:14: as needed. [address] Branch amLODIPine Yes 1{tbl} Take 1 Uni vers 2.5 mg 2-09 tablet by ity of tablet 13:14: mouth in [place] 20 the Medical morning. Branch levothyroxi Yes 1{tbl} Take 1 Un gilmar ne 25 mcg 2-09 tablet by ity o f tablet 13:14: mouth [place] 20 every Medical morning. Branch furosemide Yes 40mg Take 40 mg U nivers 40 mg 2-09 by mouth ity of tablet 13:14: as needed. [address] Branch amLODIPine Yes 1{tbl} Take 1 Uni vers 2.5 mg 2-09 tablet by ity of tablet 13:14: mouth in [place] 20 the Medical morning. Branch levothyroxi Yes 1{tbl} Take 1 Un gilmar ne 25 mcg 2-09 tablet by ity o f tablet 13:14: mouth [place] 20 every Medical morning. Branch furosemide Yes 40mg Take 40 mg U nivers 40 mg 2-09 by mouth ity of tablet 13:14: as needed. [address] Branch amLODIPine Yes 1{tbl} Take 1 Uni vers 2.5 mg 2-09 tablet by ity of tablet 13:14: mouth in [place] 20 the Medical morning. Branch levothyroxi Yes 1{tbl} Take 1 Un gilmar ne 25 mcg 2-09 tablet by ity o f tablet 13:14: mouth [place] 20 every Medical morning. Branch omeprazole Yes 1{capsu Take 1 Un [facility] 20 mg 1-25 le} capsule by ity of capsule 13:56: mouth in [place] 33 the Medical morning. Branch multivit,th Yes 1{tbl} Take 1 Un [facility] x,calcium,i 1-25 tablet by ity of arlet,mins 13:56: mouth [place] (MULTIVITAM 33 daily. Medica l IN AND [...] mouth ity of tablet 13:56: as needed. [place] [address] Medical Branch donepeziL 5 Yes 1{tbl} Take 1 Un gilmar mg tablet 1-25 tablet by ity o f 13:56: mouth at [place] [address] bedtime. Medical Branch predniSONE Yes 1{tbl} Take 1 Uni vers 5 mg tablet 1-25 tablet by ity of 13:56: mouth in [place] [address] the Medical morning. Branch omeprazole Yes 1{capsu Take 1 Un [facility] 20 mg 1-25 le} capsule by ity of capsule 13:56: mouth in [place] [address] the Medical morning. Branch multivit,th Yes 1{tbl} Take 1 Un [facility] x,calcium,i 1-25 tablet by ity of arlet,mins 13:56: mouth [place] (MULTIVITAM 33 daily. Medica l IN AND [...] mouth ity of tablet 13:56: as needed. [place] [address] Medical Branch donepeziL 5 Yes 1{tbl} Take 1 Un gilmar mg tablet 1-25 tablet by ity o f 13:56: mouth at [place] [address] bedtime. Medical Branch predniSONE Yes 1{tbl} Take 1 Uni vers 5 mg tablet 1-25 tablet by ity of 13:56: mouth in [place] [address] the Medical morning. Branch Nitrofurant 2022- No [id number] 100mg Take 1 Univers oin&Nit. 07-10 capsule by ity of Macrocryst 00:00: 05:59 mouth at [place] (MACROBID) 00 :00 bedtime Medica l 100 mg for 6 Branch capsule doses. 3 days prior to procedure and 3 days after Nitrofurant 2022-0 2022- No [id number] 100mg Take 1 Univers oin&Nit. 07-10 capsule by ity of Macrocryst 00:00: 05:59 mouth at [place] (MACROBID) 00 :00 bedtime Medica l 100 mg for 6 Branch capsule doses. 3 days prior to procedure and 3 days after Nitrofurant 2022-0 2022- No [id number] 100mg Take 1 Univers oin&Nit. 07-10 capsule by ity of Macrocryst 00:00: 05:59 mouth at [place] (MACROBID) 00 :00 bedtime Medica l 100 mg for 6 Branch capsule doses. 3 days prior to procedure and 3 days after Nitrofurant 2022-0 2022- No [id number] 100mg Take 1 Univers oin&Nit. 07-10 capsule by ity of Macrocryst 00:00: 05:59 mouth at [place] (MACROBID) 00 :00 bedtime Medica l 100 mg for 6 Branch capsule doses. 3 days prior to procedure and 3 days after hydrOXYchlo 3-0 Yes 1{tbl} Take 1 Un [facility] roQUINE 200 1-24 tablet by ity of mg tablet 00:00: mouth [place] 00 the Medical morning. Branch hydrOXYchlo 3-0 Yes 1{tbl} Take 1 Un [facility] roQUINE 200 1-24 tablet by ity of mg tablet 00:00: mouth [place] 00 the Medical morning. Branch hydrOXYchlo 2023-0 Yes 1{tbl} Take 1 Un [facility] roQUINE 200 1-24 tablet by ity of mg tablet 00:00: mouth [place] 00 the Medical morning. Branch hydrOXYchlo 3-0 Yes 1{tbl} Take 1 Un [facility] roQUINE 200 1-24 tablet by ity of mg tablet 00:00: mouth [place] 00 the Medical morning. Branch hydrOXYchlo 2023-0 Yes 1{tbl} Take 1 Un [facility] roQUINE 200 1-24 tablet by ity of mg tablet 00:00: mouth [place] 00 the Medical morning. Branch hydrOXYchlo 2023-0 Yes 1{tbl} Take 1 Un [facility] roQUINE 200 1-24 tablet by ity of mg tablet 00:00: mouth [place] 00 the Medical morning. Branch hydrOXYchlo 2023-0 Yes 1{tbl} Take 1 Un [facility] roQUINE 200 1-24 tablet by ity of mg tablet 00:00: mouth [place] 00 the Medical morning. Branch hydrOXYchlo 2023-0 Yes 1{tbl} Take 1 Un [facility] roQUINE 200 1-24 tablet by ity of mg tablet 00:00: mouth [place] 00 the Medical morning. Branch hydrOXYchlo 2023-0 Yes 1{tbl} Take 1 Un [facility] roQUINE 200 1-24 tablet by ity of mg tablet 00:00: mouth [place] 00 the Medical morning. Branch hydrOXYchlo 2023-0 Yes 1{tbl} Take 1 Un [facility] roQUINE 200 1-24 tablet by ity of mg tablet 00:00: mouth [place] 00 the Medical morning. Branch hydrOXYchlo 2023-0 Yes 1{tbl} Take 1 Un [facility] roQUINE 200 1-24 tablet by ity of mg tablet 00:00: mouth [place] 00 the Medical morning. Branch hydrOXYchlo 2023-0 Yes 1{tbl} Take 1 [facility] roQUINE 200 1-24 tablet by ity of mg tablet 00:00: mouth [place] 00 the Medical morning. Branch hydrOXYchlo 2023-0 Yes 1{tbl} Take 1 Un [facility] roQUINE 200 1-24 tablet by ity of mg tablet 00:00: mouth [place] 00 the Medical morning. Branch hydrOXYchlo 2023-0 Yes 1{tbl} Take 1 Un [facility] roQUINE 200 1-24 tablet by ity of mg tablet 00:00: mouth [place] 00 the Medical morning. Branch hydrOXYchlo 2023-0 Yes 1{tbl} Take 1 Un [facility] roQUINE 200 1-24 tablet by ity of mg tablet 00:00: mouth [place] 00 the Medical morning. Branch hydrOXYchlo 2023-0 Yes 1{tbl} Take 1 Un g[facility]mar roQUINE 200 1-24 tablet by ity of mg tablet 00:00: mouth in [place] [address] the Medical morning. Branch hydrOXYchlo 2023-0 Yes 1{tbl} Take 1 Un g[facility] roQUINE 200 1-24 tablet by ity of mg tablet 00:00: mouth in [place] [address] the Medical morning. Branch estradioL 2023-0 Yes .5mg Take 0.5 Univ ers 0.5 mg 1-19 mg by ity of tablet 00:00: mouth in [place] 00 the Medical morning. Branch estradioL 2023-0 Yes .5mg Take 0.5 Univ ers 0.5 mg 1-19 mg by ity of tablet 00:00: mouth in [place] 00 the Medical morning. Branch estradioL 2023-0 Yes .5mg Take 0.5 Univ ers 0.5 mg 1-19 mg by ity of tablet 00:00: mouth in [place] 00 the Medical morning. Branch estradioL 2023-0 Yes .5mg Take 0.5 Univ ers 0.5 mg 1-19 mg by ity of tablet 00:00: mouth in [place] the Medical morning. Branch estradioL 2023-0 Yes .5mg Take 0.5 Univ ers 0.5 mg 1-19 mg by ity of tablet 00:00: mouth in [place] the Medical morning. Branch estradioL 2023-0 Yes .5mg Take 0.5 Univ ers 0.5 mg 1-19 mg by ity of tablet 00:00: mouth in [place] 00 the Medical morning. Branch estradioL 2023-0 Yes .5mg Take 0.5 Univ ers 0.5 mg 1-19 mg by ity of tablet 00:00: mouth in [place] 00 the Medical morning. Branch estradioL 2023-0 Yes .5mg Take 0.5 Univ ers 0.5 mg 1-19 mg by ity of tablet 00:00: mouth in [place] 00 the Medical morning. Branch estradioL 2023-0 Yes .5mg Take 0.5 Univ ers 0.5 mg 1-19 mg by ity of tablet 00:00: mouth in [place] 00 the Medical morning. Branch estradioL 2023-0 Yes .5mg Take 0.5 Univ ers 0.5 mg 1-19 mg by ity of tablet 00:00: mouth in [place] 00 the Medical morning. Branch estradioL 2023-0 Yes .5mg Take 1 Univer s 0.5 mg 1-19 tablet by ity of tablet 00:00: mouth in [place] the Medical morning. Branch estradioL 2023-0 Yes .5mg Take 1 Univer s 0.5 mg 1-19 tablet by ity of tablet 00:00: mouth in [place] the Medical morning. Branch estradioL 2023-0 Yes .5mg Take 1 Univer s 0.5 mg 1-19 tablet by ity of tablet 00:00: mouth in [place] the Medical morning. Branch estradioL 2023-0 Yes .5mg Take 1 Univer s 0.5 mg 1-19 tablet by ity of tablet 00:00: mouth in [place] the Medical morning. Branch estradioL 2023-0 Yes .5mg Take 1 Univer s 0.5 mg 1-19 tablet by ity of tablet 00:00: mouth in [place] the Medical morning. Branch ipratropium 2021-06 Yes 2{spray Use 2 Un gilmar 42 mcg 2-28 } Sprays in ity of (0.06 %) 00:00: each [place] nasal spray 00 nostril as Me dical needed. Branch ipratropium 2021-06 Yes 2{spray Use 2 Un gilmar 42 mcg 2-28 } Sprays in ity of (0.06 %) 00:00: each [place] nasal spray 00 nostril as Me dical needed. Branch ipratropium 2021-06 Yes 2{spray Use 2 Un gil[facility] 42 mcg 2-28 } Sprays in ity of (0.06 %) 00:00: each [place] nasal spray 00 nostril as Me dical needed. Branch ipratropium 2021-06 Yes 2{spray Use 2 Un gilmar 42 mcg 2-28 } Sprays in ity of (0.06 %) 00:00: each [place] nasal spray 00 nostril as Me dical needed. Branch ipratropium 2021-06 Yes 2{spray Use 2 Un gilmar 42 mcg 2-28 } Sprays in ity of (0.06 %) 00:00: each [place] nasal spray 00 nostril as Me dical needed. Branch ipratropium 2021-06 Yes 2{spray Use 2 Un gilmar 42 mcg 2-28 } Sprays in ity of (0.06 %) 00:00: each [place] nasal spray 00 nostril as Me dical needed. Branch ipratropium 2021-06 Yes 2{spray Use 2 Un gilmar 42 mcg 2-28 } Sprays in ity of (0.06 %) 00:00: each [place] nasal spray 00 nostril as Me dical needed. Branch ipratropium 2021-06 Yes 2{spray Use 2 Un gilmar 42 mcg 2-28 } Sprays in ity of (0.06 %) 00:00: each [place] nasal spray 00 nostril as Me dical needed. Branch ipratropium 2021-06 Yes 2{spray Use 2 Un gilmar 42 mcg 2-28 } Sprays in ity of (0.06 %) 00:00: each [place] nasal spray 00 nostril as Me dical needed. Branch ipratropium 2021-06 Yes 2{spray Use 2 Un gilmar 42 mcg 2-28 } Sprays in ity of (0.06 %) 00:00: each [place] nasal spray 00 nostril as Me dical needed. Branch ipratropium 2021-06 Yes 2{spray Use 2 Un gilmar 42 mcg 2-28 } Sprays in ity of (0.06 %) 00:00: each [place] nasal spray 00 nostril as Me dical needed. Branch ipratropium 2021-06 Yes 2{spray Use 2 Un gilmar 42 mcg 2-28 } Sprays in ity of (0.06 %) 00:00: each [place] nasal spray 00 nostril as Me dical needed. Branch ipratropium 2021-06 Yes 2{spray Use 2 Un gilmar 42 mcg 2-28 } Sprays in ity of (0.06 %) 00:00: each [place] nasal spray 00 nostril as Me dical needed. Branch ipratropium 2021-06 Yes 2{spray Use 2 Un gilmar 42 mcg 2-28 } Sprays in ity of (0.06 %) 00:00: each [place] nasal spray 00 nostril as Me dical needed. Branch ipratropium 2021-06 Yes 2{spray Use 2 Un gilmar 42 mcg 2-28 } Sprays in ity of (0.06 %) 00:00: each [place] nasal spray 00 nostril as Me dical needed. Branch LORazepam LORazepam 2021-06 No 1{table QD LORazepam 0.5 MG 0.5 MG 2-19 t_as_ne 0.5 MG 00:00: eded} LORazepam 2021-06 Yes 1{tbl} Take 1 Univ ers 0.5 mg 2-19 tablet by ity of tablet 00:00: mouth in [place] the Medical morning. Branch LORazepam 2021-06 Yes 1{tbl} Take 1 Univ ers 0.5 mg 2-19 tablet by ity of tablet 00:00: mouth in [place] the Medical morning. Branch LORazepam 2021-06 Yes 1{tbl} Take 1 Univ ers 0.5 mg 2-19 tablet by ity of tablet 00:00: mouth in [place] the Medical morning. Branch LORazepam 2021-06 Yes 1{tbl} Take 1 Univ ers 0.5 mg 2-19 tablet by ity of tablet 00:00: mouth in [place] the Medical morning. Branch LORazepam 2021-06 Yes 1{tbl} Take 1 Univ ers 0.5 mg 2-19 tablet by ity of tablet 00:00: mouth in [place] the Medical morning. Branch LORazepam 2021-06 Yes 1{tbl} Take 1 Univ ers 0.5 mg 2-19 tablet by ity of tablet 00:00: mouth in [place] the Medical morning. Branch LORazepam 2021-06 Yes 1{tbl} Take 1 Univ ers 0.5 mg 2-19 tablet by ity of tablet 00:00: mouth in [place] the Medical morning. Branch LORazepam 2021- Yes 1{tbl} Take 1 Univ ers 0.5 mg 2-19 tablet by ity of tablet 00:00: mouth in [place] the Medical morning. Branch LORazepam 2021- Yes 1{tbl} Take 1 Univ ers 0.5 mg 2-19 tablet by ity of tablet 00:00: mouth in [place] the Medical morning. Branch LORazepam 2021- Yes 1{tbl} Take 1 Univ ers 0.5 mg 2-19 tablet by ity of tablet 00:00: mouth in [place] the Medical morning. Branch LORazepam 2021- Yes 1{tbl} Take 1 Univ ers 0.5 mg 2-19 tablet by ity of tablet 00:00: mouth in [place] the morning. Branch LORazepam 2021-06 Yes 1{tbl} Take 1 Univ ers 0.5 mg 2-19 tablet by ity of tablet 00:00: mouth in [place] the morning. Branch LORazepam 2021-06 Yes 1{tbl} Take 1 Univ ers 0.5 mg 2-19 tablet by ity of tablet 00:00: mouth in [place] the morning. Branch LORazepam 2021-06 Yes 1{tbl} Take 1 Univ ers 0.5 mg 2-19 tablet by ity of tablet 00:00: mouth in [place] the morning. Branch LORazepam 2021-06 Yes 1{tbl} Take 1 Univ ers 0.5 mg 2-19 tablet by ity of tablet 00:00: mouth in [place] the morning. Branch tolterodine 2021-06 Yes 2mg Take 2 mg U nivers [place] 2 mg 24 2-05 by mouth ity o f hr capsule 00:00: in the [place] morning. Medical Branch tolterodine 2021-06 Yes 2mg Take 2 mg U nivers [place] 2 mg 24 2-05 by mouth ity o f hr capsule 00:00: in the [place] morning. Medical Branch tolterodine 2021-06- No 2mg Take 2 mg Univers [place] 2 mg 24 2-05 07-25 by mouth ity of hr capsule 00:00: 00:00 in the [facility] 00 :00 morning. Medical Branch tolterodine 2021-06- No 2mg Take 2 mg Univers [place] 2 mg 24 2-05 - by mouth ity of hr capsule 00:00: 00:00 in the [facility] 00 :00 morning. Medical Branch memantine 2021-06 Yes 10mg Take 10 mg Un gil[place] 10 mg 1-25 by mouth ity of tablet 00:00: in the [place] morning Medical and 10 mg Branch in the evening. memantine 2021-06 Yes 10mg Take 10 mg Un gilmar 10 mg 1-25 by mouth ity of tablet 00:00: in the [place] morning Medical and 10 mg Branch in the evening. memantine 2021-06 Yes 10mg Take 10 mg Un g[place] 10 mg 1-25 by mouth ity of tablet 00:00: in the [place] morning Medical and 10 mg Branch in the evening. memantine 2-1 Yes 10mg Take 10 mg Un gilmar 10 mg 1-25 by mouth ity of tablet 00:00: in the [place] morning Medical and 10 mg Branch in the evening. memantine 2022-1 Yes 10mg Take 10 mg Un gilmar 10 mg 1-25 by mouth ity of tablet 00:00: in the [place] morning Medical and 10 mg Branch in the evening. memantine 2022-1 Yes 10mg Take 10 mg Un gil[place] 10 mg 1-25 by mouth ity of tablet 00:00: in the [place] morning Medical and 10 mg Branch in the evening. memantine 2022-1 Yes 10mg Take 10 mg Un gil[place] 10 mg 1-25 by mouth ity of tablet 00:00: in the [place] morning Medical and 10 mg Branch in the evening. memantine 2022-1 Yes 10mg Take 10 mg Un [place] 10 mg 1-25 by mouth ity of tablet 00:00: in the [place] morning Medical and 10 mg Branch in the evening. memantine 2-1 Yes 10mg Take 10 mg Un gil[place] 10 mg 1-25 by mouth ity of tablet 00:00: in the [place] morning Medical and 10 mg Branch in the evening. memantine 2-1 Yes 10mg Take 10 mg Un gilmar 10 mg 1-25 by mouth ity of tablet 00:00: in the [place] morning Medical and 10 mg Branch in the evening. memantine 2-1 Yes 10mg Take 10 mg Un gilmar 10 mg 1-25 by mouth ity of tablet 00:00: in the [place] morning Medical and 10 mg Branch in the evening. memantine 2-1 Yes 10mg Take 10 mg Un gil[place] 10 mg 1-25 by mouth ity of tablet 00:00: in the [place] morning Medical and 10 mg Branch in the evening. memantine 2022-1 Yes 10mg Take 10 mg Un gilmar 10 mg 1-25 by mouth ity of tablet 00:00: in the [place] morning Medical and 10 mg Branch in the evening. memantine 2022-1 Yes 10mg Take 10 mg Un gilmar 10 mg 1-25 by mouth ity of tablet 00:00: in the [place] morning Medical and 10 mg Branch in the evening. memantine 2022-1 Yes 10mg Take 10 mg Un gilmar 10 mg 1-25 by mouth ity of tablet 00:00: in the [place] morning Medical and 10 mg Branch in the evening. memantine 2021-06 Yes 10mg Take 10 mg Un gilmar 10 mg 1-25 by mouth ity of tablet 00:00: in the [place] morning Medical and 10 mg Branch in the evening. memantine 2021-06 Yes 10mg Take 10 mg Un gilmar 10 mg 1-25 by mouth ity of tablet 00:00: in the [place] morning Medical and 10 mg Branch in the evening. LORazepam LORazepam No 1{table QD LORazepam 0.5 MG 0.5 MG 9-14 t_as_ne 0.5 MG 00:00: eded} 00 LORazepam LORazepam No 1{table QD LORazepam 0.5 MG 0.5 MG 9-14 t_as_ne 0.5 MG 00:00: eded} 00 LORazepam LORazepam No 1{table QD LORazepam 0.5 MG 0.5 MG 9-06 t_as_ne 0.5 MG 00:00: eded} 00 LORazepam LORazepam 2021- No 1{table QD LORazepam 0.5 MG 0.5 MG 6-02 t_as_ne 0.5 MG 00:00: eded} 00 LORazepam LORazepam 2021-0 No 1{table QD LORazepam 0.5 MG 0.5 MG 6-02 t_as_ne 0.5 MG 00:00: eded} 00 amLODIPine amLODIPine 0 No 1{table QD amLODIPine Besylate 5 Besylate [...] MG 3-02 t_as_ne 0.5 MG 00:00: eded} Medrol 4 MG Medrol 4 MG 0 2021- No Medrol 4 06-22 MG 00:00: 00:00 00 :00 Azithromyci Azithromyci 2021-0 2021- No QD Azithromyc n 250 MG n 250 MG 06-22 in 250 MG 00:00: 00:00 00 :00 LORazepam LORazepam 2020-06 No 1{table QD LORazepam 0.5 MG 0.5 MG 1-29 t_as_ne 0.5 MG 00:00: eded} LORazepam LORazepam 2020-06 No 1{table QD LORazepam 0.5 MG 0.5 MG 1-29 t_as_ne 0.5 MG 00:00: eded} 00 LORazepam LORazepam 2020-06 No 1{table QD LORazepam 0.5 MG 0.5 MG 1-29 t_as_ne 0.5 MG 00:00: eded} 00 LORazepam LORazepam 2020-06 No 1{table QD LORazepam 0.5 MG 0.5 MG 1-23 t_as_ne 0.5 MG 00:00: eded} LORazepam LORazepam 2020-06 No 1{table QD LORazepam 0.5 MG 0.5 MG 1-23 t_as_ne 0.5 MG 00:00: eded} 00 LORazepam LORazepam 2020-06 No 1{table QD LORazepam 0.5 MG 0.5 MG 1-23 t_as_ne 0.5 MG 00:00: eded} 00 LORazepam [...] MG 1-23 t_as_ne 0.5 MG 00:00: eded} Hydroxychlo Hydroxychlo 2020-0 2020- No Wilian 1 tablet Common roquine roquine 03-0217 [facility] Sulfate Sulfate 00:00: 00:00 - [facility] 00 :00 [facility] cyanocobala 2020-0 Yes Inject as M ethodi [...] 2020-0 Yes Inject as M ethodi min, - directed. st vitamin 08:49: Hospita B-12, (B-12 18 l KIT INJ) cyanocobala 2020-0 Yes Inject as M ethodi min, - directed. st vitamin 08:49: Hospita B-12, (B-12 18 l KIT INJ) predniSONE 2020-0 Yes 15mg QD Take 15 mg M ethodi (DELTASONE) - by mouth st 5 mg tablet 08:48: daily. Hosp td 28 l hydroxychlo 2020-0 Yes Q.5D Take by Met hodi roquine -[address] (PLAQUENIL) 08:48: (two) Hospi ta 200 mg 28 times a l tablet day. estradiol 2020-0 Yes 1mg QD Take 1 mg Met hodi (ESTRACE) 1 - by mouth st MG tablet 08:48: daily. [...] daily. l D3) 2,000 unit capsule capsule predniSONE 2020-0 Yes 15mg QD Take 15 [...] MG 08:48: daily. Hospita capsule 28 l acetaminoph 2020-0 Yes 650mg Q6H Take 650 [...] MG tablet 00:00: Hospita 00 l LORAZepam Yes Methodi (ATIVAN) 1 2-14 st MG tablet 00:00: Hospita 00 l No known 2015-06 No Univers medications 07-14 ity of 00:00: [address] No known 2015-06 No Univers medications 07-14 ity of 00:00: [address] No known 2015-06 No Univers medications 07-14 ity of 00:00: [address] No known 2015-06 No Univers medications 07-14 ity of 00:00: [address] No known 2015-06 No No known Unive rs medications 07-14 medication it y of 00:00: s [address] Multi Multi No 1{table QD Multi Vitamin [...] MCG (1999 [facility]) (1999 UT) (1999 [facility]) Hydroxychlo Hydroxychlo No 1{table QD Hydroxychl [...] t} 50 MCG (1999) (1999 UT) (1999) amLODIPine amLODIPine No 1{table [...] Synthroid 25 MCG 25 MCG 25 MCG donepezil 5 donepezil 5 No donepezil [place] mg tablet mg tablet 5 mg [facility] TAKE 1 TAKE 1 tablet Urology TABLET BY TABLET BY TAKE 1 MOUTH ONCE MOUTH ONCE TABLET BY DAILY DAILY MOUTH ONCE DAILY estradiol estradiol No estradiol [place] 0.5 mg 0.5 mg 0.5 mg [facility] tablet TAKE tablet TAKE tablet Urology 1 TABLET BY 1 TABLET BY TAKE 1 MOUTH ONCE MOUTH ONCE TABLET BY DAILY FOR DAILY FOR MOUTH ONCE 90 DAYS 90 DAYS DAILY FOR 90 DAYS Euthyrox 50 Euthyrox 50 No Euthyrox [place] mcg tablet mcg tablet 50 mcg M etro TAKE 1 TAKE 1 tablet Urology TABLET BY TABLET BY TAKE 1 MOUTH ONCE MOUTH ONCE TABLET BY DAILY IN DAILY IN MOUTH ONCE THE MORNING THE MORNING DAILY IN ON AN EMPTY ON AN EMPTY THE STOMACH STOMACH MORNING ON AN EMPTY STOMACH furosemide furosemide No furosemide [place] 40 mg 40 mg 40 mg [facility] tablet TAKE tablet TAKE tablet Urology 1 TABLET BY 1 TABLET BY TAKE 1 MOUTH ONCE MOUTH ONCE TABLET BY DAILY DAILY MOUTH ONCE DAILY hydroxychlo hydroxychlo No hydroxychl [place] roquine 200 roquine 200 oroquine [facility] mg [...] NEEDED memantine 5 memantine 5 No memantine [place] mg tablet mg tablet 5 mg [facility] tablet Urology multivitami multivitami No multivitam [place] n n in [facility] U[facility] nitroglycer nitroglycer No nitroglyce [place] in 0.4 mg in 0.4 mg rin 0.4 mg [facility] sublingual sublingual sublingual Urology tablet PRN. tablet PRN. tablet Has never Has never PRN. Has taken it taken it never taken it prednisone prednisone No prednisone [place] 5 mg tablet 5 mg tablet 5 mg M etro TAKE 1 TAKE 1 tablet Urology TABLET BY TABLET BY TAKE 1 MOUTH ONCE MOUTH ONCE TABLET BY DAILY DAILY MOUTH ONCE DAILY Stool Stool No Stool [place] Softener Softener Softener Met ro Urology Vitamin B6 Vitamin B6 No Vitamin B6 [facility] Urology Lorazepam Lorazepam Yes Wilian 1 tablet Common Golden as needed [facility] VESIcare VESIcare Yes Wilian 1 tablet C ommon Golden [facility] Stool Stool Yes Wilian 1 capsule Common Softener Softener Golden as needed S pirit [facility] PredniSONE PredniSONE Yes Wilian 1 tablet Common Golden [facility] Estradiol Estradiol Yes Wilian 1 tablet Common Golden [facility] Vitamin D3 Vitamin D3 Yes Wilian 1 tablet Common Golden [facility] Vitamin C Vitamin C Yes Wilian 1 tablet Common Golden [facility] Vitamin D3 Vitamin D3 No Vitamin D3 [facility] Urology Multi Multi Yes Wilian 1 tablet Common Vitamin Vitamin Golden [facility] Levothyroxi Levothyroxi Yes Wilian TAKE 1 Common ne Sodium ne Sodium Golden TABLET BY Spirit MOUTH ONCE - [facility] DAILY IN THE [facility] MORNING ON Medical AN EMPTY [place] STOMACH FOR 90 DAYS MiraLax MiraLax Yes Wilian not Common Golden defined [facility] Synthroid Synthroid Yes Wilian 1 tablet Common Golden in the Spirit morning on - [facility] an empty [facility] Tylenol Tylenol Yes Wilian not Common Arthritis Arthritis Golden defined S pirit Pain Pain [facility] Omeprazole Omeprazole Yes Wilian 1 capsule Common Golden 30 minutes Spirit before - CHI morning [facility] Stool Stool No 1{capsu TID Stool [...] t} 50 MCG (1999) (1999 [place]) (1999) Euthyrox 50 Euthyrox 50 [...] MG HCl 10 MG HCl 10 MG Immunizations Ordered Immunization Filled Immunization Date Status [facility] Source Name Name SARS-COV-2 COVID-19 2022-06-03 Completed Unive rsity of VACCINE, BIVALENT 00:00:00 [facility] (MODERNA BOOSTER) [place] SARS-COV-2 COVID-19 2022-06-03 Completed Unive rsity of VACCINE, BIVALENT 00:00:00 [facility] (MODERNA BOOSTER) [place] FLUZONE HIGH DOSE FLUZONE HIGH DOSE 2022-02-27 Completed [facility] - OVER [facility] OVER 65 15:00:00 [facility] FLUZONE HIGH DOSE FLUZONE HIGH DOSE 2022-02-27 Completed [facility] - OVER 65 OVER 65 15:00:00 [facility] FLUZONE HIGH DOSE FLUZONE HIGH DOSE 2022-02-27 Completed [facility] - OVER 65 OVER 65 15:00:00 [facility] FLUZONE HIGH DOSE FLUZONE HIGH DOSE 2022-02-27 Completed [facility] - OVER 65 OVER 65 15:00:00 [facility] FLUZONE HIGH DOSE FLUZONE HIGH DOSE 2022-02-27 Completed [facility] - OVER 65 OVER 65 15:00:00 [facility] FLUZONE HIGH DOSE FLUZONE HIGH DOSE 2022-02-27 Completed [facility] - OVER 65 OVER 65 15:00:00 [facility] Shingrix Shingrix 2022-02-27 Completed [facility] - 14:52:00 [facility] Shingrix Shingrix 2022-02-27 Completed [facility] - 14:52:00 [facility] Shingrix Shingrix 2022-02-27 Completed [facility] - 14:52:00 [facility] Shingrix Shingrix 2022-02-27 Completed [facility] - 14:52:00 [facility] Shingrix Shingrix 2022-02-27 Completed [facility] - 14:52:00 [facility] Shingrix Shingrix 2022-02-27 Completed [facility] - 14:52:00 [facility] SARS-COV-2 COVID-19 2021-11-29 Completed Unive rsity of VACCINE - (MODERNA) 00:00:00 [facility] SARS-COV-2 COVID-19 2021-11-29 Completed Unive rsity of VACCINE - (MODERNA) 00:00:00 [facility] SARS-COV-2 COVID-19 2021-04-09 Completed Unive rsity of VACCINE - (MODERNA) 00:00:00 [facility] SARS-COV-2 COVID-19 2021-04-09 Completed Unive rsity of VACCINE - (MODERNA) 00:00:00 [facility] SARS-COV-2 COVID-19 2020-09-13 Completed Unive rsity of VACCINE - (MODERNA) 00:00:00 [facility] SARS-COV-2 COVID-19 2020-09-13 Completed Unive rsity of VACCINE - (MODERNA) 00:00:00 [facility] SARS-COV-2 COVID-19 2020-08-16 Completed Unive rsity of VACCINE - (MODERNA) 00:00:00 [facility] SARS-COV-2 COVID-19 2020-08-16 Completed Unive rsity of VACCINE - (MODERNA) 00:00:00 [facility] FluAD FluAD 2020-02-17 Completed [facility] 10:58:00 [facility] FluAD FluAD 2020-02-17 Completed [facility] - 10:58:00 [facility] FluAD FluAD 2020-02-17 Completed [facility] 10:58:00 [facility] FluAD FluAD 2020-02-17 Completed [facility] 10[facility]58:00 [facility] FluAD FluAD 2020-02-17 Completed [facility] - 10:58:00 [facility] FluAD FluAD 2020-02-17 Completed [facility] 10:58:00 [facility] FluAD FluAD 2020-02-17 Completed [facility] 10:58:00 [facility] FluAD FluAD 2020-02-17 Completed [facility] 10[facility]58:00 [facility] FluAD FluAD 2020-02-17 Completed [facility] 10:58:00 [facility] FluAD FluAD 2020-02-17 Completed [facility] 10:58:00 [facility] FluAD FluAD 2020-02-17 Completed [facility] 10:58:00 [facility] FluAD FluAD 2020-02-17 Completed [facility] 10[facility]58:00 [facility] FluAD FluAD 2020-02-17 Completed [facility] 10:58:00 [facility] FluAD FluAD 2020-02-17 Completed [facility] 10:58:00 [facility] FluAD FluAD 2020-02-17 Completed [facility] 10:58:00 [facility] FluAD FluAD 2020-02-17 Completed [facility] 10:58:00 [facility] FluAD FluAD 2020-02-17 Completed [facility] 10:58:00 [facility] FluAD FluAD 2020-02-17 Completed [facility] 10:58:00 [facility] Influenza Virus 2020-01-15 Completed Universit y of Vaccine Quad IM 00:00:00 [place] [facility] Multi-dose 6+ MO Branch Influenza Virus 2020-01-15 Completed Universit y of Vaccine Quad IM 00:00:00 [place] [facility] Multi-dose 6+ MO Branch influenza, influenza, 2020-01-15 [facility] quadrivalent quadrivalent Pneumococcal 2014-06-16 Completed University o f Polysaccharide, 00:00:00 [place] [facility] ical PPSV23 (PNEUMOVAX) Branch Pneumococcal 2014-06-16 Completed University o f Polysaccharide, 00:00:00 [place] [facility] ical PPSV23 (PNEUMOVAX) Branch pneumococcal pneumococcal 2014-06-16 Completed [facility] tro polysaccharide PPV23 polysaccharide 00:00:00 Urology PPV23 SARS-COV-2 COVID-19 Unknown Completed Unive rsity of VACCINE, BIVALENT [facility] edical (MODERNA BOOSTER) Branch SARS-COV-2 COVID-19 Unknown Completed Unive rsity of VACCINE - (MODERNA) [facility] SARS-COV-2 COVID-19 Unknown Completed Unive rsity of VACCINE - (MODERNA) [facility] SARS-COV-2 COVID-19 Unknown Completed Unive rsity of VACCINE - (MODERNA) [facility] SARS-COV-2 COVID-19 Unknown Completed Unive rsity of VACCINE - (MODERNA) [facility] Pneumococcal Unknown Completed University o f Polysaccharide, [place] [facility] ical PPSV23 (PNEUMOVAX) Branch Influenza Virus Unknown Completed Universit y of Vaccine Quad IM [place] [facility] Multi-dose 6+ MO Branch Vital Signs Vital Name Observation Time Observation Value Comments Source Systolic blood 2023-02-27 19:17:00 115 mm[Hg] Univer sity of pressure [facility] Diastolic blood 2023-02-27 19:17:00 68 mm[Hg] Unive rsity of [facility] Heart rate 2023-02-27 19:17:00 77 /min Universi ty of [facility] Branch Respiratory rate 2023-02-27 19:17:00 18 /min Univ ersity of [facility] Body height 2023-02-27 19:17:00 154.9 cm Universi ty of [facility] Body weight 2023-02-27 19:17:00 72.576 kg Universi ty of [facility] BMI 2023-02-27 19:17:00 30.23 kg/m2 Universi ty of [facility] Systolic blood 2023-01-17 16:50:00 132 mm[Hg] Univer sity of [facility] Diastolic blood 2023-01-17 16:50:00 63 mm[Hg] Unive rsity of [facility] Heart rate 2023-01-17 16:50:00 62 /min Universi ty of [facility] Body temperature 2023-01-17 16:50:00 36.72 Helene Univ ersity of [facility] Body weight 2023-01-17 16:50:00 73.12 kg Universi ty of [facility] BMI 2023-01-17 16:50:00 31.48 kg/m2 Universi ty of [facility] Branch Systolic blood 2022-09-20 15:31:00 137 mm[Hg] Univer sity of pressure [facility] Branch Diastolic blood 2022-09-20 15:31:00 73 mm[Hg] Unive rsity of pressure [facility] Branch Heart rate 2022-09-20 15:31:00 64 /min Universi ty of [facility] Body temperature 2022-09-20 15:31:00 36.5 Helene Univ ersity of [facility] Branch Respiratory rate 2022-09-20 15:31:00 18 /min Univ ersity of [facility] Body weight 2022-09-20 15:31:00 72.576 kg Universi ty of [place] [facility] BMI 2022-09-20 15:31:00 31.25 kg/m2 Universi ty [facility] [place] [facility] Systolic blood 2022-08-23 16:42:00 131 mm[Hg] Univer sity of pressure [place] [facility] Diastolic blood 2022-08-23 16:42:00 66 mm[Hg] Unive rsity of pressure [place] [facility] Heart rate 2022-08-23 16:42:00 69 /min Universi ty of [place] [facility] Body temperature 2022-08-23 16:42:00 36.72 Helene Univ ersity of [place] [facility] Respiratory rate 2022-08-23 16:42:00 18 /min Univ ersity of [place] [facility] Body weight 2022-08-23 16:42:00 70.852 kg Universi ty [facility] [place] [facility] BMI 2022-08-23 16:42:00 30.51 kg/m2 [facility] [place] [facility] Systolic blood 2022-08-09 17:16:00 123 mm[Hg] Univer sity of pressure [place] [facility] Diastolic blood 2022-08-09 17:16:00 73 mm[Hg] Unive rsity of pressure [place] [facility] Heart rate 2022-08-09 17:16:00 68 /min Universi ty [facility] [place] [facility] Body temperature 2022-08-09 17:16:00 36.72 Helene Univ ersity of [place] [facility] Respiratory rate 2022-08-09 17:16:00 18 /min Univ ersity of [place] [facility] Body weight 2022-08-09 17:16:00 70.308 kg [facility]i ty [facility] [place] [facility] BMI 2022-08-09 17:16:00 30.27 kg/m2 [facility] [place] [facility] Systolic blood 2022-07-25 18:05:00 165 mm[Hg] Univer sity of pressure [place] [facility] Diastolic blood 2022-07-25 18:05:00 72 mm[Hg] Unive rsity of pressure [place] [facility] Heart rate 2022-07-25 18:05:00 62 /min Universi ty [facility] [place] [facility] Respiratory rate 2022-07-25 18:05:00 24 /min Univ ersity of [place] [facility] Oxygen saturation in 2022-07-25 18:05:00 96 /min University of Arterial blood by [facility] Pulse oximetry Branch Body temperature 2022-07-25 15:33:00 36.72 Helene Univ ersity of [facility] Body height 2022-07-18 22:00:00 152.4 cm Universi ty of [facility] Body weight 2022-07-18 22:00:00 67.132 kg Universi ty of [facility] BMI 2022-07-18 22:00:00 28.90 kg/m2 Universi ty of [facility] Systolic blood 2022-07-25 17:40:00 166 mm[Hg] Univer sity of pressure [facility] Diastolic blood 2022-07-25 17:40:00 70 mm[Hg] Unive rsity of [facility] Oxygen saturation in 2022-07-25 17:40:00 100 /min University of Arterial blood by [facility] Pulse oximetry Branch Heart rate 2022-07-25 15:33:00 62 /min Universi ty of [facility] Body temperature 2022-07-25 15:33:00 36.72 Helene [facility] ersity of [facility] Respiratory rate 2022-07-25 15:33:00 18 /min [facility] ersity of [facility] Body height 2022-07-18 22:00:00 152.4 cm Universi ty of [facility] Body weight 2022-07-18 22:00:00 67.132 kg Universi ty of [facility] BMI 2022-07-18 22:00:00 28.90 kg/m2 Universi ty of [facility] height 2022-06-03 10:10:00 61 [in_i] Common [facility] weight 2022-06-03 10:10:00 153.0 [lb_av] Common [facility] temperature 2022-06-03 10:10:00 97.0 [degF] Common [facility] bmi 2022-06-03 10:10:00 28.91 kg/m2 [facility] oximetry 2022-06-03 10:10:00 91 % [facility] respiratory rate 2022-06-03 10:10:00 16 /min Comm on [facility] blood pressure 2022-06-03 10:10:00 112 mm[Hg] [facility] systolic [facility] blood pressure 2022-06-03 10:10:00 64 mm[Hg] [facility] - diastolic [facility] height 2022-04-03 13:30:00 61 [in_i] Common S pirit [facility] weight 2022-04-03 13:30:00 151 [lb_av] Common S pirit [facility] temperature 2022-04-03 13:30:00 98.1 [degF] Common S pirit [facility] bmi 2022-04-03 13:30:00 28.53 kg/m2 Common S pirit [facility] oximetry 2022-04-03 13:30:00 96 % Common S pirit [facility] respiratory rate 2022-04-03 13:30:00 17 /min Comm on [facility] blood pressure 2022-04-03 13:30:00 126 mm[Hg] [facility] systolic [facility] blood pressure 2022-04-03 13:30:00 68 mm[Hg] [facility] - diastolic [facility] height 2022-03-25 15:30:00 61 [in_i] Common S pirit [facility] weight 2022-03-25 15:30:00 151.1 [lb_av] Common [facility] temperature 2022-03-25 15:30:00 97.0 [degF] Common S pirit - [facility] bmi 2022-03-25 15:30:00 28.55 kg/m2 Common S pirit [facility] oximetry 2022-03-25 15:30:00 95 % Common S pirit [facility] respiratory rate 2022-03-25 15:30:00 17 /min Comm on [facility] blood pressure 2022-03-25 15:30:00 123 mm[Hg] [facility] systolic [facility] blood pressure 2022-03-25 15:30:00 65 mm[Hg] [facility] diastolic [facility] height 2022-02-27 14:00:00 61 [in_i] Common S pirit [facility] weight 2022-02-27 14:00:00 143 [facility]av[facility] temperature 2022-02-27 14:00:00 98.8 [degF] Common S pirit [facility] bmi 2022-02-27 14:00:00 27.02 kg/m2 Common S pirit [facility] oximetry 2022-02-27 14:00:00 92 % Common S [facility] respiratory rate 2022-02-27 14:00:00 16 /min Comm on [facility] blood pressure 2022-02-27 14:00:00 116 mm[Hg] Common [facility] - systolic [facility] blood pressure 2022-02-27 14:00:00 58 mm[Hg] [facility] diastolic [facility] height 2021-11-21 14:50:00 61.5 [in_i] [facility] 2021-11-21 14:50:00 146.5 [lb_av] [facility] temperature 2021-11-21 14:50:00 97.6 [degF] Common S pirit [facility] bmi 2021-11-21 14:50:00 27.23 kg/m2 [facility] S [facility] oximetry 2021-11-21 14:50:00 96 % Common S [facility] respiratory rate 2021-11-21 14:50:00 16 /min Comm on [facility] blood pressure 2021-11-21 14:50:00 122 mm[Hg] Common [facility] - systolic [facility] blood pressure 2021-11-21 14:50:00 61 mm[Hg] Common [facility] - diastolic [facility] height 2021-11-21 15:00:00 61.5 [in_i] Common S pirit [facility] weight 2021-11-21 15:00:00 146.5 [lb_av] Common [facility] temperature 2021-11-21 15:00:00 97.6 [degF] Common [facility] bmi 2021-11-21 15:00:00 27.23 kg/m2 Common [facility] oximetry 2021-11-21 15:00:00 96 % [facility] respiratory rate 2021-11-21 15:00:00 16 /min Comm on [facility] blood pressure 2021-11-21 15:00:00 122 mm[Hg] Common [facility] - systolic [facility] blood pressure 2021-11-21 15:00:00 61 mm[Hg] Common [facility] - diastolic [facility] height 2021-10-09 15:40:00 61.5 [in_i] [facility] weight 2021-10-09 15:40:00 147.8 [lb_av] [facility] temperature 2021-10-09 15:40:00 97.7 [degF] Common [facility] bmi 2021-10-09 15:40:00 27.47 kg/m2 [facility] oximetry 2021-10-09 15:40:00 96 % [facility] respiratory rate 2021-10-09 15:40:00 16 /min Comm on [facility] blood pressure 2021-10-09 15:40:00 137 mm[Hg] Common [facility] - systolic [facility] blood pressure 2021-10-09 15:40:00 65 mm[Hg] Common [facility] - diastolic [facility] height 2021-08-15 10:10:00 61.5 [in_i] [facility] weight 2021-08-15 10:10:00 149.0 [lb_av] [facility] temperature 2021-08-15 10:10:00 97.4 [degF] Common [facility] bmi 2021-08-15 10:10:00 27.69 kg/m2 Common S [facility] oximetry 2021-08-15 10:10:00 95 % Common S [facility] respiratory rate 2021-08-15 10:10:00 16 /min Comm on [facility] blood pressure 2021-08-15 10:10:00 131 mm[Hg] Common [facility] - systolic [facility] blood pressure 2021-08-15 10:10:00 63 mm[Hg] Common [facility] - diastolic [facility] BP Diastolic 2021-07-02 00:00:00 66 mm[Hg] [facility] Height 2021-07-02 00:00:00 62 [in_i] [facility] BMI (Body Mass 2021-07-02 00:00:00 30.5 kg/m2 [facility] BP Systolic 2021-07-02 00:00:00 128 mm[Hg] [facility] Body Weight 2021-07-02 00:00:00 167 [lb_av] [facility] height 2021-05-14 15:00:00 61.5 [in_i] [facility] weight 2021-05-14 15:00:00 147.3 [lb_av] [facility] temperature 2021-05-14 15:00:00 97.7 [degF] Common [facility] bmi 2021-05-14 15:00:00 27.38 kg/m2 Common S [facility] oximetry 2021-05-14 15:00:00 96 % Common S [facility] respiratory rate 2021-05-14 15:00:00 16 /min Comm on [facility] blood pressure 2021-05-14 15:00:00 135 mm[Hg] Common [facility] systolic [facility] blood pressure 2021-05-14 15:00:00 65 mm[Hg] Common [facility] - diastolic [facility] Procedures Procedure Date / Time Performing Clinician Source Performed POCT URINALYSIS W/O 2022-09-20 00:00:00 Lotus Hansen [facility] SPECIFIC [facility] ASSIGNMENT OF BENEFITS 2022-08-09 17:10:25 Doctor Unassigned, No [facility] CYSTOSCOPY 2022-07-25 16:30:00 Lotus Hansen [facility] BOTOX INJECTION 2022-07-25 16:30:00 Lotus Hansen [facility] EXAM UNDER ANESTHESIA 2022-07-25 16:30:00 Lotus Hansen [facility] HB ECG ROUTINE & RHYTHM 2022-07-25 15:29:[address] [facility] DAY SURGERY - ADC 2022-07-25 06:01:00 Doctor Unassigned, Marlyn [facility] US BREAST COMPLETE 2020-07-26 17:58:56 Alondra Benz [facility] BILATERAL MAMMO BREAST DIAGNOSTIC 2020-07-26 17:14:55 Alondra Benz [facility] TOMOSYNTHESIS BILATERAL Diagnostic Colonoscopy 2014-06-16 00:00:00 [facility] FLIGHT [facility]VEYOR- Hysterectomy 1973-06-16 00:00:00 [facility] Urology MUSCU- Knee Surgery [place] [facility] Plan of Care Planned Activity Planned Date Details Comments Source Future Scheduled 2023-04-03 COVID-19 VACCINE (#1) [facility] Test 10:57:07 [code = COVID-19 VACCINE (#1)] Future Scheduled 2023-04-03 SHINGLES VACCINES (1 Met [facility] Test 10:57:07 of 2) [code = SHINGLES VACCINES (1 of 2)] Future Scheduled 2023-04-03 RSV VACCINES > 60 YR Met [facility] Test 10:57:07 (1 - 1-dose 60+ series) [code = RSV VACCINES > 60 YR (1 - 1-dose 60+ series)] Future Scheduled 2023-04-03 65+ [facility]CCAL [facility] 10:57:07 VACCINE (2 - PCV) [code = 65+ PNEUMOCOCCAL VACCINE (2 - PCV)] Future Scheduled 2023-04-03 INFLUENZA VACCINE Method [facility] Test 10:57:07 (#1) [code = INFLUENZA VACCINE (#1)] Future Scheduled 2023-04-03 COVID-19 VACCINE (#1) Me [facility] Hospital Test 10:57:07 [code = COVID-19 VACCINE (#1)] Future Scheduled 2023-04-03 SHINGLES VACCINES (1 Met [facility] Hospital Test 10:57:07 of 2) [code = SHINGLES VACCINES (1 of 2)] Future Scheduled 2023-04-03 RSV VACCINES > 60 YR Met [facility] Test 10:57:07 (1 - 1-dose 60+ series) [code = RSV VACCINES > 60 YR (1 - 1-dose 60+ series)] Future Scheduled 2023-04-03 65+ PNEUMOCOCCAL [facility] Test 10:57:07 VACCINE (2 - PCV) [code = 65+ PNEUMOCOCCAL VACCINE (2 - PCV)] Future Scheduled 2023-04-03 INFLUENZA VACCINE Method [facility] Test 10:57:07 (#1) [code = INFLUENZA VACCINE (#1)] Future Scheduled 2022-07-22 SHINGLES VACCINES (1 Met [facility] Hospital Test 10:31:13 of 2) [code = SHINGLES VACCINES (1 of 2)] Future Scheduled 2022-07-22 65+ PNEUMOCOCCAL [facility] Test 10:31:13 VACCINE (2 - PCV) [code = 65+ PNEUMOCOCCAL VACCINE (2 - PCV)] Future Scheduled 2022-07-22 INFLUENZA VACCINE Method [facility] Test 10:31:13 [code = INFLUENZA VACCINE] Future Scheduled 2022-07-22 COVID-19 VACCINE (#1) [facility] Test 10:31:13 [code = COVID-19 VACCINE (#1)] Future Scheduled 2022-04-18 HEPATITIS B VACCINES Met [facility] Hospital Test 17:52:58 (1 of 3 - 3-dose series) [code = HEPATITIS B VACCINES (1 of 3 - 3-dose series)] Future Scheduled 2022-04-18 COVID-19 VACCINE (#1) [facility] Test 17:52:58 [code = COVID-19 VACCINE (#1)] Future Scheduled 2022-04-18 SHINGLES VACCINES (1 Met [facility] Hospital Test 17:52:58 of 2) [code = SHINGLES VACCINES (1 of 2)] Future Scheduled 2022-04-18 65+ [facility]OCOCCAL [facility] Test 17:52:58 VACCINE (1 - PCV) [code = 65+ PNEUMOCOCCAL VACCINE (1 - PCV)] Future Scheduled 2022-04-18 INFLUENZA VACCINE Method [facility] Hospital Test 17:52:58 [code = INFLUENZA VACCINE] Future Scheduled 2022-02-13 HEPATITIS B VACCINES Met [facility] Hospital Test 08:23:01 (1 of 3 - 3-dose series) [code = HEPATITIS B VACCINES (1 of 3 - 3-dose series)] Future Scheduled 2022-02-13 COVID-19 VACCINE (#1) Me [facility] Test 08:23:01 [code = COVID-19 VACCINE (#1)] Future Scheduled 2022-02-13 SHINGLES VACCINES (1 Met [facility] Hospital Test 08:23:01 of 2) [code = SHINGLES VACCINES (1 of 2)] Future Scheduled 2022-02-13 65+ PNEUMOCOCCAL [facility] Test 08:23:01 VACCINE (1 - PCV) [code = 65+ PNEUMOCOCCAL VACCINE (1 - PCV)] Future Scheduled 2022-02-13 INFLUENZA VACCINE Method [facility] Test 08:23:01 [code = INFLUENZA VACCINE] Future Scheduled 2021-07-02 COVID-19 VACCINE (1) Met [facility] Test 14:09:49 [code = COVID-19 VACCINE (1)] Future Scheduled 2021-07-02 SHINGLES VACCINES Method [facility] Hospital Test 14:09:49 (#1) [code = SHINGLES VACCINES (#1)] Future Scheduled 2021-07-02 65+ PNEUMOCOCCAL [facility] Test 14:09:49 VACCINE (1 of 1 - PPSV23) [code = 65+ PNEUMOCOCCAL VACCINE (1 of 1 - PPSV23)] Future Scheduled 2021-07-02 INFLUENZA VACCINE Method ist Hospital Test 14:09:49 [code = INFLUENZA VACCINE] Future Scheduled 2021-07-02 COVID-19 VACCINE (1) Met [facility] Hospital Test 14:09:49 [code = COVID-19 VACCINE (1)] Future Scheduled 2021-07-02 SHINGLES VACCINES Method [facility] Hospital Test 14:09:49 (#1) [code = SHINGLES VACCINES (#1)] Future Scheduled 2021-07-02 65+ PNEUMOCOCCAL [facility] Test 14:09:49 VACCINE (1 of 1 - PPSV23) [code = 65+ PNEUMOCOCCAL VACCINE (1 of 1 - PPSV23)] Future Scheduled 2021-07-02 INFLUENZA VACCINE Method [facility] Hospital Test 14:09:49 [code = INFLUENZA VACCINE] Diagnostic Test 2021-07-02 urinalysis, dipstick [place] Pending 00:00:00 [code = urinalysis, Urology dipstick] Encounters Start End Encounter Admission Attending Care Care Encounter Source Date/Time Date/Time Type Type Clinicians Facility Department ID 2022-05-30 Outpatient Golden, [facility]LMLC [facility] [id number] Common 14:57:01 Wilian [facility] 2022-02-26 Outpatient Golden, STLMLC [facility] [id number] Common 11:45:01 Wilian [facility] 2021-07-11 Outpatient Golden, STLMLC [facility] [id number] Common 14:31:01 Wilian [facility] 2021-07-11 Outpatient Golden, STLMLC STLC [id number] Common 13:35:28 Wilian [facility] 2021-07-11 Outpatient Golden, STLMLC STLC [id number] Common 12:26:20 Wilian [facility] 2021-07-11 Outpatient Golden, STLMLC STLC [id number] Common 12:25:29 Wilian [facility] 2021-07-11 Outpatient Golden, STLMLC STLC [id number] Common 11:59:34 Wilian 13547 [facility] 2021-07-11 Outpatient Golden, STLMLC STLC [id number] Common 11:38:32 Wilian 58253 [facility] 2021-07-11 Outpatient Golden, STLC STLC [id number] Common 11:34:19 Wilian 16762 [facility] 2021-07-11 Outpatient Golden, STLC STLC [id number] Common 11:19:03 Wilian 19869 [facility] 2024-03-04 2024-03-04 Outpatient R SABINA AVILA [facility] [id number] Univers 13:30:00 13:30:00 SABINA AVILA [facility] 2023-03-28 2023-03-28 [facility] 1.2.840.114 [id number] Univers 12:16:14 23:59:00 Encounter Sabina villela 350.1.13.10 ity of [place] 4.2.7.2.686 [facility] [id number] [facility] [address] 2023-03-28 2023-03-28 Outpatient R SABINA AVILA [facility] [id number] Univers 00:00:00 23:59:00 SABINA AVILA [facility] 2023-02-27 2023-02-27 [facility] [id number] Univers 14:30:00 14:39:55 SABINA AVILA [facility] 2023-02-27 2023-02-27 Office [facility] 1.2.840.114 [id number] Univers 14:30:00 14:39:55 Visit Sabina villela [id number] ity [facility] 4.2.7.2.686 [facility] [phone] [facility] [address] 2023-02-07 2023-02-07 Outpatient R LOTUS HANSEN [facility] [id number] Univers 10:30:00 10:30:00 LOTUS HANSEN [facility] 2023-01-17 2023-01-17 Outpatient LOTUS SWAN [facility] [id number] Univers 11:30:00 12:40:53 LOTUS HANSEN hector [facility] 2023-01-17 2023-01-17 Office Tyrone [facility] 1.2.840.114 [id number] Univers 11:30:00 12:40:53 Visit Lotus NAVARRETE 350.1.13.10 i ty [facility] [place] [phone] Ri dical NAL 098 [facility] 2022-09-20 2022-09-20 Outpatient R LOTUS HANSEN [facility] [id number] Univers 10:30:00 10:58:24 LOTUS HANSEN [facility] 2022-09-20 2022-09-20 Office [facility] 1.2.840.114 [id number] Univers 10:30:00 10:58:24 Visit Lotusbabar NAVARRETE 350.1.13.10 i ty [facility] 4.[place] [phone] Ri dicpatrick ROSS [address] [place] [address] 2022-08-23 2022-08-23 [facility] [id number] Univers 10:30:00 10:59:29 LOTUS stuart [facility] 2022-08-23 2022-08-23 Nurse Nurse, [facility] 1.2.840.114 [id number] Univers 10:30:00 10:59:29 Visit Lotus Hansen ROSALBA [id number] ity [facility] 4.[place] [phone] [facility] NAL 134 [facility] 2022-08-09 2022-08-09 [facility] [id number] Univers 11:30:00 12:17:31 LOTUS stuart [facility] 2022-08-09 2022-08-09 Office [facility] 1.2.840.114 [id number] Univers 11:30:00 12:17:31 Visit Lotusbabar NAVARRETE 350.1.13.10 i ty [facility] 4.[place] [phone] Ri dicky NAL [address] [place] [address] 2022-08-09 2022-08-09 Orders Doctor GALLEGOS 1.2.840.114 [id number] Univers 00:00:00 00:00:00 Only Unassigned, TONI 350.1.13.10 ity of [place] [facility] 4.2.7.2.686 [place] as [phone] [facility] [address] 2022-07-25 2022-07-25 Hospital [facility] 1.2.910.768 [id number] Univers 09:21:00 12:25:00 Encounter Lotus NAVARRETE 350.1.13.10 ity of [facility] 4.2.[place] [id number] [facility] [address] 2022-07-25 2022-07-25 Outpatient R [facility] FLIGHT SURVEYOR [id number] Univers 09:21:00 12:25:00 LOTUS ity of [facility] 2022-07-25 2022-07-25 Surgery [facility] 1.2.840.114 [id number] Univers 10:25:00 11:44:00 Lotsu NAVARRETE 350.1.13.10 i [place] [id number] [facility] [address] 2022-07-25 2022-07-25 Orders Doctor ROSY 1.2.840.114 [id number] Univers 00:00:00 00:00:00 Only Unassigned, TONI 350.1.13.10 ity of [place] [facility] 4.2.7.2.686 [place] as [phone] [facility] [address] 2022-07-17 2022-07-17 Telephone [facility] 1.2.840.114 [id number] Univers 00:00:00 00:00:00 Lotus NAVARRETE 350.1.13.10 i [place] [phone] Ri dical NAL 098 [facility] 2022-07-11 2022-07-11 Highway Engineer Cornel, Adc Lab Main [facility] 1.2.8 40.114 [id number] Univers 12:30:00 12:45:00 Visit TyroneLotus 350.1.13.10 [place] [phone] Ri dical NAL 353 [facility] 2022-07-11 2022-07-11 Outpatient R [facility] [id number] Univers 12:30:00 12:30:00 LOTUS stuart [facility] 2022-07-10 2022-07-10 Outpatient R TYRONE [facility] [id number] Univers 10:30:00 11:27:19 LOTUS stuart [facility] 2022-07-10 2022-07-10 Prep For Tyrone [facility] 1.2.096.340 [id number] Univers 00:00:00 00:00:00 Surgery Lotus NAVARRETE 350.1.13.10 i [place] [phone] Ri dical [facility] [address] [facility] 2022-06-03 2022-06-03 OFFICE STLMLC STLMLC [id number] Co mmon 00:00:00 00:00:00 VISIT Spirit ESTAB PT - CHI LEVEL 4 [facility] 2022-05-16 2022-05-16 (TEL) STLMLC STLMLC [id number] Co mmon 00:00:00 00:00:00 Spirit - CHI [facility] 2022-04-19 2022-04-19 Outpatient R STELLA [facility] [id number] Univers 10:30:00 10:59:03 CHRISTEL stuart o f [facility] 2022-04-19 2022-04-19 Laboratory Only, Ang Db Test [facility] 1.2.8 40.114 [id number] Univers 10:30:00 10:45:00 Only Unknown, Attending HEALTH 350.1.13.10 itYo 4.2.7.2.686 [place] as LIAT?BLEA [phone] Ri dical KNEY [address] [facility] 2022-04-03 2022-04-03 OFFICE STLMLC STLMLC [id number] Co mmon 00:00:00 00:00:00 VISIT Spirit ESTAB PT - CHI LEVEL 2 [facility] 2022-03-25 2022-03-25 OFFICE STLMLC STLMLC [id number] Co mmon 00:00:00 00:00:00 VISIT Spirit ESTAB PT - CHI LEVEL 4 [facility] 2022-03-22 2022-03-22 (TEL) STLMLC STLMLC [id number] Co mmon 00:00:00 00:00:00 Spirit - CHI [facility] 2022-02-27 2022-02-27 OFFICE STLMLC STLC [id number] Co mmon 00:00:00 00:00:00 VISIT Spirit ESTAB PT - CHI LEVEL 4 [facility] 2022-02-19 2022-02-19 (TEL) STLC STLC [id number] Co mmon 00:00:00 00:00:00 Spirit - CHI [facility] 2021-12-08 2021-12-08 Letter VenitaROSY 1.2.840.114 [id number] Univers 00:00:00 00:00:00 (Out) Mary MUÑOZ 350.1.13.10 it [facility] 4.2.7.2.686 [place] as [phone] [address] 2021-12-07 2021-12-07 Outpatient Alexandria MARKHAM [facility] [id number] Univers 15:00:00 15:27:12 VA stuart [facility] 2021-12-07 2021-12-07 Laboratory Only, Adc Pob2 Test [facility] 1.2 .840.114 [id number] Univers 15:00:00 15:15:00 Only Unknown, Attending ROSALBA 350.1.13.1 0 [facility] 4.2.7.2.686 Shannan SHINE [phone] Ri dical [facility] 225 [facility] 2021-11-21 2021-11-21 OFFICE STLC STLC [id number] Co mmon 00:00:00 00:00:00 VISIT Spirit ESTAB PT - CHI LEVEL 4 [facility] 2021-11-21 2021-11-21 SUB ANNUAL STLMLC STLC [id number] Common 00:00:00 00:00:00 MCR Spirit WELLNESS - CHI VISIT [facility] 2021-11-15 2021-11-15 (TEL) STLMLC STLMLC [id number] Co mmon 00:00:00 00:00:00 Spirit - CHI [facility] 2021-11-14 2021-11-14 (TEL) STLC STLC [id number] Co mmon 00:00:00 00:00:00 Spirit - CHI [facility] 2021-10-18 2021-10-18 (TEL) STLMLC STLMLC [id number] Co mmon 00:00:00 00:00:00 [facility] 2021-10-09 2021-10-09 OFFICE STLMLC STLMLC [id number] Co mmon 00:00:00 00:00:00 VISIT [facility] PT - CHI LEVEL 4 [facility] 2021-10-02 2021-10-02 (TEL) STLMLC STLMLC [id number] Co mmon 00:00:00 00:00:00 [facility] 2021-08-15 2021-08-15 OFFICE STLMLC STLMLC [id number] Co mmon 00:00:00 00:00:00 VISIT [facility] PT - CHI LEVEL 4 [facility] 2021-08-06 2021-08-06 (TEL) STLMLC STLMLC [id number] Co mmon 00:00:00 00:00:00 [facility] 2021-08-03 2021-08-03 Outpatient [id number] [place] 04:09:00 04:09:00 [facility] 2021-07-28 2021-07-28 Outpatient [id number] [place] 02:54:00 02:54:00 [facility] 2021-07-02 2021-07-02 Outpatient [place] [id number] [place] 04:35:00 04:35:00 [facility] 2021-07-02 2021-07-02 [facility] [place] [facility] [id number] [facility] 00:00:00 00:00:00 Jones Beal MD: [id number] [place] [facility] [address], [place] [address] , Ph. 2021-07-02 2021-07-02 Outpatient Emigdio Medina [facility] [id number] 00:00:00 00:00:00 Alondra [id number] 2021-06-22 2021-06-22 (TEL) STLMLC STLMLC [id number] Co mmon 00:00:00 00:00:00 [facility] 2021-06-03 2021-06-03 Telephone ROSY Bonds 1.2.149.237 [id number] Univers 00:00:00 00:00:00 Maye MUÑOZ 350.1.13.10 i [facility] 4.2.7.2.686 [place] [phone] [facility] [address] 2021-06-02 2021-06-02 Laboratory Only, Adc Test [facility] 1.2.840. 114 [id number] [facility] 11:00:00 11:15:00 Only [facility]ond[facility].13.10 [facility] 4.2.7.2.686 [facility] [phone] [facility] [address] 2021-06-02 2021-06-02 Outpatient Alexandria WILKS [facility] [id number] [facility] 11:00:00 11:00:00 ALONDRA stuart [facility] 2021-05-21 2021-05-21 Outpatient Salena [facility] [address] [place] [address] 12:00:00 12:00:00 [id number] [facility] 2021-05-14 2021-05-14 OFFICE STLMLC STLMLC [id number] Co mmon 00:00:00 00:00:00 VISIT [facility] LEVEL 4 [facility] 2021-02-20 2021-02-20 Outpatient STLMLC STLMLC [id number] Common 00:00:00 00:00:00 Spirit [facility] 2021-02-19 2021-02-19 Outpatient STLMLC STLMLC [id number] Common 00:00:00 00:00:00 [facility] 2021-02-15 2021-02-15 Outpatient STLMLC STLMLC [id number] Common 00:00:00 00:00:00 [facility] 2021-02-09 2021-02-09 Outpatient STLMLC STLMLC [id number] Common 00:00:00 00:00:00 [facility] 2021-01-22 2021-01-22 Outpatient STLMLC STLMLC [id number] Common 00:00:00 00:00:00 [facility] 2021-01-01 2021-01-01 Outpatient STLMLC STLMLC [id number] Common 00:00:00 00:00:00 [facility] 2020-10-27 2020-10-27 Outpatient STLMLC STLMLC [id number] Common 00:00:00 00:00:00 [facility] 2020-10-12 2020-10-12 Outpatient STLMLC STLMLC [id number] Common 00:00:00 00:00:00 [facility] 2020-10-12 2020-10-12 Outpatient STLMLC STLMLC [id number] Common 00:00:00 00:00:00 [facility] 2020-10-04 2020-10-04 Outpatient STLMLC STLMLC [id number] Common 00:00:00 00:00:00 [facility] 2020-09-25 2020-09-25 Inpatient EL Christin, HCAPM HCAPM [id number] [facility] 16:13:10 16:13:[address] [place] [address] 2020-09-15 2020-09-15 Outpatient STLMLC STLMLC [id number] Common 00:00:00 00:00:00 [facility] 2020-07-27 2020-07-27 Outpatient STLMLC STLMLC [id number] Common 00:00:00 00:00:00 [facility] 2020-07-26 2020-07-26 [place] [id number] Methodi 10:09:35 23:59:00 Encounter Alondra Arshad [id number] 3.430.2.7 Hospit a .3.212530 l .8 2020-07-26 2020-07-26 [place] [id number] Methodi 10:08:25 10:08:25 Encounter Alondra [place] [address]9766.1.[address] 3.430.2.7 Hospit a .3.544870 l .8 2020-07-26 2020-07-26 Travel 1.2.840.1 1.2.040.085 [id number] Methodi 00:00:00 00:00:[address] 3.430.2.7 0.2.7.3.698 [facility] .3.055060 084.8 l .8 2020-07-17 2020-07-17 Outpatient [facility] [id number] Common 00:00:00 00:00:00 [facility] 2020-07-13 2020-07-13 Outpatient [facility] [id number] Common 00:00:00 00:00:00 [facility] 2020-06-08 2020-06-08 Outpatient [facility] [id number] Common 00:00:00 00:00:00 [facility] 2020-06-02 2020-06-02 Outpatient [facility] [id number] Common 00:00:00 00:00:00 [facility] 2020-05-26 2020-05-26 Outpatient [facility] [id number] Common 00:00:00 00:00:00 [facility] 2020-05-22 2020-05-22 Outpatient STLMLC STLMLC [id number] Common 00:00:00 00:00:00 [facility] 2020-05-02 2020-05-02 [facility] [id number] [place] 00:00:00 00:00:00 NADIM [address] 2020-05-01 2020-05-01 Outpatient STLMLC STLMLC [id number] Common 00:00:00 00:00:00 [facility] 2020-04-26 2020-04-26 Outpatient STLMLC STLMLC [id number] Common 00:00:00 00:00:00 [facility] 2020-04-12 2020-04-12 Outpatient STLMLC STLMLC [id number] Common 00:00:00 00:00:00 [facility] 2020-04-03 2020-04-03 Outpatient STLMLC STLMLC [id number] Common 00:00:00 00:00:00 [facility] 2020-03-21 2020-03-21 Outpatient STLMLC STLMLC [id number] Common 00:00:00 00:00:00 [facility] 2020-03-20 2020-03-20 Outpatient STLMLC STLMLC [id number] Common 00:00:00 00:00:00 [facility] 2020-03-02 2020-03-02 [facility] [id number] Common 11:23:00 11:23:[address] [facility] 2020-02-25 2020-02-25 [facility] [id number] Common 07:46:00 07:46:[address] [facility] 2020-02-15 2020-02-15 [facility] [id number] Common 16:40:00 16:40:[address] [facility] 2020-02-01 2020-02-01 [facility] [id number] Common 10:00:00 10:00:00 [facility] 2020-01-13 2020-01-13 [facility] [id number] Common 09:12:00 09:12:[address] [facility] 2020-01-12 2020-01-12 [facility] [id number] Common 13:09:00 13:09:[address] [facility] 2020-01-10 2020-01-10 [facility] [id number] Common 13:35:00 13:35:[address] [facility] 2020-01-04 2020-01-04 [facility] [id number] Common 10:30:00 10:30:[address] [facility] 2019-11-04 2019-11-04 [facility] [id number] Common 10:25:00 10:25:00 t [facility] [address] [facility] 2019-10-07 2019-10-07 [facility] 29 Common 09:00:00 09:00:[address] [facility] 2019-10-07 2019-10-07 [facility] 29 Common 08:00:00 08:00:[address] [facility] 2019-08-24 2019-08-24 Outpatient SHONNALUISASOURAV, [facility] [id number] [place] 00:00:00 00:00:00 LOVE [address] 2019-07-22 2019-07-22 Outpatient COSELLI, [facility] [id number] [place] 00:00:00 00:00:00 ALONDRA [address] 2019-07-22 2019-07-22 Outpatient GARRY, [facility] [id number] [place] 00:00:00 00:00:00 CONRAD [address] 2019-07-22 2019-07-22 Outpatient GARRY, [facility] [id number] [place] 00:00:00 00:00:00 CONRAD [address] 2019-07-22 2019-07-22 Outpatient COSELLI, [facility] [id number] [place] 00:00:00 00:00:00 ALONDRA [address] 2016-05-13 2016-05-14 Emergency X CHADEBBY, [facility] ERT [id number] [employer] 22:18:04 01:15:00 MARIVEL stuart [facility] Results Test Description Test Time Test Comments Results Result Comments Source POCT URINALYSIS W/O SPECIFIC GRAVITY 2022-09-20 15:37:00 Test Item Value Reference Range Interpretation Comme nts POCT PH U (test code = 3254) 5 mg/dl 5-8 POCT U LEUK EST (test code = 3263) neg Negative - Negative POCT U NIT (test code = 3262) neg Negative - Negative POCT U PROT (test code = 3259) neg Negative - Negative POCT U GLU (test code = 3256) neg Negative - Negative POCT U KETONE (test code = 3258) neg Negative - Negative POCT U BLD (test code = 3257) neg Negative - Negative [facility] [id number] 15:37:00 Test Item Value Reference Range Interpretation Comments POCT PH U (test code = 3254) 5 mg/dl 5-8 POCT U LEUK EST (test code = neg Negative - Negative 3263) POCT U NIT (test code = 3262) neg Negative - Negative POCT U PROT (test code = 3259) neg Negative - Negative POCT U GLU (test code = 3256) neg Negative - Negative POCT U KETONE (test code = 3258) neg Negative - Negative POCT U BLD (test code = 3257) neg Negative - Negative [id number] 13:48:00 Test Item Value Reference Range Interpretation Comments COVID 19 INHOUSE AG NEGATIVE Negative Per manu facturer, (test code = negative result s should [id number]) be treated aspr esumptive and, if inconsi stent with clinical signs andsymptoms or necessary for patient man agement, should betested with an alternative mol ecular assay. Negative resultsdo not preclude SA RS-CoV-2 infection and s hould not be usedas the s ole basis for patient man agement decisions. Nega tive results should be considered in t he context of apatient's r ecent exposures, hist ory, presence of cli nicalsigns and symptoms co nsistent with COVID-19. CBC W/AUTO [id number] 13:34:00 Test Item Value Reference Range Interpretation [...]
--- NOTE | 2023-04-03 12:31 | RAD REPORT ---
EXAM DESCRIPTION: [place] Single View04/03/2023 12:23 pm CLINICAL HISTORY: Chest pain COMPARISON: July 2022 FINDINGS: The lungs appear grossly clear. Heart is mildly enlarged IMPRESSION: No acute abnormalities displayed
[2023-04-03 13:46] LABS: Absolute Lymphocytes (CBC) 2.6 K/uL (0.7-4.9); Hematocrit 38.7 % (36.0-45.0); MCV 96.3 fL (80-100); MPV 7.7 fL (7.6-11.3); Platelets 155 thou/uL (152-406); RBC Red Blood Cell Count 4.02 M/uL (3.86-4.86)
--- NOTE | 2023-04-03 13:46 | RAD REPORT ---
EXAM DESCRIPTION: US - Extrem Venous W Compress Alon - 04/03/2023 1:00 pm CLINICAL HISTORY: Swelling COMPARISON: None. TECHNIQUE: Real-time sonographic evaluation of the bilateral lower extremity deep venous systems was performed. FINDINGS: Normal compressibility, flow augmentation, phasic flow and spontaneous flow is identified in both the left and right lower extremity deep venous systems. No intraluminal filling defects seen. IMPRESSION: No evidence of DVT in either lower extremity.
[2023-04-03 13:48] LABS: Protime INR 1.01
[2023-04-03 14:26] LABS: Albumin 3.2 g/dL (3.4-5.0); Bilirubin Direct 0.1 mg/dL (0-0.2); Bilirubin Indirect, Calculated 0.4 mg/dL (0.2-0.8); Bilirubin Total 0.5 mg/dL (0.2-1.0); Magnesium 2.3 mg/dL (1.6-2.4); Potassium 4.1 mEq/L (3.5-5.1); Protein, Total 6.4 g/dL (6.4-8.2); Troponin High Sensitivity 14.8 pg/mL (<58.9)
--- NOTE | 2023-04-03 14:40 | ER ---
Nurse's Notes [facility] Name: Theresa Mancera Age: 82 yrs Sex: Female : 1940 Arrival Date: 04/03/2023 Time: 11:45 Bed 3 Private MD: Diagnosis: Peripheral edema Presentation: 04/03 11:53 Chief complaint: Patient states: frank lower extremity swelling x 4 days ago. Pt also aa5 reports chest pressure that began last night. Pt reports her doctor took her off her thyroid medication about 6 weeks ago. Coronavirus screen: At this time, the client does not indicate any symptoms associated with coronavirus-19. Ebola Screen: Patient denies travel to an Ebola-affected area in the 21 days before illness onset. Initial Sepsis Screen: Does the patient meet any 2 criteria? No. Patient's initial sepsis screen is negative. Does the patient have a suspected source of infection? No. Patient's initial sepsis screen is negative. Risk Assessment: Do you want to hurt yourself or someone else? Patient reports no desire to harm self or others. Onset of symptoms was March 2023. 11:53 Acuity: RADHA 3 aa5 11:53 Method Of Arrival: Ambulatory aa5 Historical: - Allergies: 11:55 No Known Allergies; aa5 - PMHx: 11:55 Dementia; Hypertension; Hypothyroidism; Lupus; aa5 - PSHx: 11:55 Cholecystectomy; hysterectomy; aa5 - Immunization history:: Adult Immunizations unknown. - Social history:: Smoking status: Patient denies any tobacco usage or history of. Screenin:15 [facility] ED Fall Risk Assessment (Adult) History of falling in the last 3 months, me1 including since admission No falls in past 3 months (0 pts) Confusion or Disorientation No (0 pts) Intoxicated or Sedated No (0 pts) Impaired Gait No (0 pts) Mobility Assist Device Used No (0 pt) Altered Elimination No (0 pt) Score/Fall Risk Level 0 - 2 = Low Risk. Abuse screen: Denies threats or abuse. Nutritional screening: No deficits noted. Tuberculosis screening: No symptoms or risk factors identified. Assessment: 13:15 General: Appears comfortable, well groomed, well developed, well nourished, Behavior is me1 calm, cooperative, appropriate for age, Reports swelling to BLE x 4 days and chest pressure that started last night. Pain: Complains of pain in chest Pain does not radiate. Pain currently is 4 out of 10 on a pain scale. Quality of pain is described as pressure, Pain began gradually, 1 day ago. Is continuous. Neuro: Level of Consciousness is awake, alert, obeys commands, Oriented to person, place, time, situation, Appropriate for age. Cardiovascular: Capillary refill < 3 seconds Patient's skin is warm and dry. Respiratory: Airway is patent Respiratory effort is even, unlabored, Respiratory pattern is regular, symmetrical. 13:41 Reassessment: Patient appears in no apparent distress at this time. Patient and/or db family updated on plan of care and expected duration. Pain level reassessed. Patient is alert, oriented x 3, equal unlabored respirations, skin warm/dry/pink. Vital Signs: 11:53 BP 151 / 68; Pulse 68; Resp 16 S; Temp 97.1(TE); Pulse Ox 96% on R/A; Weight 72.57 kg aa5 (R); Height 5 ft. 1 in. (R); 12:15 BP 145 / 60; Pulse 63; Resp 17; Pulse Ox 98% on R/A; me1 13:32 BP 159 / 52; Pulse 60; Resp 16; Pulse Ox 98% on R/A; db 14:43 BP 162 / 48; Pulse 60; Resp 17; Pulse Ox 96% on R/A; me1 11:53 Body Mass Index 30.23 (72.57 kg, 154.94 cm) aa5 ED Course: 11:50 Patient arrived in ED. mg5 11:53 Arm band placed on. aa5 11:55 Triage completed. aa5 11:59 Jami Sharma FNP is PHCP. jh7 11:59 Jose Bower MD is Attending Physician. 7 12:02 Bernadette Delgado, SNEHA is Primary Nurse. me1 12:25 XRAY Chest (1 view) In Process Unspecified. EDMS 12:52 US Extremity Venous W Compression Frank In Process Unspecified. EDMS 13:15 Patient has correct armband on for positive identification. Bed in low position. Call me1 light in reach. Side rails up X2. Provided Education on: POC. Verbalized understanding. . 13:15 No provider procedures requiring assistance completed. me1 13:15 Missed attempt(s): 20 gauge in right antecubital area. Bleeding controlled, band aid db applied, catheter tip intact. 13:29 Inserted saline lock: 22 gauge in right hand, using aseptic technique. Blood collected. db 14:39 Wilian Golden DO is Referral Physician. 7 14:44 IV discontinued, intact, bleeding controlled, No redness/swelling at site. Pressure me1 dressing applied. Administered Medications: No medications were administered Medication: 13:15 VIS not applicable for this client. me1 Outcome: 14:40 Discharge ordered by . 7 15:00 Discharged to home via wheelchair, with significant other, me1 15:00 Condition: stable 15:00 Discharge instructions given to patient, significant other, Instructed on discharge instructions, follow up and referral plans. Demonstrated understanding of instructions, follow-up care, 15:00 Patient left the ED. me1 Signatures: Dispatcher [employer] Tanna García RN RN aa5 Jami Sharma FNP INFERTILITY NURSE 7 Doris Negron RN RN db Bernadette Delgado RN RN me1 Barby Olivares mg5 Corrections: (The following items were deleted from the chart) 11:57 11:53 Chief complaint: Patient states: frank lower extremity swelling x 4 days ago. Pt aa5 also reports chest pressure that began last night. aa5
--- NOTE | 2023-04-03 14:40 | EDPHYS ---
Physician Documentation [facility] Name: Theresa Mancera Age: 82 yrs Sex: Female : 1940 Arrival Date: 04/03/2023 Time: 11:45 Bed 3 Private MD: ED Physician Jose Bower HPI: 04/03 11:55 This 82 yrs old Female presents to ER via Ambulatory with complaints of Leg Swelling, jh7 Feet Swelling. 11:55 82-year-old female presents to the ER complaining of leg and feet swelling worsening jh7 over the past 2 days. She reports that she is also developed chest tightness since last night. History of hypothyroidism.. Historical: - Allergies: 11:55 No Known Allergies; aa5 - PMHx: 11:55 Dementia; Hypertension; Hypothyroidism; Lupus; aa5 - PSHx: 11:55 Cholecystectomy; hysterectomy; aa5 - Immunization history:: Adult Immunizations unknown. - Social history:: Smoking status: Patient denies any tobacco usage or history of. ROS: 11:55 Constitutional: Negative for fever, chills, and weight loss, Eyes: Negative for injury, jh7 pain, redness, and discharge, Neck: Negative for injury, pain, and swelling, Respiratory: Negative for shortness of breath, cough, wheezing, and pleuritic chest pain, Abdomen/GI: Negative for abdominal pain, nausea, vomiting, diarrhea, and constipation, Back: Negative for injury and pain, MS/Extremity: Negative for injury and deformity, Skin: Negative for injury, rash, and discoloration, Neuro: Negative for headache, weakness, numbness, tingling, and seizure, 11:55 Cardiovascular: Positive for chest pain, edema, 11:55 All other systems are negative, Exam: 11:55 Constitutional: This is a well developed, well nourished patient who is awake, alert, jh7 and in no acute distress. Head/Face: Normocephalic, atraumatic. Cardiovascular: Regular rate and rhythm with a normal S1 and S2. No gallops, murmurs, or rubs. Normal PMI, no JVD. No pulse deficits. Respiratory: Lungs have equal breath sounds bilaterally, clear to auscultation and percussion. No rales, rhonchi or wheezes noted. No increased work of breathing, no retractions or nasal flaring. Abdomen/GI: Soft, non-tender, with normal bowel sounds. No distension or tympany. No guarding or rebound. No evidence of tenderness throughout. Skin: Warm, dry with normal turgor. Normal color with no rashes, no lesions, and no evidence of cellulitis. MS/ Extremity: Pulses equal, no cyanosis. Neurovascular intact. Full, normal range of motion. bilateral calf tenderness Neuro: Awake and alert, GCS 15, oriented to person, place, time, and situation. Motor strength 5/5 in all extremities. Sensory grossly intact. Normal gait. 11:55 Cardiovascular: Edema: 1+ edema to level of left foot, left toes, right foot and right toes, Vital Signs: 11:53 BP 151 / 68; Pulse 68; Resp 16 S; Temp 97.1(TE); Pulse Ox 96% on R/A; Weight 72.57 kg 5 (R); Height 5 ft. 1 in. (R); 12:15 BP 145 / 60; Pulse 63; Resp 17; Pulse Ox 98% on R/A; me1 13:32 BP 159 / 52; Pulse 60; Resp 16; Pulse Ox 98% on R/A; db 14:43 BP 162 / 48; Pulse 60; Resp 17; Pulse Ox 96% on R/A; me1 11:53 Body Mass Index 30.23 (72.57 kg, 154.94 cm) [facility] MDM: 11:59 Patient medically screened. [facility] 14:28 Differential diagnosis: congestive heart failure DVT, volume overload. Data reviewed: [facility] vital signs, nurses notes, lab test result(s), EKG, radiologic studies, plain films, ultrasound. Independent interpretation of the following test(s) in the Emergency Department EKG: See my EKG interpretation above X-Ray: My interpretation is No acute findings. Care significantly affected by the following chronic conditions: Hypertension. Counseling: I had a detailed discussion with the patient and/or guardian regarding the historical points, exam findings, and any diagnostic results supporting the discharge/admit diagnosis, to return to the emergency department if symptoms worsen or persist or if there are any questions or concerns that arise at home. Special discussion: Discussed all labs and imaging results. The patient stated that her chest tightness actually resolved this morning and that she has been off of her thyroid medication for 6 weeks. Advised her to follow-up with her PCP and return to the ER with any further concerns. Also advised for her to elevate her legs at home.. 04/03 12:03 Order name: Basic Metabolic Panel; Complete Time: 14:27 [facility] 04/03 12:03 Order name: CBC with Diff; Complete Time: 13:56 [facility] 04/03 12:03 Order name: LFT's; Complete Time: 14:27 [facility] 04/03 12:03 Order name: Magnesium; Complete Time: 14:27 [facility] 04/03 12:03 Order name: NT PRO-BNP; Complete Time: 14:27 [facility] 04/03 12:03 Order name: PT-INR; Complete Time: 13:56 [facility] 04/03 12:03 Order name: Troponin HS; Complete Time: 14:27 [facility] 04/03 12:03 Order name: XRAY Chest (1 view); Complete Time: 12:58 [facility] 04/03 12:17 Order name: US Extremity Venous W Compression Alon; Complete Time: 13:47 [facility] 04/03 12:03 Order name: EKG; Complete Time: 12:04 [facility] 04/03 12:03 Order name: Cardiac monitoring; Complete Time: 12:29 [facility] 04/03 12:03 Order name: EKG - Nurse/Tech; Complete Time: 12:16 [facility] 04/03 12:03 Order name: IV Saline Lock; Complete Time: 13:40 [facility] 04/03 12:03 Order name: Labs collected and sent; Complete Time: 13:40 [facility] 04/03 12:03 Order name: O2 Per Protocol; Complete Time: 12:29 [facility] 04/03 12:03 Order name: O2 Sat Monitoring; Complete Time: 12:29 [facility] 04/03 13:49 Order name: Labs - recollect needed: please recollect green top; Complete Time: 14:00 em1 EC:09 Rate is 61 beats/min. Rhythm is regular. QRS [place] is Normal. [place] interval is normal at jh7 168 msec. QRS interval is prolonged at 132 msec. QT interval is normal at 442 msec. No Q waves. T waves are Inverted in leads II, III, aVF, V1, V4, V5. No ST changes noted. Clinical impression: Normal sinus rhythm with right bundle branch block. Administered Medications: No medications were administered Disposition Summary: 04/03/23 14:40 Discharge Ordered Notes: Location: Home [facility] Problem: new [facility] Symptoms: are unchanged [facility] Condition: Stable [facility] Diagnosis - Peripheral edema [facility] Followup: [facility] - With: Wilian Golden, - When: 2 - 3 days - Reason: Recheck today's complaints Discharge Instructions: - Discharge Summary Sheet [facility] - Peripheral Edema [facility] Forms: - Medication Reconciliation Form [facility] - Thank You Letter [facility] - Patient Portal Instructions [facility] - Leadership Thank You Letter [facility] Signatures: Dispatcher [employer] Mat Clay em1 Tanna Gaspar, RN RN aa5 Jami Sharma FNP COMMUTATOR PRESSER [facility] Corrections: (The following items were deleted from the chart) 14:46 11:55 Cardiovascular: Edema: 2+ edema to level of left ankle, left foot, left toes, jh7 right ankle, right foot and right toes, 7
[2023-04-03 15:27] VITALS: BP 162/48; O2SAT 96
--- NOTE | 2023-04-04 14:43 | EKG ---
Test Date: 2023-04-03 Test Time: 12:09:14 [employer]ader Cardroom: MEASUREMENT RESULTS: Intervals: Rate: 61 MN: 168 QRSD: 132 QT: 442 QTc: 444 [place]: P: 54 MN: 168 QRS: 89 T: -20 INTERPRETIVE STATEMENTS: Normal sinus rhythm Right bundle branch block T wave abnormality, consider inferolateral ischemia Abnormal ECG Compared to ECG 07/22/2022 10:45:51 Ventricular premature complex(es) no longer present T-wave abnormality still present Possible ischemia still present Electronically Signed On 04-04-23 14:40:13 CDT by Raman Lee
== END 2023-04-03 15:00 | disposition home or self-care (01) ==
LOC: ER 11:45
DX: R60.9 Edema, unspecified (principal); R07.89 Other chest pain; I10 Essential (primary) hypertension; F03.90 Unspecified dementia, unspecified severity, without behavioral disturbance, psychotic disturbance, mood disturbance, and anxiety
CPT/HCPCS: 36415; 71045; 80048; 80076; 83735; 83880; 84484; 85025; 85610; 93005; 93970; 99284

== ENCOUNTER 2023-10-03 10:36 | Emergency (ER) | payer OTHER ==
[2023-10-03 11:32] LABS: Absolute Basophils 0.1 K/uL (0-0.5); Absolute Eosinophils 0.3 K/uL (0-0.5); Absolute Lymphocytes (CBC) 2.6 K/uL (0.7-4.9); Absolute Monocytes 1.1 K/uL (0.1-1.3); Absolute Neutrophil 3.5 K/uL (1.8-8.0); Basophils % 1.6 % (0-1.3); Hematocrit 38.1 % (36.0-45.0); Hemoglobin 12.5 g/dL (12.0-15.0); MCH 31.5 pg (27.0-35.0); MCHC 32.8 g/dL (32.0-36.0); MPV 7.1 fL (7.6-11.3); Monocytes % 14.8 % (3.3-12.3); Neutrophils % 45.6 % (41.7-73.7); Nucleated Red Blood Cells % 0.1 % (0-0); Platelets 215 thou/uL (152-406); RBC Red Blood Cell Count 3.97 M/uL (3.86-4.86); Red Cell Distribution Width 13.5 % (12.1-15.2)
[2023-10-03 11:56] LABS: Albumin 3.4 g/dL (3.4-5.0); Albumin/Globulin Ratio 1.1 (1.1-1.8); Anion Gap 7.9 mEq/L (5.0-15.0); Bilirubin Direct 0.1 mg/dL (0-0.2); Bilirubin Indirect, Calculated 0.2 mg/dL (0.2-0.8); Bilirubin Total 0.3 mg/dL (0.2-1.0); Globulin 3.1 g/dL (2.3-3.5); Potassium 3.9 mEq/L (3.5-5.1); Protein, Total 6.5 g/dL (6.4-8.2); Troponin High Sensitivity 6.2 pg/mL (<58.9)
--- NOTE | 2023-10-03 11:57 | RAD REPORT ---
EXAM DES[facility] 11:36 am CLINICAL HISTORY: COUGH COMPARISON: Chest Single View dated 04/03/2023; Chest Single View dated 07/22/2022; Chest Single View dated 10/02/2021; Chest Pa And Lat (2 Views) dated 11/23/2020 TECHNIQUE: Portable AP view of the chest. FINDINGS: The lungs are clear. No pneumothorax or effusion. The cardiomediastinal contours are unre markable. IMPRESSION: No acute cardiopulmonary process.
[2023-10-03 11:59] LABS: Band Neutrophils 2 % (0-1); Differential Total Cells Count 100; Lymphocytes 41 % (15-42); Segmented Neutrophils 37 % (40-80)
[2023-10-03 12:00] LABS: Blood Morphology Comment NOT SEEN (NOT SEEN); Eosinophils 8 % (0-3); Monocytes 10 % (0-10); Platelet Estimate ADEQ
[2023-10-03 12:18] LABS: SARS-CoV-2 Antigen CONTROL BLUE LINE VIS/BG OK; SARS-CoV-2 Antigen Rapid Res Negative (Negative)
--- NOTE | 2023-10-03 13:02 | ER ---
Nurse's Notes [facility] Name: Theresa Mancera Age: 83 yrs Sex: Female : 1940 Arrival Date: 10/03/2023 Time: 10:36 Bed 16 Private MD: Wilian Godlen Diagnosis: Bronchitis, not specified as acute or chronic Presentation: 10/02 11:01 Chief complaint: Patient states: she has had cough, congestion for 2 weeks. patient ap3 states she has no more "get up and go". patient reports chest pain with cough and a sore chest. Coronavirus screen: Client presents with at least one sign or symptom that may indicate coronavirus-19. Ebola Screen: No symptoms or risks identified at this time. Initial Sepsis Screen: Does the patient meet any 2 criteria? No. Patient's initial sepsis screen is negative. Does the patient have a suspected source of infection? No. Patient's initial sepsis screen is negative. Risk Assessment: Do you want to hurt yourself or someone else? Patient reports no desire to harm self or others. Onset of symptoms was September 19, 2023. 11:01 Method Of Arrival: Ambulatory ap3 11:01 Acuity: RADHA 3 ap3 Triage Assessment: 11:04 General: Appears in no apparent distress. Reports feeling ill for fatigue for. General: ap3 Behavior is calm, cooperative, appropriate for age. Pain: Complains of pain in chest Quality of pain is described as sore. Neuro: Level of Consciousness is awake, alert, obeys commands, Oriented to person, place, time, situation. Cardiovascular: Patient's skin is warm and dry. Respiratory: Reports cough that is pain with cough Airway is patent Respiratory effort is even, unlabored, Respiratory pattern is regular, symmetrical. Historical: - Allergies: 11:03 No Known Allergies; ap3 - PMHx: 11:03 Dementia; Hypertension; Hypothyroidism; Lupus; ap3 - Immunization history:: Client reports receiving the 2nd dose of the Covid vaccine, Flu vaccine is up to date. - Infectious Disease History:: Denies. - Social history:: Smoking status: Patient denies any tobacco usage or history of. Screenin:05 Abuse screen: Denies threats or abuse. Nutritional screening: No deficits noted. ap3 Tuberculosis screening: No symptoms or risk factors identified. 11:16 [facility] ED Fall Risk Assessment (Adult) History of falling in the last 3 months, mb9 including since admission No falls in past 3 months (0 pts) Confusion or Disorientation No (0 pts) Intoxicated or Sedated No (0 pts) Impaired Gait No (0 pts) Mobility Assist Device Used No (0 pt) Altered Elimination No (0 pt) Score/Fall Risk Level 0 - 2 = Low Risk Oriented to surroundings, Maintained a safe environment, Educated pt \\T\\ family on fall prevention, incl call for assistance when getting out of bed. Assessment: 11:30 General: Appears in no apparent distress. Behavior is calm, cooperative. Pain: Denies mb9 pain. Neuro: Fischer Agitation-Sedation Scale (RASS): 0 - Alert and Calm Level of Consciousness is awake, alert, obeys commands, Oriented to person, place, time, situation, Appropriate for age. Cardiovascular: Heart tones S1 S2 present Patient's skin is warm and dry. Rhythm is sinus bradycardia. Respiratory: Reports cough that is Airway is patent Respiratory effort is even, unlabored, Respiratory pattern is regular, symmetrical, Breath sounds are clear bilaterally. GI: Abdomen is round non-distended, Bowel sounds present X 4 quads. Abd is soft and non tender X 4 quads. Reports diarrhea. : No signs and/or symptoms were reported regarding the genitourinary system. EENT: No signs and/or symptoms were reported regarding the EENT system. Derm: Skin is pink, warm \\T\\ dry. Musculoskeletal: Range of motion: intact in all extremities. 12:21 Reassessment: Patient appears in no apparent distress at this time. No changes from mb9 previously documented assessment. Patient and/or family updated on plan of care and expected duration. Pain level reassessed. Patient is alert, oriented x 3, equal unlabored respirations, skin warm/dry/pink. 13:00 Reassessment: Patient appears in no apparent distress at this time. No changes from mb9 previously documented assessment. Patient and/or family updated on plan of care and expected duration. Pain level reassessed. Patient is alert, oriented x 3, equal unlabored respirations, skin warm/dry/pink. Vital Signs: 11:01 BP 136 / 58; Pulse 64; Resp 18; Temp 98.4; Pulse Ox 100% ; Weight 72.57 kg; Height 5 ap3 ft. 2 in. ; Pain 4/10; 12:20 BP 168 / 72; Pulse 60; Resp 18; Pulse Ox 100% ; mb9 13:00 BP 150 / 70; Pulse 61; Resp 16; Pulse Ox 100% on R/A; mb9 11:01 Body Mass Index 29.26 (72.57 kg, 157.48 cm) ap3 11:01 Pain Scale: Adult ap3 ED Course: 10:37 Patient arrived in ED. rg4 10:38 Wilian Golden DO is Private Physician. rg4 10:42 Debbie Golden MD is Attending Physician. sp3 11:03 Triage completed. ap3 11:05 Arm band placed on right wrist. ap3 11:09 Gertrude Bonilla RN is Primary Nurse. mb9 11:13 property assessment monitor on. Pulse ox on. NIBP on. ap3 11:13 Patient has correct armband on for positive identification. Bed in low position. Call ap3 light in reach. Side rails up X2. Door closed. Noise minimized. Warm blanket given. 11:16 Provided Education on: press call light if needing anything. mb9 11:17 No provider procedures requiring assistance completed. mb9 11:28 Strep Sent. bc6 11:28 Flu Sent. bc6 11:28 SARS RAPID Sent. bc6 11:28 Basic Metabolic Panel Sent. bc6 11:28 CBC with Diff Sent. bc6 11:28 LFT's Sent. bc6 11:28 NT PRO-BNP Sent. bc6 11:28 Troponin HS Sent. bc6 11:28 Initial lab(s) drawn, by [place], sent to lab. COVID swab sent to lab. Flu and/or RSV swab bc6 sent to lab. Strep swab sent to lab. Missed attempt(s): 22 gauge in left antecubital area. 11:30 EKG done, by ED staff, reviewed by Debbie Golden MD. mb9 11:38 XRAY Chest (1 view) In Process Unspecified. EDMS 13:00 Patient did not have IV access during this emergency room visit. [email or web address] Administered Medications: No medications were administered Medication: 11:13 VIS not applicable for this client. ap3 Outcome: 13:01 Discharge ordered by . sp3 13:01 Discharged to home ambulatory, with family, anushka 13:01 Condition: stable 13:01 Discharge instructions given to patient, family, Instructed on discharge instructions, follow up and referral plans. Demonstrated understanding of instructions, follow-up care, medications, Prescriptions given X 1, 13:08 Patient left the ED. mb9 Signatures: Dispatcher [employer] Lorena Crespo4 Sofía Barlow RN RN ap3 Debbie Golden MD MD sp3 Gertrude Bonilla RN RN mb9 Sofi Carr 6
--- NOTE | 2023-10-03 13:02 | EDPHYS ---
Physician Documentation [facility] Name: Theresa Mancera Age: 83 yrs Sex: Female : 1940 Arrival Date: 10/03/2023 Time: 10:36 Bed 16 Private MD: [place] [facility] ED Physician Debbie Golden HPI: 10/02 11:13 This 83 yrs old Female presents to ER via Ambulatory with complaints of Flu Symptoms. sp3 11:13 83-year-old female with history of dementia, hypertension, hypothyroidism, lupus now sp3 presents to the ED with 2-week history of upper respiratory symptoms including cough, congestion and "yellow/green sputum". She denies any chest pain, back pain, vomiting, diarrhea, abdominal pain, headache, fever, ear pain, nose pain, sinus pain, rash, known sick contacts, travel history or any other signs or symptoms on ROS at this time.. Historical: - Allergies: 11:03 No Known Allergies; ap3 - PMHx: 11:03 Dementia; Hypertension; Hypothyroidism; Lupus; ap3 - Immunization history:: Client reports receiving the 2nd dose of the Covid vaccine, Flu vaccine is up to date. - Infectious Disease History:: Denies. - Social history:: Smoking status: Patient denies any tobacco usage or history of. ROS: 11:13 Constitutional: Negative for fever, chills, and weight loss, Eyes: Negative for injury, sp3 pain, redness, and discharge, Neck: Negative for injury, pain, and swelling, Cardiovascular: Negative for chest pain, palpitations, and edema, Abdomen/GI: Negative for abdominal pain, nausea, vomiting, diarrhea, and constipation, Back: Negative for injury and pain, MS/Extremity: Negative for injury and deformity, Skin: Negative for injury, rash, and discoloration, Neuro: Negative for headache, weakness, numbness, tingling, and seizure, Psych: Negative for depression, anxiety, suicide ideation, homicidal ideation, and hallucinations, Allergy/Immunology: Negative for hives, rash, and allergies, Endocrine: Negative for neck swelling, polydipsia, polyuria, polyphagia, and marked weight changes, Hematologic/Lymphatic: Negative for swollen nodes, abnormal bleeding, and unusual bruising, 11:13 All other systems are negative, Exam: 11:14 Constitutional: This is a well developed, well nourished patient who is awake, alert, sp3 and in no acute distress. Head/Face: Normocephalic, atraumatic. Eyes: Pupils equal round and reactive to light, extra-ocular motions intact. Lids and lashes normal. Conjunctiva and sclera are non-icteric and not injected. Cornea within normal limits. Periorbital areas with no swelling, redness, or edema. ENT: Nares patent. No nasal discharge, no septal abnormalities noted. External auditory canals are clear. Oropharynx with no redness, swelling, or masses, exudates, or evidence of obstruction, uvula midline. Mucous membranes moist. Neck: Trachea midline, no thyromegaly or masses palpated, and no cervical lymphadenopathy. Supple, full range of motion without nuchal rigidity, or vertebral point tenderness. No Meningismus. Chest/axilla: Normal chest wall appearance and motion. Nontender with no deformity. No lesions are appreciated. Cardiovascular: Regular rate and rhythm with a normal S1 and S2. No gallops, murmurs, or rubs. Normal PMI, no JVD. No pulse deficits. Abdomen/GI: Soft, non-tender, with normal bowel sounds. No distension or tympany. No guarding or rebound. No evidence of tenderness throughout. Back: No spinal tenderness. No costovertebral tenderness. Full range of motion. Skin: Warm, dry with normal turgor. Normal color with no rashes, no lesions, and no evidence of cellulitis. MS/ Extremity: Pulses equal, no cyanosis. Neurovascular intact. Full, normal range of motion. Neuro: Awake and alert, GCS 15, oriented to person, place, time, and situation. Cranial nerves II-XII grossly intact. Motor strength 5/5 in all extremities. Sensory grossly intact. Cerebellar exam normal. Normal gait. Psych: Awake, alert, with orientation to person, place and time. Behavior, mood, and affect are within normal limits. 11:14 Respiratory: Active cough without other findings., 12:25 ECG was reviewed by the Attending Physician. EKG demonstrates sinus bradycardia at 60 sp3 bpm with incomplete right bundle branch block and nonspecific diffuse changes without evidence of acute ischemia. Vital Signs: 11:01 BP 136 / 58; Pulse 64; Resp 18; Temp 98.4; Pulse Ox 100% ; Weight 72.57 kg; Height 5 ap3 ft. 2 in. ; Pain 4/10; 12:20 BP 168 / 72; Pulse 60; Resp 18; Pulse Ox 100% ; mb9 13:00 BP 150 / 70; Pulse 61; Resp 16; Pulse Ox 100% on R/A; mb9 11:01 Body Mass Index 29.26 (72.57 kg, 157.48 cm) ap3 11:01 Pain Scale: Adult ap3 MDM: 11:11 Patient medically screened. 3 11:14 Data reviewed: vital signs, nurses notes, lab test result(s), EKG, radiologic studies. sp3 ED course: 83-year-old female with cough and congestion. Differential diagnosis includes pneumonia, bronchitis, COVID-19, influenza, strep throat, pleurisy, ACS, among others. Workup will include chest x-ray, EKG, laboratory values and swabs. Disposition pending workup and patient course with probable discharge on oral antibiotics or other medications as indicated.. 12:58 ED course: Full workup is negative including swabs. Mild elevation in left shift in WBC sp3 count. Will treat as bronchitis and place patient on Zithromax and follow-up to PCP.. 10/02 11:12 Order name: Strep 3 10/02 11:12 Order name: Basic Metabolic Panel; Complete Time: 12:04 3 10/02 11:12 Order name: CBC with Diff; Complete Time: 12:04 sp3 10/02 11:12 Order name: LFT's; Complete Time: 12:04 3 10/02 11:12 Order name: NT PRO-BNP; Complete Time: 12:04 3 10/02 11:12 Order name: Troponin HS; Complete Time: 12:04 sp3 10/02 11:12 Order name: SARS RAPID; Complete Time: 12:59 sp3 10/02 11:12 Order name: Flu; Complete Time: 12:59 sp3 10/02 11:38 Order name: Manual Differential; Complete Time: 12:04 EDMS 10/02 12:18 Order name: Throat Culture EDME 10/02 11:12 Order name: XRAY Chest (1 view); Complete Time: 12:04 3 10/02 11:12 Order name: EKG - Nurse/Tech; Complete Time: 11:29 3 10/02 11:12 Order name: IV Saline Lock; Complete Time: 11:30 sp3 10/02 11:12 Order name: Labs collected and sent; Complete Time: 11:30 sp3 Administered Medications: No medications were administered Disposition Summary: 10/03/23 13:01 Discharge Ordered Notes: Location: Home sp3 Condition: Stable sp3 Diagnosis - Bronchitis, not specified as acute or chronic sp3 Followup: sp3 - With: Private Physician - When: Upon discharge from the Emergency Department - Reason: Continuance of care Discharge Instructions: - Discharge Summary Sheet sp3 - Acute Bronchitis, Adult sp3 Forms: - Medication Reconciliation Form sp3 - Thank You Letter sp3 - Antibiotic Education sp3 - Prescription Opioid Use sp3 - Patient Portal Instructions sp3 - Leadership Thank You Letter sp3 Prescriptions: - Zithromax Z-Adin 250 mg Oral Tablet - take 1 tablet ORAL route as directed for 5 days Day 1 - take two (2) tablets sp3 one time. Day 2, 3, 4 , 5 take one (1) tablet once daily.; 6 tablet; Refills: 0, Product Selection Permitted Signatures: Dispatcher [employer] Sofía Plaza RN RN ap3 Debbie Golden MD MD sp3 Gertrude Bonilla RN RN mb9
[2023-10-03 13:20] VITALS: BP 150/70; TEMP 98.4; O2SAT 100
== END 2023-10-03 13:08 | disposition home or self-care (01) ==
LOC: ER 10:36
DX: J40 Bronchitis, not specified as acute or chronic (principal); Z11.52 Encounter for screening for COVID-19; F03.90 Unspecified dementia, unspecified severity, without behavioral disturbance, psychotic disturbance, mood disturbance, and anxiety; I10 Essential (primary) hypertension
CPT/HCPCS: 36415; 71045; 80048; 80076; 83880; 84484; 85025; 87070; 87081; 87804; 87811; 93005; 99284

== ENCOUNTER 2023-12-15 19:34 | Emergency (ER) | payer OTHER ==
[2023-12-15 20:27] LABS: Absolute Basophils 0.1 K/uL (0-0.5); Absolute Lymphocytes (CBC) 1.2 K/uL (0.7-4.9); Absolute Monocytes 1.2 K/uL (0.1-1.3); Absolute Neutrophil 5.6 K/uL (1.8-8.0); Basophils % 0.9 % (0-1.3); Eosinophils % 0.6 % (0-4.4); Hematocrit 37.8 % (36.0-45.0); Hemoglobin 12.7 g/dL (12.0-15.0); MCH 31.8 pg (27.0-35.0); MCHC 33.6 g/dL (32.0-36.0); MCV 94.6 fL (80-100); MPV 6.9 fL (7.6-11.3); Monocytes % 14.6 % (3.3-12.3); Neutrophils % 68.9 % (41.7-73.7); Platelets 188 thou/uL (152-406)
[2023-12-15 20:46] LABS: SARS-CoV-2 Antigen CONTROL BLUE LINE VIS/BG OK
[2023-12-15 20:47] LABS: SARS-CoV-2 Antigen Rapid Res Positive (Negative)
[2023-12-15] MEDS ORDERED: NA CHLORIDE 0.9% 500 ML ONE (20:49)
[2023-12-15] MEDS ORDERED: ONDANSETRON 4 MG/2 ML VIAL ONE (20:49)
[2023-12-15 20:53] LABS: Albumin 3.3 g/dL (3.4-5.0); Albumin/Globulin Ratio 1.1 (1.1-1.8); Anion Gap 8.3 mEq/L (5.0-15.0); Bilirubin Total 0.5 mg/dL (0.2-1.0); Globulin 3.1 g/dL (2.3-3.5); Potassium 3.3 mEq/L (3.5-5.1); Protein, Total 6.4 g/dL (6.4-8.2)
--- NOTE | 2023-12-15 21:35 | RAD REPORT ---
EXAM DESCRIPTION: US - Extrem Venous W Compress Alon - 12/15/2023 9:25 pm CLINICAL HISTORY: PAIN Bilateral leg edema and swelling. COMPARISON: <Comparisons> TECHNIQUE: Real-time sonographic interrogation of the left and right lower extremity deep venous sys tems was performed. FINDINGS: Normal compressibility, flow augmentation, phasic flow and spontaneous flow is identified in both the left and right lower extremity deep venous systems. IMPRESSION: No sonographic evidence of left or right lower extremity deep venous thrombosis.
--- NOTE | 2023-12-15 22:01 | RAD REPORT ---
EXAM DESCRIPTION: CT - Head Brain Wo Cont - 12/15/2023 9:53 pm CLINICAL HISTORY: TRAUMA Trauma, head injury COMPARISON: <Comparisons> TECHNIQUE: All CT scans are performed using dose optimization technique as appropriate and may inclu de automated exposure control or mA/KV adjustment according to patient size. FINDINGS: No intracranial hemorrhage, hydrocephalus or extra-axial fluid collection.Mild generalized brain atrophy.No areas of brain edema or evidence of midline shift. The paranasal sinuses and mastoids are clear. The calvarium is intact. IMPRESSION: No acute intracranial abnormality.
--- NOTE | 2023-12-15 22:05 | RAD REPORT ---
EXAM DESCRIPTION: CTAbdomen Pelvis W Contrast - 12/15/2023 9:52 pm CLINICAL HISTORY: Abdominal pain. ABD PAIN COMPARISON: <Comparisons> TECHNIQUE: Biphasic CT imaging of the abdomen and pelvis was performed with 100 ml non-ionic IV cont rast. All CT scans are performed using dose optimization technique as appropriate and may include automated exposure control or mA/KV adjustment according to patient size. FINDINGS: Mild linear atelectasis.Small hiatal hernia. Cholecystectomy clips. The liver, spleen, pancreas, adrenal glands and kidneys are within normal limits. No bowel obstruction, free air, free fluid or abscess. Moderate stool is present in the colon. Aortoi liac atherosclerosis. The appendix is normal. No evidence of significant lymphadenopathy. Moderate lumbar degenerative changes. No acute fracture seen. IMPRESSION: No acute intra-abdominal or pelvic finding.
[2023-12-15] MEDS ORDERED: POTASSIUM CL SA 10 MEQ TAB PO ONE (22:34)
[2023-12-15] MEDS ORDERED: ACETAMINOPHEN 325 MG TABLET ONE (22:41)
[2023-12-15 22:58] LABS: Urine Bacteria 20-50 /HPF (<20); Urine Bilirubin NEGATIVE (Negative); Urine Blood Negative (Negative); Urine Clarity Extremely Turbid (Clear); Urine Color Light-Yellow (Yellow); Urine Culture Reflex Order NOT NEEDED; Urine Glucose NEGATIVE (Negative); Urine Ketones 1+ (Negative); Urine Microscopic Reflex YN ORDER UMIC; Urine Mucus Slight /HPF (None Seen); Urine Nitrite NEGATIVE (Negative); Urine Protein NEGATIVE (Negative); Urine RBC None Seen /HPF (None Seen); Urine Urobilinogen Normal (Normal); Urine WBC <5 /HPF (<5)
[2023-12-15 23:01] LABS: Specific Gravity > 1.030 (1.005-1.030)
--- NOTE | 2023-12-15 23:06 | EDPHYS ---
Physician Documentation [facility] Name: Theresa Mancera Age: 83 yrs Sex: Female : 1940 Arrival Date: 12/15/2023 Time: 19:34 Bed 16 Private MD: ED Physician Afshin Suárez HPI: 12/14 23:29 This 83 yrs old Female presents to ER via EMS with complaints of Fever, Fall Injury. kb 23:29 Pt is an 83 year old female who presents for bilateral leg pain and weakness that kb started over the weekend. States she was on a cruise and was walking more than normal. States she did fall out of bed this morning and hit her head as well, but that doesn't hurt. Denies any other symptoms. Denies fever, cough, congestion, chest pain, shortness of breath. Historical: - Allergies: 19:43 No Known Allergies; ha1 - Home Meds: 19:43 furosemide 40 mg Oral tab 1 tab as needed [Active]; ha1 - PMHx: 19:43 Dementia; Hypertension; Hypothyroidism; Lupus; ha1 - PSHx: 19:43 Cholecystectomy; hysterectomy; ha1 - Immunization history:: Adult Immunizations up to date. - Infectious Disease History:: Denies. - Social history:: Smoking status: Patient denies any tobacco usage or history of. ROS: 23:29 Constitutional: As per HPI kb Exam: 23:29 Constitutional: This is a well developed, well nourished patient who is awake, alert, kb and in no acute distress. Head/Face: Normocephalic, atraumatic. ENT: Moist Mucous membranes Cardiovascular: Regular rate Respiratory: Respirations even and unlabored. No increased work of breathing. Talking in full sentences Skin: Warm, dry with normal turgor. Normal color. MS/ Extremity: Pulses equal, no cyanosis. Neurovascular intact. Full, normal range of motion. Neuro: Awake and alert, GCS 15, oriented to person, place, time, and situation. Moves all extremities. Normal gait. 23:29 Abdomen/GI: Inspection: abdomen appears normal, Bowel sounds: normal, Palpation: soft, in all quadrants, moderate abdominal tenderness, in the right upper quadrant and right lower quadrant, Vital Signs: 19:41 BP 136 / 51; Pulse 71; Resp 18; Temp 99.2(O); Pulse Ox 96% on R/A; Weight 76.2 kg; oe Height 5 ft. 2 in. ; 20:45 BP 139 / 54; Pulse 76; Resp 17 S; Pulse Ox 97% on R/A; ha1 21:20 BP 139 / 64; Pulse 72; Resp 17 S; Pulse Ox 94% on R/A; ha1 22:30 BP 125 / 65; Pulse 77; Resp 17 S; Pulse Ox 95% on R/A; ha1 19:41 Body Mass Index 30.73 (76.20 kg, 157.48 cm) oe MDM: 19:46 Patient medically screened. kb 23:30 Differential diagnosis: covid, flu, dvt, myalgia, strain, uti. Data reviewed: vital kb signs, nurses notes. Historians other than the Patient: Spouse/Significant Other: . Counseling: I had a detailed discussion with the patient and/or guardian regarding the historical points, exam findings, and any diagnostic results supporting the discharge/admit diagnosis, lab results, radiology results, the need for outpatient follow up, a family practitioner, to return to the emergency department if symptoms worsen or persist or if there are any questions or concerns that arise at home. 23:31 ED course: During exam, pt had right sided abd tenderness. Pt states "I think I just kb ate too much on the cruise but I have had some nausea." . 12/14 20:09 Order name: CBC with Diff; Complete Time: 20:34 kb 12/14 20:09 Order name: CMP; Complete Time: 21:03 kb 12/14 20:09 Order name: Lipase; Complete Time: 21:03 kb 12/14 20:09 Order name: Urinalysis w/ reflexes; Complete Time: 23:05 kb 12/14 20:09 Order name: Flu; Complete Time: 21:03 kb 12/14 20:09 Order name: SARS-COV-2 Antigen Rapid; Complete Time: 21:03 kb 12/14 20:09 Order name: CT Abd/Pelvis - IV Contrast Only; Complete Time: 22:09 kb 12/14 20:09 Order name: US Extremity Venous W Compression Alon; Complete Time: 21:39 kb 12/14 20:09 Order name: CT Head Brain wo Cont; Complete Time: 22:09 kb 12/14 20:09 Order name: IV Saline Lock; Complete Time: 20:23 kb 12/14 20:09 Order name: Labs collected and sent; Complete Time: 20:23 kb Administered Medications: 20:54 Drug: Ondansetron IVP 4 mg IVP once; over 2 minutes Route: IVP; Site: left hand; ha1 20:54 Drug: NS 0.9% IV 500 ml IV at bolus once Route: IV; Rate: bolus; Site: left hand; ha1 23:00 Follow up: Response: No adverse reaction ha1 22:40 Drug: Potassium Chloride PO 20 mEq PO once Route: PO; ha1 23:00 Follow up: Response: No adverse reaction ha1 22:45 Drug: Acetaminophen PO 650 mg PO once Route: PO; ha1 23:25 Follow up: Response: No adverse reaction; Marked relief of symptoms; Pain is decreased ha1 23:15 Drug: Amoxicillin-Clavulanate PO 875 mg PO once Route: PO; ha1 23:25 Follow up: Response: No adverse reaction ha1 Disposition Summary: 12/15/23 23:05 Discharge Ordered Notes: Location: Home kb Condition: Stable kb Diagnosis - UTI/ Urinary tract infection, site not specified kb - SARS-associated coronavirus as the cause of diseases classified elsewhere kb Followup: kb - With: Emergency Department - When: As needed - Reason: Worsening of condition Followup: kb - With: Private Physician - When: 2 - 3 days - Reason: Recheck today's complaints, Continuance of care, Re-evaluation by your physician Discharge Instructions: - Discharge Summary Sheet kb - Urinary Tract Infection, Adult, [id number] kb - COVID-19 kb Forms: - Medication Reconciliation Form kb - Antibiotic Education kb - Prescription Opioid Use kb - Patient Portal Instructions kb - Leadership Thank You Letter kb Prescriptions: - Augmentin 875-125 mg Oral Tablet - take 1 tablet ORAL route every 12 hours for 10 days; 20 tablet; Refills: 0, kb Product Selection Permitted Signatures: Dispatcher [employer] Emily Parikh, JAY-C WINDOW TRIMMER-Nely Alas RN RN ha1 Corrections: (The following items were deleted from the chart) 20:10 20:10 CBC+H.LAB.BRZ ordered. EDMS EDMS 20:10 20:10 COMPREHENSIVE METABOLIC PANEL+C.LAB.BRZ ordered. EDMS EDMS 20:10 20:10 LIPASE+C.LAB.BRZ ordered. EDMS EDMS 20:10 20:10 Urinalysis+U.LAB.BRZ ordered. EDMS EDMS 20:10 20:10 Influenza Screen (A \\T\\ B)+BA.LAB.BRZ ordered. EDMS EDMS 20:10 20:10 SARS-COV-2 Antigen Rapid+I.LAB.BRZ ordered. EDMS EDMS 20:10 20:10 Head Brain Wo Cont+CT.RAD.BRZ ordered. EDMS EDMS 23:32 23:29 Pt is an 83 year old female who presents for bilateral leg pain and weakness that kb started over the weekend. States she was on a cruise and was walking more than normal. States she did fall out of bed this morning and hit her head as well, but that doesn't hurt. Denies any other symptoms. . kb
--- NOTE | 2023-12-15 23:06 | ER ---
Nurse's Notes [facility] Name: Theresa Mancera Age: 83 yrs Sex: Female : 1940 Arrival Date: 12/15/2023 Time: 19:34 Bed 16 Private MD: Diagnosis: UTI/ Urinary tract infection, site not specified;SARS-associated coronavirus as the cause of diseases classified elsewhere Presentation: 12/14 19:39 Chief complaint: EMS states: 83 year old female reports having fever, body aches, and ha1 weakness. One hour prior our arrival she fell and hit her head . NO LOC. No blood thinners. 19:39 Coronavirus screen: Vaccine status: Patient reports receiving the 2nd dose of the covid ha1 vaccine. Ebola Screen: No symptoms or risks identified at this time. Initial Sepsis Screen: Does the patient meet any 2 criteria? No. Patient's initial sepsis screen is negative. Does the patient have a suspected source of infection? No. Patient's initial sepsis screen is negative. Risk Assessment: Do you want to hurt yourself or someone else? Patient reports no desire to harm self or others. Onset of symptoms was December 15, 2023. 19:39 Method Of Arrival: EMS: [facility] ha1 19:39 Acuity: RADHA 3 ha1 Triage Assessment: 19:40 General: Appears comfortable, Behavior is calm, cooperative. Pain: Complains of pain in ha1 body aches. Neuro: Level of Consciousness is awake, alert, obeys commands, Oriented to person, place, time, situation. Cardiovascular: Capillary refill < 3 seconds Patient's skin is warm and dry. Respiratory: Airway is patent Respiratory effort is even, unlabored, Respiratory pattern is regular, symmetrical. GI: No signs and/or symptoms were reported involving the gastrointestinal system. Abdomen is round non-distended. : No signs and/or symptoms were reported regarding the genitourinary system. Musculoskeletal: No signs and/or symptoms reported regarding the musculoskeletal system. Circulation, motion, and sensation intact. Historical: - Allergies: 19:43 No Known Allergies; ha1 - Home Meds: :43 furosemide 40 mg Oral tab 1 tab as needed [Active]; ha1 - PMHx: 19:43 Dementia; Hypertension; Hypothyroidism; Lupus; ha1 - PSHx: 19:43 Cholecystectomy; hysterectomy; ha1 - Immunization history:: Adult Immunizations up to date. - Infectious Disease History:: Denies. - Social history:: Smoking status: Patient denies any tobacco usage or history of. Screenin:39 [facility] ED Fall Risk Assessment (Adult) History of falling in the last 3 months, ha1 including since admission Yes- single mechanical fall (1 pt) Confusion or Disorientation Yes (5 pts) Intoxicated or Sedated No (0 pts) Impaired Gait No (0 pts) Mobility Assist Device Used Yes (1 pt) Altered Elimination No (0 pt) Score/Fall Risk Level 3 or more points = High Risk Oriented to surroundings, Maintained a safe environment, Educated pt \T\ family on fall prevention, incl call for assistance when getting out of bed, Hourly rounding (assess needs \T\ fall precautionary measures) done. Abuse screen: Denies threats or abuse. Denies injuries from another. Nutritional screening: No deficits noted. Tuberculosis screening: No symptoms or risk factors identified. Primary Survey: 21:00 NO uncontrolled hemorrhage observed. Breathing/Chest: Spontaneous respiratory effort, ha1 equal unlabored respirations, breath sounds clear bilaterally, regular pattern, symmetrical chest rise and fall. Respiratory effort: spontaneous. Circulation: No external hemorrhage present. Regular and strong central pulse, skin warm/dry/normal color. Disability Pupils are equal, round, reactive to light and accommodation. Exposure/Environment: All clothing and personal items were removed. Forensic evidence collection is not deemed to be indicated at this time. Items placed in patient belonging bag. Reassessment Breathing: Spontaneous respiratory effort, equal unlabored respirations, breath sounds clear bilaterally, regular pattern with symmetrical chest rise and fall. Circulation: No external hemorrhage noted. Regular and strong central pulse, skin warm/dry/normal color. Disability: Pupils Pupils are equal, round, reactive to light and accomodation. Assessment: 19:45 Reassessment: see triage assessment. ha1 20:45 Reassessment: Patient and/or family updated on plan of care and expected duration. Pain ha1 level reassessed. Patient is alert, oriented x 3, equal unlabored respirations, skin warm/dry/pink. 21:40 Reassessment: Patient and/or family updated on plan of care and expected duration. Pain ha1 level reassessed. Patient is alert, oriented x 3, equal unlabored respirations, skin warm/dry/pink. 22:45 Reassessment: Patient and/or family updated on plan of care and expected duration. Pain ha1 level reassessed. Patient is alert, oriented x 3, equal unlabored respirations, skin warm/dry/pink. Vital Signs: 19:41 BP 136 / 51; Pulse 71; Resp 18; Temp 99.2(O); Pulse Ox 96% on R/A; Weight 76.2 kg; oe Height 5 ft. 2 in. ; 20:45 BP 139 / 54; Pulse 76; Resp 17 S; Pulse Ox 97% on R/A; ha1 21:20 BP 139 / 64; Pulse 72; Resp 17 S; Pulse Ox 94% on R/A; ha1 22:30 BP 125 / 65; Pulse 77; Resp 17 S; Pulse Ox 95% on R/A; ha1 19:41 Body Mass Index 30.73 (76.20 kg, 157.48 cm) oe ED Course: 19:39 Patient arrived in ED. ha1 19:39 Nely Wilson, RN is Primary Nurse. ha1 19:39 Patient has correct armband on for positive identification. Placed in gown. Bed in low ha1 position. Call light in reach. Side rails up X2. Adult w/ patient. 19:43 Triage completed. ha1 19:46 Emily Hansen FNP-C is PHCP. kb 19:46 Afshin Suárez DO is Attending Physician. kb 20:10 Missed attempt(s): 20 gauge in left antecubital area. Bleeding controlled, band aid oe applied, catheter tip intact. 20:22 Inserted saline lock: 22 gauge in right wrist, using aseptic technique. Blood collected.oe 20:23 SARS-COV-2 Antigen Rapid Sent. oe 20:23 Flu Sent. oe 20:23 CBC with Diff Sent. oe 20:23 CMP Sent. oe 20:23 Lipase Sent. oe 21:27 US Extremity Venous W Compression Alon In Process Unspecified. EDMS 21:54 CT Abd/Pelvis - IV Contrast Only In Process Unspecified. EDMS 21:54 CT Head Brain wo Cont In Process Unspecified. EDMS 23:29 No provider procedures requiring assistance completed. IV discontinued, intact, ha1 bleeding controlled, No redness/swelling at site. Pressure dressing applied. 23:29 Provided Education on: follow ups and meds. ha1 Administered Medications: 20:54 Drug: Ondansetron IVP 4 mg IVP once; over 2 minutes Route: IVP; Site: left hand; ha1 20:54 Drug: NS 0.9% IV 500 ml IV at bolus once Route: IV; Rate: bolus; Site: left hand; ha1 23:00 Follow up: Response: No adverse reaction ha1 22:40 Drug: Potassium Chloride PO 20 mEq PO once Route: PO; ha1 23:00 Follow up: Response: No adverse reaction ha1 22:45 Drug: Acetaminophen PO 650 mg PO once Route: PO; ha1 23:25 Follow up: Response: No adverse reaction; Marked relief of symptoms; Pain is decreased ha1 23:15 Drug: Amoxicillin-Clavulanate PO 875 mg PO once Route: PO; ha1 23:25 Follow up: Response: No adverse reaction ha1 Medication: 21:23 VIS not applicable for this client. ha1 Outcome: 23:05 Discharge ordered by . kb 23:29 Discharged to home via wheelchair, ha1 23:29 Discharged to home with family, 23:29 Condition: stable 23:29 Discharge instructions given to patient, family, Instructed on discharge instructions, follow up and referral plans. medication usage, Demonstrated understanding of instructions, follow-up care, medications, 23:30 Patient left the ED. ha1 Signatures: Dispatcher [employer] EDEmily Connell, JAY-Nadia AMINP-Felipe Valdovinos Heidy, SNEHA RN ha1
[2023-12-15] MEDS ORDERED: AMOX/K CLAV 875 MG TAB ONE (23:14)
[2023-12-16 01:07] VITALS: BP 125/65; TEMP 99.2; O2SAT 95
== END 2023-12-15 23:30 | disposition home or self-care (01) ==
LOC: ER 19:34
DX: U07.1 COVID-19 (principal); N39.0 Urinary tract infection, site not specified; F03.90 Unspecified dementia, unspecified severity, without behavioral disturbance, psychotic disturbance, mood disturbance, and anxiety
CPT/HCPCS: 85025; 81001; 36415; 83690; 80053; 87804 ×2; 70450; 74177; 93970; 96374; 99284; 87811; Q9967; J2405; J7040